=== PATIENT | male | born 1945 | race Two or more races ===

== ENCOUNTER 2020-03-17 15:31 | Inpatient (IN) | payer OTHER ==
[~2020-03-17] VITALS: Ht 167.6 cm; Wt 127.3 kg
[~2020-03-17 15:31] MED LIST: AML5T PO; ASPI-231 PO; ATOR10TA52 PO; CAR125T PO; FURO1TAB31 PO; INSLANTI SC; INSUINJ47 SC; METF-372 PO; SERT-160 PO
[2020-03-17 16:17] LABS: Basophils # (auto) 0.1 10 ^3/uL (0-0.2); Basophils % (auto) 1.3 % (0.0-2.0); Eosinophils # (auto) 0.3 10 ^3/uL (0-0.8); Eosinophils % (auto) 3.4 % (0.0-7.0); Hematocrit 44.2 % (41.0-53.0); Hemoglobin 15.2 g/dL (13.5-17.5); Lymphocytes # (auto) 1.1 10 ^3/uL (0.4-5.4); Lymphocytes % (auto) 11.3 % (10.0-50.0); Mean Corpuscular Hemoglobin 28.4 pg (28.0-32.0); Mean Corpuscular Hgb Conc. 34.4 g/dL (32.0-36.0); Mean Corpuscular Volume 82.6 fL (80.0-100.0); Monocytes # (auto) 1.1 10 ^3/uL (0-1.3); Monocytes % (auto) 11.3 % (0.0-12.0); Neutrophils # (auto) 7.4 10 ^3/uL (1.6-8.6); Neutrophils % (auto) 72.7 % (37.0-80.0); Nucleated Red Blood Cells % 0.1 %; Platelet Count (auto) 430 10^3/uL (140-450); Red Blood Cells 5.35 10^6/uL (4.5-5.90); Red Cell Distribution Width 14.5 % (11.8-14.3); White Blood Cell 10.1 10^3/uL (4.4-10.8)
[2020-03-17 16:29] LABS: Alanine Aminotransferase 57 U/L (16-61); Albumin 2.6 g/dL (3.4-5.0); Anion Gap 9 (5-15); BUN/Creatinine Ratio 20.7; Blood Urea Nitrogen 35 mg/dL (7-18); Calcium 8.6 mg/dL (8.5-10.1); Carbon Dioxide 27 mmol/L (21-32); Chloride 91 mmol/L (98-107); GFR African American 52 mL/min; GFR Non-African American 43 mL/min; Glucose 131 mg/dL (74-106); Potassium 3.5 mmol/L (3.5-5.1); Sodium 127 mmol/L (136-145)
[2020-03-17 16:33] LABS: Alkaline Phosphatase 70 U/L (45-117); Aspartate Aminotransferase 39 U/L (15-37); Bilirubin, Total 0.8 mg/dL (0.2-1.0); Total Protein 6.9 g/dL (6.4-8.2)
[2020-03-17 16:46] LABS: Lactic Acid w/Reflex 2.4 mmol/L (0.4-2.0)
[2020-03-17] MEDS ORDERED: ZINC SULFATE 220mg CAP or TAB PO ONE (17:15)
[2020-03-17] MEDS ORDERED: DOXYCYCLINE 100MG/250ML 250 ML IV ONE (17:15)
[2020-03-17] MEDS ORDERED: DexAMETHasone 4 MG TAB PO ONE (17:15)
[2020-03-17] MEDS ORDERED: ASCORBIC ACID 500 MG TAB PO ONE (17:15)
[2020-03-17] MEDS ORDERED: SODIUM CHLORIDE 0.9% 500 ML IV ONE (17:30)
[2020-03-17] MEDS ORDERED: NITROGLYCERIN 0.4 MG SL TAB SL PRN (18:00)
[2020-03-17] MEDS ORDERED: SODIUM CHLORIDE 0.9% 1,000 ML IV ONE (18:00)
[2020-03-17] MEDS ORDERED: MORPHINE SULF INJ 2 MG/ML SYRINGE 1ML IV PRN (18:00)
[2020-03-17 18:54] LABS: INR 1.31 (0.9-1.15)
[2020-03-17] MEDS: cefTRIAXone 1GM/50ML D5W 50 ML IV SCH (19:36)
[2020-03-17 22:30] VITALS: BP 126/70
--- NOTE | 2020-03-17 22:30 | NUR ---
Telemetry admit from HIMA CEDILLO admitted to Telemetry unit after SBAR received. Patient oriented to Sharan dejesus RN, unit, room 233, bed, and unit policies regarding patient care and visiting hours. Patient now on continuous telemetry monitoring, tele box #3 and telemetry reading on arrival to unit is Afib 81. Patient placed on bedside oxygen, weighed by bedscale and encouraged to call if they need something. All questions and concerns addressed, patient verbalized understanding.
[2020-03-17] MEDS ORDERED: METF-370 PO (22:36)
[2020-03-17] MEDS ORDERED: AMLO5TAB15 PO (22:36)
[2020-03-17] MEDS ORDERED: CLOP75TA28 PO (22:36)
[2020-03-17 22:49] VITALS: BP 126/70
[2020-03-18 03:36] LABS: Urine Bacteria FEW /hpf (None Seen); Urine Blood 2+ /uL (Negative); Urine Mucus FEW (None Seen); Urine Specific Gravity 1.006 (1.001-1.035); Urine WBC 16 /hpf (0 - 3); Urine WBC Clumps PRESENT /hpf (None Seen)
[2020-03-18 05:00] VITALS: BP 113/70
[2020-03-18 07:05] LABS: Basophils # (auto) 0 10 ^3/uL (0-0.2); Basophils % (auto) 0.3 % (0.0-2.0); Eosinophils # (auto) 0 10 ^3/uL (0-0.8); Eosinophils % (auto) 0.2 % (0.0-7.0); Hematocrit 45.2 % (41.0-53.0); Hemoglobin 15.5 g/dL (13.5-17.5); Lymphocytes # (auto) 0.7 10 ^3/uL (0.4-5.4); Mean Corpuscular Hemoglobin 28.7 pg (28.0-32.0); Mean Corpuscular Hgb Conc. 34.3 g/dL (32.0-36.0); Mean Corpuscular Volume 83.7 fL (80.0-100.0); Monocytes # (auto) 0.3 10 ^3/uL (0-1.3); Neutrophils # (auto) 5.8 10 ^3/uL (1.6-8.6); Neutrophils % (auto) 84.5 % (37.0-80.0); Nucleated Red Blood Cells % 0.1 %; Platelet Count (auto) 414 10^3/uL (140-450); Red Blood Cells 5.39 10^6/uL (4.5-5.90); Red Cell Distribution Width 14.3 % (11.8-14.3); White Blood Cell 6.9 10^3/uL (4.4-10.8)
--- NOTE | 2020-03-18 07:13 | NUR ---
Respiratory note: PT IS AWAKE, AND ALERT. NO RESPIRATORY DISTRESS NOTED. SPO2 98% ON 4L NC, HR 88, RR 18, BS CLEAR/DIMINISHED BILATERALLY. NO FURTHER RESPIRATORY INTERVENTIONS INDICATED. WILL CONTINUE TO MONITOR PT.
[2020-03-18 07:22] LABS: BUN/Creatinine Ratio 25.6; Calcium 8.5 mg/dL (8.5-10.1); Potassium 3.8 mmol/L (3.5-5.1)
[2020-03-18 08:58] VITALS: BP 109/68
[2020-03-18] MEDS: DexAMETHasone SOD PHOS 10MG/1ML VIAL INJ IV SCH (09:19)
[2020-03-18] MEDS: AZITHROMYCIN 500MG/ 250ML 250 ML IV SCH (09:19)
[2020-03-18] MEDS: cefTRIAXone 1GM/50ML D5W 50 ML IV SCH (09:19)
--- NOTE | 2020-03-18 09:36 | NUR ---
SPOKE TO Dorcas BROWN REGARDING PATIENT STATUS. INFORMED OF PATIENT CURRENT STATUS AND CURRENT VITALS. INFORMED OF PATIENT ON 4L NC. INFORMED OF PATIENT PMH AND HOME MEDICATIONS. INSTRUCTED TO RESUME HOME MEDICATIONS BUT NOT METFORMIN. INSTRUCTED TO PLACE PATIENT ON A MODERATE ACHS SLIDING SCALE AND 15 UNITS OF LANTUS AT NIGHT TIME. ALSO INSTRUCTED TO HOLD OFF ON FLUIDS AT THIS TIME. WILL FOLLOW THROUGH.
[2020-03-18] MEDS ORDERED: DEXTROSE (50%) 50ML SYRG IV PRN (09:45)
--- NOTE | 2020-03-18 09:58 | NUR ---
Dorcas RODGERS AT BEDSIDE. INFORMED OF PATIENTS STATUS AND CURRENT VITALS. INFORMED PATIENT IS CURRENTLY ON 4L NC UP FROM BASELINE OF 2L NC UPON DISCHARGE FROM [facility] ON SUNDAY. RECEIVED NEW ORDERS,
[2020-03-18 11:00] VITALS: BP 114/82
--- NOTE | 2020-03-18 11:00 | NUR ---
SPOKE TO Dorcas BROWN PER HIS REQUEST. INFORMED HIM THAT Dorcas HART HAS ROUNDED ON PATIENT AND OF NEW ORDERS RECEIVED. NO NEW ORDERS RECEIVED FROM Dorcas
[2020-03-18] MEDS: ACCU-CHEK COMFORT CURVE STRIP VI SCH ×3 (11:30→22:19)
[2020-03-18] MEDS: ZINC SULFATE 220mg CAP or TAB PO SCH (11:50)
[2020-03-18] MEDS: CLOPIDOGREL BISULFATE 75 MG TAB PO SCH (11:50)
[2020-03-18] MEDS: ASCORBIC ACID 1,000 MG TAB PO SCH (11:50)
[2020-03-18] MEDS: CHOLECALCIFEROL (VITD3) 2,000 UNIT CAP PO SCH (11:51)
[2020-03-18] MEDS: ENOXAPARIN SOD 40 MG/0.4 ML SYRINGE SC SCH (11:51)
[2020-03-18] MEDS: CARVEDILOL 12.5 MG TAB PO SCH ×2 (11:52→22:23)
[2020-03-18] MEDS: InsuLIN REG 1unit/0.01ml Soln (100units/ml) SC SCH ×2 (12:34→17:56)
[2020-03-18 13:00] VITALS: BP 114/81
[2020-03-18] MEDS: ALBUTEROL SULF HFA 90MCG INH 200DOSE IN SCH ×2 (14:25→22:45)
[2020-03-18 17:18] VITALS: BP 116/72
[2020-03-18 22:00] VITALS: BP 118/73
[2020-03-18] MEDS ORDERED: InsuLIN REG 1unit/0.01ml Soln (100units/ml) SC SCH (22:00)
[2020-03-18] MEDS ORDERED: INSULIN LANTUS (GLARGINE) 1 /0.01ml (100units/ml) SC SCH (22:00)
[2020-03-19 05:00] VITALS: BP 130/79
[2020-03-19] MEDS: ACCU-CHEK COMFORT CURVE STRIP VI SCH ×3 (06:22→17:48)
[2020-03-19] MEDS: InsuLIN REG 1unit/0.01ml Soln (100units/ml) SC SCH ×3 (06:24→17:50)
--- NOTE | 2020-03-19 06:58 | NUR ---
closing note no s/s of distress at this time. pt says he "feels good". respirations even and nonlabored on 4Lnc.
[2020-03-19] MEDS: ALBUTEROL SULF HFA 90MCG INH 200DOSE IN SCH ×2 (07:20→14:08)
--- NOTE | 2020-03-19 07:20 | NUR ---
OPENING NOTE ASSUMED CARE OF PT. ALERT AND ORIENTED. NO S/S OF SOB/DISTRESS NOTED. BED SET TO LOWEST POSITION/LOCKED. BEDSIDE RAILS UP X2. CALL LIGHT WITHIN REACH. INSTRUCTED PT TO CALL FOR ASSISTANCE. UPDATED ON POC. WILL CONTINUE TO MONITOR Q1HR AND PRN.
--- NOTE | 2020-03-19 07:30 | NUR ---
DECREASED TO 3LPM NC. AFTER TX. Addendum: 03/19/20 at 0753 by Lenore Matthews RT Amended: Links added.
[2020-03-19 08:14] VITALS: BP 122/78
[2020-03-19] MEDS: cefTRIAXone 1GM/50ML D5W 50 ML IV SCH (09:50)
[2020-03-19] MEDS: ZINC SULFATE 220mg CAP or TAB PO SCH (09:51)
[2020-03-19] MEDS: AZITHROMYCIN 500MG/ 250ML 250 ML IV SCH (09:51)
[2020-03-19] MEDS: DexAMETHasone SOD PHOS 10MG/1ML VIAL INJ IV SCH (09:51)
[2020-03-19] MEDS: ASCORBIC ACID 1,000 MG TAB PO SCH (09:52)
[2020-03-19] MEDS: ENOXAPARIN SOD 40 MG/0.4 ML SYRINGE SC SCH (09:52)
[2020-03-19] MEDS: CARVEDILOL 12.5 MG TAB PO SCH (09:52)
[2020-03-19] MEDS: CHOLECALCIFEROL (VITD3) 2,000 UNIT CAP PO SCH (09:52)
[2020-03-19] MEDS: CLOPIDOGREL BISULFATE 75 MG TAB PO SCH (09:52)
--- NOTE | 2020-03-19 10:14 | NUR ---
MD ATTEMPTED TO CALL DR. BROWN PER HIS REQUEST. NO ANSWER AND UNABLE TO LEAVE A MESSAGE. WILL ATTEMPT AT A LATER TIME.
[2020-03-19 10:48] LABS: BUN/Creatinine Ratio 24.8; Calcium 9.6 mg/dL (8.5-10.1); Potassium 4.1 mmol/L (3.5-5.1)
--- NOTE | 2020-03-19 11:25 | NUR ---
SPO2 ON RA PATIENT SPO2 ON SITTING DOWN ON RA IS 89%. PER PATIENT HE HAS HOME 02. WILL INFORM
--- NOTE | 2020-03-19 11:31 | NUR ---
RECEIVED NEW ORDER TO DISCHARGE THIS PATIENT BY DR. BROWN VIA TELEPHONE. THIS NURSE WILL CARRY OUT NEW ORDERS.
[2020-03-19 13:00] VITALS: BP 123/78
--- NOTE | 2020-03-19 14:17 | NUR ---
TRANSPORTATION PATIENT [facility] PICK[facility] . PER RAMÍREZ TANK TENDER TIME WILL BE AT 1945.
--- NOTE | 2020-03-19 15:20 | NUR ---
PT. FOUND ON RA , SPO2 90%, PLACED BACK ON AT 3LPM. Addendum: 03/19/20 at 1520 by Lenore Matthews RT Amended: Links added.
[2020-03-19 17:00] VITALS: BP 120/85
[2020-03-19 17:07] VITALS: BP 123/95
--- NOTE | 2020-03-19 18:51 | NUR ---
Discharge instructions given as ordered. Encourage to follow up with PMD as instructed. All questions and concerns addressed. Patient verbalized understanding. IV removed with catheter intact, pressure dressing applied.
--- NOTE | 2020-03-19 19:47 | NUR ---
PT IV AND TELE MONITOR REMOVED. PT LEAVING WITH SIDDHARTHAK AT THIS TIME.
== END 2020-03-19 19:47 | disposition home or self-care (01) | DRG 177 ==
LOC: ER 15:31 → TELE 15:32 → TELE-EAST 21:35
PROVIDERS: ADMIT Internal Medicine; ATTEND Internal Medicine
DX: U07.1 COVID-19 (principal); J96.00 Acute respiratory failure, unspecified whether with hypoxia or hypercapnia; J12.89 Other viral pneumonia; N17.9 Acute kidney failure, unspecified; E87.1 Hypo-osmolality and hyponatremia; I50.42 Chronic combined systolic (congestive) and diastolic (congestive) heart failure; Z68.42 Body mass index [BMI] 45.0-49.9, adult; I13.0 Hypertensive heart and chronic kidney disease with heart failure and stage 1 through stage 4 chronic kidney disease, or unspecified chronic kidney disease; J44.0 Chronic obstructive pulmonary disease with (acute) lower respiratory infection; E78.5 Hyperlipidemia, unspecified; I25.10 Atherosclerotic heart disease of native coronary artery without angina pectoris; E66.01 Morbid (severe) obesity due to excess calories; E86.0 Dehydration; N18.9 Chronic kidney disease, unspecified; E11.22 Type 2 diabetes mellitus with diabetic chronic kidney disease; I25.2 Old myocardial infarction; Z79.4 Long term (current) use of insulin; Z79.82 Long term (current) use of aspirin; Z79.899 Other long term (current) drug therapy; Z82.49 Family history of ischemic heart disease and other diseases of the circulatory system; Z83.3 Family history of diabetes mellitus; Z86.73 Personal history of transient ischemic attack (TIA), and cerebral infarction without residual deficits
CPT/HCPCS: 36415; 36600; 71045; 71250; 80048; 80053; 81001; 82728; 82805; 82962; 83605; 83880; 84484; 85025; 85379; 85610; 86141; 87040; 87081; 87426; 93005; 94640; 99291; G0378; J0696; J1100; J1815; J3490

== ENCOUNTER → 2020-06-04 | Outpatient (CLI) | payer MEDICARE, OTHER ==
[~2020-06-04] MED LIST changes: +AMLO5TAB15 PO; +CLOP75TA28 PO; +FUROSEMIDE 100 MG/10ML VIAL IV ONE; +FUROSEMIDE 40 MG/4 ML VIAL ONE; +METF-370 PO; +POTASSIUM CHL 10 Meq TABLET PO ONE; +POTASSIUM CHL 20 Meq TABLET PO ONE
[2020-06-04 11:20] VITALS: BP 140/87
--- NOTE | 2020-06-04 11:20 | NUR ---
CLINIC PT ARRIVED TO THE [facility]F CLINIC FROM BACK OFFICE WITH ORDERS FOR IV DIURETICS, A/OX4, BROUGHT BACK IN WHEELCHAIR, ASSISTED BY JEAN VO, BREATHING IS EVEN AND UNLABORED.
--- NOTE | 2020-06-04 11:32 | NUR ---
LABS DRAWN AND SENT
[2020-06-04 12:03] VITALS: BP 154/91
--- NOTE | 2020-06-04 12:03 | NUR ---
Discharge Instructions See e-MAR for any mediations given with this visit. Patient education given on disease process. Patient verbalized understanding. Patient discharged in stable condition with after care instructions and follow up appointment. NOTE MONSERRAT IVP ADMIN BY JOSE LU ADMIN BY OMAIRA PARMAR
[2020-06-04 16:19] LABS: Albumin 3.2 g/dL (3.4-5.0); Calcium 8.3 mg/dL (8.5-10.1); Potassium 3.9 mmol/L (3.5-5.1)
[2020-06-04 16:25] LABS: BUN/Creatinine Ratio 15.9; Bilirubin, Direct 0.5 mg/dL (0-0.2); Bilirubin, Total 1.1 mg/dL (0.2-1.0)
[2020-06-04 16:26] LABS: Basophils # (auto) 0.1 10 ^3/uL (0-0.2); Basophils % (auto) 1.3 % (0.0-2.0); Eosinophils # (auto) 0.3 10 ^3/uL (0-0.8); Eosinophils % (auto) 3.7 % (0.0-7.0); Hematocrit 40.8 % (41.0-53.0); Hemoglobin 13.3 g/dL (13.5-17.5); Lymphocytes # (auto) 1.3 10 ^3/uL (0.4-5.4); Lymphocytes % (auto) 19.2 % (10.0-50.0); Mean Corpuscular Hemoglobin 28.5 pg (28.0-32.0); Mean Corpuscular Hgb Conc. 32.7 g/dL (32.0-36.0); Mean Corpuscular Volume 87.1 fL (80.0-100.0); Monocytes # (auto) 0.7 10 ^3/uL (0-1.3); Monocytes % (auto) 10.8 % (0.0-12.0); Neutrophils # (auto) 4.5 10 ^3/uL (1.6-8.6); Nucleated Red Blood Cells % 0.2 %; Platelet Count (auto) 230 10^3/uL (140-450); Red Blood Cells 4.68 10^6/uL (4.5-5.90); Red Cell Distribution Width 17.4 % (11.8-14.3); White Blood Cell 6.9 10^3/uL (4.4-10.8)
== END | disposition home or self-care (01) ==
LOC: Rad HDHVI 11:27
PROVIDERS: ATTEND Internal Medicine Cardiovascular Disease
DX: D51.3 Other dietary vitamin B12 deficiency anemia (principal); E87.6 Hypokalemia; R06.02 Shortness of breath; R60.9 Edema, unspecified; Z79.899 Other long term (current) drug therapy
CPT/HCPCS: 36415; 71046; 80048; 80061; 80076; 82306; 83036; 84403; 84443; 85025; 96374; G0463; J1940

== ENCOUNTER → 2020-07-07 | Outpatient (CLI) | payer MEDICARE, OTHER ==
[~2020-07-07] MED LIST changes: -FUROSEMIDE 100 MG/10ML VIAL IV ONE; -FUROSEMIDE 40 MG/4 ML VIAL ONE; -POTASSIUM CHL 10 Meq TABLET PO ONE; -POTASSIUM CHL 20 Meq TABLET PO ONE
== END | disposition home or self-care (01) ==
LOC: Rad HDHVI 10:06
PROVIDERS: ATTEND Internal Medicine Cardiovascular Disease
DX: I08.8 Other rheumatic multiple valve diseases (principal); I27.21 Secondary pulmonary arterial hypertension; I25.10 Atherosclerotic heart disease of native coronary artery without angina pectoris; R07.89 Other chest pain; R06.02 Shortness of breath
CPT/HCPCS: 93306

== ENCOUNTER → 2022-07-04 | Outpatient (CLI) | payer MEDICARE ==
[~2022-07-04] MED LIST changes: +AMLO-489 PO; -AMLO5TAB15 PO; -ASPI-231 PO; +ASPI1TAB20 PO
[2022-07-04 11:48] LABS: Basophils # (auto) 0.2 10 ^3/uL (0-0.2); Basophils % (auto) 2.2 % (0.0-2.0); Eosinophils # (auto) 0.3 10 ^3/uL (0-0.8); Eosinophils % (auto) 3.4 % (0.0-7.0); Hematocrit 44.6 % (41.0-53.0); Hemoglobin 14.9 g/dL (13.5-17.5); Lymphocytes # (auto) 2.3 10 ^3/uL (0.4-5.4); Lymphocytes % (auto) 31.8 % (10.0-50.0); Mean Corpuscular Hemoglobin 29.2 pg (28.0-32.0); Mean Corpuscular Hgb Conc. 33.3 g/dL (32.0-36.0); Mean Corpuscular Volume 87.5 fL (80.0-100.0); Monocytes # (auto) 0.8 10 ^3/uL (0-1.3); Monocytes % (auto) 10.3 % (0.0-12.0); Neutrophils # (auto) 3.8 10 ^3/uL (1.6-8.6); Neutrophils % (auto) 52.3 % (37.0-80.0); Nucleated Red Blood Cells % 0.1 %; Red Cell Distribution Width 15.6 % (11.8-14.3); White Blood Cell 7.4 10^3/uL (4.4-10.8)
[2022-07-04 11:51] LABS: Urine Blood 2+ /uL (Negative); Urine Specific Gravity 1.022 (1.001-1.035)
[2022-07-04 11:59] LABS: Albumin 3.3 g/dL (3.4-5.0); Calcium 8.7 mg/dL (8.5-10.1); Potassium 4.6 mmol/L (3.5-5.1)
[2022-07-04 12:03] LABS: BUN/Creatinine Ratio 25.7
[2022-07-04 12:07] LABS: Free T4 (Free Thyroxine) 0.99 ng/dL (0.89-1.76)
[2022-07-04 12:08] LABS: Prostate Specific Antigen 1.57 ng/mL (0.0-4.0)
== END | disposition home or self-care (01) ==
LOC: LAB 09:19
PROVIDERS: ATTEND Internal Medicine
DX: I50.32 Chronic diastolic (congestive) heart failure (principal); E55.9 Vitamin D deficiency, unspecified; N39.0 Urinary tract infection, site not specified
CPT/HCPCS: 36415; 80053; 80061; 81003; 82306; 82607; 83036; 84153; 84403; 84439; 84443; 85025; 87086

== ENCOUNTER → 2023-07-03 | Outpatient (CLI) | payer MEDICARE ==
[~2023-07-03] MED LIST changes: -AMLO-489 PO; +AMLO1TAB22 PO; +INSUINJ37 SC; +LEVO50TA7 PO; +POTA-180 PO; +TORS20TA19 PO; +[UNRECOGNIZED DRUG - CODE] XX
== END | disposition home or self-care (01) ==
LOC: Rad HDHVI 13:06
PROVIDERS: ATTEND Internal Medicine Cardiovascular Disease
DX: I08.0 Rheumatic disorders of both mitral and aortic valves (principal); I11.9 Hypertensive heart disease without heart failure
CPT/HCPCS: 93306

== ENCOUNTER → 2023-12-17 | Outpatient (CLI) | payer MEDICARE, OTHER ==
[~2023-12-17] MED LIST changes: -AML5T PO; -ASPI1TAB20 PO; -ATOR10TA52 PO; -CLOP75TA28 PO; -FURO1TAB31 PO; -INSLANTI SC; -INSUINJ47 SC; -METF-372 PO
== END | disposition home or self-care (01) ==
LOC: Rad HDHVI 13:22
PROVIDERS: ATTEND Internal Medicine Cardiovascular Disease
DX: I73.9 Peripheral vascular disease, unspecified (principal); I10 Essential (primary) hypertension
CPT/HCPCS: 93880

== ENCOUNTER → 2024-01-07 | Outpatient (CLI) | payer MEDICARE, OTHER ==
[~2024-01-07] VITALS: Ht 172.7 cm; Wt 111.1 kg
[~2024-01-07] MED LIST changes: +ADENOSINE 90 MG/30 ML INJ IV ONE; +ADENOSINE 93 MG in GIVE UN-DILUTED 0 ML IV ONE
== END | disposition home or self-care (01) ==
LOC: Rad HDHVI 09:54
PROVIDERS: ATTEND Internal Medicine Cardiovascular Disease
DX: I13.0 Hypertensive heart and chronic kidney disease with heart failure and stage 1 through stage 4 chronic kidney disease, or unspecified chronic kidney disease (principal); I50.32 Chronic diastolic (congestive) heart failure; N18.30 Chronic kidney disease, stage 3 unspecified; I25.2 Old myocardial infarction; I25.5 Ischemic cardiomyopathy; I73.9 Peripheral vascular disease, unspecified; E78.5 Hyperlipidemia, unspecified; I25.10 Atherosclerotic heart disease of native coronary artery without angina pectoris; Z95.0 Presence of cardiac pacemaker
CPT/HCPCS: 78452; 93005; 96374; 96375; A9500; J0153

== ENCOUNTER → 2024-02-04 | Outpatient (CLI) | payer MEDICARE, OTHER ==
[~2024-02-04] MED LIST changes: -ADENOSINE 90 MG/30 ML INJ IV ONE; -ADENOSINE 93 MG in GIVE UN-DILUTED 0 ML IV ONE; +IOHEXOL 350 MG/ML 100ML IJ ONE; +READI-CAT 2 (BARIUM SULF)(VANILLA SMOOTHIE) 450ML ONE
[2024-02-04 11:28] VITALS: BP 106/53; PULSE 70; RESP 16; O2SAT 95
[2024-02-04 12:28] VITALS: BP 114/56; PULSE 69; RESP 16; O2SAT 95
== END | disposition home or self-care (01) ==
LOC: Rad HDHVI 11:17
PROVIDERS: ATTEND Internal Medicine Cardiovascular Disease
DX: K76.0 Fatty (change of) liver, not elsewhere classified (principal); R16.0 Hepatomegaly, not elsewhere classified; K80.20 Calculus of gallbladder without cholecystitis without obstruction; N13.2 Hydronephrosis with renal and ureteral calculous obstruction; K59.00 Constipation, unspecified; R10.9 Unspecified abdominal pain; B17.9 Acute viral hepatitis, unspecified
CPT/HCPCS: 74177; G0463; Q9967

== ENCOUNTER → 2024-02-11 | Outpatient (CLI) | payer MEDICARE, OTHER ==
[~2024-02-11] MED LIST changes: +APIX2.5T PO; -IOHEXOL 350 MG/ML 100ML IJ ONE; +POM; +POTA-215 PO; -READI-CAT 2 (BARIUM SULF)(VANILLA SMOOTHIE) 450ML ONE; +SPIR25TA8 PO
[2024-02-11 13:08] VITALS: BP 119/67; PULSE 70; RESP 16; O2SAT 95
[2024-02-11 13:20] VITALS: BP 125/69; PULSE 70; RESP 16; O2SAT 95
== END | disposition home or self-care (01) ==
LOC: Rad HDHVI 12:58
PROVIDERS: ATTEND Internal Medicine Cardiovascular Disease
DX: Z01.818 Encounter for other preprocedural examination (principal); I25.5 Ischemic cardiomyopathy; I51.7 Cardiomegaly; R94.31 Abnormal electrocardiogram [ECG] [EKG]
CPT/HCPCS: 71046; 93005; G0463

== ENCOUNTER → 2024-03-31 | Outpatient (CLI) | payer MEDICARE, OTHER ==
[~2024-03-31] MED LIST changes: +ASCO500C49 PO; +CHOL1CAP58 PO; +CLOP75TA70 PO; +INSU100I47 SC; +INSU100I61 SC; +INSU100I70 SC; -INSUINJ37 SC; +MULT-1058 PO; -TORS20TA19 PO; +[UNRECOGNIZED DRUG - CODE] EX
[2024-03-31 11:10] VITALS: BP 129/62; PULSE 70; RESP 16; O2SAT 93
[2024-03-31 11:43] VITALS: BP 130/60; PULSE 70; RESP 16; O2SAT 93
== END | disposition home or self-care (01) ==
LOC: Rad HDHVI 11:11
PROVIDERS: ATTEND Internal Medicine Cardiovascular Disease
DX: Z01.818 Encounter for other preprocedural examination (principal)
CPT/HCPCS: 71046; 93005; G0463

== ENCOUNTER 2024-04-03 07:05 | Inpatient (IN) | payer MEDICARE, OTHER ==
[2024-03-31 14:43] LABS: Basophils # (auto) 0.1 10 ^3/uL (0-0.2); Basophils % (auto) 1.3 % (0.0-2.0); Eosinophils # (auto) 0.3 10 ^3/uL (0-0.8); Eosinophils % (auto) 3.6 % (0.0-7.0); Hematocrit 45.1 % (41.0-53.0); Hemoglobin 15.4 g/dL (13.5-17.5); Lymphocytes # (auto) 3.2 10 ^3/uL (0.4-5.4); Lymphocytes % (auto) 33.2 % (10.0-50.0); Mean Corpuscular Hemoglobin 30.7 pg (28.0-32.0); Mean Corpuscular Volume 90.2 fL (80.0-100.0); Monocytes # (auto) 0.8 10 ^3/uL (0-1.3); Monocytes % (auto) 8.4 % (0.0-12.0); Neutrophils # (auto) 5.1 10 ^3/uL (1.6-8.6); Neutrophils % (auto) 53.5 % (37.0-80.0); Nucleated Red Blood Cells % 0.4 %; Platelet Count (auto) 310 10^3/uL (140-450); Red Cell Distribution Width 14.4 % (11.8-14.3); White Blood Cell 9.6 10^3/uL (4.4-10.8)
[2024-03-31 15:07] LABS: INR 1.08 (0.9-1.15); Partial Thromboplastin Time 34.2 SEC (24.5-34.5); Prothrombin Time 11.4 sec (9.3-11.8)
[2024-03-31 15:38] LABS: Chloride 104 mmol/L (98-107); Potassium 4.7 mmol/L (3.5-5.1); Sodium 137 mmol/L (136-145)
[2024-03-31 15:39] LABS: Anion Gap 4 (5-15); Calcium 9.8 mg/dL (8.7-10.4); Carbon Dioxide 29 mmol/L (20-31)
[2024-03-31 15:44] LABS: BUN/Creatinine Ratio 20.2 (10.0-20.0); Blood Urea Nitrogen 18 mg/dL (9-23); Glucose 144 mg/dL (74-106)
[~2024-04-03] VITALS: Ht 172.7 cm; Wt 111.0 kg
[2024-04-03] VITALS (13 sets, daily range): BP systolic 102–138; BP diastolic 60–74; PULSE 69–107; RESP 12–20; TEMP 97.5–98.7; O2SAT 90–98
[~2024-04-03 07:05] MED LIST changes: -INSU100I47 SC; -POTA-215 PO
[2024-04-03] MEDS: fentaNYL CITRATE 100 MCG/2 ML VL ONE (09:21)
[2024-04-03] MEDS: LIDOCAINE 2%HCL (LOCAL ANESTH.) INJ 20ML MDV ONE (09:21)
[2024-04-03] MEDS: MIDAZOLAM HCL 2MG/2ML 2ml VIAL (1mg/ml) ONE (09:21)
[2024-04-03] MEDS: SODIUM CHL 0.9% 0 ML ONE (09:21)
[2024-04-03] MEDS: ANGIOMAX 250 MG VIAL IV ONE ×2 (09:21→10:21)
[2024-04-03] MEDS: IOHEXOL 350 MG/ML 100ML IJ ONE ×2 (09:30→10:10)
[2024-04-03] MEDS: HEPARIN IN NS 1000Units/500mL 1,500 ML ONE (09:30)
[2024-04-03] MEDS: HEPARIN SODIUM (PORCINE) 5000 UNITS/ML 1ML VIAL ONE (09:34)
[2024-04-03] MEDS: VERAPAMIL 2.5MG/ML INJ 2ML VIAL IV ONE (09:36)
[2024-04-03] MEDS: SODIUM CHL 0.9% 50 ML ONE (10:21)
[2024-04-03] MEDS: CLOPIDOGREL BISULFATE 75 MG TAB ONE (10:27)
[2024-04-03] MEDS: ASPirin 325 MG TAB ONE (10:27)
[2024-04-03] MEDS ORDERED: NITROGLYCERIN 0.4 MG SL TAB SL PRN (12:00)
[2024-04-03] MEDS ORDERED: MORPHINE SULFATE INJ 2 MG/ml SYRG IV PRN (12:00)
[2024-04-03] MEDS ORDERED: DEXTROSE (50%) 50ML SYRG IV PRN (15:45)
[2024-04-03] MEDS: InsuLIN REG 1unit/0.01ml Soln (100units/ml) SC SCH ×2 (17:00→22:16)
[2024-04-03] MEDS: ACCU-CHEK COMFORT CURVE STRIP VI SCH (17:00)
[2024-04-03] MEDS ORDERED: ZINC50TA27 PO (18:15)
[2024-04-03] MEDS: CARVEDILOL 12.5 MG TAB PO SCH (21:42)
[2024-04-03] MEDS ORDERED: APIXABAN 2.5 MG TAB PO SCH (22:00)
[2024-04-04] VITALS (7 sets, daily range): BP systolic 119–142; BP diastolic 61–75; PULSE 60–70; RESP 18–22; TEMP 36.5; O2SAT 94–96
[2024-04-04] MEDS: LEVOTHYROXINE SODIUM 50 MCG TAB PO SCH (05:32)
[2024-04-04 06:38] LABS: Urine Bacteria FEW /hpf (None Seen); Urine Blood 3+ /uL (Negative); Urine Clarity Turbid (Clear); Urine Color Light-Orange (Yellow); Urine Protein, UAD TRACE (Negative); Urine Specific Gravity 1.033 (1.001-1.035); Urine Urobilinogen Normal (Negative); Urine WBC 162 /hpf (0 - 3); Urine WBC Clumps PRESENT /hpf (None Seen); Urine pH 5.5 (5.0-9.0)
[2024-04-04 06:42] LABS: Basophils # (auto) 0.1 10 ^3/uL (0-0.2); Basophils % (auto) 1.5 % (0.0-2.0); Eosinophils # (auto) 0.4 10 ^3/uL (0-0.8); Eosinophils % (auto) 4.4 % (0.0-7.0); Hematocrit 44.1 % (41.0-53.0); Hemoglobin 15.1 g/dL (13.5-17.5); Lymphocytes # (auto) 2.3 10 ^3/uL (0.4-5.4); Lymphocytes % (auto) 25.7 % (10.0-50.0); Mean Corpuscular Hemoglobin 31.1 pg (28.0-32.0); Mean Corpuscular Hgb Conc. 34.2 g/dL (32.0-36.0); Monocytes # (auto) 0.8 10 ^3/uL (0-1.3); Monocytes % (auto) 9.4 % (0.0-12.0); Neutrophils # (auto) 5.2 10 ^3/uL (1.6-8.6); Nucleated Red Blood Cells % 0.1 %; Platelet Count (auto) 255 10^3/uL (140-450); Red Blood Cells 4.85 10^6/uL (4.5-5.90); Red Cell Distribution Width 14.4 % (11.8-14.3); White Blood Cell 8.8 10^3/uL (4.4-10.8)
[2024-04-04] MEDS: CLOPIDOGREL BISULFATE 75 MG TAB PO SCH (09:37)
[2024-04-04] MEDS: SPIRONOLACTONE 25 MG TAB PO SCH (09:38)
[2024-04-04] MEDS: amLODIPine BESYLATE 5 MG TAB PO SCH (09:39)
[2024-04-04] MEDS ORDERED: CLOPIDOGREL BISULFATE 75 MG TAB PO ONE (10:00)
[2024-04-04] MEDS: APIXABAN 2.5 MG TAB PO SCH (10:00)
== END 2024-04-04 18:25 | disposition home or self-care (01) | DRG 324 ==
LOC: CATH 07:05 → TELE 11:55 → TELE-CENTR 16:36
PROVIDERS: ADMIT Internal Medicine Cardiovascular Disease; ATTEND Internal Medicine Cardiovascular Disease
PROC: 027135Z Dilation of Coronary Artery, Two Arteries with Two Drug-eluting Intraluminal Devices, Percutaneous Approach (ICD-10-PCS; principal; 2024-04-03)
PROC: 02F03ZZ Fragmentation in Coronary Artery, One Artery, Percutaneous Approach (ICD-10-PCS; 2024-04-03)
PROC: 4A023N7 Measurement of Cardiac Sampling and Pressure, Left Heart, Percutaneous Approach (ICD-10-PCS; 2024-04-03)
PROC: B211YZZ Fluoroscopy of Multiple Coronary Arteries using Other Contrast (ICD-10-PCS; 2024-04-03)
PROC: B215YZZ Fluoroscopy of Left Heart using Other Contrast (ICD-10-PCS; 2024-04-03)
DX: I25.10 Atherosclerotic heart disease of native coronary artery without angina pectoris (principal); I25.5 Ischemic cardiomyopathy; J44.9 Chronic obstructive pulmonary disease, unspecified; E11.51 Type 2 diabetes mellitus with diabetic peripheral angiopathy without gangrene; I50.9 Heart failure, unspecified; Z95.810 Presence of automatic (implantable) cardiac defibrillator; Z86.73 Personal history of transient ischemic attack (TIA), and cerebral infarction without residual deficits; I25.2 Old myocardial infarction
CPT/HCPCS: 36415; 80048; 81001; 82962; 85025; 85610; 85730; 92928; 92978; 93458; 99152; C1874; G0378; J1815; J2250

== ENCOUNTER 2024-04-10 04:04 | Inpatient (IN) | payer MEDICARE, OTHER ==
[~2024-04-10] VITALS: Ht 172.7 cm; Wt 106.5 kg
[2024-04-10] VITALS (12 sets, daily range): BP systolic 92–103; BP diastolic 56–67; PULSE 86–101; RESP 16–22; TEMP 98.8; O2SAT 91–98
[~2024-04-10 04:04] MED LIST changes: +ZINC50TA27 PO
--- NOTE | 2024-04-10 04:57 | ED.PDOC ---
History of Present Illness HPI Comments 78 y/o M, with a Hx of AICD, AFIB, CAD, CHF, COPD w/2LPM NC and BIPAP, DM, HLD, HTN, DE, PTCA, TIA, pacemaker, anxiety, and obesity, is BIBA for c/o chest and back pain, today. Patient endorses on unprovoked and sudden onset of symptoms, this morning. Patient comments on pain originating in his chest and then radiating towards his back. Per EMS report, patient was given 324mg ASA and 1sl NTG en route by EMS staff, with mild improvement to pain symptoms. Patient also admits to current UTI w/Abx Tx regimen placed by his PCP, Dr. Morrissey, and having current symptoms of hematuria and diarrhea for the past week. Patient reports no further relevant or pertinent past medical, surgical, or family Hx in addition to any recent stress, injuries, sick contact, travel, spoiled food intake, substance use/exposure, or sexual activity. Patient denies having any palpitations, shortness of breath, dizziness, nausea, vomiting, fever, chills, or other associated symptoms or modifiers at this time. Chief Complaint: Chest Pain Time Seen by MD: 04:30 Primary Care Provider: [facility] Reviewed Notes: Nurses Notes, [employer] Notes, Medications, Allergies Allergies: Coded Allergies: Atorvastatin (Verified Allergy, Unknown, 03/31/24) Lisinopril (Verified Allergy, Unknown, coughing, 03/31/24) Home Meds Active Scripts Sertraline Hcl (Sertraline Hcl) 100 Mg Tab, 100 MG PO DAILY, #30 TAB Prov:LATONIA DASILVA MD 02/18/15 Reported Medications Zinc (Zinc) 50 Mg Tab, 50 MG PO, TAB 04/03/24 Insulin Aspart (Novolog Flexpen Relion) 100 Unit/Ml Inj, SC TIDWM for SLIDING SCALE, INJ 03/31/24 Patients Own Medication (PATIENTS OWN MEDICATION) ., 2 L NA PRN for O2 FOR SOB PTS OWN MED-OBTAIN FROM PT AND SEND TO RX DRUG: FREQ: RX# EXP: DATE DISP: TECH: RPH: 03/31/24 Cholecalciferol (Vitamin D3 1.25 mg (20917 Ut)) 1 Cap Cap, 1 CAP PO DAILY for SUPPLEMENT, CAP 03/31/24 Vitamins A & D (Topical) (A&D) 1 Oin Oin, 1 OIN EX PRN for PERINEAL AREA, OIN 03/31/24 Multiple Vitamins W/ Minerals (Multivitamin) 1 Tab Tab, 1 TAB PO DAILY, TAB 03/31/24 Ascorbic Acid (VITAMIN C) 500 Mg Cap, 1000 MG PO DAILY for SUPPLEMENT, CAP 03/31/24 Clopidogrel Bisulfate (CLOPIDOGREL) 75 Mg Tab, 75 MG PO DAILY for S/P CARDIAC STENTS, MG 03/31/24 Insulin Glargine-Yfgn (Insulin Glargine) 100 Unit/Ml Inj, 10 UNIT SC QAM for DIABETES, INJ 03/31/24 Potassium Chloride (Potassium Chloride ER) 20 Meq Tab, 20 MEQ PO DAILY for SUPPLEMENT, TAB 03/31/24 Apixaban Base (ELIQUIS) 2.5 Mg Tab, 2.5 MG PO BID for STOP ON 04/02/24, TAB 02/11/24 Spironolactone (Spironolactone) 25 Mg Tab, 1 TAB PO DAILY for edema, #90 TAB 1 Refill 02/11/24 Respiratory Therapy Supplies ([place] Cpap & Bipap Ho) 1 Mis Mis, MIS XX HS, #150 07/05/23 Levothyroxine Sodium (Levothyroxine Sodium) 50 Mcg Tab, 1 TAB PO DAILY 07/05/23 Amlodipine Besylate (Amlodipine Besylate) 5 Mg Tab, 2.5 MG PO DAILY for 30 Days, MG 03/17/20 Metformin Hydrochloride (Metformin Hcl) 500 Mg Tab, 500 MG PO BID for DIABETES for 30 Days, MG 03/17/20 Carvedilol (Coreg) 12.5 Mg Tab, 2 TAB PO BID 07/08/15 Information Source: Patient, Emergency Med Personnel Mode of Arrival: EMS Severity: Moderate Timing: Hours Duration: Since onset Prehospital treatment: 12 Lead EKG, Accucheck (163), ASA, Cork Tile Floor Layer, NTG, Oxygen, Other (20G IV LAC ) Past Medical History PAST MEDICAL HISTORY: AFIB, Anxiety, CAD, CHF, COPD (w/2LPM NC and BIPAP), DM, High Lipids, HTN, DE, TIA Past Medical History (Other): obesity Surgical History: Pacemaker, PTCA Surgical History (Other): AICD Family History Family History: No family hx of Cancer, No family hx of Heart urszula, No family hx ofKidney urszula, No family hx of Liver urszula, No family hx of Lung urszula, No family hx of Stroke, Family hx of DM, Family hx of HTN Social History Smoker: Non-Smoker Alcohol: Occasionally Drugs: Denies Drug Use Lives In: Home Constitutional: denies: chills, diaphoresis, fatigue, fever, malaise, sweats, weakness, others EENTM: denies: blurred vision, double vision, ear bleeding, ear discharge, ear drainage, ear pain, ear ringing, eye pain, eye redness, hearing loss, mouth pain, mouth swelling, nasal discharge, nose bleeding, nose congestion, nose pain, photophobia, tearing, throat pain, throat swelling, voice changes, others Respiratory: denies: cough, hemoptysis, orthopnea, SOB at rest, shortness of breath, SOB with excertion, stridor, wheezing, others Cardiovascular: reports: chest pain; denies: dizzy spells, diaphoresis, Dyspnea on exertion, edema, irregular heart beat, left arm pain, lightheadedness, palpitations, PND, syncope, others Gastrointestinal: reports: diarrhea; denies: abdomen distended, abdominal pain, blood streaked bowels, constipated, dysphagia, difficulty swallowing, hematemesis, melena, nausea, poor appetite, poor fluid intake, rectal bleeding, rectal pain, vomiting, others Genitourinary: reports: hematuria; denies: burning, dysuria, flank pain, frequency, incontinence, penile discharge, penile sore, pain, testicle pain, testicle swelling, urgency, others Neurological: denies: dizziness, fainting, headache, left sided numbness, left sided weakness, numbness, paresthesia, pre-existing deficit, right sided numbness, right sided weakness, seizure, speech problems, tingling, tremors, weakness, others Musculoskeletal: reports: back pain; denies: gout, joint pain, joint swelling, muscle pain, muscle stiffness, neck pain, others Integumetry: denies: bruises, change in color, change in hair/nails, dryness, laceration, lesions, lumps, rash, wounds, others Allergic/Immunocompromised: denies: Difficulty Healing, Frequent Infections, Hives, Itching, others Hematologic/Lymphatic: denies: anemia, blood clots, easy bleeding, easy bruising, swollen glands, others Endocrine: denies: excessive hunger, excessive sweating, excessive thirst, excessive urination, flushing, intolerance to cold, intolerance to heat, unexplained weight gain, unexplained weight loss, others Psychiatric: denies: anxiety, bipolar disorder, depression, hopeless, panic disorder, schizophrenia, sleepless, suicidal, others All Other Systems: Reviewed and Negative Physical Exam General Appearance: No Apparent Distress, Obese, Other (chronically ill- appearing) HEENT: Normal ENT Inspection, Pharynx Normal, TMs Normal Neck: Full Range of Motion, Non-Tender, Normal, Normal Inspection Respiratory: Chest Non-Tender, Lungs Clear, No Accessory Muscle Use, No Respiratory Distress, Normal Breath Sounds, Other (on 2LPM NC ) Cardiovascular: No Edema, No JVD, No Murmur, No Gallop, Normal Peripheral Pulses, Regular Rate/Rhythm Breast Exam: Deferred Gastrointestinal: No Organomegaly, Non Tender, No Pulsatile Mass, Normal Bowel Sounds, Soft Genitalia: Deferred Pelvic: Deferred Rectal: Deferred Extremities: No calf tenderness, Normal capillary refill, Normal inspection, Normal range of motion, Non-tender, No pedal edema Musculoskeletal : Apperance: Normal Neurologic: Alert, temper mill roller II-XII nml as Tested, No Motor Deficits, Normal Affect, Normal Mood, No Sensory Deficits Cerebellar Function: Normal Reflexes: Normal Skin: Dry, Normal Color, Warm Lymphatic: No Adenopathy Was a procedure done? Was a procedure done?: No EKG EKG : Pulse Rate (adult): 85 [place]: Normal Cardiac Rhythm: Paced Block: None Hypertrophy: None ST: Normal Differential Dx Considerations may include: DE, ACS, gastritis, gastroenteritis, costochondritis, musculoskeletal pain, PNA X-Ray, Labs, Meds, VS Vital Signs Date Time Temp Pulse Resp B/P (MAP) Pulse Ox O2 Delivery O2 Flow Rate FiO2 04/10/24 05:06 85 04/10/24 05:00 94 04/10/24 04:57 85 04/10/24 04:41 86 18 94 Nasal Cannula* 2 28 04/10/24 04:39 97.8 86 18 90/42 (58) 94 97.8 04/10/24 04:12 98.3 80 18 119/73 (88) 93 04/10/24 04:08 85 Lab Test 04/10/24 04:51 04/10/24 04:46 Range/Units White Blood Count 13.6 #H 4.4-10.8 10^3/uL Red Blood Count 4.72 4.5-5.90 10^6/uL Hemoglobin 14.8 13.5-17.5 g/dL Hematocrit 42.8 41.0-53.0 % Mean Corpuscular Volume 90.6 80.0-100.0 fL Mean Corpuscular Hemoglobin 31.2 28.0-32.0 pg Mean Corpuscular Hemoglobin Concent 34.5 32.0-36.0 g/dL Red Cell Distribution Width 14.8 H 11.8-14.3 % Platelet Count 260 140-450 10^3/uL Mean Platelet Volume 9.7 6.9-10.8 fL Neutrophils (%) (Auto) 75.9 37.0-80.0 % Lymphocytes (%) (Auto) 13.2 10.0-50.0 % Monocytes (%) (Auto) 9.1 0.0-12.0 % Eosinophils (%) (Auto) 1.1 0.0-7.0 % Basophils (%) (Auto) 0.7 0.0-2.0 % Neutrophils # (Auto) 10.4 H 1.6-8.6 10 ^3/uL Lymphocytes # (Auto) 1.8 0.4-5.4 10 ^3/uL Monocytes # (Auto) 1.2 0-1.3 10 ^3/uL Eosinophils # (Auto) 0.1 0-0.8 10 ^3/uL Basophils # (Auto) 0.1 0-0.2 10 ^3/uL Nucleated Red Blood Cells 0.0 % Prothrombin Time 11.8 9.3-11.8 sec Prothrombin Time INR 1.12 0.9-1.15 Activated Partial Thromboplast Time 32.1 24.5-34.5 SEC Sodium Level Pending Potassium Level Pending Chloride Level Pending Carbon Dioxide Level Pending Anion Gap Pending Blood Urea Nitrogen Pending Creatinine Pending Glomerular Filtration Rate Calc Pending BUN/Creatinine Ratio Pending Serum Glucose Pending Calcium Level Pending Total Bilirubin Pending Aspartate Amino Transferase (AST) Pending Alanine Aminotransferase (ALT) Pending Alkaline Phosphatase Pending Troponin I High Sensitivity Pending B-Type Natriuretic Peptide Pending Total Protein Pending Albumin Pending Urine Color Dark-yellow Yellow Urine Clarity Ex.turbid Clear Urine pH 5.5 5.0-9.0 Urine Specific Yarnell 1.023 1.001-1.035 Urine Protein 1+ H Negative Urine Ketones Negative Negative Urine Blood 2+ H Negative /uL Urine Nitrite Negative Negative Urine Bilirubin 1+ Negative Urine Urobilinogen 2 H Negative mg/dL Urine Leukocyte Esterase 3+ Negative /uL Urine RBC 28 0 - 3 /hpf Urine WBC 867 0 - 3 /hpf Urine WBC Clumps Present None Seen /hpf Urine Squamous Epithelial Cells Few <5 /hpf Urine Bacteria Mod H None Seen /hpf Urine Mucus Few None Seen Urine Yeast (Budding) Occasional None Seen /hpf Urine Glucose Normal Normal mg/dL Time of 1ST Reevaluation: 05:00 Reevaluation 1ST: Unchanged Patient Education/Counseling: Diagnosis, Treatment Family Education/Counseling: No Family Present Departure 1 Departure Time of Disposition: 05:53 (Patient presented with chest pain that was concerning for possible STEMI, ACS, PE, Pneumonia, Muscle Strain, COPD, Dissection. Data: 1. I ordered and reviewed the result of at least 3 labs including a CBC, BMP, and Troponin. 2. I independently interpreted the following tests: EKG which shows sinus arrhythmia _ and Chest X-ray which shows benign chest.Risk:This patient has a high risk of morbidity due to further diagnostic testing or treatment and may suffer from an acute cardiac or respiratory disorder. Workup reveals urinary tract infection that failed outpatient antibiotics possible ACS and patient should be admitted for further workup and possible expert consultation. ) Impression: Primary Impression: Chest pain Qualified Codes: R07.9 - Chest pain, unspecified Additional Impressions: Urinary tract infection Qualified Codes: N30.01 - Acute cystitis with hematuria Weakness Shortness of breath Disposition: ADMITTED INPATIENT Admit to: Med Surg Condition: Serious Critical Care Note Critical Care Time?: Yes Critical care comment: Acute chest pain Authorized and Performed by: Jean-Pierre Rodríguez MD Total critical care time: Approximately 33 minutes Due to a high probability of clinically significant, life threatening deterioration, the patient required my highest level of preparedness to intervene emergently and I personally spent this critical care time directly and personally managing the patient. This critical care time included obtaining a history; examining the patient; pulse oximetry; ordering and review of studies; arranging urgent treatment with development of a management plan; evaluation of patient's response to treatment; frequent reassessment; and, discussions with other providers. This critical care time was performed to assess and manage the high probability of imminent, life-threatening deterioration that could result in multi-organ failure. It was exclusive of separately billable procedures and treating other patients and teaching time. Please see my other sections and the rest of the note for further information on patient assessment and treatment. Stability Stability form required: No Heart Score Heart Score: Heart Score Response (Comments) Value History Slightly Suspicious 0 EKG Normal 0 Age >65 2 Risk Factors >3 or Hx ASHD 2 Troponin Normal limit 0 Total 4 NATACHA CUEVAS Apr 10, 2024 04:57 JEAN-PIERRE RODRÍGUEZ MD Apr 10, 2024 05:54
[2024-04-10 04:58] LABS: Urine Bacteria MOD /hpf (None Seen); Urine Blood 2+ /uL (Negative); Urine Budding Yeast OCCASIONAL /hpf (None Seen); Urine Clarity Ex.Turbid (Clear); Urine Color Dark-Yellow (Yellow); Urine Mucus FEW (None Seen); Urine Protein, UAD 1+ (Negative); Urine Specific Gravity 1.023 (1.001-1.035); Urine Urobilinogen 2 mg/dL (Negative); Urine WBC 867 /hpf (0 - 3); Urine WBC Clumps PRESENT /hpf (None Seen); Urine pH 5.5 (5.0-9.0)
[2024-04-10 05:20] LABS: Basophils # (auto) 0.1 10 ^3/uL (0-0.2); Basophils % (auto) 0.7 % (0.0-2.0); Eosinophils # (auto) 0.1 10 ^3/uL (0-0.8); Eosinophils % (auto) 1.1 % (0.0-7.0); Hematocrit 42.8 % (41.0-53.0); Hemoglobin 14.8 g/dL (13.5-17.5); Lymphocytes # (auto) 1.8 10 ^3/uL (0.4-5.4); Lymphocytes % (auto) 13.2 % (10.0-50.0); Mean Corpuscular Hemoglobin 31.2 pg (28.0-32.0); Mean Corpuscular Hgb Conc. 34.5 g/dL (32.0-36.0); Mean Corpuscular Volume 90.6 fL (80.0-100.0); Monocytes # (auto) 1.2 10 ^3/uL (0-1.3); Monocytes % (auto) 9.1 % (0.0-12.0); Neutrophils # (auto) 10.4 10 ^3/uL (1.6-8.6); Neutrophils % (auto) 75.9 % (37.0-80.0); Platelet Count (auto) 260 10^3/uL (140-450); Red Blood Cells 4.72 10^6/uL (4.5-5.90); Red Cell Distribution Width 14.8 % (11.8-14.3); White Blood Cell 13.6 10^3/uL (4.4-10.8)
--- NOTE | 2024-04-10 05:25 | DVH ---
CHEST RADIOGRAPH Indication:CP Technique: Single frontal view of the chest was obtained COMPARISON: XY CHEST PORTABLE on DOS: 07/12/23, XY CHEST PORTABLE on DOS: 07/04/23, CHEST PORTABLE on D OS: 03/17/20 FINDINGS: Lines and Tubes: Left chest wall AICD Lungs: Congestion. Pleura: No effusion. No pneumothorax. Cardiomediastinal contours: Cardiomegaly. Bones: Unremarkable IMPRESSION: Cardiomegaly. Mild pulmonary vascular congestion.
[2024-04-10 05:38] LABS: INR 1.12 (0.9-1.15); Partial Thromboplastin Time 32.1 SEC (24.5-34.5); Prothrombin Time 11.8 sec (9.3-11.8)
[2024-04-10 05:41] LABS: Alanine Aminotransferase 130 U/L (7-40); Albumin 3.7 g/dL (3.2-4.8); Alkaline Phosphatase 269 U/L (46-116); Anion Gap 7 (5-15); Aspartate Aminotransferase 343 U/L (13-40); BUN/Creatinine Ratio 27.1 (10.0-20.0); Blood Urea Nitrogen 23 mg/dL (9-23); Calcium 9.3 mg/dL (8.7-10.4); Carbon Dioxide 24 mmol/L (20-31); Chloride 105 mmol/L (98-107); Glucose 165 mg/dL (74-106); Potassium 4.4 mmol/L (3.5-5.1); Sodium 136 mmol/L (136-145)
[2024-04-10 05:42] LABS: Bilirubin, Total 3.6 mg/dL (0.2-1.0); Total Protein 6.7 g/dL (5.7-8.2)
[2024-04-10] MEDS: CEFEPIME 2GM/50ML NS 50 ML IV ONE (06:00)
--- NOTE | 2024-04-10 06:20 | ECG ---
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
[2024-04-10] MEDS: MORPHINE SULFATE 4 MG/ML SYR/VIAL IV ONE (07:47)
[2024-04-10] MEDS: ONDANSETRON HCL 4 MG/2 ML VIAL IV ONE (07:47)
[2024-04-10] MEDS: ENOXAPARIN SOD 120 MG/0.8 ML SYRINGE SC ONE (07:47)
[2024-04-10] MEDS: CLOPIDOGREL BISULFATE 75 MG TAB PO ONE (09:07)
--- NOTE | 2024-04-10 09:42 | ECG ---
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
[2024-04-10] MEDS: MIDAZOLAM HCL 2MG/2ML 2ml VIAL (1mg/ml) ONE (10:48)
[2024-04-10] MEDS: fentaNYL CITRATE 100 MCG/2 ML VL ONE (10:48)
[2024-04-10] MEDS: LIDOCAINE 2%HCL (LOCAL ANESTH.) INJ 20ML MDV ONE (10:48)
[2024-04-10] MEDS: ANGIOMAX 250 MG VIAL IV ONE (11:02)
[2024-04-10] MEDS: SODIUM CHL 0.9% 50 ML ONE (11:02)
[2024-04-10] MEDS: EPTIFIBATIDE INJ (2MG/ML) 10ML VIAL IV ONE (11:25)
[2024-04-10] MEDS: TICAGRELOR 90 MG TAB ONE (11:35)
--- NOTE | 2024-04-10 11:44 | DVHHP2 ---
Admitting Diagnosis: PT WITH ACUTE LATERAL WALL ME ACUTE CLOSURE OF CIRCUMFLEX ARTERY RECENT PTCA STENT OF CX History of Present Illness PT WITH CHEST PAIN X 5 DAYS S/P [PTCA STENT RAMUS S/P PTCA STENT CX 1 WEEK AGO NO WITH SUBACUTE STENOSIS OF CX STENT PMH; The patient is 78 years old with history of ischemic cardiomyopathy. The patient with a congestive heart failure. He had 2 stents placed in 2023 to the RCA and PDA. The patient now having increasing symptoms of chest pain. It appears the right coronary artery was occluded and now having high-grade narrowing of the circumflex and ramus branch. PERTINENT MEDICAL HISTORY: Significant for: * Status post AICD implantation in 06/2023. He underwent angioplasty with stent placement of the right coronary artery and PDA. The patient with history of CVA. In 2004, history of peripheral vascular disease with claudication symptoms. * History of COPD. He has never been a smoker. * History of diabetes with diabetic neuropathy, vasculopathy, nephropathy. * History of heart failure, status post Bi-V AICD implantation as outlined above. * History of myocardial infarction in 2004. CURRENT MEDICATIONS: Include insulin, metformin, Plavix, amlodipine, carvedilol, spironolactone and Eliquis. He is on Eliquis and on Plavix because of combination of recent stent placement and also because of atrial fibrillation with hypercoagulable state. REVIEW OF SYSTEMS: Denies any fever or chills. No melena, hematochezia, no hematemesis, hemoptysis. Denies any syncopal episode. No history of inflammatory bowel disease or irritable bowel syndrome. No history of liver disease. Social History as above Patient Family History: Diabetes mellitus G8 MOTHER FH: liver cancer G8 MOTHER Allergies: Coded Allergies: Atorvastatin (Verified Allergy, Unknown, 03/31/24) Lisinopril (Verified Allergy, Unknown, coughing, 03/31/24) Home Meds Active Scripts Sertraline Hcl (Sertraline Hcl) 100 Mg Tab, 100 MG PO DAILY, #30 TAB Prov:LATONIA DASILVA MD 02/18/15 Reported Medications Zinc (Zinc) 50 Mg Tab, 50 MG PO, TAB 04/03/24 Insulin Aspart (Novolog Flexpen Relion) 100 Unit/Ml Inj, SC TIDWM for SLIDING SCALE, INJ 03/31/24 Patients Own Medication (PATIENTS OWN MEDICATION) ., 2 L NA PRN for O2 FOR SOB PTS OWN MED-OBTAIN FROM PT AND SEND TO RX DRUG: FREQ: RX# EXP: DATE DISP: TECH: RPH: 03/31/24 Cholecalciferol (Vitamin D3 1.25 mg (58092 Ut)) 1 Cap Cap, 1 CAP PO DAILY for SUPPLEMENT, CAP 03/31/24 Vitamins A & D (Topical) (A&D) 1 Oin Oin, 1 OIN EX PRN for PERINEAL AREA, OIN 03/31/24 Multiple Vitamins W/ Minerals (Multivitamin) 1 Tab Tab, 1 TAB PO DAILY, TAB 03/31/24 Ascorbic Acid (VITAMIN C) 500 Mg Cap, 1000 MG PO DAILY for SUPPLEMENT, CAP 03/31/24 Clopidogrel Bisulfate (CLOPIDOGREL) 75 Mg Tab, 75 MG PO DAILY for S/P CARDIAC S TENTS, MG 03/31/24 Insulin Glargine-Yfgn (Insulin Glargine) 100 Unit/Ml Inj, 10 UNIT SC QAM for DIABETES, INJ 03/31/24 Potassium Chloride (Potassium Chloride ER) 20 Meq Tab, 20 MEQ PO DAILY for SUPPLEMENT, TAB 03/31/24 Apixaban Base (ELIQUIS) 2.5 Mg Tab, 2.5 MG PO BID for STOP ON 04/02/24, TAB 02/11/24 Spironolactone (Spironolactone) 25 Mg Tab, 1 TAB PO DAILY for edema, #90 TAB 1 Refill 02/11/24 Respiratory Therapy Supplies ([place] Cpap & Bipap Ho) 1 Mis Mis, MIS XX HS, #150 07/05/23 Levothyroxine Sodium (Levothyroxine Sodium) 50 Mcg Tab, 1 TAB PO DAILY 07/05/23 Amlodipine Besylate (Amlodipine Besylate) 5 Mg Tab, 2.5 MG PO DAILY for 30 Days, MG 03/17/20 Metformin Hydrochloride (Metformin Hcl) 500 Mg Tab, 500 MG PO BID for DIABETES for 30 Days, MG 03/17/20 Carvedilol (Coreg) 12.5 Mg Tab, 2 TAB PO BID 07/08/15 Current Medications Current Medications Medications (Trade) Dose Ordered Sig/Danis Route PRN Reason Start Time Stop Time Status Last Admin Heparin Sodium/ Dextrose 250 ml @ 10 mls/hr Q24H IV 04/10/24 17:00 Vital Signs Vital Signs Date Time Temp Pulse Resp B/P (MAP) Pulse Ox O2 Delivery O2 Flow Rate FiO2 04/10/24 09:00 94 19 96 Nasal Cannula* 2 28 04/10/24 08:22 108/62 04/10/24 07:00 98.4 98.4 Physical Exam HEENT: Pupils are reactive. Funduscopic exam shows some AV nicking and hard exudates, no papilledema noted. Sclerae are anicteric. NECK: No JVD appreciated. Carotid pulses are 2+ and symmetrical. No cervical adenopathy, no supraclavicular adenopathy. PULMONARY: Clear to auscultation. CARDIOVASCULAR: Regular rate without S3, without S4. PMI; however, is diffuse. There is a 2/6 systolic murmur along the left sternal border. ABDOMEN: Obese. Unable to appreciate an organomegaly. EXTREMITIES: Distal pulses are diminished with 1 Doppler pulses in lower extremity. NEUROLOGIC: The patient, however, is intact, alert, oriented. Results Labs Test 04/10/24 08:57 04/10/24 04:51 04/10/24 04:46 Range/Units Troponin I High Sensitivity 40600 *H </=54 ng/L White Blood Count 13.6 #H 4.4-10.8 10^3/uL Red Blood Count 4.72 4.5-5.90 10^6/uL Hemoglobin 14.8 13.5-17.5 g/dL Hematocrit 42.8 41.0-53.0 % Mean Corpuscular Volume 90.6 80.0-100.0 fL Mean Corpuscular Hemoglobin 31.2 28.0-32.0 pg Mean Corpuscular Hemoglobin Concent 34.5 32.0-36.0 g/dL Red Cell Distribution Width 14.8 H 11.8-14.3 % Platelet Count 260 140-450 10^3/uL Mean Platelet Volume 9.7 6.9-10.8 fL Neutrophils (%) (Auto) 75.9 37.0-80.0 % Lymphocytes (%) (Auto) 13.2 10.0-50.0 % Monocytes (%) (Auto) 9.1 0.0-12.0 % Eosinophils (%) (Auto) 1.1 0.0-7.0 % Basophils (%) (Auto) 0.7 0.0-2.0 % Neutrophils # (Auto) 10.4 H 1.6-8.6 10 ^3/uL Lymphocytes # (Auto) 1.8 0.4-5.4 10 ^3/uL Monocytes # (Auto) 1.2 0-1.3 10 ^3/uL Eosinophils # (Auto) 0.1 0-0.8 10 ^3/uL Basophils # (Auto) 0.1 0-0.2 10 ^3/uL Nucleated Red Blood Cells 0.0 % Prothrombin Time 11.8 9.3-11.8 sec Prothrombin Time INR 1.12 0.9-1.15 Activated Partial Thromboplast Time 32.1 24.5-34.5 SEC Sodium Level 136 136-145 mmol/L Potassium Level 4.4 3.5-5.1 mmol/L Chloride Level 105 98-107 mmol/L Carbon Dioxide Level 24 20-31 mmol/L Anion Gap 7 5-15 Blood Urea Nitrogen 23 9-23 mg/dL Creatinine 0.85 0.700-1.30 mg/dL Glomerular Filtration Rate Calc 90 >90 mL/min BUN/Creatinine Ratio 27.1 H 10.0-20.0 Serum Glucose 165 H 74-106 mg/dL Calcium Level 9.3 8.7-10.4 mg/dL Total Bilirubin 3.6 H 0.2-1.0 mg/dL Aspartate Amino Transferase (AST) 343 H 13-40 U/L Alanine Aminotransferase (ALT) 130 H 7-40 U/L Alkaline Phosphatase 269 H 46-116 U/L B-Type Natriuretic Peptide 945.03 0-100 pg/mL Total Protein 6.7 5.7-8.2 g/dL Albumin 3.7 3.2-4.8 g/dL Urine Color Dark-yellow Yellow Urine Clarity Ex.turbid Clear Urine pH 5.5 5.0-9.0 Urine Specific [place] 1.023 1.001-1.035 Urine Protein 1+ H Negative Urine Ketones Negative Negative Urine Blood 2+ H Negative /uL Urine Nitrite Negative Negative Urine Bilirubin 1+ Negative Urine Urobilinogen 2 H Negative mg/dL Urine Leukocyte Esterase 3+ Negative /uL Urine RBC 28 0 - 3 /hpf Urine WBC 867 0 - 3 /hpf Urine WBC Clumps Present None Seen /hpf Urine Squamous Epithelial Cells Few <5 /hpf Urine Bacteria Mod H None Seen /hpf Urine Mucus Few None Seen Urine Yeast (Budding) Occasional None Seen /hpf Urine Glucose Normal Normal mg/dL Admitting Diagnosis: ACUTE LATERAL WALL ME STEMI ISCHEMOC CM S/P BIV AICD Plan STEMI PROTOCOL [facility] Plan discussed with: Patient CHRISTINA KAMARA MD Apr 10, 2024 11:44
[2024-04-10] MEDS ORDERED: DEXTROSE (50%) 50ML SYRG IV PRN (11:45)
[2024-04-10] MEDS: EZETIMIBE 10 MG TAB PO ONE (11:45)
[2024-04-10] MEDS: MAGNESIUM SULFATE 1GM/100ML 100 ML IV SCH (11:45)
[2024-04-10] MEDS ORDERED: MORPHINE SULFATE INJ 2 MG/ml SYRG IV PRN (11:45)
[2024-04-10] MEDS ORDERED: NITROGLYCERIN 0.4 MG SL TAB SL PRN (11:45)
--- NOTE | 2024-04-10 13:57 | DVHOP ---
DATE OF SURGERY: 04/10/2024 PROCEDURES PERFORMED: * Selective left and right coronary angiography, ventriculogram. * Angioplasty with stent placement of the circumflex obtuse marginal 2 and circumflex artery with a 3.0 x 22 mm Remy Fair[place] stent. * Conscious sedation. * Right iliac angiography with Angio-Seal device deployment. DESCRIPTION OF PROCEDURE: The patient was prepped and draped in a sterile condition. A 1% Xylocaine used to anesthetize the right groin. Using a Cook needle, the right femoral artery was engaged with Seldinger technique, a 6-[place] sheath in the right femoral artery. Using a 6-[place] XB 3.5 guide catheter, we were able to cannulate the left main. Using a ChoICE PT extra support wire, the first ChoICE PT extra support wire was placed into the circumflex artery in the AV groove. Then, a second ChoICE PT extra support wire was used to cross the stented portion of the circumflex that was acutely occluded. It was then angioplastied with a 2.5 x 15 mm Euphora balloon. Following the predilatation, a 3.0 x 22 mm Remy [place] stent was then deployed across the lesion extending from the obtuse marginal 2 into the mid portion of the circumflex proper. It was deployed at 14 atmospheres. There were no complications. The patient tolerated the procedure well. Intra-arterial Integrilin was given, 20 mg of slow infusion. RESULTS: * Left main patent. * Left anterior descending artery was patent. * Ramus branch, previous site of angioplasty with stent placement was patent. * Circumflex artery was acutely occluded. Status post angioplasty with stent placement with a 3.0 x 22 mm [place] stent with less than 10% residual stenosis. * Right coronary artery was patent as well. At this time, no further intervention is required. * Left ventricular function was diminished with an estimated EF of around 30% with an LVEDP of 18 mmHg with no gradient across the aortic valve. Thus, the patient with ischemic cardiomyopathy, previous history of angioplasty with stent placement of the ramus and the circumflex artery had presented with acute STEMI, now underwent successful revascularization of the circumflex and obtuse marginal 2 with a 3.0 x 22 mm Wilson [place] stent without any complication. Total contrast used was 80 mL of Optiray. Total fluoro time was 4 minutes. Ghanshyam Ventura MD SA/SUDHIR TID: [id number] RECEIPT: [id number]
[2024-04-10] MEDS: InsuLIN REG 1unit/0.01ml Soln (100units/ml) SC SCH (17:00)
[2024-04-10] MEDS ORDERED: HEPARIN DRIP/D5W 100UNITS/ML 250 ML IV SCH (17:00)
[2024-04-10] MEDS: ACCU-CHEK COMFORT CURVE STRIP VI SCH (17:24)
[2024-04-10] MEDS: HYDROcodone-ACET 10/325MG TAB PO PRN (18:30)
[2024-04-10] MEDS ORDERED: APIXABAN 2.5 MG TAB PO SCH (22:00)
[2024-04-11] VITALS (8 sets, daily range): BP systolic 86–114; BP diastolic 54–63; PULSE 82–126; RESP 15–20; TEMP 97.7–98.3; O2SAT 95–99
[2024-04-11] MEDS: InsuLIN REG 1unit/0.01ml Soln (100units/ml) SC SCH (00:02)
[2024-04-11] MEDS: TICAGRELOR 90 MG TAB PO SCH (00:15)
[2024-04-11] MEDS: CARVEDILOL 3.125 MG TAB PO SCH (00:16)
[2024-04-11] MEDS ORDERED: levoFLOXacin 500 MG TAB PO SCH (10:00)
[2024-04-11] MEDS: TICAGRELOR 60 MG TAB GT SCH (10:07)
[2024-04-11] MEDS: SERTRALINE HCL 50 MG TAB PO SCH (10:07)
[2024-04-11] MEDS: LEVOTHYROXINE SODIUM 50 MCG TAB PO SCH (10:08)
[2024-04-11] MEDS: SPIRONOLACTONE 25 MG TAB PO SCH (10:08)
[2024-04-12] VITALS (8 sets, daily range): BP systolic 92–116; BP diastolic 62–77; PULSE 69–116; RESP 16–22; TEMP 97.4–98.4; O2SAT 92–98
[2024-04-13] VITALS (9 sets, daily range): BP systolic 98–137; BP diastolic 58–85; PULSE 67–85; RESP 16–21; TEMP 97.4–98.3; O2SAT 93–100
[2024-04-13] MEDS: TICAGRELOR 60 MG TAB PO SCH (11:34)
[2024-04-14] VITALS (9 sets, daily range): BP systolic 96–126; BP diastolic 51–81; PULSE 52–79; RESP 16–20; TEMP 97.3–98.2; O2SAT 96–100
--- NOTE | 2024-04-14 14:10 | DVHPN2 ---
Progress Note - Dictate Date Seen: Apr 11, 2024 Medical Necessity Reason Pt with a Central, PICC or Fol: No Subjective PT WITH STEMI S/P PTCA STENT CX HEMATURIA DC ELIQUIS SERIAL CBC vital signs Vital Sign Date Time Temp Pulse Resp B/P (MAP) Pulse Ox O2 Delivery O2 Flow Rate FiO2 04/14/24 10:00 72 106/59 04/14/24 09:00 97.8 16 96 97.8 04/14/24 08:10 Nasal Cannula* 3 32 Total Intake and Output 04/13/24 04/13/24 04/14/24 15:00 23:00 07:00 Intake Total 1542 ml 700 ml Output Total 50 ml 200 ml Balance 1492 ml 500 ml medications Current Medications Medications Dose Ordered Sig/Danis Route Start Time Stop Time Status Last Admin Dose Admin Apixaban 2.5 mg BID PO 04/10/24 22:00 Hold Levothyroxine Sodium 50 mcg DAILY PO 04/11/24 10:00 04/14/24 10:10 50 MCG Spironolactone 25 mg DAILY PO 04/11/24 10:00 04/14/24 10:10 25 MG Sertraline HCl 100 mg DAILY PO 04/11/24 10:00 04/14/24 10:10 100 MG Nitroglycerin 0.4 mg Q5MINP PRN SL 04/10/24 11:45 Morphine Sulfate 2 mg Q30M PRN IV 04/10/24 11:45 Diagnostic Test (Pha) 1 strip ACHS 04/10/24 17:00 04/14/24 11:28 1 STRIP Insulin Human Regular HS SC 04/10/24 22:00 04/13/24 22:44 3 UNITS Insulin Human Regular AC SC 04/10/24 17:00 04/14/24 11:29 3 UNITS Dextrose 50 ml UD PRN IV 04/10/24 11:45 Carvedilol 6.25 mg BID PO 04/10/24 22:00 04/13/24 22:43 6.25 MG Levofloxacin 500 mg DAILY PO 04/11/24 10:00 Hold Acetaminophen/ Hydrocodone Bitart 1 tab Q8HP PRN PO 04/10/24 18:00 04/14/24 07:55 1 TAB Ticagrelor 60 mg BID PO 04/13/24 10:15 04/14/24 10:11 60 MG objective HEENT: Pupils are reactive. Funduscopic exam shows some AV nicking and hard exudates, no papilledema noted. Sclerae are anicteric. NECK: No JVD appreciated. Carotid pulses are 2+ and symmetrical. No cervical adenopathy, no supraclavicular adenopathy. PULMONARY: Clear to auscultation. CARDIOVASCULAR: Regular rate without S3, without S4. PMI; however, is diffuse. There is a 2/6 systolic murmur along the left sternal border. ABDOMEN: Obese. Unable to appreciate an organomegaly. EXTREMITIES: Distal pulses are diminished with 1 Doppler pulses in lower extremity. NEUROLOGIC: The patient, however, is intact, alert, oriented. laboratory and microbiology Laboratory Tests 04/10/24 04:51 Test 04/10/24 04:51 Range/Units Serum Glucose 165 H 74-106 mg/dL Problem List STEMI S/P PTCA STENT CX HEMATURAI HFrEF CHRONIC S/P AICD Assessment/Plan CBC STABLE CHECK UA UROLOGY CONSULT DEFERRED BECAUSE CANNOT STOP DAPT FOR NOW Dietary Evaluation Review Comments: follow 2gNa CCHO-60 diet, monitor PO intake to meet 75% of his needs Expected Outcomes/Goals: controlled DM and gradual weight loss. Plan discussed with: Patient Critical Care Time(min): 35 CHRISTINA KAMARA MD Apr 14, 2024 14:10
--- NOTE | 2024-04-14 14:12 | DVHPN2 ---
Progress Note - Dictate Date Seen: Apr 13, 2024 Medical Necessity Reason Pt with a Central, PICC or Fol: No Subjective PT WITH STEMI S/P PTCA STENT CX HEMATURIA DC ELIQUIS SERIAL CBC vital signs Vital Sign Date Time Temp Pulse Resp B/P (MAP) Pulse Ox O2 Delivery O2 Flow Rate FiO2 04/14/24 10:00 72 106/59 04/14/24 09:00 97.8 16 96 97.8 04/14/24 08:10 Nasal Cannula* 3 32 Total Intake and Output 04/13/24 04/13/24 04/14/24 15:00 23:00 07:00 Intake Total 1542 ml 700 ml Output Total 50 ml 200 ml Balance 1492 ml 500 ml medications Current Medications Medications Dose Ordered Sig/Danis Route Start Time Stop Time Status Last Admin Dose Admin Apixaban 2.5 mg BID PO 04/10/24 22:00 Hold Levothyroxine Sodium 50 mcg DAILY PO 04/11/24 10:00 04/14/24 10:10 50 MCG Spironolactone 25 mg DAILY PO 04/11/24 10:00 04/14/24 10:10 25 MG Sertraline HCl 100 mg DAILY PO 04/11/24 10:00 04/14/24 10:10 100 MG Nitroglycerin 0.4 mg Q5MINP PRN SL 04/10/24 11:45 Morphine Sulfate 2 mg Q30M PRN IV 04/10/24 11:45 Diagnostic Test (Pha) 1 strip ACHS 04/10/24 17:00 04/14/24 11:28 1 STRIP Insulin Human Regular HS SC 04/10/24 22:00 04/13/24 22:44 3 UNITS Insulin Human Regular AC SC 04/10/24 17:00 04/14/24 11:29 3 UNITS Dextrose 50 ml UD PRN IV 04/10/24 11:45 Carvedilol 6.25 mg BID PO 04/10/24 22:00 04/13/24 22:43 6.25 MG Levofloxacin 500 mg DAILY PO 04/11/24 10:00 Hold Acetaminophen/ Hydrocodone Bitart 1 tab Q8HP PRN PO 04/10/24 18:00 04/14/24 07:55 1 TAB Ticagrelor 60 mg BID PO 04/13/24 10:15 04/14/24 10:11 60 MG objective HEENT: Pupils are reactive. Funduscopic exam shows some AV nicking and hard exudates, no papilledema noted. Sclerae are anicteric. NECK: No JVD appreciated. Carotid pulses are 2+ and symmetrical. No cervical adenopathy, no supraclavicular adenopathy. PULMONARY: Clear to auscultation. CARDIOVASCULAR: Regular rate without S3, without S4. PMI; however, is diffuse. There is a 2/6 systolic murmur along the left sternal border. ABDOMEN: Obese. Unable to appreciate an organomegaly. EXTREMITIES: Distal pulses are diminished with 1 Doppler pulses in lower extremity. NEUROLOGIC: The patient, however, is intact, alert, oriented. laboratory and microbiology Laboratory Tests 04/10/24 04:51 Test 04/10/24 04:51 Range/Units Serum Glucose 165 H 74-106 mg/dL Problem List STEMI S/P PTCA STENT CX HEMATURAI HFrEF CHRONIC S/P AICD Assessment/Plan CBC STABLE CHECK UA UROLOGY CONSULT DEFERRED BECAUSE CANNOT STOP DAPT FOR NOW URINE CLEAR CHECK LABS Dietary Evaluation Review Comments: follow 2gNa CCHO-60 diet, monitor PO intake to meet 75% of his needs Expected Outcomes/Goals: controlled DM and gradual weight loss. Plan discussed with: Patient CHRISTINA KAMARA MD Apr 14, 2024 14:12
--- NOTE | 2024-04-14 14:15 | DVHDS2 ---
Discharge Summary Date of Admission Apr 10, 2024 at 11:44 Date of Discharge: Apr 14, 2024 Admitting Diagnosis STEMI Labs/Diagnostic Data: Laboratory Results Test 04/14/24 11:08 04/10/24 08:57 04/10/24 04:51 04/10/24 04:46 POC Glucose 194 mg/dl (70-106) Troponin I High Sensitivity 83068 ng/L (</=54) White Blood Count 13.6 10^3/uL (4.4-10.8) Red Blood Count 4.72 10^6/uL (4.5-5.90) Hemoglobin 14.8 g/dL (13.5-17.5) Hematocrit 42.8 % (41.0-53.0) Mean Corpuscular Volume 90.6 fL (80.0-100.0) Mean Corpuscular Hemoglobin 31.2 pg (28.0-32.0) Mean Corpuscular Hemoglobin Concent 34.5 g/dL (32.0-36.0) Red Cell Distribution Width 14.8 % (11.8-14.3) Platelet Count 260 10^3/uL (140-450) Mean Platelet Volume 9.7 fL (6.9-10.8) Neutrophils (%) (Auto) 75.9 % (37.0-80.0) Lymphocytes (%) (Auto) 13.2 % (10.0-50.0) Monocytes (%) (Auto) 9.1 % (0.0-12.0) Eosinophils (%) (Auto) 1.1 % (0.0-7.0) Basophils (%) (Auto) 0.7 % (0.0-2.0) Neutrophils # (Auto) 10.4 10 ^3/uL (1.6-8.6) Lymphocytes # (Auto) 1.8 10 ^3/uL (0.4-5.4) Monocytes # (Auto) 1.2 10 ^3/uL (0-1.3) Eosinophils # (Auto) 0.1 10 ^3/uL (0-0.8) Basophils # (Auto) 0.1 10 ^3/uL (0-0.2) Nucleated Red Blood Cells 0.0 % Prothrombin Time 11.8 sec (9.3-11.8) Prothrombin Time INR 1.12 (0.9-1.15) Activated Partial Thromboplast Time 32.1 SEC (24.5-34.5) Sodium Level 136 mmol/L (136-145) Potassium Level 4.4 mmol/L (3.5-5.1) Chloride Level 105 mmol/L (98-107) Carbon Dioxide Level 24 mmol/L (20-31) Anion Gap 7 (5-15) Blood Urea Nitrogen 23 mg/dL (9-23) Creatinine 0.85 mg/dL (0.700-1.30) Glomerular Filtration Rate Calc 90 mL/min (>90) BUN/Creatinine Ratio 27.1 (10.0-20.0) Serum Glucose 165 mg/dL (74-106) Calcium Level 9.3 mg/dL (8.7-10.4) Total Bilirubin 3.6 mg/dL (0.2-1.0) Aspartate Amino Transferase (AST) 343 U/L (13-40) Alanine Aminotransferase (ALT) 130 U/L (7-40) Alkaline Phosphatase 269 U/L (46-116) B-Type Natriuretic Peptide 945.03 pg/mL (0-100) Total Protein 6.7 g/dL (5.7-8.2) Albumin 3.7 g/dL (3.2-4.8) Urine Color Dark-yellow (Yellow) Urine Clarity Ex.turbid (Clear) Urine pH 5.5 (5.0-9.0) Urine Specific [place] 1.023 (1.001-1.035) Urine Protein 1+ (Negative) Urine Ketones Negative (Negative) Urine Blood 2+ /uL (Negative) Urine Nitrite Negative (Negative) Urine Bilirubin 1+ (Negative) Urine Urobilinogen 2 mg/dL (Negative) Urine Leukocyte Esterase 3+ /uL (Negative) Urine RBC 28 /hpf (0 - 3) Urine WBC 867 /hpf (0 - 3) Urine WBC Clumps Present /hpf (None Seen) Urine Squamous Epithelial Cells Few /hpf (<5) Urine Bacteria Mod /hpf (None Seen) Urine Mucus Few (None Seen) Urine Yeast (Budding) Occasional /hpf (None Urine Glucose Normal mg/dL (Normal) Other Laboratory Tests 04/10/24 04:51 Brief Hx & Hospital Course: STEMI S/P PTCA STENT CX HEMATURAI HFrEF CHRONIC S/P AICD Assessment/Plan CBC STABLE CHECK UA UROLOGY CONSULT DEFERRED BECAUSE CANNOT STOP DAPT FOR NOW URINE CLEAR CHECK LABS Operations or Procedures [facility] PTCA STENT CX Condition at Discharge: Guarded Final Diagnosis/Problems List STEMI S/P PTCA STENT CX HEMATURAI HFrEF CHRONIC S/P AICD Discharge Disposition: Home Discharge Instruct/Medications Diet: Cardiac 2g Na,low cholest Activity: No Restrictions, As Tolerated Follow Up/Referral: 1 WEEK Medications: CONT HOME MEDS NO ELIQUIS Discharge Statement: "Patient was advised to return to the ER or call 911 if any headaches, dizziness, shortness of breath, chest pain, abdominal pain, bleeding, fevers, or worsening of medical condition. Patient was counseled about treatment plan, medications, possible side effects, patientverbalized understanding. All questions were answered to the best of my ability. This discharge took greater then 30 minutes in planning, reviewing documentation, counseling the patient, and discussing with other team members." ASSESSMENT ASSESSMENT Assessment CHRISTINA KAMARA MD Apr 14, 2024 14:15
[2024-04-14 15:43] LABS: Basophils # (auto) 0 10 ^3/uL (0-0.2); Basophils % (auto) 0.4 % (0.0-2.0); Eosinophils # (auto) 0.3 10 ^3/uL (0-0.8); Hematocrit 39.1 % (41.0-53.0); Hemoglobin 13.4 g/dL (13.5-17.5); Lymphocytes # (auto) 1.2 10 ^3/uL (0.4-5.4); Lymphocytes % (auto) 11.8 % (10.0-50.0); Mean Corpuscular Hemoglobin 31.3 pg (28.0-32.0); Mean Corpuscular Hgb Conc. 34.3 g/dL (32.0-36.0); Mean Corpuscular Volume 91.2 fL (80.0-100.0); Monocytes # (auto) 1.2 10 ^3/uL (0-1.3); Monocytes % (auto) 11.5 % (0.0-12.0); Neutrophils # (auto) 7.7 10 ^3/uL (1.6-8.6); Neutrophils % (auto) 73.3 % (37.0-80.0); Nucleated Red Blood Cells % 0.1 %; Platelet Count (auto) 392 10^3/uL (140-450); Red Blood Cells 4.29 10^6/uL (4.5-5.90); Red Cell Distribution Width 14.2 % (11.8-14.3); White Blood Cell 10.5 10^3/uL (4.4-10.8)
[2024-04-15] VITALS (18 sets, daily range): BP systolic 96–127; BP diastolic 59–72; PULSE 63–86; RESP 18–21; TEMP 97.2–98.6; O2SAT 97–100
[2024-04-15] MEDS: IPRATROPIUM BROM 0.5 MG/2.5ML INH SOL NEB SCH (01:19)
[2024-04-15 03:22] LABS: Urine Bacteria FEW /hpf (None Seen); Urine Blood 3+ /uL (Negative); Urine Clarity Turbid (Clear); Urine Color Yellow (Yellow); Urine Protein, UAD TRACE (Negative); Urine Specific Gravity 1.018 (1.001-1.035); Urine Urobilinogen 2 mg/dL (Negative); Urine WBC 341 /hpf (0 - 3); Urine WBC Clumps PRESENT /hpf (None Seen)
[2024-04-15] MEDS ORDERED: IPRATROPIUM BROM 0.5 MG/2.5ML INH SOL NEB SCH (06:00)
--- NOTE | 2024-04-15 12:45 | DVHPN2 ---
Progress Note - Dictate Date Seen: Apr 14, 2024 Medical Necessity Reason Pt with a Central, PICC or Fol: No Subjective PT WITH STEMI S/P PTCA STENT CX HEMATURIA DC ELIQUIS SERIAL CBC vital signs Vital Sign Date Time Temp Pulse Resp B/P (MAP) Pulse Ox O2 Delivery O2 Flow Rate FiO2 04/15/24 10:00 99 Nasal Cannula 2.0 04/15/24 10:00 28 04/15/24 09:37 76 04/15/24 09:00 97.8 21 96/64 (75) 97.8 Total Intake and Output 04/14/24 04/14/24 04/15/24 15:00 23:00 07:00 Intake Total 900 ml 500 ml Output Total 401 ml 600 ml Balance 499 ml -100 ml medications Current Medications Medications Dose Ordered Sig/Adnis Route Start Time Stop Time Status Last Admin Dose Admin Apixaban 2.5 mg BID PO 04/10/24 22:00 Hold Levothyroxine Sodium 50 mcg DAILY PO 04/11/24 10:00 04/15/24 09:37 50 MCG Spironolactone 25 mg DAILY PO 04/11/24 10:00 04/15/24 09:37 25 MG Sertraline HCl 100 mg DAILY PO 04/11/24 10:00 04/15/24 09:37 100 MG Nitroglycerin 0.4 mg Q5MINP PRN SL 04/10/24 11:45 Morphine Sulfate 2 mg Q30M PRN IV 04/10/24 11:45 Diagnostic Test (Pha) 1 strip ACHS 04/10/24 17:00 04/15/24 11:36 1 STRIP Insulin Human Regular HS SC 04/10/24 22:00 04/14/24 22:37 4 UNITS Insulin Human Regular AC SC 04/10/24 17:00 04/15/24 11:53 6 UNITS Dextrose 50 ml UD PRN IV 04/10/24 11:45 Carvedilol 6.25 mg BID PO 04/10/24 22:00 04/15/24 09:37 6.25 MG Levofloxacin 500 mg DAILY PO 04/11/24 10:00 Hold Acetaminophen/ Hydrocodone Bitart 1 tab Q8HP PRN PO 04/10/24 18:00 04/15/24 09:36 1 TAB Ticagrelor 60 mg BID PO 04/13/24 10:15 04/15/24 09:36 60 MG Ipratropium [place] 0.5 mg Q8HR NEB 04/14/24 22:45 04/15/24 05:55 0.5 MG objective HEENT: Pupils are reactive. Funduscopic exam shows some AV nicking and hard exudates, no papilledema noted. Sclerae are anicteric. NECK: No JVD appreciated. Carotid pulses are 2+ and symmetrical. No cervical adenopathy, no supraclavicular adenopathy. PULMONARY: Clear to auscultation. CARDIOVASCULAR: Regular rate without S3, without S4. PMI; however, is diffuse. There is a 2/6 systolic murmur along the left sternal border. ABDOMEN: Obese. Unable to appreciate an organomegaly. EXTREMITIES: Distal pulses are diminished with 1 Doppler pulses in lower extremity. NEUROLOGIC: The patient, however, is intact, alert, oriented. laboratory and microbiology Laboratory Tests 04/14/24 15:07 04/10/24 04:51 Test 04/10/24 04:51 Range/Units Serum Glucose 165 H 74-106 mg/dL Problem List STEMI S/P PTCA STENT CX HEMATURAI HFrEF CHRONIC S/P AICD Assessment/Plan CBC STABLE CHECK UA UROLOGY CONSULT DEFERRED BECAUSE CANNOT STOP DAPT FOR NOW URINE + RBC + WBC CHECK LABS Dietary Evaluation Review Comments: follow 2gNa CCHO-60 diet, monitor PO intake to meet 75% of his needs Expected Outcomes/Goals: controlled DM and gradual weight loss. Plan discussed with: Patient CHRISTINA KAMARA MD Apr 15, 2024 12:45
[2024-04-16] VITALS (15 sets, daily range): BP systolic 99–112; BP diastolic 57–67; PULSE 66–76; RESP 14–21; TEMP 97.2–98.4; O2SAT 95–100
--- NOTE | 2024-04-16 10:43 | DVHPN2 ---
Progress Note Date Seen: Apr 16, 2024 Medical Necessity Reason Pt with a Central, PICC or Fol: No Subjective Patient reports: No new complaints Review of Systems: HEENT:Normal, CVS:Normal, RESPIRATORY:Normal, GI:Normal, :Normal, MSK:Normal, NEURO:Normal Objective vital signs Vital Sign Date Time Temp Pulse Resp B/P (MAP) Pulse Ox O2 Delivery O2 Flow Rate FiO2 04/16/24 10:02 70 111/57 04/16/24 09:15 98.4 20 98 98.4 04/16/24 05:54 Nasal Cannula 3.0 04/16/24 05:54 32 Total Intake and Output 04/15/24 04/15/24 04/16/24 14:59 22:59 06:59 Intake Total 400 ml 1000 ml Balance 400 ml 1000 ml medications Current Medications Medications Dose Ordered Sig/Danis Route Start Time Stop Time Status Last Admin Dose Admin Levothyroxine Sodium 50 mcg DAILY PO 04/11/24 10:00 04/16/24 10:00 50 MCG Spironolactone 25 mg DAILY PO 04/11/24 10:00 04/16/24 10:00 25 MG Sertraline HCl 100 mg DAILY PO 04/11/24 10:00 04/16/24 10:01 100 MG Nitroglycerin 0.4 mg Q5MINP PRN SL 04/10/24 11:45 Morphine Sulfate 2 mg Q30M PRN IV 04/10/24 11:45 Diagnostic Test (Pha) 1 strip ACHS 04/10/24 17:00 04/16/24 06:12 1 STRIP Insulin Human Regular HS SC 04/10/24 22:00 04/15/24 22:08 4 UNITS Insulin Human Regular AC SC 04/10/24 17:00 04/16/24 06:15 2 UNITS Dextrose 50 ml UD PRN IV 04/10/24 11:45 Carvedilol 6.25 mg BID PO 04/10/24 22:00 04/16/24 10:02 6.25 MG Acetaminophen/ Hydrocodone Bitart 1 tab Q8HP PRN PO 04/10/24 18:00 04/16/24 10:11 1 TAB Ticagrelor 60 mg BID PO 04/13/24 10:15 04/15/24 22:08 60 MG Ipratropium [place] 0.5 mg Q8HR NEB 04/14/24 22:45 04/16/24 05:54 0.5 MG Aspirin 81 mg DAILY PO 04/17/24 10:00 UNV Examination: GENERAL:Normal, HEENT:Normal, NECK:Normal, LUNGS:Normal, LUNGS:Abnormal (on oxygen), CVS:Normal, ABDOMEN:Normal, MSK:Normal, SKIN:Normal, NEURO:Normal, :Normal laboratory and microbiology Laboratory Tests 04/14/24 15:07 04/10/24 04:51 Test 04/10/24 04:51 Range/Units Serum Glucose 165 H 74-106 mg/dL Problem List/Assessment/Plan Problem List/Assessment/Plan #1 acute resp failure: on oxygen #2 acute mi/cad: s/p angio/stent #3 acute on chronic systolic heart failure: lasix iv, coreg #4 dm: lantus, ssi #5 ? copd #6 htn #7 morbid obesity #8 acute liver failure: monitor, usg #9 hypothyroidism: check tsh #10 s/p aicd #11 uti/hematuria: culture, iv rocephin advance care planning- full code- time spent 19 mins Plan discussed with: Patient, Daughter My Orders My Orders Orders - DOLLY MAN MD Procedure Category Date Status Time Aspirin Tablet PHA 04/17/24 Transmitted 10:00 Urine Bacterial SERGEI 04/16/24 Transmitted Culture 10:32 Ceftriaxone Ivpb PHA 04/17/24 Transmitted Rocephin 09:00 Ceftriaxone Ivpb PHA 04/16/24 Transmitted Rocephin 10:45 Furosemide Injection PHA 04/16/24 Transmitted (Lasix Injection) 10:45 Furosemide Injection PHA 04/17/24 Transmitted (Lasix Injection) 10:00 Complete Blood Count LAB 04/17/24 Verified 06:00 Comprehensive LAB 04/17/24 Verified Metabolic Panel 06:00 Magnesium LAB 04/17/24 Verified 05:00 Chest Portable XY 04/16/24 Logged 10:32 Pt Request For Service PT 04/16/24 Logged 10:32 Thyroid Stimulating LAB 04/17/24 Verified Hormone 05:00 Hemoglobin A1c LAB 04/17/24 Verified 06:00 Dietary Evaluation Review Comments: follow 2gNa CCHO-60 diet, monitor PO intake to meet 75% of his needs Expected Outcomes/Goals: controlled DM and gradual weight loss. Date of Service: Apr 16, 2024 Billing Provider: DOLLY MAN MD Common Visit Codes: [id number] INP/OBS CARE(HIGH) Secondary Visit Codes: [id number] CARE PLAN 30 MINUTES DOLLY MAN MD Apr 16, 2024 10:43
[2024-04-16] MEDS: EZETIMIBE 10 MG TAB PO ONE (10:45)
--- NOTE | 2024-04-16 11:52 | DVH ---
CHEST RADIOGRAPH Indication:chf Technique: Single frontal view of the chest was obtained COMPARISON: XY CHEST PORTABLE on DOS: 04/10/24, XY CHEST PORTABLE on DOS: 07/12/23, XY CHEST PORTABLE on DOS: 07/04/23 FINDINGS: Lines and Tubes: Left chest wall AICD. Lungs: Mild pulmonary vascular congestion. Pleura: No effusion. No pneumothorax. Cardiomediastinal contours: Unremarkable Bones: Unremarkable IMPRESSION: Mild pulmonary vascular congestion. No significant interval change.
[2024-04-16] MEDS: ASPirin 81 mg TAB PO SCH (12:11)
[2024-04-16] MEDS: cefTRIAXone 1GM/50ML D5W 50 ML IV ONE (12:37)
[2024-04-16] MEDS: FUROSEMIDE 20 MG/2 ML VIAL IV ONE (12:37)
--- NOTE | 2024-04-16 13:12 | DVHPN2 ---
Progress Note - Dictate Date Seen: Apr 16, 2024 Medical Necessity Reason Pt with a Central, PICC or Fol: No Subjective PT WITH STEMI S/P PTCA STENT CX HEMATURIA DC ELIQUIS SERIAL CBC vital signs Vital Sign Date Time Temp Pulse Resp B/P (MAP) Pulse Ox O2 Delivery O2 Flow Rate FiO2 04/16/24 12:37 112/63 04/16/24 11:02 66 04/16/24 10:00 96 Nasal Cannula* 3 32 04/16/24 09:15 98.4 20 98.4 Total Intake and Output 04/15/24 04/15/24 04/16/24 15:00 23:00 07:00 Intake Total 400 ml 1000 ml Balance 400 ml 1000 ml medications Current Medications Medications Dose Ordered Sig/Danis Route Start Time Stop Time Status Last Admin Dose Admin Levothyroxine Sodium 50 mcg DAILY PO 04/11/24 10:00 04/16/24 10:00 50 MCG Spironolactone 25 mg DAILY PO 04/11/24 10:00 04/16/24 10:00 25 MG Sertraline HCl 100 mg DAILY PO 04/11/24 10:00 04/16/24 10:01 100 MG Nitroglycerin 0.4 mg Q5MINP PRN SL 04/10/24 11:45 Morphine Sulfate 2 mg Q30M PRN IV 04/10/24 11:45 Diagnostic Test (Pha) 1 strip ACHS 04/10/24 17:00 04/16/24 12:08 1 STRIP Insulin Human Regular HS SC 04/10/24 22:00 04/15/24 22:08 4 UNITS Insulin Human Regular AC SC 04/10/24 17:00 04/16/24 12:11 6 UNITS Dextrose 50 ml UD PRN IV 04/10/24 11:45 Carvedilol 6.25 mg BID PO 04/10/24 22:00 04/16/24 10:02 6.25 MG Acetaminophen/ Hydrocodone Bitart 1 tab Q8HP PRN PO 04/10/24 18:00 04/16/24 10:11 1 TAB Ticagrelor 60 mg BID PO 04/13/24 10:15 04/16/24 12:15 60 MG Ipratropium [place] 0.5 mg Q8HR NEB 04/14/24 22:45 04/16/24 05:54 0.5 MG Aspirin 81 mg DAILY PO 04/16/24 10:42 04/16/24 12:11 81 MG Ceftriaxone Sodium 50 ml @ 100 mls/hr DAILY@09 IV 04/17/24 09:00 Furosemide 20 mg DAILY IV 04/17/24 10:00 Insulin Glargine 10 units HS SC 04/16/24 22:00 EZETIMIBE 10 mg DAILY PO 04/17/24 10:00 objective HEENT: Pupils are reactive. Funduscopic exam shows some AV nicking and hard exudates, no papilledema noted. Sclerae are anicteric. NECK: No JVD appreciated. Carotid pulses are 2+ and symmetrical. No cervical adenopathy, no supraclavicular adenopathy. PULMONARY: Clear to auscultation. CARDIOVASCULAR: Regular rate without S3, without S4. PMI; however, is diffuse. There is a 2/6 systolic murmur along the left sternal border. ABDOMEN: Obese. Unable to appreciate an organomegaly. EXTREMITIES: Distal pulses are diminished with 1 Doppler pulses in lower extremity. NEUROLOGIC: The patient, however, is intact, alert, oriented. laboratory and microbiology Laboratory Tests 04/14/24 15:07 04/10/24 04:51 Test 04/10/24 04:51 Range/Units Serum Glucose 165 H 74-106 mg/dL Problem List STEMI S/P PTCA STENT CX HEMATURAI HFrEF CHRONIC S/P AICD Assessment/Plan CBC STABLE CHECK UA UROLOGY CONSULT DEFERRED BECAUSE CANNOT STOP DAPT FOR NOW URINE + blood + wbc CHECK LABS ABX Dietary Evaluation Review Comments: follow 2gNa CCHO-60 diet, monitor PO intake to meet 75% of his needs Expected Outcomes/Goals: controlled DM and gradual weight loss. Plan discussed with: Patient CHRISTINA KAMARA MD Apr 16, 2024 13:12
[2024-04-16] MEDS: INSULIN LANTUS (GLARGINE) 1 /0.01ml (100units/ml) SC SCH (22:00)
[2024-04-17] VITALS (14 sets, daily range): BP systolic 108–138; BP diastolic 59–69; PULSE 65–79; RESP 13–20; TEMP 97.3–98.4; O2SAT 94–99
[2024-04-17 06:57] LABS: Alanine Aminotransferase 30 U/L (7-40); Alkaline Phosphatase 262 U/L (46-116); Anion Gap 5 (5-15); BUN/Creatinine Ratio 39.1 (10.0-20.0); Basophils # (auto) 0.1 10 ^3/uL (0-0.2); Blood Urea Nitrogen 34 mg/dL (9-23); Calcium 9.3 mg/dL (8.7-10.4); Carbon Dioxide 28 mmol/L (20-31); Chloride 102 mmol/L (98-107); Eosinophils # (auto) 0.4 10 ^3/uL (0-0.8); Glucose 150 mg/dL (74-106); Hemoglobin 12.5 g/dL (13.5-17.5); Monocytes # (auto) 1.1 10 ^3/uL (0-1.3); Neutrophils % (auto) 69.4 % (37.0-80.0); Potassium 4.7 mmol/L (3.5-5.1); Sodium 135 mmol/L (136-145)
[2024-04-17 06:58] LABS: Albumin 3.6 g/dL (3.2-4.8); Aspartate Aminotransferase 18 U/L (13-40)
[2024-04-17 06:59] LABS: Basophils % (auto) 0.7 % (0.0-2.0); Bilirubin, Total 1.3 mg/dL (0.2-1.0); Hematocrit 37.5 % (41.0-53.0); Lymphocytes # (auto) 1.7 10 ^3/uL (0.4-5.4); Lymphocytes % (auto) 15.6 % (10.0-50.0); Mean Corpuscular Hemoglobin 30.5 pg (28.0-32.0); Mean Corpuscular Hgb Conc. 33.3 g/dL (32.0-36.0); Mean Corpuscular Volume 91.6 fL (80.0-100.0); Monocytes % (auto) 10.3 % (0.0-12.0); Neutrophils # (auto) 7.7 10 ^3/uL (1.6-8.6); Nucleated Red Blood Cells % 0.2 %; Platelet Count (auto) 449 10^3/uL (140-450); Red Blood Cells 4.09 10^6/uL (4.5-5.90); Red Cell Distribution Width 14.5 % (11.8-14.3); Total Protein 6.9 g/dL (5.7-8.2); White Blood Cell 11.1 10^3/uL (4.4-10.8)
[2024-04-17] MEDS: EZETIMIBE 10 MG TAB PO SCH (10:00)
--- NOTE | 2024-04-17 10:10 | DVHPN2 ---
Progress Note Date Seen: Apr 17, 2024 Medical Necessity Reason Pt with a Central, PICC or Fol: No Subjective Patient reports: No new complaints Review of Systems: HEENT:Normal, CVS:Normal, RESPIRATORY:Normal, GI:Normal, :Normal, MSK:Normal, NEURO:Normal Objective vital signs Vital Sign Date Time Temp Pulse Resp B/P (MAP) Pulse Ox O2 Delivery O2 Flow Rate FiO2 04/17/24 09:00 98.4 79 18 138/66 (90) 97 98.4 04/17/24 07:06 3.0 04/17/24 07:06 Nasal Cannula* 32 Total Intake and Output 04/16/24 04/16/24 04/17/24 15:00 23:00 07:00 Intake Total 50 ml 600 ml 300 ml Output Total 0 ml Balance 50 ml 600 ml 300 ml medications Current Medications Medications Dose Ordered Sig/Danis Route Start Time Stop Time Status Last Admin Dose Admin Levothyroxine Sodium 50 mcg DAILY PO 04/11/24 10:00 04/16/24 10:00 50 MCG Spironolactone 25 mg DAILY PO 04/11/24 10:00 04/16/24 10:00 25 MG Sertraline HCl 100 mg DAILY PO 04/11/24 10:00 04/16/24 10:01 100 MG Nitroglycerin 0.4 mg Q5MINP PRN SL 04/10/24 11:45 Morphine Sulfate 2 mg Q30M PRN IV 04/10/24 11:45 Diagnostic Test (Pha) 1 strip ACHS 04/10/24 17:00 04/17/24 06:01 1 STRIP Insulin Human Regular HS SC 04/10/24 22:00 04/16/24 22:00 3 UNITS Insulin Human Regular AC SC 04/10/24 17:00 04/17/24 06:04 2 UNITS Dextrose 50 ml UD PRN IV 04/10/24 11:45 Carvedilol 6.25 mg BID PO 04/10/24 22:00 04/16/24 22:34 6.25 MG Acetaminophen/ Hydrocodone Bitart 1 tab Q8HP PRN PO 04/10/24 18:00 04/16/24 10:11 1 TAB Ticagrelor 60 mg BID PO 04/13/24 10:15 04/16/24 22:35 60 MG Ipratropium [place] 0.5 mg Q8HR NEB 04/14/24 22:45 04/17/24 07:04 0.5 MG Aspirin 81 mg DAILY PO 04/16/24 10:42 04/16/24 12:11 81 MG Ceftriaxone Sodium 50 ml @ 100 mls/hr DAILY@09 IV 04/17/24 09:00 Furosemide 20 mg DAILY IV 04/17/24 10:00 Insulin Glargine 10 units HS SC 04/16/24 22:00 04/16/24 22:00 10 UNITS EZETIMIBE 10 mg DAILY PO 04/17/24 10:00 Examination: GENERAL:Normal, HEENT:Normal, NECK:Normal, LUNGS:Normal, LUNGS:Abnormal (on oxygen), CVS:Normal, ABDOMEN:Normal, MSK:Normal, SKIN:Normal, NEURO:Normal, :Normal laboratory and microbiology Laboratory Tests 04/17/24 05:59 Test 04/17/24 05:59 Range/Units Serum Glucose 150 H 74-106 mg/dL Problem List/Assessment/Plan Problem List/Assessment/Plan #1 acute resp failure: on oxygen #2 acute mi/cad: s/p angio/stent #3 acute on chronic systolic heart failure: lasix iv, coreg #4 dm: lantus, ssi #5 ? copd #6 htn #7 morbid obesity #8 acute liver failure: monitor, usg #9 hypothyroidism: check tsh #10 s/p aicd #11 uti/hematuria: culture, iv rocephin advance care planning- full code- time spent 19 mins Plan discussed with: Patient My Orders My Orders Orders - DOLLY MAN MD Procedure Category Date Status Time Urine Bacterial SERGEI 04/16/24 Logged Culture 10:32 Ceftriaxone 1gm/50ml PHA 04/17/24 In Process D5w (Rocephin) 09:00 Furosemide Injection PHA 04/17/24 In Process (Lasix Injection) 10:00 Chest Portable XY 04/16/24 Resulted 10:32 Pt Request For Service PT 04/16/24 Logged 10:32 Insulin Lantus PHA 04/16/24 In Process (Glargine) (Lantus) 22:00 Ezetimibe (Zetia) PHA 04/17/24 In Process 10:00 Aspirin Tablet PHA 04/16/24 In Process 10:42 Dietary Evaluation Review Comments: follow 2gNa CCHO-60 diet, monitor PO intake to meet 75% of his needs Expected Outcomes/Goals: controlled DM and gradual weight loss. Date of Service: Apr 17, 2024 Billing Provider: DOLLY MAN MD Common Visit Codes: [id number] INP/OBS CARE(HIGH) DOLLY MAN MD Apr 17, 2024 10:10
[2024-04-17] MEDS: cefTRIAXone 1GM/50ML D5W 50 ML IV SCH (10:18)
[2024-04-17] MEDS: FUROSEMIDE 20 MG/2 ML VIAL IV SCH (10:25)
--- NOTE | 2024-04-17 14:06 | DVHPN2 ---
Progress Note - Dictate Date Seen: Apr 17, 2024 Medical Necessity Reason Pt with a Central, PICC or Fol: No Subjective PT WITH STEMI S/P PTCA STENT CX HEMATURIA DC ELIQUIS SERIAL CBC vital signs Vital Sign Date Time Temp Pulse Resp B/P (MAP) Pulse Ox O2 Delivery O2 Flow Rate FiO2 04/17/24 13:55 71 18 97 04/17/24 12:58 97.5 109/64 (79) 97.5 04/17/24 08:10 Nasal Cannula 3.0 04/17/24 08:10 32 Total Intake and Output 04/16/24 04/16/24 04/17/24 15:00 23:00 07:00 Intake Total 50 ml 600 ml 300 ml Output Total 0 ml Balance 50 ml 600 ml 300 ml medications Current Medications Medications Dose Ordered Sig/Danis Route Start Time Stop Time Status Last Admin Dose Admin Levothyroxine Sodium 50 mcg DAILY PO 04/11/24 10:00 04/17/24 10:28 50 MCG Spironolactone 25 mg DAILY PO 04/11/24 10:00 04/17/24 10:30 25 MG Sertraline HCl 100 mg DAILY PO 04/11/24 10:00 04/17/24 10:26 100 MG Nitroglycerin 0.4 mg Q5MINP PRN SL 04/10/24 11:45 Morphine Sulfate 2 mg Q30M PRN IV 04/10/24 11:45 Diagnostic Test (Pha) 1 strip ACHS 04/10/24 17:00 04/17/24 10:40 1 STRIP Insulin Human Regular HS SC 04/10/24 22:00 04/16/24 22:00 3 UNITS Insulin Human Regular AC SC 04/10/24 17:00 04/17/24 11:20 6 UNITS Dextrose 50 ml UD PRN IV 04/10/24 11:45 Carvedilol 6.25 mg BID PO 04/10/24 22:00 04/17/24 10:27 6.25 MG Acetaminophen/ Hydrocodone Bitart 1 tab Q8HP PRN PO 04/10/24 18:00 04/16/24 10:11 1 TAB Ticagrelor 60 mg BID PO 04/13/24 10:15 04/17/24 10:26 60 MG Ipratropium [place] 0.5 mg Q8HR NEB 04/14/24 22:45 04/17/24 13:54 0.5 MG Aspirin 81 mg DAILY PO 04/16/24 10:42 04/17/24 10:28 81 MG Ceftriaxone Sodium 50 ml @ 100 mls/hr DAILY@09 IV 04/17/24 09:00 04/17/24 10:18 100 MLS/HR Furosemide 20 mg DAILY IV 04/17/24 10:00 04/17/24 10:25 20 MG Insulin Glargine 10 units HS SC 04/16/24 22:00 04/16/24 22:00 10 UNITS EZETIMIBE 10 mg DAILY PO 04/17/24 10:00 objective HEENT: Pupils are reactive. Funduscopic exam shows some AV nicking and hard exudates, no papilledema noted. Sclerae are anicteric. NECK: No JVD appreciated. Carotid pulses are 2+ and symmetrical. No cervical adenopathy, no supraclavicular adenopathy. PULMONARY: Clear to auscultation. CARDIOVASCULAR: Regular rate without S3, without S4. PMI; however, is diffuse. There is a 2/6 systolic murmur along the left sternal border. ABDOMEN: Obese. Unable to appreciate an organomegaly. EXTREMITIES: Distal pulses are diminished with 1 Doppler pulses in lower extremity. NEUROLOGIC: The patient, however, is intact, alert, oriented. laboratory and microbiology Laboratory Tests 04/17/24 05:59 Test 04/17/24 05:59 Range/Units Serum Glucose 150 H 74-106 mg/dL Problem List STEMI S/P PTCA STENT CX HEMATURAI HFrEF CHRONIC S/P AICD Assessment/Plan CBC STABLE CHECK UA UROLOGY CONSULT DEFERRED BECAUSE CANNOT STOP DAPT FOR NOW URINE + RBC + WBC CHECK LABS REHAB TITRATE ON MEDS Dietary Evaluation Review Comments: follow 2gNa CCHO-60 diet, monitor PO intake to meet 75% of his needs Expected Outcomes/Goals: controlled DM and gradual weight loss. Plan discussed with: Patient, Spouse CHRISTINA KAMARA MD Apr 17, 2024 14:06
[2024-04-18] VITALS (16 sets, daily range): BP systolic 111–122; BP diastolic 64–77; PULSE 79–116; RESP 16–22; TEMP 97.4–98.2; O2SAT 94–100
[2024-04-18 07:04] LABS: Anion Gap 5 (5-15); Calcium 9.1 mg/dL (8.7-10.4); Carbon Dioxide 29 mmol/L (20-31); Chloride 103 mmol/L (98-107); Potassium 4.5 mmol/L (3.5-5.1); Sodium 137 mmol/L (136-145)
[2024-04-18 07:09] LABS: Glucose 127 mg/dL (74-106)
[2024-04-18 07:10] LABS: BUN/Creatinine Ratio 31.2 (10.0-20.0)
[2024-04-18 07:13] LABS: Blood Urea Nitrogen 24 mg/dL (9-23)
[2024-04-18 09:51] LABS: White Blood Cell 12.4 10^3/uL (4.4-10.8)
[2024-04-18 09:52] LABS: Hemoglobin 12.6 g/dL (13.5-17.5); Mean Corpuscular Hemoglobin 30.7 pg (28.0-32.0); Mean Corpuscular Hgb Conc. 33.3 g/dL (32.0-36.0); Mean Corpuscular Volume 92.2 fL (80.0-100.0); Platelet Count (auto) 473 10^3/uL (140-450); Red Blood Cells 4.12 10^6/uL (4.5-5.90); Red Cell Distribution Width 14.7 % (11.8-14.3)
[2024-04-18] MEDS: FUROSEMIDE 20 MG/2 ML VIAL IV ONE ×2 (09:56→14:35)
[2024-04-18 10:00] LABS: Basophils % (manual) 0 (0.0-2.0); Blast Cells 0; Metamyelocytes % 0; Myelocytes % 0; Promyelocytes % 0; Reactive Lymphocytes 0
--- NOTE | 2024-04-18 10:04 | DVH ---
CHEST RADIOGRAPH Indication:sob Technique: Single frontal view of the chest was obtained COMPARISON: XY CHEST PORTABLE on DOS: 04/16/24, XY CHEST PORTABLE on DOS: 04/10/24, XY CHEST PORTABLE on DOS: 07/12/23 FINDINGS: Lines and Tubes: Left chest AICD / pacemaker. Lungs: Pulmonary vascular congestion. Pleura: Small bilateral pleural effusions. No pneumothorax. Cardiomediastinal contours: Unremarkable Bones: Unremarkable IMPRESSION: No significant interval change.
[2024-04-18 11:07] LABS: Alanine Aminotransferase 24 U/L (7-40); Albumin 3.5 g/dL (3.2-4.8); Alkaline Phosphatase 251 U/L (46-116); Anion Gap 4 (5-15); Aspartate Aminotransferase 19 U/L (13-40); BUN/Creatinine Ratio 29.9 (10.0-20.0); Bilirubin, Total 1.4 mg/dL (0.2-1.0); Blood Urea Nitrogen 23 mg/dL (9-23); Calcium 9.1 mg/dL (8.7-10.4); Carbon Dioxide 29 mmol/L (20-31); Chloride 102 mmol/L (98-107); Glucose 207 mg/dL (74-106); Potassium 4.7 mmol/L (3.5-5.1); Sodium 135 mmol/L (136-145); Total Protein 6.6 g/dL (5.7-8.2)
[2024-04-18 12:29] LABS: Band Neutrophils % (manual) 4; Eosinophils % (manual) 5 (0-7); Lymphocytes % (manual) 16 (10.0-50.0); Monocytes % (manual) 10 (0-12)
[2024-04-18 12:30] LABS: Platelet Estimate Increased
--- NOTE | 2024-04-18 13:58 | DVHPN2 ---
Progress Note - Dictate Date Seen: Apr 18, 2024 Medical Necessity Reason Pt with a Central, PICC or Fol: No Subjective PT WITH STEMI S/P PTCA STENT CX HEMATURIA DC ELIQUIS SERIAL CBC vital signs Vital Sign Date Time Temp Pulse Resp B/P (MAP) Pulse Ox O2 Delivery O2 Flow Rate FiO2 04/18/24 13:00 98.0 96 19 111/66 (81) 98 98.0 04/18/24 08:10 Nasal Cannula* 3 32 Total Intake and Output 04/17/24 04/17/24 04/18/24 15:00 23:00 07:00 Intake Total 50 ml 1250 ml 200 ml Balance 50 ml 1250 ml 200 ml medications Current Medications Medications Dose Ordered Sig/Danis Route Start Time Stop Time Status Last Admin Dose Admin Levothyroxine Sodium 50 mcg DAILY PO 04/11/24 10:00 04/18/24 09:53 50 MCG Spironolactone 25 mg DAILY PO 04/11/24 10:00 04/18/24 09:55 25 MG Sertraline HCl 100 mg DAILY PO 04/11/24 10:00 04/18/24 09:54 100 MG Nitroglycerin 0.4 mg Q5MINP PRN SL 04/10/24 11:45 Morphine Sulfate 2 mg Q30M PRN IV 04/10/24 11:45 Diagnostic Test (Pha) 1 strip ACHS 04/10/24 17:00 04/18/24 11:48 1 STRIP Insulin Human Regular HS SC 04/10/24 22:00 04/17/24 22:18 3 UNITS Insulin Human Regular AC SC 04/10/24 17:00 04/18/24 11:53 3 UNITS Dextrose 50 ml UD PRN IV 04/10/24 11:45 Carvedilol 6.25 mg BID PO 04/10/24 22:00 04/18/24 09:55 6.25 MG Acetaminophen/ Hydrocodone Bitart 1 tab Q8HP PRN PO 04/10/24 18:00 04/16/24 10:11 1 TAB Ticagrelor 60 mg BID PO 04/13/24 10:15 04/18/24 09:51 60 MG Ipratropium [place] 0.5 mg Q8HR NEB 04/14/24 22:45 04/18/24 07:13 0.5 MG Aspirin 81 mg DAILY PO 04/16/24 10:42 04/18/24 09:53 81 MG Ceftriaxone Sodium 50 ml @ 100 mls/hr DAILY@09 IV 04/17/24 09:00 04/18/24 09:47 100 MLS/HR Furosemide 20 mg DAILY IV 04/17/24 10:00 04/17/24 10:25 20 MG Insulin Glargine 10 units HS SC 04/16/24 22:00 04/17/24 22:27 10 UNITS EZETIMIBE 10 mg DAILY PO 04/17/24 10:00 04/18/24 09:52 10 MG objective HEENT: Pupils are reactive. Funduscopic exam shows some AV nicking and hard exudates, no papilledema noted. Sclerae are anicteric. NECK: No JVD appreciated. Carotid pulses are 2+ and symmetrical. No cervical adenopathy, no supraclavicular adenopathy. PULMONARY: Clear to auscultation. CARDIOVASCULAR: Regular rate without S3, without S4. PMI; however, is diffuse. There is a 2/6 systolic murmur along the left sternal border. ABDOMEN: Obese. Unable to appreciate an organomegaly. EXTREMITIES: Distal pulses are diminished with 1 Doppler pulses in lower extremity. NEUROLOGIC: The patient, however, is intact, alert, oriented. laboratory and microbiology Laboratory Tests 04/18/24 10:20 04/18/24 05:43 Test 04/18/24 10:20 Range/Units Serum Glucose 207 H 74-106 mg/dL Problem List STEMI S/P PTCA STENT CX HEMATURAI HFrEF CHRONIC S/P AICD Assessment/Plan CBC STABLE CHECK UA UROLOGY CONSULT DEFERRED BECAUSE CANNOT STOP DAPT FOR NOW URINE + RBC + WBC CHECK LABS REHAB TITRATE ON MEDS TITRATE SYNTHROID CHECK BNP Dietary Evaluation Review Comments: follow 2gNa CCHO-60 diet, monitor PO intake to meet 75% of his needs Expected Outcomes/Goals: controlled DM and gradual weight loss. Plan discussed with: Patient CHRISTINA KAMARA MD Apr 18, 2024 13:58
--- NOTE | 2024-04-18 16:45 | DVHPN2 ---
Subjective Tachycardia in the morning, not breathing comfortably, soft found patient's slumping in bed. Crackles heard, on 3 L oxygen supplement with nasal cannula. At of 20 cc of IV Lasix. On my reassessment patient breathing improved, tachycardia improved. Continue IV antibiotics. Total critical care time spent on this patient more than 30 minutes including evaluation, chart review, formulating plan and communication with team, excluding any procedures Reviewed: Care Plan, H&P, Labs, Medications, Previous Orders, Radiology, Other Changes from previous H/P or p: No Changes Objective Vitals Vital Signs Date Time Temp Pulse Resp B/P (MAP) Pulse Ox O2 Delivery O2 Flow Rate FiO2 04/18/24 14:42 94 Nasal Cannula 3.0 04/18/24 14:42 100 18 04/18/24 14:42 32 04/18/24 14:35 116/68 04/18/24 13:00 98.0 98.0 Intake/Output Intake and Output 04/18/24 07:00 Intake Total 1500 ml Balance 1500 ml Intake Oral 1450 ml IV Total 50 ml # Voids 2 # Bowel Movements 2 Exam Alert, oriented x3 With obesity PERRLA GVD to jaw Bilateral crackles Distant heart sound Abdomen soft nontender, no hepatomegaly Equal strength bilaterally on upper and lower extremities Mild lower extremity edema Medications Current Medications Medications Dose Ordered Sig/Danis Route Start Time Stop Time Status Last Admin Dose Admin Spironolactone 25 mg DAILY PO 04/11/24 10:00 04/18/24 09:55 25 MG Sertraline HCl 100 mg DAILY PO 04/11/24 10:00 04/18/24 09:54 100 MG Nitroglycerin 0.4 mg Q5MINP PRN SL 04/10/24 11:45 Morphine Sulfate 2 mg Q30M PRN IV 04/10/24 11:45 Diagnostic Test (Pha) 1 strip ACHS 04/10/24 17:00 04/18/24 11:48 1 STRIP Insulin Human Regular HS SC 04/10/24 22:00 04/17/24 22:18 3 UNITS Insulin Human Regular AC SC 04/10/24 17:00 04/18/24 11:53 3 UNITS Dextrose 50 ml UD PRN IV 04/10/24 11:45 Carvedilol 6.25 mg BID PO 04/10/24 22:00 04/18/24 09:55 6.25 MG Acetaminophen/ Hydrocodone Bitart 1 tab Q8HP PRN PO 04/10/24 18:00 04/16/24 10:11 1 TAB Ticagrelor 60 mg BID PO 04/13/24 10:15 04/18/24 09:51 60 MG Ipratropium [place] 0.5 mg Q8HR NEB 04/14/24 22:45 04/18/24 14:42 0.5 MG Aspirin 81 mg DAILY PO 04/16/24 10:42 04/18/24 09:53 81 MG Ceftriaxone Sodium 50 ml @ 100 mls/hr DAILY@09 IV 04/17/24 09:00 04/18/24 09:47 100 MLS/HR Furosemide 20 mg DAILY IV 04/17/24 10:00 04/17/24 10:25 20 MG Insulin Glargine 10 units HS SC 04/16/24 22:00 04/17/24 22:27 10 UNITS EZETIMIBE 10 mg DAILY PO 04/17/24 10:00 04/18/24 09:52 10 MG Levothyroxine Sodium 88 mcg QAM PO 04/19/24 07:00 Laboratory Results Laboratory Tests 04/18/24 05:43 04/18/24 10:20 Chemistry Test 04/18/24 05:34 04/18/24 10:20 Calcium Level 9.1 mg/dL (8.7-10.4) 9.1 mg/dL (8.7-10.4) Magnesium Level 2.0 mg/dL (1.6-2.6) Albumin 3.5 g/dL (3.2-4.8) Total Protein 6.6 g/dL (5.7-8.2) Cardiac Markers Test 04/18/24 05:43 B-Type Natriuretic Peptide 1664.34 pg/mL (0-100) LFT Test 04/18/24 10:20 Alanine Aminotransferase (ALT) 24 U/L (7-40) Alkaline Phosphatase 251 U/L (46-116) H Aspartate Amino Transferase (AST) 19 U/L (13-40) Total Bilirubin 1.4 mg/dL (0.2-1.0) H Urinalysis Test 04/10/24 04:46 04/15/24 02:10 Urine Mucus Few (None Seen) Urine Yeast (Budding) Occasional /hpf (None Urine Color Yellow (Yellow) Urine Clarity Turbid (Clear) H Urine pH 6.0 (5.0-9.0) Urine Specific [place] 1.018 (1.001-1.035) Urine Protein Trace (Negative) H Urine Ketones Negative (Negative) Urine Blood 3+ /uL (Negative) H Urine Nitrite Negative (Negative) Urine Bilirubin Negative (Negative) Urine Urobilinogen 2 mg/dL (Negative) H Urine Leukocyte Esterase 3+ /uL (Negative) Urine RBC 151 /hpf (0 - 3) Urine WBC 341 /hpf (0 - 3) Urine WBC Clumps Present /hpf (None Seen) Urine Squamous Epithelial Cells Few /hpf (<5) Urine Bacteria Few /hpf (None Seen) H Urine Glucose Normal mg/dL (Normal) Labs and/or images reviewed: Labs reviewed by me, Image(s) reviewed by me Assessment/Plan Assessment/Plan STEMI status post RAJANI Heart failure with reduced ejection fraction last ejection fraction 30% Acute on chronic hypoxic respiratory failure secondary to above Acute on chronic systolic heart failure Morbid obesity Possible pneumonia aspiration, likely Gram-negative Continue with IV antibiotics Continue with IV Lasix 20 mg b.i.d. I&O goal-500-1 1 L Strict I&O Daily weights Continue with GDM T Continue with depth with Brilinta and aspirin Postpone discharge to Sunday for further stabilization Diet continue DVT prophylaxis continue Plan discussed with: Patient My Orders Orders - BRANDY FLORES MD Procedure Category Date Status Time Chest Portable XY 04/18/24 Resulted 09:04 Date of Service: Apr 18, 2024 Billing Provider: BRANDY FLORES MD Common Visit Codes: [id number] INP/OBS CARE(HIGH), [id number] CARE 30-74 MIN BRANDY FLORES MD Apr 18, 2024 16:45
[2024-04-19] VITALS (20 sets, daily range): BP systolic 88–124; BP diastolic 63–83; PULSE 103–120; RESP 16–20; TEMP 97.3–98.8; O2SAT 93–100
[2024-04-19] MEDS: LEVOTHYROXINE SODIUM 88 MCG TAB PO SCH (07:21)
[2024-04-19] MEDS ORDERED: CARVEDILOL 3.125 MG TAB PO SCH (08:00)
[2024-04-19] MEDS: CARVEDILOL 12.5 MG TAB PO ONE (10:46)
[2024-04-19] MEDS: CARVEDILOL 12.5 MG TAB PO SCH (12:58)
--- NOTE | 2024-04-19 14:53 | DVHPN2 ---
Subjective On and off tachycardia, breathing improved, continue with Lasix, rate control, leukocytosis going up, prior actually clear, lactate normal Reviewed: Care Plan, H&P, Labs, Medications, Previous Orders, Radiology, Other Changes from previous H/P or p: No Changes Objective Vitals Vital Signs Date Time Temp Pulse Resp B/P (MAP) Pulse Ox O2 Delivery O2 Flow Rate FiO2 04/19/24 14:32 115 18 99 04/19/24 14:26 Nasal Cannula* 2 28 04/19/24 13:00 97.3 122/68 (86) 97.3 Intake/Output Intake and Output 04/19/24 07:00 Intake Total 450 ml Output Total 900 ml Balance -450 ml Intake Oral 400 ml IV Total 50 ml Output Urine Total 900 ml Exam Alert, oriented x3 With obesity PERRLA GVD to jaw Bilateral crackles Distant heart sound Abdomen soft nontender, no hepatomegaly Equal strength bilaterally on upper and lower extremities Mild lower extremity edema Medications Current Medications Medications Dose Ordered Sig/Danis Route Start Time Stop Time Status Last Admin Dose Admin Spironolactone 25 mg DAILY PO 04/11/24 10:00 04/19/24 08:51 25 MG Sertraline HCl 100 mg DAILY PO 04/11/24 10:00 04/19/24 08:50 100 MG Nitroglycerin 0.4 mg Q5MINP PRN SL 04/10/24 11:45 Diagnostic Test (Pha) 1 strip ACHS 04/10/24 17:00 04/19/24 10:54 1 STRIP Insulin Human Regular HS SC 04/10/24 22:00 04/18/24 21:23 3 UNITS Insulin Human Regular AC SC 04/10/24 17:00 04/19/24 10:54 6 UNITS Dextrose 50 ml UD PRN IV 04/10/24 11:45 Acetaminophen/ Hydrocodone Bitart 1 tab Q8HP PRN PO 04/10/24 18:00 04/16/24 10:11 1 TAB Ticagrelor 60 mg BID PO 04/13/24 10:15 04/19/24 10:11 60 MG Ipratropium [place] 0.5 mg Q8HR NEB 04/14/24 22:45 04/19/24 14:26 0.5 MG Aspirin 81 mg DAILY PO 04/16/24 10:42 04/19/24 08:50 81 MG Ceftriaxone Sodium 50 ml @ 100 mls/hr DAILY@09 IV 04/17/24 09:00 04/19/24 08:47 100 MLS/HR Insulin Glargine 10 units HS SC 04/16/24 22:00 04/18/24 21:24 10 UNITS EZETIMIBE 10 mg DAILY PO 04/17/24 10:00 04/18/24 09:52 10 MG Levothyroxine Sodium 88 mcg QAM PO 04/19/24 07:00 04/19/24 07:21 88 MCG Furosemide 20 mg DAILY@0800 IV 04/20/24 08:00 Carvedilol 12.5 mg BID PO 04/19/24 12:45 04/19/24 12:58 12.5 MG Laboratory Results Laboratory Tests 04/18/24 05:43 04/18/24 10:20 Urinalysis Test 04/10/24 04:46 04/15/24 02:10 Urine Mucus Few (None Seen) Urine Yeast (Budding) Occasional /hpf (None Urine Color Yellow (Yellow) Urine Clarity Turbid (Clear) H Urine pH 6.0 (5.0-9.0) Urine Specific [place] 1.018 (1.001-1.035) Urine Protein Trace (Negative) H Urine Ketones Negative (Negative) Urine Blood 3+ /uL (Negative) H Urine Nitrite Negative (Negative) Urine Bilirubin Negative (Negative) Urine Urobilinogen 2 mg/dL (Negative) H Urine Leukocyte Esterase 3+ /uL (Negative) Urine RBC 151 /hpf (0 - 3) Urine WBC 341 /hpf (0 - 3) Urine WBC Clumps Present /hpf (None Seen) Urine Squamous Epithelial Cells Few /hpf (<5) Urine Bacteria Few /hpf (None Seen) H Urine Glucose Normal mg/dL (Normal) Labs and/or images reviewed: Labs reviewed by me, Image(s) reviewed by me Assessment/Plan Assessment/Plan STEMI status post RAJANI Heart failure with reduced ejection fraction last ejection fraction 30% Acute on chronic hypoxic respiratory failure secondary to above Acute on chronic systolic heart failure Morbid obesity Possible pneumonia aspiration, likely Gram-negative Continue with IV antibiotics Continue with IV Lasix 20 mg b.i.d. I&O goal-500-1 L Strict I&O Daily weights Continue with GDM T Increase Coreg to 12.5 Continue with depth with Brilinta and aspirin Possible discharge on Sunday Diet continue DVT prophylaxis continue Plan discussed with: Patient My Orders Orders - BRANDY FLORES MD Procedure Category Date Status Time Carvedilol Tablet PHA 04/19/24 In Process (Coreg Tablet) 12:45 Date of Service: Apr 19, 2024 Billing Provider: BRANDY FLORES MD Common Visit Codes: [id number] INP/OBS CARE(MOD) RBANDY FLORES MD Apr 19, 2024 14:53
[2024-04-19] MEDS: IOHEXOL 350 MG/ML 100ML IJ ONE (16:28)
--- NOTE | 2024-04-19 16:28 | DVH ---
XY CHEST PORTABLE, HISTORY: desat COMPARISON: XY CHEST PORTABLE on DOS: 04/18/24, XY CHEST PORTABLE on DOS: 04/16/24, XY CHEST PORTABLE on DOS: 04/10/24 XY CHEST PORTABLE on DOS: 04/18/24, XY CHEST PORTABLE on DOS: 04/16/24, XY CHEST PORTABLE on DOS: TECHNICAL DATA: 1 view of the chest was obtained. FINDINGS: Lines and tubes: Cardiac pacer/defibrillator is seen. Cardiomediastinal silhouette: Enlarged Pulmonary vasculature: Prominent. Lung expansion: normal Lung airspace: normal Lung interstitium: normal Pleura: normal Pneumothorax: no Bones: Unremarkable Other: no IMPRESSION: Cardiomegaly with pulmonary vascular congestion.
--- NOTE | 2024-04-19 17:41 | DVH ---
EXAM: CT CT ANGIO CHEST CONTRAST History: r/o PE Comparison Study: None TECHNIQUE: A digital maxillofacial pathology image was obtained. During the uneventful, intravenous administration of c ontrast material, multislice data acquisition was obtained through the chest. 3-D postprocessing is p erformed by technologist including MIP imaging Radiation Dose : CTDI vol 29.6 mGy, DLP 981.36 mGy*cm. Findings: Lungs: Bilateral dependent atelectasis Pleura: Unremarkable Heart/Great vessels: Cardiomegaly. Small pericardial effusion. No aortic aneurysm. Possible right low er lobe subsegmental pulmonary embolism. Mediastinum: Unremarkable Soft tissues/Bones: Unremarkable The partially visualized upper abdomen is within normal limits. Impression: 1. Possible right lower lobe subsegmental pulmonary embolism. 2. No evidence of aortic aneurysm. 3. Cardiomegaly with a small pericardial effusion. Critical Result: Pumonary Emboli Findings discussed with Joan PARMAR at 04/19/2024 05:39 PM, and acknowledged receipt and understanding of the findings.
[2024-04-19] MEDS ORDERED: HEPARIN SODIUM (PORCINE) 5000 UNITS/ML 1ML VIAL IV ONE (18:15)
[2024-04-19 18:32] LABS: Basophils # (auto) 0.1 10 ^3/uL (0-0.2); Eosinophils # (auto) 0.4 10 ^3/uL (0-0.8); Hemoglobin 13.1 g/dL (13.5-17.5); Mean Corpuscular Volume 91.6 fL (80.0-100.0); Neutrophils # (auto) 9.5 10 ^3/uL (1.6-8.6)
[2024-04-19 18:33] LABS: Eosinophils % (auto) 3.1 % (0.0-7.0); Hematocrit 39.6 % (41.0-53.0); Lymphocytes # (auto) 1.5 10 ^3/uL (0.4-5.4); Lymphocytes % (auto) 12.3 % (10.0-50.0); Mean Corpuscular Hemoglobin 30.4 pg (28.0-32.0); Mean Corpuscular Hgb Conc. 33.2 g/dL (32.0-36.0); Monocytes % (auto) 7.7 % (0.0-12.0); Neutrophils % (auto) 75.9 % (37.0-80.0); Platelet Count (auto) 481 10^3/uL (140-450); Red Blood Cells 4.32 10^6/uL (4.5-5.90); Red Cell Distribution Width 14.5 % (11.8-14.3); White Blood Cell 12.5 10^3/uL (4.4-10.8)
[2024-04-19 18:56] LABS: INR 1.18 (0.9-1.15); Partial Thromboplastin Time 31.1 SEC (24.5-34.5); Prothrombin Time 12.4 sec (9.3-11.8)
[2024-04-19] MEDS: HEPARIN SODIUM (PORCINE) 5000 UNITS/ML 1ML VIAL IV ONE (19:57)
[2024-04-19] MEDS: HEPARIN DRIP/D5W 100UNITS/ML 250 ML IV SCH (20:12)
--- NOTE | 2024-04-19 21:50 | DVHPN2 ---
Subjective Received STAT page patient with hypotension, SOB and chest pain. Persistent tachycardia. Sent patient for CTPE, found subsegmental PE. Start patient on heparin. Prior eliquis discontinued for hematuria and patient is on DAPT s/p stent. Consult for possible placement of IVC filter. Send for LE venous doppler. Trend PTT per protocol. Trend H/H. Transfuse if Hb <7. Condition critical Prognosis poor Total critical care time spent on this patient more than 30 minutes including evaluation, chart review, formulating plan and communication with team, excluding any procedures Reviewed: Care Plan, H&P, Labs, Medications, Previous Orders, Radiology, Other Changes from previous H/P or p: Changes Objective Vitals Vital Signs Date Time Temp Pulse Resp B/P (MAP) Pulse Ox O2 Delivery O2 Flow Rate FiO2 04/19/24 21:29 116 105/78 04/19/24 18:40 95 04/19/24 17:00 98.8 20 98.8 04/19/24 14:26 Nasal Cannula* 2 28 Intake/Output Intake and Output 04/20/24 04:00 Intake Total 2120 ml Output Total 300 ml Balance 1820 ml Intake Oral 2120 ml Output Urine Total 300 ml # Voids 1 # Bowel Movements 1 Exam Alert, oriented x3 With obesity PERRLA GVD to jaw Bilateral crackles Distant heart sound Abdomen soft nontender, no hepatomegaly Equal strength bilaterally on upper and lower extremities Mild lower extremity edema Medications Current Medications Medications Dose Ordered Sig/Danis Route Start Time Stop Time Status Last Admin Dose Admin Spironolactone 25 mg DAILY PO 04/11/24 10:00 04/19/24 08:51 25 MG Sertraline HCl 100 mg DAILY PO 04/11/24 10:00 04/19/24 08:50 100 MG Nitroglycerin 0.4 mg Q5MINP PRN SL 04/10/24 11:45 Diagnostic Test (Pha) 1 strip ACHS 04/10/24 17:00 04/19/24 21:31 1 STRIP Insulin Human Regular HS SC 04/10/24 22:00 04/19/24 21:30 6 UNITS Insulin Human Regular AC SC 04/10/24 17:00 04/19/24 17:12 2 UNITS Dextrose 50 ml UD PRN IV 04/10/24 11:45 Ticagrelor 60 mg BID PO 04/13/24 10:15 04/19/24 21:29 60 MG Ipratropium [place] 0.5 mg Q8HR NEB 04/14/24 22:45 04/19/24 14:26 0.5 MG Aspirin 81 mg DAILY PO 04/16/24 10:42 04/19/24 08:50 81 MG Ceftriaxone Sodium 50 ml @ 100 mls/hr DAILY@09 IV 04/17/24 09:00 04/19/24 08:47 100 MLS/HR Insulin Glargine 10 units HS SC 04/16/24 22:00 04/19/24 21:31 10 UNITS EZETIMIBE 10 mg DAILY PO 04/17/24 10:00 04/18/24 09:52 10 MG Levothyroxine Sodium 88 mcg QAM PO 04/19/24 07:00 04/19/24 07:21 88 MCG Furosemide 20 mg DAILY@0800 IV 04/20/24 08:00 Carvedilol 12.5 mg BID PO 04/19/24 12:45 04/19/24 21:29 12.5 MG Heparin Sodium/ Dextrose 250 ml @ 20 mls/hr [id number] IV 04/19/24 19:00 04/19/24 20:12 20 MLS/HR Laboratory Results Laboratory Tests 04/18/24 10:20 04/19/24 16:18 Coagulation Test 04/19/24 16:18 Prothrombin Time 12.4 sec (9.3-11.8) H Prothrombin Time INR 1.18 (0.9-1.15) H Activated Partial Thromboplast Time 31.1 SEC (24.5-34.5) Urinalysis Test 04/10/24 04:46 04/15/24 02:10 Urine Mucus Few (None Seen) Urine Yeast (Budding) Occasional /hpf (None Urine Color Yellow (Yellow) Urine Clarity Turbid (Clear) H Urine pH 6.0 (5.0-9.0) Urine Specific [place] 1.018 (1.001-1.035) Urine Protein Trace (Negative) H Urine Ketones Negative (Negative) Urine Blood 3+ /uL (Negative) H Urine Nitrite Negative (Negative) Urine Bilirubin Negative (Negative) Urine Urobilinogen 2 mg/dL (Negative) H Urine Leukocyte Esterase 3+ /uL (Negative) Urine RBC 151 /hpf (0 - 3) Urine WBC 341 /hpf (0 - 3) Urine WBC Clumps Present /hpf (None Seen) Urine Squamous Epithelial Cells Few /hpf (<5) Urine Bacteria Few /hpf (None Seen) H Urine Glucose Normal mg/dL (Normal) Assessment/Plan Assessment/Plan STEMI status post RAJANI Heart failure with reduced ejection fraction last ejection fraction 30% Acute on chronic hypoxic respiratory failure secondary to above Acute on chronic systolic heart failure Morbid obesity Possible pneumonia aspiration, likely Gram-negative Continue with IV antibiotics Continue with IV Lasix 20 mg b.i.d. I&O goal-500-1 L Strict I&O Daily weights Continue with GDM T Increase Coreg to 12.5 Continue with depth with Brilinta and aspirin Possible discharge on Sunday Diet continue DVT prophylaxis continue Plan discussed with: Other My Orders Orders - BRANDY FLORES MD Procedure Category Date Status Time Carvedilol Tablet PHA 04/19/24 In Process (Coreg Tablet) 12:45 Complete Blood Count LAB 04/20/24 Verified 04:00 Basic Metabolic Panel LAB 04/20/24 Verified 04:00 Chest Portable XY 04/19/24 Resulted 15:33 Urine Bacterial SERGEI 04/19/24 Logged Culture 15:34 Blood Culture SERGEI 04/19/24 In Process 15:[address] 04/19/24 Resulted Contrast 15:46 Date of Service: Apr 20, 2024 Billing Provider: BRANDY FLORES MD Common Visit Codes: [id number] SAME DATE (HIGH), [id number] CARE 30-74 MIN BRANDY FLORES MD Apr 19, 2024 21:50
[2024-04-19] MEDS ORDERED: CARVEDILOL 12.5 MG TAB PO SCH (22:00)
[2024-04-20] VITALS (19 sets, daily range): BP systolic 105–122; BP diastolic 74–86; PULSE 62–117; RESP 17–20; TEMP 97.5–98.4; O2SAT 94–100
[2024-04-20] MEDS: HEPARIN DRIP/D5W 100UNITS/ML 250 ML IV SCH ×2 (05:15→19:53)
--- NOTE | 2024-04-20 05:44 | DVH ---
Clinical History: PE Comparison: R VENOUS DVT LTD UNILATERAL on DOS: 06/29/20 Technique: Duplex Doppler evaluation of the deep venous system of the left lower extremity from the common femor al vein to the popliteal vein including color Doppler and spectral/pulsed waveform analysis was perfo rmed. Findings: The common femoral vein demonstrates appropriate compressibility and waveform variability. There is compressibility/patency of the great saphenous vein at the proximal thigh. The femoral vein demonstrates appropriate compressibility and waveform variability. The deep femoral vein demonstrates appropriate compressibility and waveform variability. The popliteal vein demonstrates appropriate compressibility and waveform variability. There is normal compressibility at the tibioperoneal trunk. Impression: No left deep venous thrombosis. If clinical concern/symptoms persist or worsen, short-interval follow-up study is suggested.
[2024-04-20 07:50] LABS: Eosinophils # (auto) 0.3 10 ^3/uL (0-0.8)
[2024-04-20 07:53] LABS: Basophils # (auto) 0.1 10 ^3/uL (0-0.2); Basophils % (auto) 0.8 % (0.0-2.0); Eosinophils % (auto) 2.1 % (0.0-7.0); Hematocrit 39.5 % (41.0-53.0); Hemoglobin 13.3 g/dL (13.5-17.5); Lymphocytes % (auto) 13.2 % (10.0-50.0); Mean Corpuscular Hemoglobin 30.9 pg (28.0-32.0); Mean Corpuscular Hgb Conc. 33.8 g/dL (32.0-36.0); Mean Corpuscular Volume 91.4 fL (80.0-100.0); Monocytes # (auto) 1.3 10 ^3/uL (0-1.3); Monocytes % (auto) 8.5 % (0.0-12.0); Neutrophils # (auto) 11.7 10 ^3/uL (1.6-8.6); Neutrophils % (auto) 75.4 % (37.0-80.0); Platelet Count (auto) 491 10^3/uL (140-450); Red Blood Cells 4.32 10^6/uL (4.5-5.90); Red Cell Distribution Width 14.1 % (11.8-14.3); White Blood Cell 15.5 10^3/uL (4.4-10.8)
[2024-04-20 07:56] LABS: Anion Gap 6 (5-15); Carbon Dioxide 30 mmol/L (20-31); Chloride 99 mmol/L (98-107); Potassium 4.5 mmol/L (3.5-5.1); Sodium 135 mmol/L (136-145)
[2024-04-20 07:57] LABS: Calcium 9.1 mg/dL (8.7-10.4)
[2024-04-20 08:02] LABS: BUN/Creatinine Ratio 28.7 (10.0-20.0); Blood Urea Nitrogen 27 mg/dL (9-23); Glucose 154 mg/dL (74-106)
[2024-04-20] MEDS: FUROSEMIDE 20 MG/2 ML VIAL IV SCH (08:36)
[2024-04-20 11:32] LABS: INR 1.27 (0.9-1.15); Prothrombin Time 13.2 sec (9.3-11.8)
[2024-04-20 11:41] LABS: Partial Thromboplastin Time 73.3 SEC (24.5-34.5)
[2024-04-20 17:56] LABS: INR 1.28 (0.9-1.15); Prothrombin Time 13.3 sec (9.3-11.8)
[2024-04-20 18:27] LABS: Partial Thromboplastin Time 93.7 SEC (24.5-34.5)
--- NOTE | 2024-04-20 18:35 | DVHPN2 ---
Subjective Inpatient today, reported pain improved. Pending Interventional Radiology consult for IVC filter placement. Pending echo. Vital signs stable. Continue with IV heparin drip discussed with patient regarding risks and benefits of bleeding, monitor H&H however currently we will continue anticoagulation in setting of acute PE Total critical care time spent on this patient more than 30 minutes including evaluation, chart review, formulating plan and communication with team, excluding any procedures Reviewed: Care Plan, H&P, Labs, Medications, Previous Orders, Radiology, Other Changes from previous H/P or p: No Changes Objective Vitals Vital Signs Date Time Temp Pulse Resp B/P (MAP) Pulse Ox O2 Delivery O2 Flow Rate FiO2 04/20/24 13:50 111 18 100 04/20/24 13:43 Nasal Cannula 3.0 04/20/24 13:00 97.8 108/81 (90) 97.8 04/20/24 10:18 32 Intake/Output Intake and Output 04/20/24 04:00 Intake Total 2120 ml Output Total 300 ml Balance 1820 ml Intake Oral 2120 ml Output Urine Total 300 ml # Voids 1 # Bowel Movements 1 Exam Alert, oriented x3 With obesity PERRLA GVD to jaw Bilateral crackles Distant heart sound Abdomen soft nontender, no hepatomegaly Equal strength bilaterally on upper and lower extremities Mild lower extremity edema Medications Current Medications Medications Dose Ordered Sig/Danis Route Start Time Stop Time Status Last Admin Dose Admin Spironolactone 25 mg DAILY PO 04/11/24 10:00 04/20/24 10:06 25 MG Sertraline HCl 100 mg DAILY PO 04/11/24 10:00 04/20/24 10:06 100 MG Nitroglycerin 0.4 mg Q5MINP PRN SL 04/10/24 11:45 Diagnostic Test (Pha) 1 strip ACHS 04/10/24 17:00 04/20/24 17:11 1 STRIP Insulin Human Regular HS SC 04/10/24 22:00 04/19/24 21:30 6 UNITS Insulin Human Regular AC SC 04/10/24 17:00 04/20/24 17:11 3 UNITS Dextrose 50 ml UD PRN IV 04/10/24 11:45 Ticagrelor 60 mg BID PO 04/13/24 10:15 04/20/24 10:07 60 MG Ipratropium [place] 0.5 mg Q8HR NEB 04/14/24 22:45 04/20/24 17:48 0.5 MG Aspirin 81 mg DAILY PO 04/16/24 10:42 04/20/24 10:06 81 MG Ceftriaxone Sodium 50 ml @ 100 mls/hr DAILY@09 IV 04/17/24 09:00 04/20/24 16:35 100 MLS/HR Insulin Glargine 10 units HS SC 04/16/24 22:00 04/19/24 21:31 10 UNITS EZETIMIBE 10 mg DAILY PO 04/17/24 10:00 04/18/24 09:52 10 MG Levothyroxine Sodium 88 mcg QAM PO 04/19/24 07:00 04/20/24 06:19 88 MCG Furosemide 20 mg DAILY@0800 IV 04/20/24 08:00 04/20/24 08:36 20 MG Carvedilol 12.5 mg BID PO 04/19/24 12:45 04/20/24 10:07 12.5 MG Heparin Sodium/ Dextrose 250 ml @ 17 mls/hr [id number] IV 04/20/24 05:00 04/20/24 05:15 17 MLS/HR Laboratory Results Laboratory Tests 04/20/24 06:04 Chemistry Test 04/20/24 06:04 Calcium Level 9.1 mg/dL (8.7-10.4) Coagulation Test 04/20/24 02:17 04/20/24 10:55 04/20/24 17:23 Activated Partial Thromboplast Time 97.9 SEC (24.5-34.5) *H 73.3 SEC (24.5-34.5) *H 93.7 SEC (24.5-34.5) *H Prothrombin Time 13.2 sec (9.3-11.8) H 13.3 sec (9.3-11.8) H Prothrombin Time INR 1.27 (0.9-1.15) H 1.28 (0.9-1.15) H Urinalysis Test 04/10/24 04:46 04/15/24 02:10 Urine Mucus Few (None Seen) Urine Yeast (Budding) Occasional /hpf (None Urine Color Yellow (Yellow) Urine Clarity Turbid (Clear) H Urine pH 6.0 (5.0-9.0) Urine Specific [place] 1.018 (1.001-1.035) Urine Protein Trace (Negative) H Urine Ketones Negative (Negative) Urine Blood 3+ /uL (Negative) H Urine Nitrite Negative (Negative) Urine Bilirubin Negative (Negative) Urine Urobilinogen 2 mg/dL (Negative) H Urine Leukocyte Esterase 3+ /uL (Negative) Urine RBC 151 /hpf (0 - 3) Urine WBC 341 /hpf (0 - 3) Urine WBC Clumps Present /hpf (None Seen) Urine Squamous Epithelial Cells Few /hpf (<5) Urine Bacteria Few /hpf (None Seen) H Urine Glucose Normal mg/dL (Normal) Microbiology Microbiology Date/Time Source Procedure Growth Status 04/19/24 16:18 Blood Blood Culture - Preliminary NO GROWTH AFTER 24 HOURS OF INCUBATION. Resulted Labs and/or images reviewed: Labs reviewed by me, Image(s) reviewed by me Assessment/Plan Assessment/Plan STEMI status post RAJANI Heart failure with reduced ejection fraction last ejection fraction 30% Acute on chronic hypoxic respiratory failure secondary to above Acute on chronic systolic heart failure Morbid obesity Possible pneumonia aspiration, likely Gram-negative Acute pulmonary embolism subsegmental Continue with IV antibiotics Continue with IV Lasix 20 mg b.i.d. I&O goal-500-1 L Strict I&O Daily weights Continue with GDM T Increase Coreg to 12.5 Continue with depth with Brilinta and aspirin On heparin drip, plan PTT per protocol Trend H&H Transfuse if hemoglobin less than 7 Continue DA PT Consult IR for IVC filter Echo Condition critical Prognosis poor Diet continue DVT prophylaxis on heparin drip Plan discussed with: Patient My Orders Orders - BRANDY FLORES MD Procedure Category Date Status Time * Radiologist Consult CONS 04/19/24 Transmitted 21:43 Lt Lower Dvt US 04/19/24 Resulted 22:02 Insert Midline ORDERS 04/20/24 Transmitted 08:46 Date of Service: Apr 20, 2024 Billing Provider: BRANDY FLORES MD Common Visit Codes: [id number] INP/OBS CARE(HIGH), [id number] CARE 30-74 MIN BRANDY FLORES MD Apr 20, 2024 18:35
[2024-04-21] VITALS (18 sets, daily range): BP systolic 102–113; BP diastolic 65–80; PULSE 82–119; RESP 18–22; TEMP 97.7–98.1; O2SAT 96–100
[2024-04-21 02:33] LABS: INR 1.25 (0.9-1.15); Partial Thromboplastin Time 63.2 SEC (24.5-34.5)
[2024-04-21 06:12] LABS: Basophils # (auto) 0.1 10 ^3/uL (0-0.2); Basophils % (auto) 0.7 % (0.0-2.0); Eosinophils # (auto) 0.3 10 ^3/uL (0-0.8); Eosinophils % (auto) 2.2 % (0.0-7.0); Hematocrit 37.3 % (41.0-53.0); Hemoglobin 12.5 g/dL (13.5-17.5); Lymphocytes # (auto) 2.2 10 ^3/uL (0.4-5.4); Mean Corpuscular Hemoglobin 30.6 pg (28.0-32.0); Mean Corpuscular Hgb Conc. 33.5 g/dL (32.0-36.0); Mean Corpuscular Volume 91.4 fL (80.0-100.0); Monocytes # (auto) 1.2 10 ^3/uL (0-1.3); Neutrophils # (auto) 11.6 10 ^3/uL (1.6-8.6); Neutrophils % (auto) 75.1 % (37.0-80.0); Platelet Count (auto) 428 10^3/uL (140-450); Red Blood Cells 4.08 10^6/uL (4.5-5.90); Red Cell Distribution Width 14.4 % (11.8-14.3); White Blood Cell 15.4 10^3/uL (4.4-10.8)
--- NOTE | 2024-04-21 10:53 | DVHPN2 ---
Progress Note Date Seen: Apr 21, 2024 Medical Necessity Reason Pt with a Central, PICC or Fol: No Subjective Patient reports: No new complaints Review of Systems: HEENT:Normal, CVS:Normal, RESPIRATORY:Normal, GI:Normal, :Normal, MSK:Normal, NEURO:Normal Objective vital signs Vital Sign Date Time Temp Pulse Resp B/P (MAP) Pulse Ox O2 Delivery O2 Flow Rate FiO2 04/21/24 10:18 100 Nasal Cannula 3.0 04/21/24 10:18 32 04/21/24 09:13 119 106/72 04/21/24 09:00 98.0 18 98.0 Total Intake and Output 04/20/24 04/20/24 04/21/24 15:00 23:00 07:00 Intake Total 890 ml 526 ml Output Total 700 ml Balance 890 ml -174 ml medications Current Medications Medications Dose Ordered Sig/Danis Route Start Time Stop Time Status Last Admin Dose Admin Spironolactone 25 mg DAILY PO 04/11/24 10:00 04/21/24 09:12 25 MG Sertraline HCl 100 mg DAILY PO 04/11/24 10:00 04/21/24 09:11 100 MG Nitroglycerin 0.4 mg Q5MINP PRN SL 04/10/24 11:45 Diagnostic Test (Pha) 1 strip ACHS 04/10/24 17:00 04/21/24 06:16 1 STRIP Insulin Human Regular HS SC 04/10/24 22:00 04/20/24 21:12 3 UNITS Insulin Human Regular AC SC 04/10/24 17:00 04/21/24 06:04 2 UNITS Dextrose 50 ml UD PRN IV 04/10/24 11:45 Ticagrelor 60 mg BID PO 04/13/24 10:15 04/21/24 09:13 60 MG Ipratropium [place] 0.5 mg Q8HR NEB 04/14/24 22:45 04/21/24 06:08 0.5 MG Aspirin 81 mg DAILY PO 04/16/24 10:42 04/21/24 09:11 81 MG Ceftriaxone Sodium 50 ml @ 100 mls/hr DAILY@09 IV 04/17/24 09:00 04/21/24 09:11 100 MLS/HR Insulin Glargine 10 units HS SC 04/16/24 22:00 04/20/24 21:12 10 UNITS EZETIMIBE 10 mg DAILY PO 04/17/24 10:00 04/18/24 09:52 10 MG Levothyroxine Sodium 88 mcg QAM PO 04/19/24 07:00 04/21/24 06:03 88 MCG Furosemide 20 mg DAILY@0800 IV 04/20/24 08:00 04/21/24 09:12 20 MG Carvedilol 12.5 mg BID PO 04/19/24 12:45 04/20/24 21:10 12.5 MG Heparin Sodium/ Dextrose 250 ml @ 14 mls/hr [id number] IV 04/20/24 19:45 04/21/24 04:46 14 MLS/HR laboratory and microbiology Laboratory Tests 04/21/24 05:37 04/20/24 06:04 Test 04/20/24 06:04 Range/Units Serum Glucose 154 H 74-106 mg/dL Microbiology Date/Time Source Procedure Growth Status 04/19/24 16:18 Blood Blood Culture - Preliminary NO GROWTH AFTER 24 HOURS OF INCUBATION. Resulted Problem List/Assessment/Plan Problem List/Assessment/Plan #1 acute resp failure: on oxygen #2 acute mi/cad: s/p angio/stent: #3 acute on chronic systolic heart failure: lasix iv, coreg #4 dm: lantus, ssi #5 ? copd #6 htn #7 morbid obesity #8 acute liver failure: monitor, usg #9 hypothyroidism: check tsh #10 s/p aicd #11 uti/hematuria: culture, iv rocephin, dc heparin #12 pe: ivc filter, dc heparin advance care planning- full code- time spent 19 mins Plan discussed with: Other (rn) My Orders My Orders Orders - DOLLY MAN MD Procedure Category Date Status Time Carvedilol Tablet PHA 04/21/24 Verified (Coreg Tablet) 22:00 * Research Associate CONS 04/21/24 Verified Consult Complete Blood Count LAB 04/22/24 Verified 06:00 Comprehensive LAB 04/22/24 Verified Metabolic Panel 06:00 Chest Portable XY 04/22/24 Verified 06:00 Dietary Evaluation Review Comments: follow 2gNa CCHO-60 diet, monitor PO intake to meet 75% of his needs Expected Outcomes/Goals: controlled DM and gradual weight loss. Date of Service: Apr 21, 2024 Billing Provider: DOLLY MAN MD Common Visit Codes: [id number] INP/OBS CARE(HIGH) DOLLY MAN MD Apr 21, 2024 10:53
[2024-04-21] MEDS: IODIXANOL 320MG/ML 100ML BTL IV ONE (10:59)
[2024-04-21] MEDS: fentaNYL CITRATE 100 MCG/2 ML VL ONE (11:05)
[2024-04-21] MEDS: MIDAZOLAM HCL 2MG/2ML 2ml VIAL (1mg/ml) ONE (11:05)
[2024-04-21] MEDS: LIDOCAINE 2%HCL (LOCAL ANESTH.) INJ 20ML MDV ONE (11:05)
--- NOTE | 2024-04-21 12:52 | DVH ---
XY INFERIOR VENA CAVA FILTER, HISTORY: FILTER PL. due to known PE with low cardiopulmonary reserve. PROCEDURE: Informed consent was obtained. The patient was placed on the fluoroscopic table in supine position. The right groin was prepped with chlorhexidine which was allowed to dry and draped in the u sual sterile fashion. Time out was performed. Following administration of 1% local lidocaine, the com mon femoral vein was accessed with a micropuncture set under ultrasound guidance, and an image docume nting patency sent to PACS. A 6 [place] Sheath was placed into the upper left common iliac vein. A cav ogram was performed and the level of the renal veins were identified. The sheath was exchanged for a 9.6 [place] introducer sheath, and a Bard G2 Morton filter was deployed in an infrarenal location. The introducer sheath was removed and the venotomy closed with manual compression. Post-deployment image was obtained. No immediate complication was identified. DAP 1599 FLUOROSCOPY TIME: 2.0 minutes. CONTRAST USED: 15 mL Visi 300. SEDATION: Dr. Mercy Tamayo was personally responsible for the administration of moderate sedation during the procedure performed, including the use of an independent trained observer who had no other duties during the procedure. The drugs utilized were IV fentanyl and versed (see nursing log for details). The total time of supervision by the attending physician was approximately 30 minutes. FINDINGS: There is a patent single IVC visualized without intraluminal filling defect however there i s slow venous flow. No renal venous anomaly is noted. Post-procedure image demonstrates good position ing of the IVC filter in an infrarenal position. IMPRESSION: Infra-renal IVC filter placement. Slow venous flow visualized on venography. PLAN: Consideration should be made for removal of this retrievable filter after and if medical necess ity for caval filtration is no longer present. If we in IR are unable to contact the patient in a huong madina fashion, please contact our office, and we will attempt to arrange for filter retrieval at the ea rliest convenience.
--- NOTE | 2024-04-21 13:14 | DVHPN2 ---
Progress Note - Dictate Date Seen: Apr 21, 2024 Medical Necessity Reason Pt with a Central, PICC or Fol: No Subjective PT WITH STEMI S/P PTCA STENT CX HEMATURIA DC ELIQUIS SERIAL CBC vital signs Vital Sign Date Time Temp Pulse Resp B/P (MAP) Pulse Ox O2 Delivery O2 Flow Rate FiO2 04/21/24 10:18 100 Nasal Cannula 3.0 04/21/24 10:18 32 04/21/24 09:13 119 106/72 04/21/24 09:00 98.0 18 98.0 Total Intake and Output 04/20/24 04/20/24 04/21/24 15:00 23:00 07:00 Intake Total 890 ml 526 ml Output Total 700 ml Balance 890 ml -174 ml medications Current Medications Medications Dose Ordered Sig/Danis Route Start Time Stop Time Status Last Admin Dose Admin Spironolactone 25 mg DAILY PO 04/11/24 10:00 04/21/24 09:12 25 MG Sertraline HCl 100 mg DAILY PO 04/11/24 10:00 04/21/24 09:11 100 MG Nitroglycerin 0.4 mg Q5MINP PRN SL 04/10/24 11:45 Diagnostic Test (Pha) 1 strip ACHS 04/10/24 17:00 04/21/24 06:16 1 STRIP Insulin Human Regular HS SC 04/10/24 22:00 04/20/24 21:12 3 UNITS Insulin Human Regular AC SC 04/10/24 17:00 04/21/24 06:04 2 UNITS Dextrose 50 ml UD PRN IV 04/10/24 11:45 Ticagrelor 60 mg BID PO 04/13/24 10:15 04/21/24 09:13 60 MG Ipratropium [place] 0.5 mg Q8HR NEB 04/14/24 22:45 04/21/24 06:08 0.5 MG Aspirin 81 mg DAILY PO 04/16/24 10:42 04/21/24 09:11 81 MG Ceftriaxone Sodium 50 ml @ 100 mls/hr DAILY@09 IV 04/17/24 09:00 04/21/24 09:11 100 MLS/HR Insulin Glargine 10 units HS SC 04/16/24 22:00 04/20/24 21:12 10 UNITS EZETIMIBE 10 mg DAILY PO 04/17/24 10:00 04/18/24 09:52 10 MG Levothyroxine Sodium 88 mcg QAM PO 04/19/24 07:00 04/21/24 06:03 88 MCG Furosemide 20 mg DAILY@0800 IV 04/20/24 08:00 04/21/24 09:12 20 MG Carvedilol 3.125 mg BID PO 04/21/24 22:00 objective HEENT: Pupils are reactive. Funduscopic exam shows some AV nicking and hard exudates, no papilledema noted. Sclerae are anicteric. NECK: No JVD appreciated. Carotid pulses are 2+ and symmetrical. No cervical adenopathy, no supraclavicular adenopathy. PULMONARY: Clear to auscultation. CARDIOVASCULAR: Regular rate without S3, without S4. PMI; however, is diffuse. There is a 2/6 systolic murmur along the left sternal border. ABDOMEN: Obese. Unable to appreciate an organomegaly. EXTREMITIES: Distal pulses are diminished with 1 Doppler pulses in lower extremity. NEUROLOGIC: The patient, however, is intact, alert, oriented. laboratory and microbiology Laboratory Tests 04/21/24 05:37 04/20/24 06:04 Test 04/20/24 06:04 Range/Units Serum Glucose 154 H 74-106 mg/dL Problem List STEMI S/P PTCA STENT CX HEMATURAI HFrEF CHRONIC S/P AICD Assessment/Plan CBC STABLE CHECK UA UROLOGY CONSULT DEFERRED BECAUSE CANNOT STOP DAPT FOR NOW URINE + RBC + WBC CHECK LABS REHAB TITRATE ON MEDS TITRATE SYNTHROID CHECK BNP IS ELEVATED CHANGE TO BUMEX BID Dietary Evaluation Review Comments: follow 2gNa CCHO-60 diet, monitor PO intake to meet 75% of his needs Expected Outcomes/Goals: controlled DM and gradual weight loss. Plan discussed with: Patient CHRISTINA KAMARA MD Apr 21, 2024 13:14
[2024-04-21] MEDS: BUMETANIDE 1 MG TAB PO SCH (17:57)
[2024-04-21] MEDS: CARVEDILOL 12.5 MG TAB PO SCH (22:28)
[2024-04-22] VITALS (15 sets, daily range): BP systolic 97–115; BP diastolic 62–79; PULSE 85–129; RESP 18–20; TEMP 97.4–97.9; O2SAT 95–99
[2024-04-22 07:03] LABS: Basophils # (auto) 0.1 10 ^3/uL (0-0.2); Basophils % (auto) 0.4 % (0.0-2.0); Eosinophils # (auto) 0.1 10 ^3/uL (0-0.8); Eosinophils % (auto) 0.6 % (0.0-7.0); Hematocrit 39.6 % (41.0-53.0); Hemoglobin 13.1 g/dL (13.5-17.5); Lymphocytes # (auto) 1.9 10 ^3/uL (0.4-5.4); Lymphocytes % (auto) 10.7 % (10.0-50.0); Mean Corpuscular Hemoglobin 30.1 pg (28.0-32.0); Mean Corpuscular Volume 91.3 fL (80.0-100.0); Monocytes # (auto) 1.5 10 ^3/uL (0-1.3); Monocytes % (auto) 8.7 % (0.0-12.0); Neutrophils # (auto) 13.9 10 ^3/uL (1.6-8.6); Neutrophils % (auto) 79.6 % (37.0-80.0); Platelet Count (auto) 437 10^3/uL (140-450); Red Blood Cells 4.33 10^6/uL (4.5-5.90); Red Cell Distribution Width 14.5 % (11.8-14.3); White Blood Cell 17.4 10^3/uL (4.4-10.8)
--- NOTE | 2024-04-22 07:12 | DVH ---
CHEST RADIOGRAPH Indication:chf Technique: Single frontal view of the chest was obtained Comparison: XY CHEST PORTABLE on DOS: 04/19/24 FINDINGS: Lines and Tubes: AICD/ pacemaker noted. Lungs: Pulmonary congestion. Pleura: No effusion. No pneumothorax. Cardiomediastinal contours: Stable cardiomegaly. Bones: No acute osseous abnormality. IMPRESSION: 1. Pulmonary congestion.
[2024-04-22 07:20] LABS: Alanine Aminotransferase 21 U/L (7-40); Albumin 3.4 g/dL (3.2-4.8); Alkaline Phosphatase 232 U/L (46-116); Anion Gap 8 (5-15); Aspartate Aminotransferase 20 U/L (13-40); BUN/Creatinine Ratio 43.9 (10.0-20.0); Bilirubin, Total 1.2 mg/dL (0.2-1.0); Blood Urea Nitrogen 47 mg/dL (9-23); Calcium 9.2 mg/dL (8.7-10.4); Carbon Dioxide 28 mmol/L (20-31); Chloride 97 mmol/L (98-107); Glucose 179 mg/dL (74-106); Potassium 4.7 mmol/L (3.5-5.1); Sodium 133 mmol/L (136-145); Total Protein 6.6 g/dL (5.7-8.2)
--- NOTE | 2024-04-22 10:14 | DVHPN2 ---
Progress Note Date Seen: Apr 22, 2024 Medical Necessity Reason Pt with a Central, PICC or Fol: No Subjective Patient reports: No new complaints Review of Systems: HEENT:Normal, CVS:Normal, RESPIRATORY:Normal, GI:Normal, :Normal, MSK:Normal, NEURO:Normal Objective vital signs Vital Sign Date Time Temp Pulse Resp B/P (MAP) Pulse Ox O2 Delivery O2 Flow Rate FiO2 04/22/24 06:27 109 18 98 04/22/24 06:21 Nasal Cannula* 3 32 04/22/24 05:15 107/79 04/22/24 05:00 97.9 97.9 Total Intake and Output 04/21/24 04/21/24 04/22/24 15:00 23:00 07:00 Intake Total 176 ml 1000 ml 800 ml Output Total 800 ml Balance 176 ml 200 ml 800 ml medications Current Medications Medications Dose Ordered Sig/Danis Route Start Time Stop Time Status Last Admin Dose Admin Spironolactone 25 mg DAILY PO 04/11/24 10:00 04/21/24 09:12 25 MG Sertraline HCl 100 mg DAILY PO 04/11/24 10:00 04/21/24 09:11 100 MG Nitroglycerin 0.4 mg Q5MINP PRN SL 04/10/24 11:45 Diagnostic Test (Pha) 1 strip ACHS 04/10/24 17:00 04/22/24 06:35 1 STRIP Insulin Human Regular HS SC 04/10/24 22:00 04/21/24 22:25 3 UNITS Insulin Human Regular AC SC 04/10/24 17:00 04/22/24 06:36 6 UNITS Dextrose 50 ml UD PRN IV 04/10/24 11:45 Ticagrelor 60 mg BID PO 04/13/24 10:15 04/21/24 22:27 60 MG Ipratropium [place] 0.5 mg Q8HR NEB 04/14/24 22:45 04/22/24 06:21 0.5 MG Aspirin 81 mg DAILY PO 04/16/24 10:42 04/21/24 09:11 81 MG Ceftriaxone Sodium 50 ml @ 100 mls/hr DAILY@09 IV 04/17/24 09:00 04/21/24 09:11 100 MLS/HR Insulin Glargine 10 units HS SC 04/16/24 22:00 04/21/24 22:25 10 UNITS EZETIMIBE 10 mg DAILY PO 04/17/24 10:00 04/18/24 09:52 10 MG Levothyroxine Sodium 88 mcg QAM PO 04/19/24 07:00 04/22/24 06:37 88 MCG Carvedilol 3.125 mg BID PO 04/21/24 22:00 04/21/24 22:28 3.125 MG Bumetanide 1 mg BIDD PO 04/21/24 18:00 04/22/24 05:15 1 MG Examination: GENERAL:Normal, HEENT:Normal, NECK:Normal, LUNGS:Normal, CVS:Normal, ABDOMEN:Normal, MSK:Normal, SKIN:Normal, NEURO:Normal, :Normal laboratory and microbiology Laboratory Tests 04/22/24 06:41 Test 04/22/24 06:41 Range/Units Serum Glucose 179 H 74-106 mg/dL Microbiology Date/Time Source Procedure Growth Status 04/19/24 16:18 Blood Blood Culture - Preliminary NO GROWTH AFTER 48 HOURS OF INCUBATION. Resulted Problem List/Assessment/Plan Problem List/Assessment/Plan #1 acute resp failure: on oxygen #2 acute mi/cad: s/p angio/stent: #3 acute on chronic systolic heart failure: bumex, coreg #4 dm: lantus, ssi #5 ? copd #6 htn #7 morbid obesity #8 acute liver failure: monitor, usg #9 hypothyroidism: check tsh #10 s/p aicd #11 uti/hematuria ?sepsis: iv invanz, dc heparin #12 pe: ivc filter, dc heparin advance care planning- full code- time spent 19 mins Plan discussed with: Patient My Orders My Orders Orders - DOLLY MAN MD Procedure Category Date Status Time Carvedilol Tablet PHA 04/21/24 In Process (Coreg Tablet) 22:00 * Scheduling Specialist CONS 04/21/24 Transmitted Consult Chest Portable XY 04/22/24 Resulted 06:00 Urinalysis LAB 04/21/24 Uncollected 10:51 Urine Bacterial SERGEI 04/21/24 Logged Culture 10:51 Inferior Vena Cava XY 04/21/24 Resulted Filter 11:42 Invanz 1gm Ivpb X One PHA 04/22/24 Transmitted 10:15 Invanz 1gm Ivpb Daily PHA 04/23/24 Transmitted 10:00 Bipap/Cpap For Sleep RT 10/29/24 Transmitted Apnea 10:04 Complete Blood Count LAB 04/23/24 Verified 06:00 Dietary Evaluation Review Comments: follow 2gNa CCHO-60 diet, monitor PO intake to meet 75% of his needs Expected Outcomes/Goals: controlled DM and gradual weight loss. Date of Service: Apr 22, 2024 Billing Provider: DOLLY MAN MD Common Visit Codes: [id number] INP/OBS CARE(HIGH) DOLLY MAN MD Apr 22, 2024 10:14
[2024-04-22] MEDS: ERTAPENEM SOD INJ 1 GM in SODIUM CHL 0.9% 50 ML IV ONE (11:54)
--- NOTE | 2024-04-22 14:12 | DVHPN2 ---
Progress Note - Dictate Date Seen: Apr 22, 2024 Medical Necessity Reason Pt with a Central, PICC or Fol: No Subjective PT WITH STEMI S/P PTCA STENT CX HEMATURIA DC ELIQUIS SERIAL CBC vital signs Vital Sign Date Time Temp Pulse Resp B/P (MAP) Pulse Ox O2 Delivery O2 Flow Rate FiO2 04/22/24 13:40 100 18 99 04/22/24 13:34 Nasal Cannula* 3 32 04/22/24 11:40 105/67 04/22/24 05:00 97.9 97.9 Total Intake and Output 04/21/24 04/21/24 04/22/24 15:00 23:00 07:00 Intake Total 176 ml 1000 ml 800 ml Output Total 800 ml Balance 176 ml 200 ml 800 ml medications Current Medications Medications Dose Ordered Sig/Danis Route Start Time Stop Time Status Last Admin Dose Admin Spironolactone 25 mg DAILY PO 04/11/24 10:00 04/22/24 11:39 25 MG Sertraline HCl 100 mg DAILY PO 04/11/24 10:00 04/22/24 11:40 100 MG Nitroglycerin 0.4 mg Q5MINP PRN SL 04/10/24 11:45 Diagnostic Test (Pha) 1 strip ACHS 04/10/24 17:00 04/22/24 11:54 1 STRIP Insulin Human Regular HS SC 04/10/24 22:00 04/21/24 22:25 3 UNITS Insulin Human Regular AC SC 04/10/24 17:00 04/22/24 13:05 3 UNITS Dextrose 50 ml UD PRN IV 04/10/24 11:45 Ticagrelor 60 mg BID PO 04/13/24 10:15 04/22/24 11:38 60 MG Ipratropium [place] 0.5 mg Q8HR NEB 04/14/24 22:45 04/22/24 13:36 0.5 MG Aspirin 81 mg DAILY PO 04/16/24 10:42 04/22/24 11:39 81 MG Insulin Glargine 10 units HS SC 04/16/24 22:00 04/21/24 22:25 10 UNITS EZETIMIBE 10 mg DAILY PO 04/17/24 10:00 04/18/24 09:52 10 MG Levothyroxine Sodium 88 mcg QAM PO 04/19/24 07:00 04/22/24 06:37 88 MCG Carvedilol 3.125 mg BID PO 04/21/24 22:00 04/22/24 11:40 3.125 MG Bumetanide 1 mg BIDD PO 04/21/24 18:00 04/22/24 05:15 1 MG Ertapenem 1 gm/ Sodium Chloride 50 ml @ 100 mls/hr DAILY IV 04/23/24 10:00 objective HEENT: Pupils are reactive. Funduscopic exam shows some AV nicking and hard exudates, no papilledema noted. Sclerae are anicteric. NECK: No JVD appreciated. Carotid pulses are 2+ and symmetrical. No cervical adenopathy, no supraclavicular adenopathy. PULMONARY: Clear to auscultation. CARDIOVASCULAR: Regular rate without S3, without S4. PMI; however, is diffuse. There is a 2/6 systolic murmur along the left sternal border. ABDOMEN: Obese. Unable to appreciate an organomegaly. EXTREMITIES: Distal pulses are diminished with 1 Doppler pulses in lower extremity. NEUROLOGIC: The patient, however, is intact, alert, oriented. laboratory and microbiology Laboratory Tests 04/22/24 06:41 Test 04/22/24 06:41 Range/Units Serum Glucose 179 H 74-106 mg/dL Problem List STEMI S/P PTCA STENT CX HEMATURAI HFrEF CHRONIC S/P AICD Assessment/Plan CBC STABLE CHECK UA UROLOGY CONSULT DEFERRED BECAUSE CANNOT STOP DAPT FOR NOW URINE + RBC + WBC CHECK LABS REHAB TITRATE ON MEDS TITRATE SYNTHROID CHECK BNP IS ELEVATED CHANGE TO BUMEX BID CXR C/W PUL EDEMA CONT HIGHER DIURETIC DOSING Dietary Evaluation Review Comments: follow 2gNa CCHO-60 diet, monitor PO intake to meet 75% of his needs Expected Outcomes/Goals: controlled DM and gradual weight loss. Plan discussed with: Patient Critical Care Time(min): 35 CHRISTINA KAMARA MD Apr 22, 2024 14:12
[2024-04-23] VITALS (19 sets, daily range): BP systolic 93–111; BP diastolic 58–76; PULSE 60–75; RESP 16–27; TEMP 96.2–98.2; O2SAT 94–100
[2024-04-23] MEDS: HYDROcodone-ACET 5/325MG TAB PO PRN (03:45)
[2024-04-23 05:12] LABS: Basophils # (auto) 0.1 10 ^3/uL (0-0.2); Basophils % (auto) 0.3 % (0.0-2.0); Eosinophils # (auto) 0.1 10 ^3/uL (0-0.8); Eosinophils % (auto) 0.5 % (0.0-7.0); Hematocrit 38.9 % (41.0-53.0); Hemoglobin 12.8 g/dL (13.5-17.5); Lymphocytes # (auto) 1.4 10 ^3/uL (0.4-5.4); Lymphocytes % (auto) 8.2 % (10.0-50.0); Mean Corpuscular Hemoglobin 30.1 pg (28.0-32.0); Mean Corpuscular Hgb Conc. 32.9 g/dL (32.0-36.0); Mean Corpuscular Volume 91.5 fL (80.0-100.0); Monocytes # (auto) 1.5 10 ^3/uL (0-1.3); Monocytes % (auto) 8.6 % (0.0-12.0); Neutrophils # (auto) 14.2 10 ^3/uL (1.6-8.6); Neutrophils % (auto) 82.4 % (37.0-80.0); Platelet Count (auto) 405 10^3/uL (140-450); Red Blood Cells 4.26 10^6/uL (4.5-5.90); Red Cell Distribution Width 14.4 % (11.8-14.3); White Blood Cell 17.3 10^3/uL (4.4-10.8)
[2024-04-23 06:26] LABS: Chloride 98 mmol/L (98-107); Potassium 4.4 mmol/L (3.5-5.1); Sodium 133 mmol/L (136-145)
[2024-04-23 06:27] LABS: Anion Gap 5 (5-15); Carbon Dioxide 30 mmol/L (20-31)
[2024-04-23 06:32] LABS: BUN/Creatinine Ratio 37.3 (10.0-20.0); Blood Urea Nitrogen 41 mg/dL (9-23); Glucose 163 mg/dL (74-106)
[2024-04-23] MEDS: ERTAPENEM SOD INJ 1 GM in SODIUM CHL 0.9% 50 ML IV SCH (10:00)
--- NOTE | 2024-04-23 10:33 | DVHPN2 ---
Progress Note Date Seen: Apr 23, 2024 Medical Necessity Reason Pt with a Central, PICC or Fol: No Subjective Patient reports: No new complaints Review of Systems: HEENT:Normal, CVS:Normal, RESPIRATORY:Normal, GI:Normal, :Normal, MSK:Normal, NEURO:Normal Objective vital signs Vital Sign Date Time Temp Pulse Resp B/P (MAP) Pulse Ox O2 Delivery O2 Flow Rate FiO2 04/23/24 10:18 71 99 Facial BiPAP Mask 30 04/23/24 08:43 97.9 18 107/61 (76) 97.9 04/23/24 06:05 4 Total Intake and Output 04/22/24 04/22/24 04/23/24 15:00 23:00 07:00 Intake Total 50 ml 420 ml 300 ml Balance 50 ml 420 ml 300 ml medications Current Medications Medications Dose Ordered Sig/Danis Route Start Time Stop Time Status Last Admin Dose Admin Spironolactone 25 mg DAILY PO 04/11/24 10:00 04/22/24 11:39 25 MG Sertraline HCl 100 mg DAILY PO 04/11/24 10:00 04/22/24 11:40 100 MG Nitroglycerin 0.4 mg Q5MINP PRN SL 04/10/24 11:45 Diagnostic Test (Pha) 1 strip ACHS 04/10/24 17:00 04/23/24 06:05 1 STRIP Insulin Human Regular HS SC 04/10/24 22:00 04/22/24 22:08 4 UNITS Insulin Human Regular AC SC 04/10/24 17:00 04/22/24 18:43 2 UNITS Dextrose 50 ml UD PRN IV 04/10/24 11:45 Ticagrelor 60 mg BID PO 04/13/24 10:15 04/22/24 22:02 60 MG Ipratropium [place] 0.5 mg Q8HR NEB 04/14/24 22:45 04/23/24 06:05 0.5 MG Aspirin 81 mg DAILY PO 04/16/24 10:42 04/22/24 11:39 81 MG Insulin Glargine 10 units HS SC 04/16/24 22:00 04/22/24 22:09 10 UNITS EZETIMIBE 10 mg DAILY PO 04/17/24 10:00 04/18/24 09:52 10 MG Levothyroxine Sodium 88 mcg QAM PO 04/19/24 07:00 04/23/24 06:01 88 MCG Carvedilol 3.125 mg BID PO 04/21/24 22:00 04/23/24 06:01 3.125 MG Bumetanide 1 mg BIDD PO 04/21/24 18:00 04/23/24 06:02 1 MG Ertapenem 1 gm/ Sodium Chloride 50 ml @ 100 mls/hr DAILY IV 04/23/24 10:00 Acetaminophen/ Hydrocodone Bitart 1 tab Q8HPRN PRN PO 04/23/24 02:00 04/23/24 03:45 1 TAB Examination: GENERAL:Normal, HEENT:Normal, NECK:Normal, LUNGS:Normal, LUNGS:Abnormal (on bipap), CVS:Normal, ABDOMEN:Normal, MSK:Normal, SKIN:Normal, NEURO:Normal, :Normal laboratory and microbiology Laboratory Tests 04/23/24 04:40 Test 04/23/24 04:40 Range/Units Serum Glucose 163 H 74-106 mg/dL Microbiology Date/Time Source Procedure Growth Status 04/19/24 16:18 Blood Blood Culture - Preliminary NO GROWTH AFTER 72 HOURS OF INCUBATION. Resulted Problem List/Assessment/Plan Problem List/Assessment/Plan #1 acute resp failure: on oxygen #2 acute mi/cad: s/p angio/stent #3 acute on chronic systolic heart failure: bumex iv, coreg #4 dm: lantus, ssi #5 ? copd: check abg #6 htn #7 morbid obesity #8 acute liver failure: monitor, usg #9 hypothyroidism: check tsh #10 s/p aicd #11 uti/hematuria ?sepsis: iv invanz, dc heparin #12 pe: ivc filter, dc heparin #13 sleep apnea: bipap advance care planning- full code- time spent 19 mins Plan discussed with: Patient, Spouse My Orders My Orders Orders - DOLLY MAN MD Procedure Category Date Status Time Abg W/ Co-Ox RT 04/23/24 Verified 10:26 Bumetanide Injection PHA 04/23/24 Verified (Bumex Injection) 10:30 Complete Blood Count LAB 04/24/24 Verified 06:00 Comprehensive LAB 04/24/24 Verified Metabolic Panel 06:00 Chest Portable XY 04/24/24 Verified 06:00 Dietary Evaluation Review Comments: follow 2gNa CCHO-60 diet, monitor PO intake to meet 75% of his needs Expected Outcomes/Goals: controlled DM and gradual weight loss. Date of Service: Apr 23, 2024 Billing Provider: DOLLY MAN MD Common Visit Codes: [id number] INP/OBS CARE(HIGH) DOLLY MAN MD Apr 23, 2024 10:33
[2024-04-23 11:19] LABS: Base Excess 5.6 mmol/L (-2.0-3.0)
[2024-04-23] MEDS: BUMETANIDE 2.5mg/10ml (0.25 mg/ml) INJ IV ONE (13:00)
--- NOTE | 2024-04-23 13:07 | DVHPN2 ---
Progress Note - Dictate Date Seen: Apr 23, 2024 Medical Necessity Reason Pt with a Central, PICC or Fol: No Subjective PT WITH STEMI S/P PTCA STENT CX HEMATURIA DC ELIQUIS SERIAL CBC vital signs Vital Sign Date Time Temp Pulse Resp B/P (MAP) Pulse Ox O2 Delivery O2 Flow Rate FiO2 04/23/24 13:00 101/64 04/23/24 10:18 71 99 Facial BiPAP Mask 30 04/23/24 08:43 97.9 18 97.9 04/23/24 06:05 4 Total Intake and Output 04/22/24 04/22/24 04/23/24 15:00 23:00 07:00 Intake Total 50 ml 420 ml 300 ml Balance 50 ml 420 ml 300 ml medications Current Medications Medications Dose Ordered Sig/Danis Route Start Time Stop Time Status Last Admin Dose Admin Spironolactone 25 mg DAILY PO 04/11/24 10:00 04/22/24 11:39 25 MG Sertraline HCl 100 mg DAILY PO 04/11/24 10:00 04/22/24 11:40 100 MG Nitroglycerin 0.4 mg Q5MINP PRN SL 04/10/24 11:45 Diagnostic Test (Pha) 1 strip ACHS 04/10/24 17:00 04/23/24 11:30 1 STRIP Insulin Human Regular HS SC 04/10/24 22:00 04/22/24 22:08 4 UNITS Insulin Human Regular AC SC 04/10/24 17:00 04/22/24 18:43 2 UNITS Dextrose 50 ml UD PRN IV 04/10/24 11:45 Ticagrelor 60 mg BID PO 04/13/24 10:15 04/22/24 22:02 60 MG Ipratropium [place] 0.5 mg Q8HR NEB 04/14/24 22:45 04/23/24 06:05 0.5 MG Aspirin 81 mg DAILY PO 04/16/24 10:42 04/22/24 11:39 81 MG Insulin Glargine 10 units HS SC 04/16/24 22:00 04/22/24 22:09 10 UNITS EZETIMIBE 10 mg DAILY PO 04/17/24 10:00 04/18/24 09:52 10 MG Levothyroxine Sodium 88 mcg QAM PO 04/19/24 07:00 04/23/24 06:01 88 MCG Carvedilol 3.125 mg BID PO 04/21/24 22:00 04/23/24 06:01 3.125 MG Bumetanide 1 mg BIDD PO 04/21/24 18:00 04/23/24 06:02 1 MG Ertapenem 1 gm/ Sodium Chloride 50 ml @ 100 mls/hr DAILY IV 04/23/24 10:00 04/23/24 10:00 100 MLS/HR Acetaminophen/ Hydrocodone Bitart 1 tab Q8HPRN PRN PO 04/23/24 02:00 04/23/24 03:45 1 TAB objective HEENT: Pupils are reactive. Funduscopic exam shows some AV nicking and hard exudates, no papilledema noted. Sclerae are anicteric. NECK: No JVD appreciated. Carotid pulses are 2+ and symmetrical. No cervical adenopathy, no supraclavicular adenopathy. PULMONARY: Clear to auscultation. CARDIOVASCULAR: Regular rate without S3, without S4. PMI; however, is diffuse. There is a 2/6 systolic murmur along the left sternal border. ABDOMEN: Obese. Unable to appreciate an organomegaly. EXTREMITIES: Distal pulses are diminished with 1 Doppler pulses in lower extremity. NEUROLOGIC: The patient, however, is intact, alert, oriented. laboratory and microbiology Laboratory Tests 04/23/24 04:40 Test 04/23/24 04:40 Range/Units Serum Glucose 163 H 74-106 mg/dL Problem List STEMI S/P PTCA STENT CX HEMATURAI HFrEF CHRONIC S/P AICD Assessment/Plan CBC STABLE CHECK UA UROLOGY CONSULT DEFERRED BECAUSE CANNOT STOP DAPT FOR NOW URINE + RBC + WBC CHECK LABS REHAB TITRATE ON MEDS TITRATE SYNTHROID CHECK BNP IS ELEVATED CHANGE TO BUMEX BID CXR C/W PUL EDEMA CONT HIGHER DIURETIC DOSING LEUKOCYTOSIS IV ABX Dietary Evaluation Review Comments: follow 2gNa CCHO-60 diet, monitor PO intake to meet 75% of his needs Expected Outcomes/Goals: controlled DM and gradual weight loss. Plan discussed with: Patient CHRISTINA KAMARA MD Apr 23, 2024 13:07
[2024-04-24] VITALS (17 sets, daily range): BP systolic 102–137; BP diastolic 55–71; PULSE 58–76; RESP 14–24; TEMP 97.9–98.7; O2SAT 96–100
[2024-04-24 06:06] LABS: Basophils # (auto) 0.1 10 ^3/uL (0-0.2); Basophils % (auto) 0.7 % (0.0-2.0); Eosinophils # (auto) 0.2 10 ^3/uL (0-0.8); Eosinophils % (auto) 1.7 % (0.0-7.0); Hematocrit 36.6 % (41.0-53.0); Hemoglobin 12.2 g/dL (13.5-17.5); Lymphocytes # (auto) 1.1 10 ^3/uL (0.4-5.4); Lymphocytes % (auto) 8.2 % (10.0-50.0); Mean Corpuscular Hemoglobin 30.5 pg (28.0-32.0); Mean Corpuscular Hgb Conc. 33.4 g/dL (32.0-36.0); Mean Corpuscular Volume 91.5 fL (80.0-100.0); Monocytes # (auto) 1.1 10 ^3/uL (0-1.3); Monocytes % (auto) 8.6 % (0.0-12.0); Neutrophils # (auto) 10.8 10 ^3/uL (1.6-8.6); Neutrophils % (auto) 80.8 % (37.0-80.0); Platelet Count (auto) 387 10^3/uL (140-450); Red Cell Distribution Width 14.5 % (11.8-14.3); White Blood Cell 13.4 10^3/uL (4.4-10.8)
--- NOTE | 2024-04-24 06:08 | DVH ---
CHEST RADIOGRAPH Indication:chf Technique: Single frontal view of the chest was obtained Comparison: XY CHEST PORTABLE on DOS: 04/22/24 FINDINGS: Lines and Tubes: AICD / pacemaker noted. Lungs: Mild pulmonary congestion is unchanged. Pleura: No effusion. No pneumothorax. Cardiomediastinal contours: Cardiomegaly. Bones: No acute osseous abnormality. IMPRESSION: 1. Mild pulmonary congestion, unchanged. 2. Stable cardiomegaly.
[2024-04-24 06:36] LABS: Alanine Aminotransferase 20 U/L (7-40); Albumin 3.3 g/dL (3.2-4.8); Alkaline Phosphatase 230 U/L (46-116); Anion Gap 4 (5-15); Aspartate Aminotransferase 29 U/L (13-40); BUN/Creatinine Ratio 40.2 (10.0-20.0); Blood Urea Nitrogen 41 mg/dL (9-23); Calcium 8.9 mg/dL (8.7-10.4); Carbon Dioxide 34 mmol/L (20-31); Chloride 100 mmol/L (98-107); Glucose 152 mg/dL (74-106); Potassium 4.2 mmol/L (3.5-5.1); Sodium 138 mmol/L (136-145)
[2024-04-24 06:37] LABS: Total Protein 6.6 g/dL (5.7-8.2)
--- NOTE | 2024-04-24 11:44 | CONS ---
Pharmacy Clinical Information: From Concurrent Heart Failure CQM, Michael Doan is a 78 year old male with PMH of CHF, GA s/p 2 stents, s/p AICD, COPD, diabetes. Patient is currently on carvedilol and spironolactone. SGLT2i is not recommended due to UTI. ACEi is not recommended due to elevated BUN and cough reaction to lisinopril. Consider initiating ARB or ARNi once patient's renal function stabilizes. Consider switching to metoprolol since patient has history of COPD. CHANEL WIGGINS PHARMACIST Apr 24, 2024 11:44
--- NOTE | 2024-04-24 12:39 | DVHPN2 ---
Progress Note - Dictate Date Seen: Apr 24, 2024 Medical Necessity Reason Pt with a Central, PICC or Fol: No Subjective PT WITH STEMI S/P PTCA STENT CX HEMATURIA DC ELIQUIS SERIAL CBC vital signs Vital Sign Date Time Temp Pulse Resp B/P (MAP) Pulse Ox O2 Delivery O2 Flow Rate FiO2 04/24/24 12:17 98.7 68 20 121/71 (88) 98 98.7 04/24/24 10:00 Nasal Cannula* 4 36 Total Intake and Output 04/23/24 04/23/24 04/24/24 14:59 22:59 06:59 Intake Total 50 ml 0 ml 400 ml Balance 50 ml 0 ml 400 ml medications Current Medications Medications Dose Ordered Sig/Danis Route Start Time Stop Time Status Last Admin Dose Admin Spironolactone 25 mg DAILY PO 04/11/24 10:00 04/24/24 10:13 25 MG Sertraline HCl 100 mg DAILY PO 04/11/24 10:00 04/24/24 10:13 100 MG Nitroglycerin 0.4 mg Q5MINP PRN SL 04/10/24 11:45 Diagnostic Test (Pha) 1 strip ACHS 04/10/24 17:00 04/24/24 11:59 1 STRIP Insulin Human Regular HS SC 04/10/24 22:00 04/22/24 22:08 4 UNITS Insulin Human Regular AC SC 04/10/24 17:00 04/24/24 12:03 2 UNITS Dextrose 50 ml UD PRN IV 04/10/24 11:45 Ticagrelor 60 mg BID PO 04/13/24 10:15 04/24/24 10:12 60 MG Ipratropium [place] 0.5 mg Q8HR NEB 04/14/24 22:45 04/24/24 07:20 0.5 MG Aspirin 81 mg DAILY PO 04/16/24 10:42 04/24/24 10:12 81 MG Insulin Glargine 10 units HS SC 04/16/24 22:00 04/22/24 22:09 10 UNITS EZETIMIBE 10 mg DAILY PO 04/17/24 10:00 04/18/24 09:52 10 MG Levothyroxine Sodium 88 mcg QAM PO 04/19/24 07:00 04/24/24 06:40 88 MCG Carvedilol 3.125 mg BID PO 04/21/24 22:00 04/24/24 10:13 3.125 MG Bumetanide 1 mg BIDD PO 04/21/24 18:00 04/24/24 06:44 1 MG Ertapenem 1 gm/ Sodium Chloride 50 ml @ 100 mls/hr DAILY IV 04/23/24 10:00 04/24/24 10:12 100 MLS/HR Acetaminophen/ Hydrocodone Bitart 1 tab Q8HPRN PRN PO 04/23/24 02:00 04/23/24 03:45 1 TAB objective HEENT: Pupils are reactive. Funduscopic exam shows some AV nicking and hard exudates, no papilledema noted. Sclerae are anicteric. NECK: No JVD appreciated. Carotid pulses are 2+ and symmetrical. No cervical adenopathy, no supraclavicular adenopathy. PULMONARY: Clear to auscultation. CARDIOVASCULAR: Regular rate without S3, without S4. PMI; however, is diffuse. There is a 2/6 systolic murmur along the left sternal border. ABDOMEN: Obese. Unable to appreciate an organomegaly. EXTREMITIES: Distal pulses are diminished with 1 Doppler pulses in lower extremity. NEUROLOGIC: The patient, however, is intact, alert, oriented. laboratory and microbiology Laboratory Tests 04/24/24 05:19 Test 04/24/24 05:19 Range/Units Serum Glucose 152 H 74-106 mg/dL Problem List STEMI S/P PTCA STENT CX HEMATURAI HFrEF CHRONIC S/P AICD Assessment/Plan CBC STABLE CHECK UA UROLOGY CONSULT DEFERRED BECAUSE CANNOT STOP DAPT FOR NOW URINE + RBC + WBC CHECK LABS REHAB TITRATE ON MEDS TITRATE SYNTHROID CHECK BNP IS ELEVATED CHANGE TO BUMEX BID CXR C/W PUL EDEMA CONT HIGHER DIURETIC DOSING LEUKOCYTOSIS IV ABX LEUKOCYTOSIS IMPROVING LYTES WNL Dietary Evaluation Review Comments: follow 2gNa CCHO-60 diet, monitor PO intake to meet 75% of his needs Expected Outcomes/Goals: controlled DM and gradual weight loss. Plan discussed with: Patient CHRISTINA KAMARA MD Apr 24, 2024 12:39
--- NOTE | 2024-04-24 15:55 | DVHPN2 ---
Progress Note Date Seen: Apr 24, 2024 Medical Necessity Reason Pt with a Central, PICC or Fol: No Subjective Patient reports: No new complaints Review of Systems: HEENT:Normal, CVS:Normal, RESPIRATORY:Normal, GI:Normal, :Normal, MSK:Normal, NEURO:Normal Objective vital signs Vital Sign Date Time Temp Pulse Resp B/P (MAP) Pulse Ox O2 Delivery O2 Flow Rate FiO2 04/24/24 15:03 68 20 98 04/24/24 12:17 98.7 121/71 (88) 98.7 04/24/24 10:00 Nasal Cannula* 4 36 Total Intake and Output 04/23/24 04/23/24 04/24/24 15:00 23:00 07:00 Intake Total 50 ml 0 ml 400 ml Balance 50 ml 0 ml 400 ml medications Current Medications Medications Dose Ordered Sig/Danis Route Start Time Stop Time Status Last Admin Dose Admin Spironolactone 25 mg DAILY PO 04/11/24 10:00 04/24/24 10:13 25 MG Sertraline HCl 100 mg DAILY PO 04/11/24 10:00 04/24/24 10:13 100 MG Nitroglycerin 0.4 mg Q5MINP PRN SL 04/10/24 11:45 Diagnostic Test (Pha) 1 strip ACHS 04/10/24 17:00 04/24/24 11:59 1 STRIP Insulin Human Regular HS SC 04/10/24 22:00 04/22/24 22:08 4 UNITS Insulin Human Regular AC SC 04/10/24 17:00 04/24/24 12:03 2 UNITS Dextrose 50 ml UD PRN IV 04/10/24 11:45 Ticagrelor 60 mg BID PO 04/13/24 10:15 04/24/24 10:12 60 MG Ipratropium [place] 0.5 mg Q8HR NEB 04/14/24 22:45 04/24/24 14:50 0.5 MG Aspirin 81 mg DAILY PO 04/16/24 10:42 04/24/24 10:12 81 MG Insulin Glargine 10 units HS SC 04/16/24 22:00 04/22/24 22:09 10 UNITS EZETIMIBE 10 mg DAILY PO 04/17/24 10:00 04/18/24 09:52 10 MG Levothyroxine Sodium 88 mcg QAM PO 04/19/24 07:00 04/24/24 06:40 88 MCG Carvedilol 3.125 mg BID PO 04/21/24 22:00 04/24/24 10:13 3.125 MG Bumetanide 1 mg BIDD PO 04/21/24 18:00 04/24/24 06:44 1 MG Ertapenem 1 gm/ Sodium Chloride 50 ml @ 100 mls/hr DAILY IV 04/23/24 10:00 04/24/24 10:12 100 MLS/HR Acetaminophen/ Hydrocodone Bitart 1 tab Q8HPRN PRN PO 04/23/24 02:00 04/23/24 03:45 1 TAB Examination: GENERAL:Normal, HEENT:Normal, NECK:Normal, LUNGS:Normal, CVS:Normal, ABDOMEN:Normal, MSK:Normal, SKIN:Normal, NEURO:Normal, :Normal laboratory and microbiology Laboratory Tests 04/24/24 05:19 Test 04/24/24 05:19 Range/Units Serum Glucose 152 H 74-106 mg/dL Microbiology Date/Time Source Procedure Growth Status 04/22/24 13:05 Voided Urine Urine Culture - Final Complete 04/19/24 16:18 Blood Blood Culture - Preliminary NO GROWTH AFTER 72 HOURS OF INCUBATION. Resulted Problem List/Assessment/Plan Problem List/Assessment/Plan #1 acute resp failure: on oxygen #2 acute mi/cad: s/p angio/stent #3 acute on chronic systolic heart failure: bumex - increase dose, coreg #4 dm: lantus, ssi #5 ? copd: check abg #6 htn #7 morbid obesity #8 acute liver failure: monitor, usg #9 hypothyroidism: check tsh #10 s/p aicd #11 uti/hematuria ?sepsis: iv invanz, dc heparin #12 pe: ivc filter, dc heparin #13 sleep apnea: bipap advance care planning- full code- time spent 19 mins Plan discussed with: Patient Dietary Evaluation Review Comments: follow 2gNa CCHO-60 diet, monitor PO intake to meet 75% of his needs Expected Outcomes/Goals: controlled DM and gradual weight loss. Date of Service: Apr 24, 2024 Billing Provider: DOLLY MAN MD Common Visit Codes: [id number] INP/OBS CARE(HIGH) DOLLY MAN MD Apr 24, 2024 15:55
[2024-04-24] MEDS: BUMETANIDE 1 MG TAB PO SCH (17:24)
[2024-04-25] VITALS (17 sets, daily range): BP systolic 100–113; BP diastolic 61–68; PULSE 60–72; RESP 16–22; TEMP 97.5–98.2; O2SAT 93–100
[2024-04-25 07:20] LABS: Chloride 98 mmol/L (98-107); Potassium 3.9 mmol/L (3.5-5.1); Sodium 139 mmol/L (136-145)
[2024-04-25 07:21] LABS: Anion Gap 4 (5-15); Basophils # (auto) 0.1 10 ^3/uL (0-0.2); Basophils % (auto) 0.7 % (0.0-2.0); Calcium 9.2 mg/dL (8.7-10.4); Carbon Dioxide 37 mmol/L (20-31); Eosinophils # (auto) 0.2 10 ^3/uL (0-0.8); Eosinophils % (auto) 1.7 % (0.0-7.0); Hematocrit 38.6 % (41.0-53.0); Hemoglobin 12.8 g/dL (13.5-17.5); Lymphocytes # (auto) 1.6 10 ^3/uL (0.4-5.4); Lymphocytes % (auto) 12.9 % (10.0-50.0); Mean Corpuscular Hemoglobin 30.4 pg (28.0-32.0); Mean Corpuscular Hgb Conc. 33.1 g/dL (32.0-36.0); Mean Corpuscular Volume 91.8 fL (80.0-100.0); Monocytes # (auto) 1.2 10 ^3/uL (0-1.3); Monocytes % (auto) 9.6 % (0.0-12.0); Neutrophils % (auto) 75.1 % (37.0-80.0); Nucleated Red Blood Cells % 0.1 %; Platelet Count (auto) 402 10^3/uL (140-450); Red Blood Cells 4.21 10^6/uL (4.5-5.90); Red Cell Distribution Width 14.5 % (11.8-14.3)
[2024-04-25 07:26] LABS: BUN/Creatinine Ratio 36.4 (10.0-20.0); Blood Urea Nitrogen 32 mg/dL (9-23); Glucose 119 mg/dL (74-106)
--- NOTE | 2024-04-25 09:22 | DVHPN2 ---
Progress Note - Dictate Date Seen: Apr 25, 2024 Medical Necessity Reason Pt with a Central, PICC or Fol: No Subjective PT WITH STEMI S/P PTCA STENT CX HEMATURIA DC ELIQUIS SERIAL CBC vital signs Vital Sign Date Time Temp Pulse Resp B/P (MAP) Pulse Ox O2 Delivery O2 Flow Rate FiO2 04/25/24 09:18 66 18 100 04/25/24 09:12 Nasal Cannula 3.0 04/25/24 09:12 32 04/25/24 08:53 97.6 100/64 (76) 97.6 Total Intake and Output 04/24/24 04/24/24 04/25/24 15:00 23:00 07:00 Intake Total 50 ml 400 ml 400 ml Output Total 600 ml Balance 50 ml -200 ml 400 ml medications Current Medications Medications Dose Ordered Sig/Danis Route Start Time Stop Time Status Last Admin Dose Admin Sertraline HCl 100 mg DAILY PO 04/11/24 10:00 04/24/24 10:13 100 MG Nitroglycerin 0.4 mg Q5MINP PRN SL 04/10/24 11:45 Diagnostic Test (Pha) 1 strip ACHS 04/10/24 17:00 04/25/24 06:04 1 STRIP Insulin Human Regular HS SC 04/10/24 22:00 04/22/24 22:08 4 UNITS Insulin Human Regular AC SC 04/10/24 17:00 04/24/24 17:25 2 UNITS Dextrose 50 ml UD PRN IV 04/10/24 11:45 Ticagrelor 60 mg BID PO 04/13/24 10:15 04/24/24 20:57 60 MG Ipratropium [place] 0.5 mg Q8HR NEB 04/14/24 22:45 04/25/24 09:12 0.5 MG Aspirin 81 mg DAILY PO 04/16/24 10:42 04/24/24 10:12 81 MG Insulin Glargine 10 units HS SC 04/16/24 22:00 04/24/24 21:00 10 UNITS EZETIMIBE 10 mg DAILY PO 04/17/24 10:00 04/18/24 09:52 10 MG Levothyroxine Sodium 88 mcg QAM PO 04/19/24 07:00 04/25/24 06:03 88 MCG Carvedilol 3.125 mg BID PO 04/21/24 22:00 04/24/24 20:57 3.125 MG Ertapenem 1 gm/ Sodium Chloride 50 ml @ 100 mls/hr DAILY IV 04/23/24 10:00 04/24/24 10:12 100 MLS/HR Acetaminophen/ Hydrocodone Bitart 1 tab Q8HPRN PRN PO 04/23/24 02:00 04/23/24 03:45 1 TAB Bumetanide 2 mg BIDD PO 04/24/24 18:00 04/25/24 06:04 2 MG Spironolactone 50 mg DAILY PO 04/25/24 10:00 objective HEENT: Pupils are reactive. Funduscopic exam shows some AV nicking and hard exudates, no papilledema noted. Sclerae are anicteric. NECK: No JVD appreciated. Carotid pulses are 2+ and symmetrical. No cervical adenopathy, no supraclavicular adenopathy. PULMONARY: Clear to auscultation. CARDIOVASCULAR: Regular rate without S3, without S4. PMI; however, is diffuse. There is a 2/6 systolic murmur along the left sternal border. ABDOMEN: Obese. Unable to appreciate an organomegaly. EXTREMITIES: Distal pulses are diminished with 1 Doppler pulses in lower extremity. NEUROLOGIC: The patient, however, is intact, alert, oriented. laboratory and microbiology Laboratory Tests 04/25/24 05:58 Test 04/25/24 05:58 Range/Units Serum Glucose 119 H 74-106 mg/dL Problem List STEMI S/P PTCA STENT CX HEMATURAI HFrEF CHRONIC S/P AICD Assessment/Plan CBC STABLE CHECK UA UROLOGY CONSULT DEFERRED BECAUSE CANNOT STOP DAPT FOR NOW URINE + RBC + WBC CHECK LABS REHAB TITRATE ON MEDS TITRATE SYNTHROID CHECK BNP IS ELEVATED CHANGE TO BUMEX BID CXR C/W PUL EDEMA CONT HIGHER DIURETIC DOSING LEUKOCYTOSIS IV ABX LEUKOCYTOSIS IMPROVING LYTES WNL WBC 12k PHYSICAL THERAPY POOR PROGNOSIS SECONDARY PT WITH LACK OF EFFORT Dietary Evaluation Review Comments: follow 2gNa CCHO-60 diet, monitor PO intake to meet 75% of his needs Expected Outcomes/Goals: controlled DM and gradual weight loss. Plan discussed with: Patient CHRISTINA KAMARA MD Apr 25, 2024 09:22
[2024-04-25] MEDS: SPIRONOLACTONE 25 MG TAB PO SCH (10:08)
--- NOTE | 2024-04-25 19:07 | DVHPN2 ---
Subjective See patient today during rounds Family bedside, discussed about wanting discharge him home instead of rehab. We will also culture service team to start home services instead of initiating a transfer. Pending social clearance Reviewed: Care Plan, H&P, Labs, Medications, Previous Orders, Radiology, Other Changes from previous H/P or p: No Changes Objective Vitals Vital Signs Date Time Temp Pulse Resp B/P (MAP) Pulse Ox O2 Delivery O2 Flow Rate FiO2 04/25/24 17:54 109/65 04/25/24 17:39 97.5 72 16 98 97.5 04/25/24 10:00 Nasal Cannula* 4 36 Intake/Output Intake and Output 04/25/24 07:00 Intake Total 850 ml Output Total 600 ml Balance 250 ml Intake Oral 800 ml IV Total 50 ml Output Urine Total 600 ml # Voids 3 Exam Alert, oriented x3 With obesity PERRLA GVD to jaw Bilateral crackles Distant heart sound Abdomen soft nontender, no hepatomegaly Equal strength bilaterally on upper and lower extremities Mild lower extremity edema Medications Current Medications Medications Dose Ordered Sig/Danis Route Start Time Stop Time Status Last Admin Dose Admin Sertraline HCl 100 mg DAILY PO 04/11/24 10:00 04/25/24 10:07 100 MG Nitroglycerin 0.4 mg Q5MINP PRN SL 04/10/24 11:45 Diagnostic Test (Pha) 1 strip ACHS 04/10/24 17:00 04/25/24 17:00 1 STRIP Insulin Human Regular HS SC 04/10/24 22:00 04/22/24 22:08 4 UNITS Insulin Human Regular AC SC 04/10/24 17:00 04/25/24 11:27 2 UNITS Dextrose 50 ml UD PRN IV 04/10/24 11:45 Ticagrelor 60 mg BID PO 04/13/24 10:15 04/25/24 10:07 60 MG Ipratropium [place] 0.5 mg Q8HR NEB 04/14/24 22:45 04/25/24 09:12 0.5 MG Aspirin 81 mg DAILY PO 04/16/24 10:42 04/25/24 10:07 81 MG Insulin Glargine 10 units HS SC 04/16/24 22:00 04/24/24 21:00 10 UNITS EZETIMIBE 10 mg DAILY PO 04/17/24 10:00 04/18/24 09:52 10 MG Levothyroxine Sodium 88 mcg QAM PO 04/19/24 07:00 04/25/24 06:03 88 MCG Carvedilol 3.125 mg BID PO 04/21/24 22:00 04/25/24 10:08 3.125 MG Ertapenem 1 gm/ Sodium Chloride 50 ml @ 100 mls/hr DAILY IV 04/23/24 10:00 04/25/24 10:07 100 MLS/HR Acetaminophen/ Hydrocodone Bitart 1 tab Q8HPRN PRN PO 04/23/24 02:00 04/23/24 03:45 1 TAB Bumetanide 2 mg BIDD PO 04/24/24 18:00 04/25/24 17:54 2 MG Spironolactone 50 mg DAILY PO 04/25/24 10:00 04/25/24 10:08 50 MG Laboratory Results Laboratory Tests 04/25/24 05:58 Chemistry Test 04/25/24 05:58 Calcium Level 9.2 mg/dL (8.7-10.4) Urinalysis Test 04/10/24 04:46 04/15/24 02:10 Urine Mucus Few (None Seen) Urine Yeast (Budding) Occasional /hpf (None Urine Color Yellow (Yellow) Urine Clarity Turbid (Clear) H Urine pH 6.0 (5.0-9.0) Urine Specific [place] 1.018 (1.001-1.035) Urine Protein Trace (Negative) H Urine Ketones Negative (Negative) Urine Blood 3+ /uL (Negative) H Urine Nitrite Negative (Negative) Urine Bilirubin Negative (Negative) Urine Urobilinogen 2 mg/dL (Negative) H Urine Leukocyte Esterase 3+ /uL (Negative) Urine RBC 151 /hpf (0 - 3) Urine WBC 341 /hpf (0 - 3) Urine WBC Clumps Present /hpf (None Seen) Urine Squamous Epithelial Cells Few /hpf (<5) Urine Bacteria Few /hpf (None Seen) H Urine Glucose Normal mg/dL (Normal) Microbiology Microbiology Date/Time Source Procedure Growth Status 04/22/24 13:05 Voided Urine Urine Culture - Final Complete 04/19/24 16:18 Blood Blood Culture - Final NO GROWTH AFTER 5 DAYS OF INCUBATION. Complete Labs and/or images reviewed: Labs reviewed by me, Image(s) reviewed by me Assessment/Plan Assessment/Plan STEMI status post RAJANI Heart failure with reduced ejection fraction last ejection fraction 30% Acute on chronic hypoxic respiratory failure secondary to above Acute on chronic systolic heart failure Morbid obesity Possible pneumonia aspiration, likely Gram-negative Acute pulmonary embolism subsegmental Status post IVC filter Continue with IV antibiotics Continue with IV Lasix 20 mg b.i.d. I&O goal-500-1 L Strict I&O Daily weights Continue with GDM T Increase Coreg to 12.5 Continue with depth with Brilinta and aspirin On heparin drip, plan PTT per protocol Trend H&H Transfuse if hemoglobin less than 7 Continue DA PT Social service consult for home service resumption Poor prognosis due to multiple comorbidity Diet continue DVT prophylaxis on heparin drip Plan discussed with: Patient, Spouse My Orders Orders - BRANDY FLORES MD Procedure Category Date Status Time * [employer] CONS 04/25/24 Transmitted Consult Date of Service: Apr 25, 2024 Billing Provider: BRANDY FLORES MD Common Visit Codes: [id number] INP/OBS CARE(HIGH) BRANDY FLORES MD Apr 25, 2024 19:07
[2024-04-26] VITALS (18 sets, daily range): BP systolic 101–117; BP diastolic 57–71; PULSE 60–71; RESP 15–18; TEMP 97.5–98; O2SAT 96–100
--- NOTE | 2024-04-26 21:10 | DVHPN2 ---
Subjective - 04/26- patient is stable and doing well, plan to send home with home health and physical therapy. Discharge plan with social likely discharge tomorrow. For social, paperwork has been submitted pending acceptance. Reviewed: Care Plan, H&P, Labs, Medications, Previous Orders, Radiology, Other Changes from previous H/P or p: No Changes General: Per HPI Objective Vitals Vital Signs Date Time Temp Pulse Resp B/P (MAP) Pulse Ox O2 Delivery O2 Flow Rate FiO2 04/26/24 18:11 101/57 04/26/24 17:00 97.8 63 15 98 97.8 04/26/24 15:22 Nasal Cannula 3.0 04/26/24 15:22 32 Intake/Output Intake and Output 04/26/24 07:00 Intake Total 1850 ml Output Total 650 ml Balance 1200 ml Intake Oral 1800 ml IV Total 50 ml Output Urine Total 650 ml # Voids 5 # Bowel Movements 1 Exam GEN: Healthy appearing, well-developed, NAD. HEENT: NC/AT; MMM. CV: Distant heart sounds. No murmur appreciated LUNGS: Bilateral lowerLobe rales ABD: Soft, NT/ND, NBS, no masses or organomegaly. EXT: skin Warm, well perfused. no rashes. Trace lower extremity pitting edema bilateral NEURO: Ambulating with no limitations. No focal deficits. Medications Current Medications Medications Dose Ordered Sig/Danis Route Start Time Stop Time Status Last Admin Dose Admin Sertraline HCl 100 mg DAILY PO 04/11/24 10:00 04/26/24 10:48 100 MG Nitroglycerin 0.4 mg Q5MINP PRN SL 04/10/24 11:45 Diagnostic Test (Pha) 1 strip ACHS 04/10/24 17:00 04/26/24 17:00 1 STRIP Insulin Human Regular HS SC 04/10/24 22:00 04/22/24 22:08 4 UNITS Insulin Human Regular AC SC 04/10/24 17:00 04/26/24 18:15 2 UNITS Dextrose 50 ml UD PRN IV 04/10/24 11:45 Ticagrelor 60 mg BID PO 04/13/24 10:15 04/26/24 10:48 60 MG Ipratropium [place] 0.5 mg Q8HR NEB 04/14/24 22:45 04/26/24 15:22 0.5 MG Aspirin 81 mg DAILY PO 04/16/24 10:42 04/26/24 10:46 81 MG Insulin Glargine 10 units HS SC 04/16/24 22:00 04/25/24 21:45 10 UNITS EZETIMIBE 10 mg DAILY PO 04/17/24 10:00 04/26/24 12:55 10 MG Levothyroxine Sodium 88 mcg QAM PO 04/19/24 07:00 04/26/24 05:54 88 MCG Carvedilol 3.125 mg BID PO 04/21/24 22:00 04/26/24 10:49 3.125 MG Ertapenem 1 gm/ Sodium Chloride 50 ml @ 100 mls/hr DAILY IV 04/23/24 10:00 04/26/24 10:51 100 MLS/HR Acetaminophen/ Hydrocodone Bitart 1 tab Q8HPRN PRN PO 04/23/24 02:00 04/23/24 03:45 1 TAB Bumetanide 2 mg BIDD PO 04/24/24 18:00 04/26/24 18:11 2 MG Spironolactone 50 mg DAILY PO 04/25/24 10:00 04/26/24 10:48 50 MG Laboratory Results Laboratory Tests 04/25/24 05:58 Urinalysis Test 04/10/24 04:46 04/15/24 02:10 Urine Mucus Few (None Seen) Urine Yeast (Budding) Occasional /hpf (None Urine Color Yellow (Yellow) Urine Clarity Turbid (Clear) H Urine pH 6.0 (5.0-9.0) Urine Specific [place] 1.018 (1.001-1.035) Urine Protein Trace (Negative) H Urine Ketones Negative (Negative) Urine Blood 3+ /uL (Negative) H Urine Nitrite Negative (Negative) Urine Bilirubin Negative (Negative) Urine Urobilinogen 2 mg/dL (Negative) H Urine Leukocyte Esterase 3+ /uL (Negative) Urine RBC 151 /hpf (0 - 3) Urine WBC 341 /hpf (0 - 3) Urine WBC Clumps Present /hpf (None Seen) Urine Squamous Epithelial Cells Few /hpf (<5) Urine Bacteria Few /hpf (None Seen) H Urine Glucose Normal mg/dL (Normal) Microbiology Microbiology Date/Time Source Procedure Growth Status 04/22/24 13:05 Voided Urine Urine Culture - Final Complete 04/19/24 16:18 Blood Blood Culture - Final NO GROWTH AFTER 5 DAYS OF INCUBATION. Complete Labs and/or images reviewed: Labs reviewed by me, Image(s) reviewed by me Assessment/Plan Assessment/Plan - 04/26- patient is stable and doing well, plan to send home with home health and physical therapy. Discharge plan with social likely discharge tomorrow. For social, paperwork has been submitted pending acceptance. STEMI status post RAJANI Heart failure with reduced ejection fraction last ejection fraction 30% Acute on chronic hypoxic respiratory failure secondary to above Acute on chronic systolic heart failure Morbid obesity Possible pneumonia aspiration, likely Gram-negative Acute pulmonary embolism subsegmental Status post IVC filter Still on IV antibiotics IV Invanz Diuresis changed from IV Lasix to p.o. Bumex I&O goal-maintain euvolemia Strict I&O Daily weights Continue with GDM T Coreg to 12.5 Continue with dapt with Brilinta and aspirin Stopped Eliquis, status post heparin drip (now discontinued) Trend H&H Transfuse if hemoglobin less than 7 Social service consult for home service resumption Poor prognosis due to multiple comorbidity Diet continue DVT prophylaxis on SCD Plan discussed with: Patient My Orders Orders - SKY CELESTE MD Procedure Category Date Status Time * Director Emergency Department CONS 04/26/24 Transmitted Consult Date of Service: Apr 26, 2024 Billing Provider: SKY CELESTE MD Common Visit Codes: [id number] INP/OBS CARE(MOD) SKY CELESTE MD Apr 26, 2024 21:10
[2024-04-27] VITALS (16 sets, daily range): BP systolic 103–117; BP diastolic 59–71; PULSE 59–115; RESP 14–22; TEMP 97.8–98.4; O2SAT 95–100
--- NOTE | 2024-04-27 09:26 | ECG ---
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
[2024-04-27 09:53] LABS: Basophils # (auto) 0.1 10 ^3/uL (0-0.2); Basophils % (auto) 0.6 % (0.0-2.0); Eosinophils # (auto) 0.2 10 ^3/uL (0-0.8); Eosinophils % (auto) 1.5 % (0.0-7.0); Hematocrit 39.8 % (41.0-53.0); Hemoglobin 13.3 g/dL (13.5-17.5); Lymphocytes # (auto) 1.7 10 ^3/uL (0.4-5.4); Lymphocytes % (auto) 12.3 % (10.0-50.0); Mean Corpuscular Hemoglobin 30.3 pg (28.0-32.0); Mean Corpuscular Hgb Conc. 33.5 g/dL (32.0-36.0); Mean Corpuscular Volume 90.6 fL (80.0-100.0); Monocytes # (auto) 1.2 10 ^3/uL (0-1.3); Monocytes % (auto) 8.7 % (0.0-12.0); Neutrophils # (auto) 10.4 10 ^3/uL (1.6-8.6); Neutrophils % (auto) 76.9 % (37.0-80.0); Platelet Count (auto) 419 10^3/uL (140-450); Red Blood Cells 4.39 10^6/uL (4.5-5.90); Red Cell Distribution Width 14.4 % (11.8-14.3); White Blood Cell 13.5 10^3/uL (4.4-10.8)
[2024-04-27 10:05] LABS: Alanine Aminotransferase 19 U/L (7-40); Albumin 3.3 g/dL (3.2-4.8); Alkaline Phosphatase 211 U/L (46-116); Anion Gap 3 (5-15); Aspartate Aminotransferase 20 U/L (13-40); BUN/Creatinine Ratio 31.7 (10.0-20.0); Bilirubin, Total 1.4 mg/dL (0.2-1.0); Blood Urea Nitrogen 26 mg/dL (9-23); Calcium 9.2 mg/dL (8.7-10.4); Carbon Dioxide 39 mmol/L (20-31); Chloride 94 mmol/L (98-107); Glucose 162 mg/dL (74-106); Potassium 4.1 mmol/L (3.5-5.1); Sodium 136 mmol/L (136-145); Total Protein 6.9 g/dL (5.7-8.2)
--- NOTE | 2024-04-27 20:57 | DVHPN2 ---
Subjective HPI The patient is 78 years old with history of ischemic cardiomyopathy. The patient with a congestive heart failure. He had 2 stents placed in 2023 to the RCA and PDA. The patient now having increasing symptoms of chest pain. - 04/27- patient is stable and doing well, plan was to send home with home health and physical therapy. Patient does not have clearance from primary [employer] in the most recent note. White count was improving until today it is worsening again. Patient is not on any steroids. He remains asymptomatic in terms of infectious symptoms. Patient can get discharge eval by [employer] tomorrow. Reviewed: Care Plan, H&P, Labs, Medications, Previous Orders, Radiology, Other Changes from previous H/P or p: No Changes General: Per HPI Objective Vitals Vital Signs Date Time Temp Pulse Resp B/P (MAP) Pulse Ox O2 Delivery O2 Flow Rate FiO2 04/27/24 20:08 107 100 Nasal BiPAP Mask 30 04/27/24 17:38 106/60 04/27/24 17:00 98.4 20 98.4 04/27/24 13:34 3.0 Intake/Output Intake and Output 04/27/24 07:00 Intake Total 1708 ml Output Total 0 ml Balance 1708 ml Intake Oral 1708 ml Output Urine Total 0 ml # Voids 3 # Bowel Movements 1 Exam GEN: Healthy appearing, well-developed, NAD. HEENT: NC/AT; MMM. CV: Distant heart sounds. No murmur appreciated LUNGS: Bibasilar rales ABD: Soft, NT/ND, NBS, no masses or organomegaly. EXT: skin Warm, well perfused. no rashes. Trace lower extremity pitting edema bilateral NEURO: Ambulating with no limitations. No focal deficits. Medications Current Medications Medications Dose Ordered Sig/Danis Route Start Time Stop Time Status Last Admin Dose Admin Sertraline HCl 100 mg DAILY PO 04/11/24 10:00 04/27/24 08:57 100 MG Nitroglycerin 0.4 mg Q5MINP PRN SL 04/10/24 11:45 Diagnostic Test (Pha) 1 strip ACHS 04/10/24 17:00 04/27/24 17:39 1 STRIP Insulin Human Regular HS SC 04/10/24 22:00 04/26/24 21:39 3 UNITS Insulin Human Regular AC SC 04/10/24 17:00 04/27/24 17:40 2 UNITS Dextrose 50 ml UD PRN IV 04/10/24 11:45 Ticagrelor 60 mg BID PO 04/13/24 10:15 04/27/24 09:10 60 MG Ipratropium [place] 0.5 mg Q8HR NEB 04/14/24 22:45 04/27/24 13:34 0.5 MG Aspirin 81 mg DAILY PO 04/16/24 10:42 04/27/24 08:57 81 MG Insulin Glargine 10 units HS SC 04/16/24 22:00 04/26/24 21:40 10 UNITS EZETIMIBE 10 mg DAILY PO 04/17/24 10:00 04/27/24 09:09 10 MG Levothyroxine Sodium 88 mcg QAM PO 04/19/24 07:00 04/27/24 06:24 88 MCG Carvedilol 3.125 mg BID PO 04/21/24 22:00 04/27/24 08:56 3.125 MG Ertapenem 1 gm/ Sodium Chloride 50 ml @ 100 mls/hr DAILY IV 04/23/24 10:00 04/27/24 08:54 100 MLS/HR Acetaminophen/ Hydrocodone Bitart 1 tab Q8HPRN PRN PO 04/23/24 02:00 04/23/24 03:45 1 TAB Bumetanide 2 mg BIDD PO 04/24/24 18:00 04/27/24 17:38 2 MG Spironolactone 50 mg DAILY PO 04/25/24 10:00 04/27/24 08:57 50 MG Laboratory Results Laboratory Tests 04/27/24 09:31 Chemistry Test 04/27/24 09:31 Albumin 3.3 g/dL (3.2-4.8) Calcium Level 9.2 mg/dL (8.7-10.4) Total Protein 6.9 g/dL (5.7-8.2) LFT Test 04/27/24 09:31 Alanine Aminotransferase (ALT) 19 U/L (7-40) Alkaline Phosphatase 211 U/L (46-116) H Aspartate Amino Transferase (AST) 20 U/L (13-40) Total Bilirubin 1.4 mg/dL (0.2-1.0) H Urinalysis Test 04/10/24 04:46 04/15/24 02:10 Urine Mucus Few (None Seen) Urine Yeast (Budding) Occasional /hpf (None Urine Color Yellow (Yellow) Urine Clarity Turbid (Clear) H Urine pH 6.0 (5.0-9.0) Urine Specific [place] 1.018 (1.001-1.035) Urine Protein Trace (Negative) H Urine Ketones Negative (Negative) Urine Blood 3+ /uL (Negative) H Urine Nitrite Negative (Negative) Urine Bilirubin Negative (Negative) Urine Urobilinogen 2 mg/dL (Negative) H Urine Leukocyte Esterase 3+ /uL (Negative) Urine RBC 151 /hpf (0 - 3) Urine WBC 341 /hpf (0 - 3) Urine WBC Clumps Present /hpf (None Seen) Urine Squamous Epithelial Cells Few /hpf (<5) Urine Bacteria Few /hpf (None Seen) H Urine Glucose Normal mg/dL (Normal) Microbiology Microbiology Date/Time Source Procedure Growth Status 04/22/24 13:05 Voided Urine Urine Culture - Final Complete 04/19/24 16:18 Blood Blood Culture - Final NO GROWTH AFTER 5 DAYS OF INCUBATION. Complete Labs and/or images reviewed: Labs reviewed by me, Image(s) reviewed by me Assessment/Plan Assessment/Plan - 04/27- today he complains of feeling weak. patient is stable and doing well, plan was to send home with home health and physical therapy. Patient does not have clearance from [employer] in the most recent note. White count was improving until today it is worsening again. Patient is not on any steroids. He remains asymptomatic in terms of infectious symptoms. Patient can get discharge eval by [employer] tomorrow. STEMI status post RAJANI Heart failure with reduced ejection fraction last ejection fraction 30% Acute on chronic hypoxic respiratory failure secondary to above Acute on chronic systolic heart failure Morbid obesity Possible pneumonia aspiration, likely Gram-negative Acute pulmonary embolism subsegmental Status post IVC filter Still on IV antibiotics Invanz Diuresis changed from IV Lasix to p.o. Bumex I&O goal-maintain euvolemia Strict I&O Daily weights Continue with GDM T Coreg to 12.5 b.i.d. Continue with dapt with Brilinta and aspirin Stopped Eliquis, status post heparin drip (now discontinued) Trend H&H; Transfuse if hemoglobin less than 7 Social service consult for home service resumption Poor prognosis due to multiple comorbidity Diet continue DVT prophylaxis on SCD Plan discussed with: Patient Date of Service: Apr 27, 2024 Billing Provider: SKY CELESTE MD Common Visit Codes: [id number] INP/OBS CARE(MOD) SYK CELESTE MD Apr 27, 2024 20:57
[2024-04-28] VITALS (16 sets, daily range): BP systolic 93–129; BP diastolic 57–69; PULSE 53–118; RESP 16–22; TEMP 97.5–98.7; O2SAT 94–100
[2024-04-28 06:26] LABS: Basophils # (auto) 0.1 10 ^3/uL (0-0.2); Eosinophils # (auto) 0.3 10 ^3/uL (0-0.8); Eosinophils % (auto) 1.7 % (0.0-7.0); Lymphocytes # (auto) 2.3 10 ^3/uL (0.4-5.4); Red Cell Distribution Width 14.5 % (11.8-14.3); White Blood Cell 14.8 10^3/uL (4.4-10.8)
[2024-04-28 06:29] LABS: Basophils % (auto) 0.7 % (0.0-2.0); Hematocrit 40.2 % (41.0-53.0); Hemoglobin 13.3 g/dL (13.5-17.5); Lymphocytes % (auto) 15.5 % (10.0-50.0); Mean Corpuscular Hemoglobin 30.2 pg (28.0-32.0); Mean Corpuscular Hgb Conc. 33.2 g/dL (32.0-36.0); Monocytes # (auto) 1.4 10 ^3/uL (0-1.3); Monocytes % (auto) 9.2 % (0.0-12.0); Neutrophils # (auto) 10.8 10 ^3/uL (1.6-8.6); Neutrophils % (auto) 72.9 % (37.0-80.0); Nucleated Red Blood Cells % 0.2 %; Platelet Count (auto) 438 10^3/uL (140-450); Red Blood Cells 4.42 10^6/uL (4.5-5.90)
[2024-04-28 06:41] LABS: Alanine Aminotransferase 13 U/L (7-40); Albumin 3.3 g/dL (3.2-4.8); Alkaline Phosphatase 203 U/L (46-116); Anion Gap 5 (5-15); BUN/Creatinine Ratio 32.2 (10.0-20.0); Blood Urea Nitrogen 29 mg/dL (9-23); Calcium 9.1 mg/dL (8.7-10.4); Carbon Dioxide 35 mmol/L (20-31); Chloride 95 mmol/L (98-107); Glucose 123 mg/dL (74-106); Potassium 4.1 mmol/L (3.5-5.1); Sodium 135 mmol/L (136-145)
[2024-04-28 06:42] LABS: Aspartate Aminotransferase 17 U/L (13-40); Bilirubin, Total 1.2 mg/dL (0.2-1.0); Total Protein 6.9 g/dL (5.7-8.2)
--- NOTE | 2024-04-28 09:01 | DVHPN2 ---
Progress Note - Dictate Date Seen: Apr 28, 2024 Medical Necessity Reason Pt with a Central, PICC or Fol: No Subjective PT WITH STEMI S/P PTCA STENT CX HEMATURIA DC ELIQUIS SERIAL CBC vital signs Vital Sign Date Time Temp Pulse Resp B/P (MAP) Pulse Ox O2 Delivery O2 Flow Rate FiO2 04/28/24 08:50 98.7 103 22 93/57 (69) 97 98.7 04/28/24 08:00 Nasal Cannula* 3 32 Total Intake and Output 04/27/24 04/27/24 04/28/24 15:00 23:00 07:00 Intake Total 50 ml 440 ml 700 ml Balance 50 ml 440 ml 700 ml medications Current Medications Medications Dose Ordered Sig/Danis Route Start Time Stop Time Status Last Admin Dose Admin Sertraline HCl 100 mg DAILY PO 04/11/24 10:00 04/27/24 08:57 100 MG Nitroglycerin 0.4 mg Q5MINP PRN SL 04/10/24 11:45 Diagnostic Test (Pha) 1 strip ACHS 04/10/24 17:00 04/28/24 06:35 1 STRIP Insulin Human Regular HS SC 04/10/24 22:00 04/27/24 22:58 3 UNITS Insulin Human Regular AC SC 04/10/24 17:00 04/27/24 17:40 2 UNITS Dextrose 50 ml UD PRN IV 04/10/24 11:45 Ticagrelor 60 mg BID PO 04/13/24 10:15 04/27/24 23:08 60 MG Ipratropium [place] 0.5 mg Q8HR NEB 04/14/24 22:45 04/28/24 06:03 0.5 MG Aspirin 81 mg DAILY PO 04/16/24 10:42 04/27/24 08:57 81 MG Insulin Glargine 10 units HS SC 04/16/24 22:00 04/27/24 22:59 10 UNITS EZETIMIBE 10 mg DAILY PO 04/17/24 10:00 04/27/24 09:09 10 MG Levothyroxine Sodium 88 mcg QAM PO 04/19/24 07:00 04/28/24 06:32 88 MCG Carvedilol 3.125 mg BID PO 04/21/24 22:00 04/27/24 23:12 3.125 MG Ertapenem 1 gm/ Sodium Chloride 50 ml @ 100 mls/hr DAILY IV 04/23/24 10:00 04/27/24 08:54 100 MLS/HR Acetaminophen/ Hydrocodone Bitart 1 tab Q8HPRN PRN PO 04/23/24 02:00 04/23/24 03:45 1 TAB Bumetanide 2 mg BIDD PO 04/24/24 18:00 04/27/24 17:38 2 MG Spironolactone 50 mg DAILY PO 04/25/24 10:00 04/27/24 08:57 50 MG objective HEENT: Pupils are reactive. Funduscopic exam shows some AV nicking and hard exudates, no papilledema noted. Sclerae are anicteric. NECK: No JVD appreciated. Carotid pulses are 2+ and symmetrical. No cervical adenopathy, no supraclavicular adenopathy. PULMONARY: Clear to auscultation. CARDIOVASCULAR: Regular rate without S3, without S4. PMI; however, is diffuse. There is a 2/6 systolic murmur along the left sternal border. ABDOMEN: Obese. Unable to appreciate an organomegaly. EXTREMITIES: Distal pulses are diminished with 1 Doppler pulses in lower extremity. NEUROLOGIC: The patient, however, is intact, alert, oriented. laboratory and microbiology Laboratory Tests 04/28/24 05:46 Test 04/28/24 05:46 Range/Units Serum Glucose 123 H 74-106 mg/dL Problem List STEMI S/P PTCA STENT CX HEMATURAI HFrEF CHRONIC S/P AICD Assessment/Plan CBC STABLE CHECK UA UROLOGY CONSULT DEFERRED BECAUSE CANNOT STOP DAPT FOR NOW URINE + RBC + WBC CHECK LABS REHAB TITRATE ON MEDS TITRATE SYNTHROID CHECK BNP IS ELEVATED CHANGE TO BUMEX BID CXR C/W PUL EDEMA CONT HIGHER DIURETIC DOSING LEUKOCYTOSIS IV ABX LEUKOCYTOSIS IMPROVING LYTES WNL WBC 12k PHYSICAL THERAPY POOR PROGNOSIS SECONDARY PT WITH LACK OF EFFORT LYTES WNL WBC 14.5% CHECK BNP Dietary Evaluation Review Comments: follow 2gNa CCHO-60 diet, monitor PO intake to meet 75% of his needs Expected Outcomes/Goals: controlled DM and gradual weight loss. Plan discussed with: Patient CHRISTINA KAMARA MD Apr 28, 2024 09:01
--- NOTE | 2024-04-28 09:54 | DVHPN2 ---
Progress Note Date Seen: Apr 28, 2024 Medical Necessity Reason Pt with a Central, PICC or Fol: No Subjective Patient reports: No new complaints Review of Systems: HEENT:Normal, CVS:Normal, RESPIRATORY:Normal, GI:Normal, :Normal, MSK:Normal, NEURO:Normal Objective vital signs Vital Sign Date Time Temp Pulse Resp B/P (MAP) Pulse Ox O2 Delivery O2 Flow Rate FiO2 04/28/24 08:50 98.7 103 22 93/57 (69) 97 98.7 04/28/24 08:00 Nasal Cannula* 3 32 Total Intake and Output 04/27/24 04/27/24 04/28/24 15:00 23:00 07:00 Intake Total 50 ml 440 ml 700 ml Balance 50 ml 440 ml 700 ml medications Current Medications Medications Dose Ordered Sig/Danis Route Start Time Stop Time Status Last Admin Dose Admin Sertraline HCl 100 mg DAILY PO 04/11/24 10:00 04/27/24 08:57 100 MG Nitroglycerin 0.4 mg Q5MINP PRN SL 04/10/24 11:45 Diagnostic Test (Pha) 1 strip ACHS 04/10/24 17:00 04/28/24 06:35 1 STRIP Insulin Human Regular HS SC 04/10/24 22:00 04/27/24 22:58 3 UNITS Insulin Human Regular AC SC 04/10/24 17:00 04/27/24 17:40 2 UNITS Dextrose 50 ml UD PRN IV 04/10/24 11:45 Ticagrelor 60 mg BID PO 04/13/24 10:15 04/27/24 23:08 60 MG Ipratropium [place] 0.5 mg Q8HR NEB 04/14/24 22:45 04/28/24 06:03 0.5 MG Aspirin 81 mg DAILY PO 04/16/24 10:42 04/27/24 08:57 81 MG Insulin Glargine 10 units HS SC 04/16/24 22:00 04/27/24 22:59 10 UNITS EZETIMIBE 10 mg DAILY PO 04/17/24 10:00 04/27/24 09:09 10 MG Levothyroxine Sodium 88 mcg QAM PO 04/19/24 07:00 04/28/24 06:32 88 MCG Carvedilol 3.125 mg BID PO 04/21/24 22:00 04/27/24 23:12 3.125 MG Ertapenem 1 gm/ Sodium Chloride 50 ml @ 100 mls/hr DAILY IV 04/23/24 10:00 04/27/24 08:54 100 MLS/HR Acetaminophen/ Hydrocodone Bitart 1 tab Q8HPRN PRN PO 04/23/24 02:00 04/23/24 03:45 1 TAB Bumetanide 2 mg BIDD PO 04/24/24 18:00 04/27/24 17:38 2 MG Spironolactone 50 mg DAILY PO 04/25/24 10:00 04/27/24 08:57 50 MG Examination: GENERAL:Normal, HEENT:Normal, NECK:Normal, LUNGS:Normal, LUNGS:Abnormal (ON OXYGEN), CVS:Normal, ABDOMEN:Normal, MSK:Normal, SKIN:Normal, NEURO:Normal, :Normal laboratory and microbiology Laboratory Tests 04/28/24 05:46 Test 04/28/24 05:46 Range/Units Serum Glucose 123 H 74-106 mg/dL Microbiology Date/Time Source Procedure Growth Status 04/22/24 13:05 Voided Urine Urine Culture - Final Complete 04/19/24 16:18 Blood Blood Culture - Final NO GROWTH AFTER 5 DAYS OF INCUBATION. Complete Problem List/Assessment/Plan Problem List/Assessment/Plan #1 acute resp failure: on oxygen #2 acute mi/cad: s/p angio/stent #3 acute on chronic systolic heart failure: bumex - increase dose, coreg #4 dm: lantus, ssi #5 ? copd: check abg #6 htn #7 morbid obesity #8 acute liver failure: monitor, usg #9 hypothyroidism: check tsh #10 s/p aicd #11 uti/hematuria ?sepsis: iv invanz, dc heparin #12 pe: ivc filter, dc heparin #13 sleep apnea: bipap will arrange family meeting in am advance care planning- full code- time spent 19 mins Plan discussed with: Patient Dietary Evaluation Review Comments: follow 2gNa CCHO-60 diet, monitor PO intake to meet 75% of his needs Expected Outcomes/Goals: controlled DM and gradual weight loss. Date of Service: Apr 28, 2024 Billing Provider: DOLLY MAN MD Common Visit Codes: [id number] INP/OBS CARE(HIGH) DOLLY MAN MD Apr 28, 2024 09:54
[2024-04-29] VITALS (15 sets, daily range): BP systolic 88–110; BP diastolic 55–71; PULSE 84–122; RESP 14–24; TEMP 97.9–98.8; O2SAT 95–100
--- NOTE | 2024-04-29 10:32 | DVHPN2 ---
Progress Note Date Seen: Apr 29, 2024 Medical Necessity Reason Pt with a Central, PICC or Fol: No Subjective Patient reports: No new complaints Review of Systems: HEENT:Normal, CVS:Normal, RESPIRATORY:Normal, GI:Normal, :Normal, MSK:Normal, NEURO:Normal Objective vital signs Vital Sign Date Time Temp Pulse Resp B/P (MAP) Pulse Ox O2 Delivery O2 Flow Rate FiO2 04/29/24 10:00 89 92/71 04/29/24 08:30 98.1 20 98 98.1 04/29/24 06:18 Bi-pap/CPAP 04/29/24 06:18 30 30 04/28/24 20:00 2 Total Intake and Output 04/28/24 04/28/24 04/29/24 15:00 23:00 07:00 Intake Total 650 ml 440 ml Output Total 700 ml Balance -50 ml 440 ml medications Current Medications Medications Dose Ordered Sig/Danis Route Start Time Stop Time Status Last Admin Dose Admin Sertraline HCl 100 mg DAILY PO 04/11/24 10:00 04/29/24 10:16 100 MG Nitroglycerin 0.4 mg Q5MINP PRN SL 04/10/24 11:45 Diagnostic Test (Pha) 1 strip ACHS 04/10/24 17:00 04/29/24 06:04 1 STRIP Insulin Human Regular HS SC 04/10/24 22:00 04/28/24 22:11 3 UNITS Insulin Human Regular AC SC 04/10/24 17:00 04/28/24 17:09 2 UNITS Dextrose 50 ml UD PRN IV 04/10/24 11:45 Ticagrelor 60 mg BID PO 04/13/24 10:15 04/29/24 10:18 60 MG Ipratropium [place] 0.5 mg Q8HR NEB 04/14/24 22:45 04/29/24 06:18 0.5 MG Aspirin 81 mg DAILY PO 04/16/24 10:42 04/29/24 10:17 81 MG Insulin Glargine 10 units HS SC 04/16/24 22:00 04/28/24 22:12 10 UNITS EZETIMIBE 10 mg DAILY PO 04/17/24 10:00 04/27/24 09:09 10 MG Levothyroxine Sodium 88 mcg QAM PO 04/19/24 07:00 04/29/24 06:09 88 MCG Carvedilol 3.125 mg BID PO 04/21/24 22:00 04/28/24 22:18 3.125 MG Ertapenem 1 gm/ Sodium Chloride 50 ml @ 100 mls/hr DAILY IV 04/23/24 10:00 04/29/24 10:17 100 MLS/HR Acetaminophen/ Hydrocodone Bitart 1 tab Q8HPRN PRN PO 04/23/24 02:00 04/23/24 03:45 1 TAB Bumetanide 2 mg BIDD PO 04/24/24 18:00 04/28/24 17:14 2 MG Spironolactone 50 mg DAILY PO 04/25/24 10:00 04/28/24 10:57 50 MG Examination: GENERAL:Normal, HEENT:Normal, NECK:Normal, LUNGS:Normal, CVS:Normal, ABDOMEN:Normal, MSK:Normal, SKIN:Normal, NEURO:Normal, :Normal laboratory and microbiology Laboratory Tests 04/28/24 05:46 Test 04/28/24 05:46 Range/Units Serum Glucose 123 H 74-106 mg/dL Microbiology Date/Time Source Procedure Growth Status 04/22/24 13:05 Voided Urine Urine Culture - Final Complete 04/19/24 16:18 Blood Blood Culture - Final NO GROWTH AFTER 5 DAYS OF INCUBATION. Complete Problem List/Assessment/Plan Problem List/Assessment/Plan #1 acute resp failure: on oxygen #2 acute mi/cad: s/p angio/stent #3 acute on chronic systolic heart failure: bumex - increase dose, coreg #4 dm: lantus, ssi #5 ? copd: check abg #6 htn #7 morbid obesity #8 acute liver failure: monitor, usg #9 hypothyroidism: check tsh #10 s/p aicd #11 uti/hematuria ?sepsis: iv invanz, dc heparin #12 pe: ivc filter, dc heparin #13 sleep apnea: bipap long dw Barbie- explained poor prognosis and plan of care advance care planning- full code- time spent 19 mins Plan discussed with: Patient, Spouse Dietary Evaluation Review Comments: follow 2gNa CCHO-60 diet, monitor PO intake to meet 75% of his needs Expected Outcomes/Goals: controlled DM and gradual weight loss. Date of Service: Apr 29, 2024 Billing Provider: DOLLY MAN MD Common Visit Codes: [id number] INP/OBS CARE(HIGH) DOLLY MAN MD Apr 29, 2024 10:32
--- NOTE | 2024-04-29 13:39 | DVHPN2 ---
Progress Note - Dictate Date Seen: Apr 29, 2024 Medical Necessity Reason Pt with a Central, PICC or Fol: No Subjective PT WITH STEMI S/P PTCA STENT CX HEMATURIA DC ELIQUIS SERIAL CBC vital signs Vital Sign Date Time Temp Pulse Resp B/P (MAP) Pulse Ox O2 Delivery O2 Flow Rate FiO2 04/29/24 10:00 89 92/71 04/29/24 08:30 98.1 20 98 98.1 04/29/24 06:18 Bi-pap/CPAP 04/29/24 06:18 30 30 04/28/24 20:00 2 Total Intake and Output 04/28/24 04/28/24 04/29/24 15:00 23:00 07:00 Intake Total 650 ml 440 ml Output Total 700 ml Balance -50 ml 440 ml medications Current Medications Medications Dose Ordered Sig/Danis Route Start Time Stop Time Status Last Admin Dose Admin Sertraline HCl 100 mg DAILY PO 04/11/24 10:00 04/29/24 10:16 100 MG Nitroglycerin 0.4 mg Q5MINP PRN SL 04/10/24 11:45 Diagnostic Test (Pha) 1 strip ACHS 04/10/24 17:00 04/29/24 11:39 1 STRIP Insulin Human Regular HS SC 04/10/24 22:00 04/28/24 22:11 3 UNITS Insulin Human Regular AC SC 04/10/24 17:00 04/29/24 11:45 3 UNITS Dextrose 50 ml UD PRN IV 04/10/24 11:45 Ticagrelor 60 mg BID PO 04/13/24 10:15 04/29/24 10:18 60 MG Ipratropium [place] 0.5 mg Q8HR NEB 04/14/24 22:45 04/29/24 06:18 0.5 MG Aspirin 81 mg DAILY PO 04/16/24 10:42 04/29/24 10:17 81 MG Insulin Glargine 10 units HS SC 04/16/24 22:00 04/28/24 22:12 10 UNITS EZETIMIBE 10 mg DAILY PO 04/17/24 10:00 04/27/24 09:09 10 MG Levothyroxine Sodium 88 mcg QAM PO 04/19/24 07:00 04/29/24 06:09 88 MCG Carvedilol 3.125 mg BID PO 04/21/24 22:00 04/28/24 22:18 3.125 MG Ertapenem 1 gm/ Sodium Chloride 50 ml @ 100 mls/hr DAILY IV 04/23/24 10:00 04/29/24 10:17 100 MLS/HR Acetaminophen/ Hydrocodone Bitart 1 tab Q8HPRN PRN PO 04/23/24 02:00 04/23/24 03:45 1 TAB Bumetanide 2 mg BIDD PO 04/24/24 18:00 04/28/24 17:14 2 MG Spironolactone 50 mg DAILY PO 04/25/24 10:00 04/28/24 10:57 50 MG objective HEENT: Pupils are reactive. Funduscopic exam shows some AV nicking and hard exudates, no papilledema noted. Sclerae are anicteric. NECK: No JVD appreciated. Carotid pulses are 2+ and symmetrical. No cervical adenopathy, no supraclavicular adenopathy. PULMONARY: Clear to auscultation. CARDIOVASCULAR: Regular rate without S3, without S4. PMI; however, is diffuse. There is a 2/6 systolic murmur along the left sternal border. ABDOMEN: Obese. Unable to appreciate an organomegaly. EXTREMITIES: Distal pulses are diminished with 1 Doppler pulses in lower extremity. NEUROLOGIC: The patient, however, is intact, alert, oriented. laboratory and microbiology Laboratory Tests 04/28/24 05:46 Test 04/28/24 05:46 Range/Units Serum Glucose 123 H 74-106 mg/dL Problem List STEMI S/P PTCA STENT CX HEMATURAI HFrEF CHRONIC S/P AICD Assessment/Plan CBC STABLE CHECK UA UROLOGY CONSULT DEFERRED BECAUSE CANNOT STOP DAPT FOR NOW URINE + RBC + WBC CHECK LABS REHAB TITRATE ON MEDS TITRATE SYNTHROID CHECK BNP IS ELEVATED CHANGE TO BUMEX BID CXR C/W PUL EDEMA CONT HIGHER DIURETIC DOSING LEUKOCYTOSIS IV ABX LEUKOCYTOSIS IMPROVING LYTES WNL WBC 12k PHYSICAL THERAPY POOR PROGNOSIS SECONDARY PT WITH LACK OF EFFORT LYTES WNL WBC 14.5% CHECK BNP hospice eval Dietary Evaluation Review Comments: follow 2gNa CCHO-60 diet, monitor PO intake to meet 75% of his needs Expected Outcomes/Goals: controlled DM and gradual weight loss. Plan discussed with: Patient CHRISTINA KAMARA MD Apr 29, 2024 13:39
[2024-04-30] VITALS (18 sets, daily range): BP systolic 93–115; BP diastolic 57–75; PULSE 88–123; RESP 16–22; TEMP 96.4–98.6; O2SAT 95–100
--- NOTE | 2024-04-30 10:57 | DVHPN2 ---
Progress Note Date Seen: Apr 30, 2024 Medical Necessity Reason Pt with a Central, PICC or Fol: No Subjective Patient reports: No new complaints Review of Systems: HEENT:Normal, CVS:Normal, RESPIRATORY:Normal, GI:Normal, :Normal, MSK:Normal, NEURO:Normal Objective vital signs Vital Sign Date Time Temp Pulse Resp B/P (MAP) Pulse Ox O2 Delivery O2 Flow Rate FiO2 04/30/24 09:49 121 115/75 04/30/24 08:09 96.4 18 100 96.4 04/30/24 08:00 Nasal Cannula* 3 32 Total Intake and Output 04/29/24 04/29/24 04/30/24 15:00 23:00 07:00 Intake Total 50 ml 400 ml 700 ml Output Total 400 ml Balance 50 ml 400 ml 300 ml medications Current Medications Medications Dose Ordered Sig/Danis Route Start Time Stop Time Status Last Admin Dose Admin Sertraline HCl 100 mg DAILY PO 04/11/24 10:00 04/30/24 09:49 100 MG Nitroglycerin 0.4 mg Q5MINP PRN SL 04/10/24 11:45 Diagnostic Test (Pha) 1 strip ACHS 04/10/24 17:00 04/30/24 05:46 1 STRIP Insulin Human Regular HS SC 04/10/24 22:00 04/29/24 21:48 3 UNITS Insulin Human Regular AC SC 04/10/24 17:00 04/29/24 11:45 3 UNITS Dextrose 50 ml UD PRN IV 04/10/24 11:45 Ticagrelor 60 mg BID PO 04/13/24 10:15 04/30/24 09:50 60 MG Ipratropium [place] 0.5 mg Q8HR NEB 04/14/24 22:45 04/30/24 06:00 0.5 MG Aspirin 81 mg DAILY PO 04/16/24 10:42 04/30/24 09:50 81 MG Insulin Glargine 10 units HS SC 04/16/24 22:00 04/29/24 21:43 10 UNITS EZETIMIBE 10 mg DAILY PO 04/17/24 10:00 04/27/24 09:09 10 MG Levothyroxine Sodium 88 mcg QAM PO 04/19/24 07:00 04/30/24 06:01 88 MCG Carvedilol 3.125 mg BID PO 04/21/24 22:00 04/30/24 09:49 3.125 MG Ertapenem 1 gm/ Sodium Chloride 50 ml @ 100 mls/hr DAILY IV 04/23/24 10:00 04/30/24 09:50 100 MLS/HR Acetaminophen/ Hydrocodone Bitart 1 tab Q8HPRN PRN PO 04/23/24 02:00 04/23/24 03:45 1 TAB Bumetanide 2 mg BIDD PO 04/24/24 18:00 04/28/24 17:14 2 MG Spironolactone 50 mg DAILY PO 04/25/24 10:00 04/28/24 10:57 50 MG Examination: GENERAL:Normal, HEENT:Normal, NECK:Normal, LUNGS:Normal, LUNGS:Abnormal (on oxygen), CVS:Normal, ABDOMEN:Normal, MSK:Normal, SKIN:Normal, NEURO:Normal, :Normal laboratory and microbiology Laboratory Tests 04/28/24 05:46 Test 04/28/24 05:46 Range/Units Serum Glucose 123 H 74-106 mg/dL Microbiology Date/Time Source Procedure Growth Status 04/22/24 13:05 Voided Urine Urine Culture - Final Complete 04/19/24 16:18 Blood Blood Culture - Final NO GROWTH AFTER 5 DAYS OF INCUBATION. Complete Problem List/Assessment/Plan Problem List/Assessment/Plan #1 acute resp failure: on oxygen #2 acute mi/cad: s/p angio/stent #3 acute on chronic systolic heart failure: bumex - increase dose, coreg #4 dm: lantus, ssi #5 ? copd: check abg #6 htn #7 morbid obesity #8 acute liver failure: monitor, usg #9 hypothyroidism: check tsh #10 s/p aicd #11 uti/hematuria ?sepsis: iv invanz, dc heparin #12 pe: ivc filter, dc heparin #13 sleep apnea: bipap long dw Barbie- explained poor prognosis and plan of care advance care planning- full code- time spent 19 mins Plan discussed with: Patient, Daughter Dietary Evaluation Review Comments: follow 2gNa CCHO-60 diet, monitor PO intake to meet 75% of his needs Expected Outcomes/Goals: controlled DM and gradual weight loss. Date of Service: Apr 30, 2024 Billing Provider: DOLLY MAN MD Common Visit Codes: [id number] INP/OBS CARE(HIGH) DOLLY MAN MD Apr 30, 2024 10:57
--- NOTE | 2024-04-30 13:28 | DVHPN2 ---
Progress Note - Dictate Date Seen: Apr 30, 2024 Medical Necessity Reason Pt with a Central, PICC or Fol: No Subjective PT WITH STEMI S/P PTCA STENT CX HEMATURIA DC ELIQUIS SERIAL CBC vital signs Vital Sign Date Time Temp Pulse Resp B/P (MAP) Pulse Ox O2 Delivery O2 Flow Rate FiO2 04/30/24 11:59 96.5 88 16 93/57 (69) 95 96.5 04/30/24 08:00 Nasal Cannula* 3 32 Total Intake and Output 04/29/24 04/29/24 04/30/24 15:00 23:00 07:00 Intake Total 50 ml 400 ml 700 ml Output Total 400 ml Balance 50 ml 400 ml 300 ml medications Current Medications Medications Dose Ordered Sig/Danis Route Start Time Stop Time Status Last Admin Dose Admin Sertraline HCl 100 mg DAILY PO 04/11/24 10:00 04/30/24 09:49 100 MG Nitroglycerin 0.4 mg Q5MINP PRN SL 04/10/24 11:45 Diagnostic Test (Pha) 1 strip ACHS 04/10/24 17:00 04/30/24 11:33 1 STRIP Insulin Human Regular HS SC 04/10/24 22:00 04/29/24 21:48 3 UNITS Insulin Human Regular AC SC 04/10/24 17:00 04/30/24 11:39 6 UNITS Dextrose 50 ml UD PRN IV 04/10/24 11:45 Ticagrelor 60 mg BID PO 04/13/24 10:15 04/30/24 09:50 60 MG Ipratropium [place] 0.5 mg Q8HR NEB 04/14/24 22:45 04/30/24 06:00 0.5 MG Aspirin 81 mg DAILY PO 04/16/24 10:42 04/30/24 09:50 81 MG Insulin Glargine 10 units HS SC 04/16/24 22:00 04/29/24 21:43 10 UNITS EZETIMIBE 10 mg DAILY PO 04/17/24 10:00 04/27/24 09:09 10 MG Levothyroxine Sodium 88 mcg QAM PO 04/19/24 07:00 04/30/24 06:01 88 MCG Carvedilol 3.125 mg BID PO 04/21/24 22:00 04/30/24 09:49 3.125 MG Ertapenem 1 gm/ Sodium Chloride 50 ml @ 100 mls/hr DAILY IV 04/23/24 10:00 04/30/24 09:50 100 MLS/HR Acetaminophen/ Hydrocodone Bitart 1 tab Q8HPRN PRN PO 04/23/24 02:00 04/23/24 03:45 1 TAB Bumetanide 2 mg BIDD PO 04/24/24 18:00 04/28/24 17:14 2 MG Spironolactone 50 mg DAILY PO 04/25/24 10:00 04/28/24 10:57 50 MG objective HEENT: Pupils are reactive. Funduscopic exam shows some AV nicking and hard exudates, no papilledema noted. Sclerae are anicteric. NECK: No JVD appreciated. Carotid pulses are 2+ and symmetrical. No cervical adenopathy, no supraclavicular adenopathy. PULMONARY: Clear to auscultation. CARDIOVASCULAR: Regular rate without S3, without S4. PMI; however, is diffuse. There is a 2/6 systolic murmur along the left sternal border. ABDOMEN: Obese. Unable to appreciate an organomegaly. EXTREMITIES: Distal pulses are diminished with 1 Doppler pulses in lower extremity. NEUROLOGIC: The patient, however, is intact, alert, oriented. laboratory and microbiology Laboratory Tests 04/28/24 05:46 Test 04/28/24 05:46 Range/Units Serum Glucose 123 H 74-106 mg/dL Problem List STEMI S/P PTCA STENT CX HEMATURAI HFrEF CHRONIC S/P AICD Assessment/Plan CBC STABLE CHECK UA UROLOGY CONSULT DEFERRED BECAUSE CANNOT STOP DAPT FOR NOW URINE + RBC + WBC CHECK LABS REHAB TITRATE ON MEDS TITRATE SYNTHROID CHECK BNP IS ELEVATED CHANGE TO BUMEX BID CXR C/W PUL EDEMA CONT HIGHER DIURETIC DOSING LEUKOCYTOSIS IV ABX LEUKOCYTOSIS IMPROVING LYTES WNL WBC 12k PHYSICAL THERAPY POOR PROGNOSIS SECONDARY PT WITH LACK OF EFFORT LYTES WNL WBC 14.5% CHECK BNP hospice eval Dietary Evaluation Review Comments: follow 2gNa CCHO-60 diet, monitor PO intake to meet 75% of his needs Expected Outcomes/Goals: controlled DM and gradual weight loss. Plan discussed with: Patient, Spouse CHRISTINA KAMARA MD Apr 30, 2024 13:28
--- NOTE | 2024-04-30 13:55 | DVHSR ---
APPROVED REPORT EXAM: Two-dimensional and M-mode echocardiogram with Doppler and color Doppler. Blood Pressure: 105/78 mmHg INDICATION PE RISK FACTORS Obesity: Height: 5' 8", Weight: 250 DIMENSIONS LVDd6.3 (3.8-5.7cm)LA (2D)4.8 (1.9-4.0cm)Aortic Root3.2 (2.0-3.7cm) LVDs6.0 (2.5-4.0cm)LA (MM) (1.9-4.0cm)Aortic Cusp Exc1.3 (1.5-2.0cm) EF (%) 10.0 (55-70%)Rt. Atrium4.2 (1.9-4.0cm)Asc. Aorta cm IVSd0.9 (0.7-1.1cm)RV (D) (1.8-2.4cm) PWd1.2 (0.7-1.1cm) Mitral Valve MitralMitral Stenosis E wave1.30m/sMV Mean GR.mmHg E/A ratio0.02D MVAcm2 Aortic Valve Aortic ValveAortic Stenosis V10.40m/Keisha Mean GR.2mmHg V20.90m/Keisha Peak GR.4mmHg LVOT Diameter2.6 (1.8-2.4cm)Doppler AVA2.36cm2 Pulmonic Valve V20.30m/s Tricuspid Valve TR Velocity1.90m/s [id number] Conclusion LAE ROSA MOD MR LVE EF <20% PACEMAKER LEAD SEEN SMALL PLEURAL DFFUSION
--- NOTE | 2024-04-30 14:33 | DVHDS2 ---
Discharge Summary Date of Admission Apr 10, 2024 at 11:44 Date of Discharge: Apr 30, 2024 Labs/Diagnostic Data: Laboratory Results Test 04/30/24 11:28 04/28/24 05:46 04/23/24 11:11 04/23/24 04:40 POC Glucose 224 mg/dl (70-106) White Blood Count 14.8 10^3/uL (4.4-10.8) Red Blood Count 4.42 10^6/uL (4.5-5.90) Hemoglobin 13.3 g/dL (13.5-17.5) Hematocrit 40.2 % (41.0-53.0) Mean Corpuscular Volume 91.0 fL (80.0-100.0) Mean Corpuscular Hemoglobin 30.2 pg (28.0-32.0) Mean Corpuscular Hemoglobin Concent 33.2 g/dL (32.0-36.0) Red Cell Distribution Width 14.5 % (11.8-14.3) Platelet Count 438 10^3/uL (140-450) Mean Platelet Volume 8.0 fL (6.9-10.8) Neutrophils (%) (Auto) 72.9 % (37.0-80.0) Lymphocytes (%) (Auto) 15.5 % (10.0-50.0) Monocytes (%) (Auto) 9.2 % (0.0-12.0) Eosinophils (%) (Auto) 1.7 % (0.0-7.0) Basophils (%) (Auto) 0.7 % (0.0-2.0) Neutrophils # (Auto) 10.8 10 ^3/uL (1.6-8.6) Lymphocytes # (Auto) 2.3 10 ^3/uL (0.4-5.4) Monocytes # (Auto) 1.4 10 ^3/uL (0-1.3) Eosinophils # (Auto) 0.3 10 ^3/uL (0-0.8) Basophils # (Auto) 0.1 10 ^3/uL (0-0.2) Nucleated Red Blood Cells 0.2 % Sodium Level 135 mmol/L (136-145) Potassium Level 4.1 mmol/L (3.5-5.1) Chloride Level 95 mmol/L (98-107) Carbon Dioxide Level 35 mmol/L (20-31) Anion Gap 5 (5-15) Blood Urea Nitrogen 29 mg/dL (9-23) Creatinine 0.90 mg/dL (0.700-1.30) Glomerular Filtration Rate Calc 89 mL/min (>90) BUN/Creatinine Ratio 32.2 (10.0-20.0) Serum Glucose 123 mg/dL (74-106) Calcium Level 9.1 mg/dL (8.7-10.4) Total Bilirubin 1.2 mg/dL (0.2-1.0) Aspartate Amino Transferase (AST) 17 U/L (13-40) Alanine Aminotransferase (ALT) 13 U/L (7-40) Alkaline Phosphatase 203 U/L (46-116) B-Type Natriuretic Peptide 1178.81 pg/mL (0-100) Total Protein 6.9 g/dL (5.7-8.2) Albumin 3.3 g/dL (3.2-4.8) Blood Gas Specimen Type Arterial Blood Gas Sample Site Right radial Blood Gas Patient Temperature 37.0 Arterial Blood Date Drawn Arterial Blood pH 7.433 (7.350-7.450) Arterial Blood Partial Pressure CO2 47.2 mmHg (35.0-48.0) Arterial Blood Partial Pressure O2 94.2 mmHg (83.0-108.0) Arterial Blood HCO3 30.8 mmol/L (21.0-28.0) Arterial Blood Oxygen Saturation 97.2 % (94.0-98.0) Arterial Blood Base Excess 5.6 mmol/L (-2.0-3.0) Arterial Blood Oxyhemoglobin 95.8 % (94.0-98.0) Arterial Blood Carboxyhemoglobin 1.1 % (0.5-1.5) Arterial Blood Methemoglobin 0.3 % (0.0-1.5) Joshua Test Yes Blood Gas Total Hemoglobin 13.00 g/dL (13.5-17.5) Blood Gas Set Respiration Rate 12.0 Blood Gas Modality Mask - bipap FiO2 % 30.0 Blood Gas EPAP 5 Blood Gas IPAP 12 Magnesium Level 2.1 mg/dL (1.6-2.6) Thyroid Stimulating Hormone (TSH) 5.80 uIU/mL (0.55-4.78) Test 04/21/24 02:05 04/18/24 13:36 04/18/24 05:43 04/17/24 05:59 Prothrombin Time 13.0 sec (9.3-11.8) Prothrombin Time INR 1.25 (0.9-1.15) Activated Partial Thromboplast Time 63.2 SEC (24.5-34.5) Lactic Acid Level 1.1 mmol/L (0.4-2.0) Differential Total Cells Counted 100.0 (100) Neutrophils % (Manual) 65 (37.0-80.0) Band Neutrophils % (Manual) 4 Lymphocytes % (Manual) 16 (10.0-50.0) Monocytes % (Manual) 10 (0-12) Eosinophils % (Manual) 5 (0-7) Basophils % (Manual) 0 (0.0-2.0) Metamyelocytes % (manual) 0 Myelocytes % (Manual) 0 Promyelocytes % (Manual) 0 Blast Cells % (Manual) 0 Reactive Lymphocytes 0 Platelet Estimate Increased Troponin I High Sensitivity 3638 ng/L (</=54) Hemoglobin A1c 6.0 % A1C (<5.7) Test 04/15/24 02:10 04/10/24 04:46 Urine Color Yellow (Yellow) Urine Clarity Turbid (Clear) Urine pH 6.0 (5.0-9.0) Urine Specific [place] 1.018 (1.001-1.035) Urine Protein Trace (Negative) Urine Ketones Negative (Negative) Urine Blood 3+ /uL (Negative) Urine Nitrite Negative (Negative) Urine Bilirubin Negative (Negative) Urine Urobilinogen 2 mg/dL (Negative) Urine Leukocyte Esterase 3+ /uL (Negative) Urine RBC 151 /hpf (0 - 3) Urine WBC 341 /hpf (0 - 3) Urine WBC Clumps Present /hpf (None Seen) Urine Squamous Epithelial Cells Few /hpf (<5) Urine Bacteria Few /hpf (None Seen) Urine Glucose Normal mg/dL (Normal) Urine Mucus Few (None Seen) Urine Yeast (Budding) Occasional /hpf (None Other Laboratory Tests 04/28/24 05:46 Brief Hx & Hospital Course: SEE DICTATED NOTE Condition at Discharge: Guarded Final Diagnosis/Problems List STEMIS/P PTCA STENT CXHEMATURAIHFrEF CHRONICS/P AICD Discharge Disposition: Hospice - Home Discharge Instruct/Medications Diet: Cardiac 2g Na,low cholest Activity: No Restrictions, As Tolerated Follow Up/Referral: FU WITH HOSPICE Medications: PER HOSPICE Discharge Statement: "Patient was advised to return to the ER or call 911 if any headaches, dizziness, shortness of breath, chest pain, abdominal pain, bleeding, fevers, or worsening of medical condition. Patient was counseled about treatment plan, medications, possible side effects, patientverbalized understanding. All questions were answered to the best of my ability. This discharge took greater then 30 minutes in planning, reviewing documentation, counseling the patient, and discussing with other team members." ASSESSMENT ASSESSMENT Assessment STEMIS/P PTCA STENT CXHEMATURAIHFrEF CHRONICS/P AICD Date of Service: Apr 30, 2024 Billing Provider: DOLLY MAN MD Common Visit Codes: [id number] DISCH DAY >30min DOLLY MAN MD Apr 30, 2024 14:33
--- NOTE | 2024-04-30 15:29 | DVHDS ---
DATE OF DISCHARGE: 04/30/2024 HISTORY OF PRESENT ILLNESS: The patient is a 78-year-old gentleman who was admitted with congestive heart failure and ischemic cardiomyopathy and increasing chest pain. The patient has a history of AICD, multiple stent placement, COPD, diabetes, previous coronary artery disease and congestive heart failure. HOSPITAL COURSE: The patient was seen in Cardiology consult by Dr. Morrissey. The patient underwent coronary angiography with stenting in the circumflex. The patient, however, continued to deteriorate with congestive heart failure and acute respiratory failure. His ejection fraction is less than 20%. The patient also had urinary tract infection as well as pulmonary embolism requiring use of an IVC filter due to having hematuria. I had a long discussion with the patient by Barbie, and at this point, the patient will be discharged home under hospice. FINAL DIAGNOSES: Therefore, * Acute respiratory failure. * Acute myocardial infarction, status post stent with coronary artery disease. * Acute on chronic systolic heart failure. * Diabetes mellitus. * Chronic obstructive pulmonary disease. * Hypertension. * Morbid obesity. * Acute liver failure. * Hypothyroidism. * Status post automatic implantable cardioverter defibrillator. * Urinary tract infection with questionable sepsis with hematuria. * Pulmonary embolism, status post inferior vena cava filter. * Sleep apnea. * Hospice care. Time spent in discharge planning and review of plan with the patient and nursing was 38 minutes. MD GIOVANY Mendoza/SUDHIR TID: [id number] RECEIPT: [id number]
[2024-05-01] VITALS (9 sets, daily range): BP systolic 93–106; BP diastolic 52–73; PULSE 105–120; RESP 18–20; TEMP 97.1–98.1; O2SAT 97–100
--- NOTE | 2024-05-01 11:09 | DVHPN2 ---
Subjective The patient seen and examined at bedside. No complaint today. Reviewed: Care Plan, H&P, Labs, Medications, Previous Orders, Radiology, Other Changes from previous H/P or p: No Changes General: Per HPI Objective Vitals Vital Signs Date Time Temp Pulse Resp B/P (MAP) Pulse Ox O2 Delivery O2 Flow Rate FiO2 05/01/24 09:56 114 103/52 05/01/24 09:22 98.1 20 99 98.1 05/01/24 07:24 Nasal Cannula 3.0 05/01/24 07:24 32 Intake/Output Intake and Output 05/01/24 07:00 Intake Total 890 ml Output Total 400 ml Balance 490 ml Intake Oral 840 ml IV Total 50 ml Output Urine Total 400 ml # Voids 2 # Bowel Movements 1 General Appearance: Alert, No acute distress HEENT: Atraumatic, PERRLA, EOMI, Mucous membr. moist/pink Neck: Supple Lungs: Clear to auscultation, Normal air movement Cardiovascular: Regular rate, Normal S1, Normal S2, No murmurs, Gallops Neuro: Cranial nerves 3-12 NL Psych/Mental Status: Mental status NL Medications Current Medications Medications Dose Ordered Sig/Danis Route Start Time Stop Time Status Last Admin Dose Admin Sertraline HCl 100 mg DAILY PO 04/11/24 10:00 05/01/24 09:57 100 MG Nitroglycerin 0.4 mg Q5MINP PRN SL 04/10/24 11:45 Diagnostic Test (Pha) 1 strip ACHS 04/10/24 17:00 05/01/24 06:03 1 STRIP Insulin Human Regular HS SC 04/10/24 22:00 04/30/24 21:53 2 UNITS Insulin Human Regular AC SC 04/10/24 17:00 04/30/24 11:39 6 UNITS Dextrose 50 ml UD PRN IV 04/10/24 11:45 Ticagrelor 60 mg BID PO 04/13/24 10:15 05/01/24 09:58 60 MG Ipratropium [place] 0.5 mg Q8HR NEB 04/14/24 22:45 05/01/24 07:23 0.5 MG Aspirin 81 mg DAILY PO 04/16/24 10:42 05/01/24 09:56 81 MG Insulin Glargine 10 units HS SC 04/16/24 22:00 04/30/24 21:53 10 UNITS EZETIMIBE 10 mg DAILY PO 04/17/24 10:00 04/27/24 09:09 10 MG Levothyroxine Sodium 88 mcg QAM PO 04/19/24 07:00 05/01/24 06:02 88 MCG Carvedilol 3.125 mg BID PO 04/21/24 22:00 05/01/24 09:56 3.125 MG Ertapenem 1 gm/ Sodium Chloride 50 ml @ 100 mls/hr DAILY IV 04/23/24 10:00 05/01/24 09:59 100 MLS/HR Acetaminophen/ Hydrocodone Bitart 1 tab Q8HPRN PRN PO 04/23/24 02:00 04/23/24 03:45 1 TAB Bumetanide 2 mg BIDD PO 04/24/24 18:00 04/28/24 17:14 2 MG Spironolactone 50 mg DAILY PO 04/25/24 10:00 05/01/24 09:56 50 MG Laboratory Results Laboratory Tests 04/28/24 05:46 Urinalysis Test 04/10/24 04:46 04/15/24 02:10 Urine Mucus Few (None Seen) Urine Yeast (Budding) Occasional /hpf (None Urine Color Yellow (Yellow) Urine Clarity Turbid (Clear) H Urine pH 6.0 (5.0-9.0) Urine Specific [place] 1.018 (1.001-1.035) Urine Protein Trace (Negative) H Urine Ketones Negative (Negative) Urine Blood 3+ /uL (Negative) H Urine Nitrite Negative (Negative) Urine Bilirubin Negative (Negative) Urine Urobilinogen 2 mg/dL (Negative) H Urine Leukocyte Esterase 3+ /uL (Negative) Urine RBC 151 /hpf (0 - 3) Urine WBC 341 /hpf (0 - 3) Urine WBC Clumps Present /hpf (None Seen) Urine Squamous Epithelial Cells Few /hpf (<5) Urine Bacteria Few /hpf (None Seen) H Urine Glucose Normal mg/dL (Normal) Microbiology Microbiology Date/Time Source Procedure Growth Status 04/22/24 13:05 Voided Urine Urine Culture - Final Complete 04/19/24 16:18 Blood Blood Culture - Final NO GROWTH AFTER 5 DAYS OF INCUBATION. Complete Labs and/or images reviewed: Labs reviewed by me Assessment/Plan Assessment/Plan #1 acute resp failure: on oxygen #2 acute mi/cad: s/p angio/stent #3 acute on chronic systolic heart failure: bumex - increase dose, coreg #4 dm: lantus, ssi #5 ? copd: check abg #6 htn #7 morbid obesity #8 acute liver failure: monitor, usg #9 hypothyroidism: check tsh #10 s/p aicd #11 uti/hematuria ?sepsis: iv invanz, dc heparin #12 pe: ivc filter, dc heparin #13 sleep apnea: bipap Hospice arrangement done. Will d/c home with hospice protocol today. Plan discussed with: Patient Date of Service: May 01, 2024 Billing Provider: SONALI WADE MD Common Visit Codes: [id number] INP/OBS CARE(HIGH) SONALI WADE MD May 01, 2024 11:09
--- NOTE | 2024-05-01 12:29 | DVHPN2 ---
Progress Note - Dictate Date Seen: May 01, 2024 Medical Necessity Reason Pt with a Central, PICC or Fol: No Subjective PT WITH STEMI S/P PTCA STENT CX HEMATURIA DC ELIQUIS SERIAL CBC vital signs Vital Sign Date Time Temp Pulse Resp B/P (MAP) Pulse Ox O2 Delivery O2 Flow Rate FiO2 05/01/24 09:56 114 103/52 05/01/24 09:22 98.1 20 99 98.1 05/01/24 07:24 Nasal Cannula 3.0 05/01/24 07:24 32 Total Intake and Output 04/30/24 04/30/24 05/01/24 15:00 23:00 07:00 Intake Total 50 ml 600 ml 240 ml Output Total 400 ml Balance 50 ml 200 ml 240 ml medications Current Medications Medications Dose Ordered Sig/Danis Route Start Time Stop Time Status Last Admin Dose Admin Sertraline HCl 100 mg DAILY PO 04/11/24 10:00 05/01/24 09:57 100 MG Nitroglycerin 0.4 mg Q5MINP PRN SL 04/10/24 11:45 Diagnostic Test (Pha) 1 strip ACHS 04/10/24 17:00 05/01/24 12:07 1 STRIP Insulin Human Regular HS SC 04/10/24 22:00 04/30/24 21:53 2 UNITS Insulin Human Regular AC SC 04/10/24 17:00 05/01/24 12:09 2 UNITS Dextrose 50 ml UD PRN IV 04/10/24 11:45 Ticagrelor 60 mg BID PO 04/13/24 10:15 05/01/24 09:58 60 MG Ipratropium [place] 0.5 mg Q8HR NEB 04/14/24 22:45 05/01/24 07:23 0.5 MG Aspirin 81 mg DAILY PO 04/16/24 10:42 05/01/24 09:56 81 MG Insulin Glargine 10 units HS SC 04/16/24 22:00 04/30/24 21:53 10 UNITS EZETIMIBE 10 mg DAILY PO 04/17/24 10:00 04/27/24 09:09 10 MG Levothyroxine Sodium 88 mcg QAM PO 04/19/24 07:00 05/01/24 06:02 88 MCG Carvedilol 3.125 mg BID PO 04/21/24 22:00 05/01/24 09:56 3.125 MG Ertapenem 1 gm/ Sodium Chloride 50 ml @ 100 mls/hr DAILY IV 04/23/24 10:00 05/01/24 09:59 100 MLS/HR Acetaminophen/ Hydrocodone Bitart 1 tab Q8HPRN PRN PO 04/23/24 02:00 04/23/24 03:45 1 TAB Bumetanide 2 mg BIDD PO 04/24/24 18:00 04/28/24 17:14 2 MG Spironolactone 50 mg DAILY PO 04/25/24 10:00 05/01/24 09:56 50 MG objective HEENT: Pupils are reactive. Funduscopic exam shows some AV nicking and hard exudates, no papilledema noted. Sclerae are anicteric. NECK: No JVD appreciated. Carotid pulses are 2+ and symmetrical. No cervical adenopathy, no supraclavicular adenopathy. PULMONARY: Clear to auscultation. CARDIOVASCULAR: Regular rate without S3, without S4. PMI; however, is diffuse. There is a 2/6 systolic murmur along the left sternal border. ABDOMEN: Obese. Unable to appreciate an organomegaly. EXTREMITIES: Distal pulses are diminished with 1 Doppler pulses in lower extremity. NEUROLOGIC: The patient, however, is intact, alert, oriented. laboratory and microbiology Laboratory Tests 04/28/24 05:46 Test 04/28/24 05:46 Range/Units Serum Glucose 123 H 74-106 mg/dL Problem List STEMI S/P PTCA STENT CX HEMATURAI HFrEF CHRONIC S/P AICD Assessment/Plan CBC STABLE CHECK UA UROLOGY CONSULT DEFERRED BECAUSE CANNOT STOP DAPT FOR NOW URINE + RBC + WBC CHECK LABS REHAB TITRATE ON MEDS TITRATE SYNTHROID CHECK BNP IS ELEVATED CHANGE TO BUMEX BID CXR C/W PUL EDEMA CONT HIGHER DIURETIC DOSING LEUKOCYTOSIS IV ABX LEUKOCYTOSIS IMPROVING LYTES WNL WBC 12k PHYSICAL THERAPY POOR PROGNOSIS SECONDARY PT WITH LACK OF EFFORT LYTES WNL WBC 14.5% CHECK BNP hospice eval Dietary Evaluation Review Comments: follow 2gNa CCHO-60 diet, monitor PO intake to meet 75% of his needs Expected Outcomes/Goals: controlled DM and gradual weight loss. Plan discussed with: Patient CHRISTINA KAMARA MD May 01, 2024 12:29
[2024-05-01] MEDS ORDERED: ALBUTEROL SULF 2.5 MG/0.5ML(0.5%) NEB SOLN ONE (16:35)
[2024-05-01] MEDS ORDERED: IPRATROPIUM BROM 0.5 MG/2.5ML INH SOL ONE (16:35)
[2024-05-02] MEDS ORDERED: CHOL500023 PO (12:29)
== END 2024-05-01 13:30 | disposition hospice, home (50) | DRG 321 ==
LOC: EDBD 04:04 → ER 04:04 → TELE 11:44 → TELE-CENTR 11:52
PROVIDERS: ADMIT Student in an Organized Health Care Education/Training Program; ATTEND Internal Medicine
PROC: 027034Z Dilation of Coronary Artery, One Artery with Drug-eluting Intraluminal Device, Percutaneous Approach (ICD-10-PCS; principal; 2024-04-10)
PROC: 4A023N7 Measurement of Cardiac Sampling and Pressure, Left Heart, Percutaneous Approach (ICD-10-PCS; 2024-04-10)
PROC: B2111ZZ Fluoroscopy of Multiple Coronary Arteries using Low Osmolar Contrast (ICD-10-PCS; 2024-04-10)
PROC: B2151ZZ Fluoroscopy of Left Heart using Low Osmolar Contrast (ICD-10-PCS; 2024-04-10)
PROC: 05HF33Z Insertion of Infusion Device into Left Cephalic Vein, Percutaneous Approach (ICD-10-PCS; 2024-04-20)
PROC: B54NZZA Ultrasonography of Left Upper Extremity Veins, Guidance (ICD-10-PCS; 2024-04-20)
PROC: 06H03DZ Insertion of Intraluminal Device into Inferior Vena Cava, Percutaneous Approach (ICD-10-PCS; 2024-04-21)
PROC: 5A09357 Assistance with Respiratory Ventilation, Less than 24 Consecutive Hours, Continuous Positive Airway Pressure (ICD-10-PCS; 2024-04-22)
PROC: 5A09357 Assistance with Respiratory Ventilation, Less than 24 Consecutive Hours, Continuous Positive Airway Pressure (ICD-10-PCS; 2024-04-23)
PROC: 5A09357 Assistance with Respiratory Ventilation, Less than 24 Consecutive Hours, Continuous Positive Airway Pressure (ICD-10-PCS; 2024-04-24)
PROC: 5A09357 Assistance with Respiratory Ventilation, Less than 24 Consecutive Hours, Continuous Positive Airway Pressure (ICD-10-PCS; 2024-04-25)
PROC: 5A09357 Assistance with Respiratory Ventilation, Less than 24 Consecutive Hours, Continuous Positive Airway Pressure (ICD-10-PCS; 2024-04-26)
PROC: 5A09357 Assistance with Respiratory Ventilation, Less than 24 Consecutive Hours, Continuous Positive Airway Pressure (ICD-10-PCS; 2024-04-27)
PROC: 5A09357 Assistance with Respiratory Ventilation, Less than 24 Consecutive Hours, Continuous Positive Airway Pressure (ICD-10-PCS; 2024-04-28)
PROC: 5A09357 Assistance with Respiratory Ventilation, Less than 24 Consecutive Hours, Continuous Positive Airway Pressure (ICD-10-PCS; 2024-04-29)
PROC: 5A09357 Assistance with Respiratory Ventilation, Less than 24 Consecutive Hours, Continuous Positive Airway Pressure (ICD-10-PCS; 2024-04-30)
DX: I21.29 ST elevation (STEMI) myocardial infarction involving other sites (principal); A41.9 Sepsis, unspecified organism; I50.23 Acute on chronic systolic (congestive) heart failure; K72.00 Acute and subacute hepatic failure without coma; J96.21 Acute and chronic respiratory failure with hypoxia; I26.99 Other pulmonary embolism without acute cor pulmonale; N39.0 Urinary tract infection, site not specified; J44.9 Chronic obstructive pulmonary disease, unspecified; Z51.5 Encounter for palliative care; E66.01 Morbid (severe) obesity due to excess calories; G47.30 Sleep apnea, unspecified; I25.10 Atherosclerotic heart disease of native coronary artery without angina pectoris; I48.91 Unspecified atrial fibrillation; E03.9 Hypothyroidism, unspecified; I11.0 Hypertensive heart disease with heart failure; I25.5 Ischemic cardiomyopathy; E11.40 Type 2 diabetes mellitus with diabetic neuropathy, unspecified; E11.51 Type 2 diabetes mellitus with diabetic peripheral angiopathy without gangrene; E78.5 Hyperlipidemia, unspecified; Z79.01 Long term (current) use of anticoagulants; Z80.0 Family history of malignant neoplasm of digestive organs; Z95.810 Presence of automatic (implantable) cardiac defibrillator; Z86.73 Personal history of transient ischemic attack (TIA), and cerebral infarction without residual deficits; Z68.35 Body mass index [BMI] 35.0-35.9, adult
CPT/HCPCS: 36415; 36600; 37619; 71045; 71275; 80048; 80053; 81001; 82805; 82962; 83036; 83605; 83735; 83880; 84443; 84484; 85007; 85025; 85027; 85610; 85730; 87040; 87086; 92941; 93005; 93306; 93458; 93971; 94640; 94660; 96365; 96372; 96375; 97110; 97116; 97163; 97530; 99152; 99291; C1894; G0378; J0692; J1335; J1815; J2250; J2405; Q9967

== ENCOUNTER 2024-05-01 15:44 | Inpatient (IN) | payer OTHER ==
[~2024-05-01] VITALS: Ht 175.3 cm; Wt 104.4 kg
[2024-05-01 16:30] VITALS: PULSE 120; RESP 22; O2SAT 98
--- NOTE | 2024-05-01 16:33 | ED.PDOC ---
SOB-HPI HPI Comments HPI: Poor Historian. 78 y.o male presents to the ED via EMS for a chief complaint of SOB. EMS reports patient was admitted at this hospital on 04-10-24 due to a CA and PE, was discharged today but while at home, he felt SOB. EMS reports patient's SpO2 read 88% RA, was placed on a nonrebreather 10 liters increasing saturation levels to 96%. Patient is currently on Lasix and Plavix. Below is patient's discharge summary from today: HOSPITAL COURSE: The patient was seen in Cardiology consult by Dr. Morrissey. The patient underwent coronary angiography with stenting in the circumflex. The patient, however, continued to deteriorate with congestive heart failure and acute respiratory failure. His ejection fraction is less than 20%. The patient also had urinary tract infection as well as pulmonary embolism requiring use of an IVC filter due to having hematuria. I had a long discussion with the patient by Barbie, and at this point, the patient will be discharged home under hospice. FINAL DIAGNOSES: Therefore, * Acute respiratory failure. * Acute myocardial infarction, status post stent with coronary artery disease. * Acute on chronic systolic heart failure. * Diabetes mellitus. * Chronic obstructive pulmonary disease. * Hypertension. * Morbid obesity. * Acute liver failure. * Hypothyroidism. * Status post automatic implantable cardioverter defibrillator. * Urinary tract infection with questionable sepsis with hematuria. * Pulmonary embolism, status post inferior vena cava filter. * Sleep apnea. * Hospice care. Vital signs: BP: 95/65 HR: 120 Temp: 97.5 F SPO2: 98% 10 liters nonrebreather RR: 22 Patient reports allergies to Atorvastatin and Lisinopril Past medical history: AFIB, CHF, DM, PE, HTN, TIA, Anxiety, hyperlipidemia Past surgical history: PTCA and pacemaker REVIEW OF SYSTEMS: CONSTITUTIONAL: Denies acute: fever, diaphoresis, chills, HEAD: Denies acute: headache, photophobia Eyes: Denies acute: Double vision, vision loss, eye pain, eye discharge. EARS: Denies acute: tinnitus, hearing loss, ear discharge, ear pain, THROAT: Denies acute: sore throat, swelling, difficulty swallowing , pain with swallowing, change in voice. NECK: Denies acute: neck pain, neck swelling, stiff neck. HEART: Denies acute : chest pain, palpitations, LUNGS: Denies acute: wheezing, cough, hemoptysis ABDOMEN: Denies acute: abdominal pain, Nausea, Vomiting, diarrhea, melena , hematemesis, hematochezia SKIN: Denies acute: rash, redness, lesions, itchiness. EXTREMITIES: Denies acute: calf pain, numbness, tingling, weakness, denies pain in extremity. Denies acute: Low back pain. Neuro: Denies acute: focal neurological deficit, motor or sensory focal neurological deficit, tremors, seizure like activity, confusion, dizziness, change in mental status, loss of bowel or bladder function, cauda equina like symptoms. : Denies acute: dysuria, hematuria, flank pain, increase in urinary frequency. PSYCH: Denies acute: hallucination, suicidal ideation, homicidal ideation. PHYSICAL EXAM: General: mild acute distress, awake and alert. Head: normocephalic, atraumatic. Neck: supple, trachea is midline, no swelling. Throat: Normal phonation. Eyes:, no erythema, no purulent discharge, no proptosis, no icterus. Heart: regular tachycardia, no significant murmur appreciated. Lungs: mod apparent respiratory distress, No wheezing, no rhonchi, no crackles. No stridors Clear to auscultation bilaterally. Abdomen: non tender to palpation, non distended, soft, no guarding, no rebound, + bowel sounds. obese Neuro: Awake, Alert, oriented to name, self, situation, follows commands GCS=15. Speech is normal. Skin: no petechia, no purpura, no cyanosis, non-pale, not jaundice. Lower extremities: --1/4 b/l - Pitting edema no deformity, no focal swelling, no calf TTP. Makes eye contact. moves all four extremities. Face: no apparent facial droop. Chief Complaint: Shortness of Breath Time Seen by MD: 15:50 Primary Care Provider: [facility] Reviewed notes: Nurses Notes, Medications, Allergies Information Source: Patient, Emergency Med Personnel Mode of Arrival: EMS Severity: Moderate Timing: Hours Past Medical History PAST MEDICAL HISTORY: AFIB, Anxiety, CAD, CHF, COPD, DM, High Lipids, HTN, CA, TIA Surgical History: Pacemaker, PTCA Family History Family History: No family hx of Cancer, No family hx of Heart urszula, No family hx ofKidney urszula, No family hx of Liver urszula, No family hx of Lung urszula, No family hx of Stroke, Family hx of DM, Family hx of HTN Social History Smoker: Non-Smoker Alcohol: Occasionally Drugs: Denies Drug Use Lives In: Home Was a procedure done? Was a procedure done?: No Differential Dx Differential Diagnosis: Bronchitis, CHF, COPD, Pneumonia, Pneumothorax, Pulmonary Embolism, Respiratory Distress, URI, Other (DDx include ACS, unstable angina, anxiety, PE, pneumothroax, neoplasm, cardiac ischemia, COPD, asthma, CHF, pleural effusion, tobacco abuse, pneumonia, hypoxia, hypercapnia, anemia., infection/sepsis., pulmonary edema. Asthma, Cardiac tamponade, infection.) X-Ray, Labs, Meds, VS Vital Signs Date Time Temp Pulse Resp B/P (MAP) Pulse Ox O2 Delivery O2 Flow Rate FiO2 05/01/24 20:00 111 2 99/65 (76) 93 05/01/24 20:00 115 05/01/24 19:15 98.0 120 2 99/65 (76) 93 98.0 05/01/24 19:15 120 22 98 Simple Mask* 10 99 05/01/24 18:00 119 19 98/59 (72) 98 05/01/24 17:08 95/58 05/01/24 17:00 123 19 95/58 (70) 98 05/01/24 16:51 18 99 Simple Mask* 10 99 05/01/24 16:30 119 05/01/24 16:30 120 22 98 Simple Mask* 10 99 05/01/24 16:29 97.5 120 22 95/65 (75) 98 97.5 05/01/24 15:51 97.8 113 24 83/57 (66) 99 05/01/24 15:50 117 Lab Test 05/01/24 19:49 05/01/24 17:22 05/01/24 16:20 Range/Units Troponin I High Sensitivity 62 *H 68 *H 67 *H </=54 ng/L White Blood Count 11.3 H 4.4-10.8 10^3/uL Red Blood Count 4.67 4.5-5.90 10^6/uL Hemoglobin 14.2 13.5-17.5 g/dL Hematocrit 41.9 41.0-53.0 % Mean Corpuscular Volume 89.8 80.0-100.0 fL Mean Corpuscular Hemoglobin 30.5 28.0-32.0 pg Mean Corpuscular Hemoglobin Concent 33.9 32.0-36.0 g/dL Red Cell Distribution Width 14.1 11.8-14.3 % Platelet Count 419 140-450 10^3/uL Mean Platelet Volume 8.4 6.9-10.8 fL Neutrophils (%) (Auto) 73.0 37.0-80.0 % Lymphocytes (%) (Auto) 14.7 10.0-50.0 % Monocytes (%) (Auto) 8.5 0.0-12.0 % Eosinophils (%) (Auto) 2.9 0.0-7.0 % Basophils (%) (Auto) 0.9 0.0-2.0 % Neutrophils # (Auto) 8.2 1.6-8.6 10 ^3/uL Lymphocytes # (Auto) 1.7 0.4-5.4 10 ^3/uL Monocytes # (Auto) 1.0 0-1.3 10 ^3/uL Eosinophils # (Auto) 0.3 0-0.8 10 ^3/uL Basophils # (Auto) 0.1 0-0.2 10 ^3/uL Nucleated Red Blood Cells 0.0 % Sodium Level 134 L 136-145 mmol/L Potassium Level 3.7 3.5-5.1 mmol/L Chloride Level 94 L 98-107 mmol/L Carbon Dioxide Level 38 H 20-31 mmol/L Anion Gap 2 L 5-15 Blood Urea Nitrogen 37 H 9-23 mg/dL Creatinine 0.92 0.700-1.30 mg/dL Glomerular Filtration Rate Calc 86 >90 mL/min BUN/Creatinine Ratio 40.2 H 10.0-20.0 Serum Glucose 121 H 74-106 mg/dL Lactic Acid Level 1.4 0.4-2.0 mmol/L Calcium Level 9.0 8.7-10.4 mg/dL Magnesium Level 2.2 1.6-2.6 mg/dL Total Bilirubin 1.0 0.2-1.0 mg/dL Aspartate Amino Transferase (AST) 42 H 13-40 U/L Alanine Aminotransferase (ALT) 27 7-40 U/L Alkaline Phosphatase 259 H 46-116 U/L B-Type Natriuretic Peptide 1106.53 0-100 pg/mL Total Protein 7.1 5.7-8.2 g/dL Albumin 3.3 3.2-4.8 g/dL Current Medications Medications (Trade) Dose Ordered Sig/Danis Route Start Time Stop Time Status Last Admin Albuterol (Ventolin Medneb) 2.5 mg ONCE ONCE NEB 05/01/24 16:30 05/01/24 16:31 DC 05/01/24 16:50 Ipratropium [place] (Atrovent Medneb) 1 mg ONCE ONCE NEB 05/01/24 16:30 05/01/24 16:31 DC 05/01/24 16:50 Methylprednisolone Sodium Succinate (Solu Medrol) 125 mg ONCE ONCE IV 05/01/24 16:30 05/01/24 16:31 DC 05/01/24 17:09 Furosemide (Lasix Injection) 40 mg ONCE ONCE IV 05/01/24 17:00 05/01/24 17:02 DC 05/01/24 17:08 [place] [id number] Ph: [phone] DIAGNOSTIC IMAGING Diagnostic Imaging Report : [id number] Signed PATIENT: HIMA CEDILLO ACCT: [id number] UNIT: [id number] : 1945 LOC: ER ROOM / BED: / AGE / SEX: 78 / M ADM STATUS: REG ER SERVICE 1602 ORDERING PHYSICIAN: YOAN SINGH DO PROCEDURE(s): CXRP - CHEST PORTABLE REASON: sob ORDER NUMBER(s): [id number], ACCESSION NUMBER(s): [id number] CHEST RADIOGRAPH Indication:sob Technique: Single frontal view of the chest was obtained COMPARISON: XY CHEST PORTABLE on DOS: 04/24/24, XY CHEST PORTABLE on DOS: 04/22/24, XY CHEST PORTABLE on DOS: 04/19/24 FINDINGS: Lines and Tubes: Left chest wall AICD Lungs: Clear Pleura: No effusion. No pneumothorax. Cardiomediastinal contours: Cardiomegaly Bones: Unremarkable IMPRESSION: Cardiomegaly ATED BY: REJI WILDE MD DICTATED DATE/TIME: 05/01/24 1700 SIGNED BY: REJI WILDE MD SIGNED DATE/TIME: 05/01/24 1700 CC: Time of 1ST Reevaluation: 16:21 Reevaluation 1ST: Unchanged Patient Education/Counseling: Diagnosis, Treatment Family Education/Counseling: No Family Present Comments Patient presented with the above HPI.--dyspnea----workup was initiated. patient was found with the above mentioned diagnosis. Patient was found with volume overload elevated BNP with history of CHF and pleural effusion, Lasix 40 mg was ordered. She was given DuoNeb treatment and Solu-Medrol. Patient ED course and VS have been stabilized. Patient has been reassessed in the ED and remained in a stable condition. Later the patient became hypotensive, patient was started on Levophed drip. Medicine team at bedside evaluating the patient. Please see their consultation notes and recommendations. Pertinent incidental findings were discussed with the patient and/or family. Patient/family voices understanding and is agreeable with plan. Patient has been observed in the ED adequate length of time to insure improvement/stability. patient was admitted to the medicine team for further evaluation and treatment of their presentation. All the reports of any imaging studies that were ordered by myself were reviewed by myself. Departure 1 Departure Time of Disposition: 16:02 Impression: Primary Impression: Acute exacerbation of chronic heart failure Additional Impressions: Hypoxemia Hypotension Elevated troponin Disposition: ADMITTED INPATIENT Admit to: ICU Condition: Critical Discharged With: Self Critical Care Note Critical Care Time?: Yes (1 hr-critical care time only) I personally scribed for YOAN SINGH DO ([email or web address]) on 05/01/24 at 16:33. Electronically submitted by Sally Oconnell ([facility]). I personally scribed for YOAN SINGH DO ([email or web address]) on 05/01/24 at 18:06. Electronically submitted by Sally Oconnell ([facility]). I personally scribed for YOAN SINGH DO ([email or web address]) on 05/01/24 at 20:05. Electronically submitted by Sally Oconnell ([facility]). YOAN SINGH DO May 01, 2024 16:33
[2024-05-01] MEDS: IPRATROPIUM BROM 0.5 MG/2.5ML INH SOL NEB ONE (16:50)
[2024-05-01] MEDS: ALBUTEROL SULF 2.5 MG/0.5ML(0.5%) NEB SOLN NEB ONE (16:50)
[2024-05-01 16:51] LABS: Basophils # (auto) 0.1 10 ^3/uL (0-0.2); Basophils % (auto) 0.9 % (0.0-2.0); Eosinophils # (auto) 0.3 10 ^3/uL (0-0.8); Eosinophils % (auto) 2.9 % (0.0-7.0); Hematocrit 41.9 % (41.0-53.0); Hemoglobin 14.2 g/dL (13.5-17.5); Lymphocytes # (auto) 1.7 10 ^3/uL (0.4-5.4); Lymphocytes % (auto) 14.7 % (10.0-50.0); Mean Corpuscular Hemoglobin 30.5 pg (28.0-32.0); Mean Corpuscular Hgb Conc. 33.9 g/dL (32.0-36.0); Mean Corpuscular Volume 89.8 fL (80.0-100.0); Monocytes % (auto) 8.5 % (0.0-12.0); Neutrophils # (auto) 8.2 10 ^3/uL (1.6-8.6); Platelet Count (auto) 419 10^3/uL (140-450); Red Blood Cells 4.67 10^6/uL (4.5-5.90); Red Cell Distribution Width 14.1 % (11.8-14.3); White Blood Cell 11.3 10^3/uL (4.4-10.8)
--- NOTE | 2024-05-01 17:04 | DVH ---
CHEST RADIOGRAPH Indication:sob Technique: Single frontal view of the chest was obtained COMPARISON: XY CHEST PORTABLE on DOS: 04/24/24, XY CHEST PORTABLE on DOS: 04/22/24, XY CHEST PORTABLE on DOS: 04/19/24 FINDINGS: Lines and Tubes: Left chest wall AICD Lungs: Clear Pleura: No effusion. No pneumothorax. Cardiomediastinal contours: Cardiomegaly Bones: Unremarkable IMPRESSION: Cardiomegaly
[2024-05-01 17:07] LABS: Alanine Aminotransferase 27 U/L (7-40); Albumin 3.3 g/dL (3.2-4.8); Alkaline Phosphatase 259 U/L (46-116); Anion Gap 2 (5-15); Aspartate Aminotransferase 42 U/L (13-40); BUN/Creatinine Ratio 40.2 (10.0-20.0); Blood Urea Nitrogen 37 mg/dL (9-23); Carbon Dioxide 38 mmol/L (20-31); Chloride 94 mmol/L (98-107); Glucose 121 mg/dL (74-106); Magnesium 2.2 mg/dL (1.6-2.6); Potassium 3.7 mmol/L (3.5-5.1); Sodium 134 mmol/L (136-145); Total Protein 7.1 g/dL (5.7-8.2)
[2024-05-01] MEDS: FUROSEMIDE 40 MG/4 ML VIAL IV ONE (17:08)
[2024-05-01] MEDS: methylPREDNISolone SOD SUCC 125 MG/2 ML VL IV ONE (17:09)
[2024-05-01] MEDS: IOHEXOL 180 MG/ML 20ML VIAL IJ ONE (18:59)
[2024-05-01] MEDS: IOHEXOL 350 MG/ML 100ML IJ ONE (19:02)
[2024-05-01 19:15] VITALS: PULSE 120; RESP 22; O2SAT 98
--- NOTE | 2024-05-01 20:06 | DVH ---
EXAM: CT CT ANGIO CHEST CONTRAST History: sob Comparison Study: CT CT ANGIO CHEST CONTRAST on DOS: 04/19/24 TECHNIQUE: A digital fishing vessel operator image was obtained. During the uneventful, intravenous administration of c ontrast material, multislice data acquisition was obtained through the chest. 3-D postprocessing is performed by technologist including MIP imaging Radiation Dose : CTDI vol 68.08 mGy, DLP 920.99 mGy*cm. Findings: Lungs: The lungs are clear. Pleura: Small bilateral pleural effusions, left greater than right. Heart/Great vessels: No cardiomegaly. Small to moderate pericardial effusion. No pulmonary embolism o r aortic aneurysm. Mediastinum: Debris within the esophagus. Nonenlarged mediastinal nodes. Soft tissues/Bones: Unremarkable Cholelithiasis. The remaining partially visualized upper abdomen is within normal limits. Impression: 1. No evidence of pulmonary embolism or aortic aneurysm. 2. Small bilateral pleural effusions, left greater than right. 3. Small to moderate pericardial effusion. 4. Debris within the esophagus places the patient at risk for aspiration. 5. Nonenlarged mediastinal nodes favored reactive.
[2024-05-01] MEDS ORDERED: ACETAMINOPHEN 325 MG TAB PO PRN (20:45)
[2024-05-01] MEDS ORDERED: MORPHINE SULFATE INJ 2 MG/ml SYRG IV PRN (20:45)
[2024-05-01] MEDS ORDERED: NITROGLYCERIN 0.4 MG SL TAB SL PRN (20:45)
[2024-05-01 21:24] VITALS: O2SAT 99
[2024-05-01] MEDS: NOREPINEPHRINE 8 MG/250ML KIT 250 ML IV ONE (21:44)
[2024-05-01] MEDS: NOREPINEPHRINE 8 MG/250ML KIT 250 ML IV SCH (21:55)
[2024-05-01] MEDS: SODIUM CHLOR 0.9% PF (SALINE LOCK) 10ML VIAL/SYR IV SCH (22:29)
--- NOTE | 2024-05-01 22:42 | DVHHPRES ---
History of Present Illness Resident Creating Document: JASSON DUVALL RESIDENT History of Present Illness This is a 78 y.o male presents to the ED via EMS for a chief complaint of SOB. EMS reports patient was admitted to the [facility] on 04-10-24 due to a LA and PE, was discharged today to home hospice but while at home, he felt SOB. EMS reports patient's SpO2 read 88% and was placed on a nonrebreather 10 liters increasing saturation levels to 96%. Patient is currently on Lasix and Plavix. Below is patient's discharge summary from today: HOSPITAL COURSE: The patient was seen in Cardiology consult by Dr. Morrissey. The patient underwent coronary angiography with stenting in the circumflex. The patient, however, continued to deteriorate with congestive heart failure and acute respiratory failure. His ejection fraction is less than 20%. The patient also had urinary tract infection as well as pulmonary embolism requiring use of an IVC filter due to having hematuria. I had a long discussion with the patient by Barbie, and at this point, the patient will be discharged home under hospice. FINAL DIAGNOSES: Therefore, * Acute respiratory failure. * Acute myocardial infarction, status post stent with coronary artery disease. * Acute on chronic systolic heart failure. * Diabetes mellitus. * Chronic obstructive pulmonary disease. * Hypertension. * Morbid obesity. * Acute liver failure. * Hypothyroidism. * Status post automatic implantable cardioverter defibrillator. * Urinary tract infection with questionable sepsis with hematuria. * Pulmonary embolism, status post inferior vena cava filter. * Sleep apnea. * Hospice care. Past Medical History Hypertension, hyperlipidemia, chronic systolic heart failure with status post defibrillator, pulmonary embolism with status post IVC filter, coronary artery disease with status post PTCA 6 stent, type 2 diabetes mellitus, hypothyroidism. Past Surgical History PTCA, AICD placement, IVC filter placement Family History: None Smoke: No ALCOHOL: none Drugs: None Lives: with Family Review of Systems Constitutional: No: Fever, Chills, Sweats, Weakness, Malaise, Other Eyes: No: Pain, Vision change, Conjunctivae inflammation, Eyelid inflammation, Other, Redness ENT: No: Ear pain, Ear discharge, Nose pain, Nose discharge, Nose congestion, Mouth pain, Mouth swelling, Throat pain, Throat swelling, Other Respiratory: Shortness of breath; No: Cough, Dry, SOB with excertion, Wheezing, Hemoptysis, Pleuritic Pain, Sputum, Wheezing, Other Cardiovascular: Lt Headedness; No: Chest Pain, Palpitations, Orthopnea, Paroxysmal Noc. Dyspnea, Edema, Other Gastrointestinal: No: Nausea, Vomiting, Abdominal Pain, Diarrhea, Constipation, Melena, Hematochezia, Other Genitourinary: No Dysuria, No Frequency, No Incontinence, No Hematuria, No Retention, No Other Musculoskeletal: No: other, neck pain, shoulder pain, arm pain, back pain, hand pain, leg pain, foot pain Skin: No: Rash, Lesions, Jaundice, Bruising, Other Neurological: No: Weakness, Numbness, Incoordination, Change in speech, Confusion, Seizures, Other Allergies: Coded Allergies: Atorvastatin (Verified Allergy, Unknown, 03/31/24) Lisinopril (Verified Allergy, Unknown, coughing, 03/31/24) Medications Current Medications Medications Dose Ordered Sig/Danis Route Start Time Stop Time Status Last Admin Dose Admin Sodium Chloride 10 ml Q8HR IV 05/01/24 22:00 05/01/24 22:29 10 ML Acetaminophen 325 mg Q4HP PRN PO 05/01/24 20:45 Acetaminophen/ Hydrocodone Bitart 1 tab Q4HP PRN PO 05/01/24 20:45 Enoxaparin Sodium 40 mg DAILY SC 05/02/24 10:00 Nitroglycerin 0.4 mg Q5MINP PRN SL 05/01/24 20:45 Morphine Sulfate 2 mg Q30M PRN IV 05/01/24 20:45 Norepinephrine Bitartrate 250 ml @ 3.75 mls/hr Q24H IV 05/01/24 22:30 Exam Vital Signs Vital Signs Date Time Temp Pulse Resp B/P (MAP) Pulse Ox O2 Delivery O2 Flow Rate FiO2 05/01/24 22:30 120 12 83/56 (65) 96 05/01/24 21:24 Nasal Cannula* 4 36 05/01/24 19:15 98.0 98.0 Exam Physical examination: General Appearance: Alert, Oriented X3, Cooperative, moderate distress , 4 L oxygen through nasal canula with saturation 96%. HEENT: Atraumatic, PERRLA, EOMI, Mucous membrane moist/pink Respiratory: Reduced breath sound on the Left side. Cardiovascular: Regular rate, Normal S1, Normal S2, No murmurs, no chest wall tenderness Abdominal: Normal bowel sounds, Soft, No tenderness, No hepatospenomegaly, No masses Extremities: No clubbing, No cyanosis, No edema, Normal pulses, No tenderne ss/swelling Skin: No rashes, No breakdown, No significant lesion Neuro: Normal speech, Strength at 5/5 X4 ext, Normal tone, Sensation intact Psych/Mental Status: Mental status NL, Mood NL Labs/Xrays Labs Test 05/01/24 19:49 05/01/24 16:20 Range/Units Troponin I High Sensitivity 62 *H </=54 ng/L White Blood Count 11.3 H 4.4-10.8 10^3/uL Red Blood Count 4.67 4.5-5.90 10^6/uL Hemoglobin 14.2 13.5-17.5 g/dL Hematocrit 41.9 41.0-53.0 % Mean Corpuscular Volume 89.8 80.0-100.0 fL Mean Corpuscular Hemoglobin 30.5 28.0-32.0 pg Mean Corpuscular Hemoglobin Concent 33.9 32.0-36.0 g/dL Red Cell Distribution Width 14.1 11.8-14.3 % Platelet Count 419 140-450 10^3/uL Mean Platelet Volume 8.4 6.9-10.8 fL Neutrophils (%) (Auto) 73.0 37.0-80.0 % Lymphocytes (%) (Auto) 14.7 10.0-50.0 % Monocytes (%) (Auto) 8.5 0.0-12.0 % Eosinophils (%) (Auto) 2.9 0.0-7.0 % Basophils (%) (Auto) 0.9 0.0-2.0 % Neutrophils # (Auto) 8.2 1.6-8.6 10 ^3/uL Lymphocytes # (Auto) 1.7 0.4-5.4 10 ^3/uL Monocytes # (Auto) 1.0 0-1.3 10 ^3/uL Eosinophils # (Auto) 0.3 0-0.8 10 ^3/uL Basophils # (Auto) 0.1 0-0.2 10 ^3/uL Nucleated Red Blood Cells 0.0 % Sodium Level 134 L 136-145 mmol/L Potassium Level 3.7 3.5-5.1 mmol/L Chloride Level 94 L 98-107 mmol/L Carbon Dioxide Level 38 H 20-31 mmol/L Anion Gap 2 L 5-15 Blood Urea Nitrogen 37 H 9-23 mg/dL Creatinine 0.92 0.700-1.30 mg/dL Glomerular Filtration Rate Calc 86 >90 mL/min BUN/Creatinine Ratio 40.2 H 10.0-20.0 Serum Glucose 121 H 74-106 mg/dL Lactic Acid Level 1.4 0.4-2.0 mmol/L Calcium Level 9.0 8.7-10.4 mg/dL Magnesium Level 2.2 1.6-2.6 mg/dL Total Bilirubin 1.0 0.2-1.0 mg/dL Aspartate Amino Transferase (AST) 42 H 13-40 U/L Alanine Aminotransferase (ALT) 27 7-40 U/L Alkaline Phosphatase 259 H 46-116 U/L B-Type Natriuretic Peptide 1106.53 0-100 pg/mL Total Protein 7.1 5.7-8.2 g/dL Albumin 3.3 3.2-4.8 g/dL Assessment/Plan Assessment/Plan Assessment and plan: # Acute on chronic respiratory failure likely due to acute exacerbation of COPD - Patient is on 4 L oxygen with saturation 96% - Med neb treatment albuterol and ipratropium q.4 p.r.n. # Hypotension - History of chronic systolic heart failure with ejection fraction 20% - Currently patient is on Levophed drip # Acute complicated UTI with questionable hematuria - Patient was discharged earlier today and was treated for UTI # History of coronary artery disease with s/p stents 2 weeks ago - Continue aspirin 81 mg daily and Plavix 75 mg daily. # Chronic hypothyroidism - continue home meds Plan of treatment discussed with Dr. Fitzgerald Plan discussed with: Patient, Other My Orders Orders - JASSON DUVALL RESIDENT Procedure Category Date Status Time Admit ADMIT 05/01/24 Transmitted 20:42 Allergies LEEANN 05/01/24 In Process 20:42 Code Status CODE 05/01/24 Transmitted 20:42 Sodium Chloride Lock PHA 05/01/24 In Process (Saline Lock Ns) 22:00 Oxygen Per Hour RT 05/01/24 Transmitted 20:42 Acetaminophen Tablet PHA 05/01/24 In Process (Tylenol Tablet) 20:45 Hydrocodone-Acet PHA 05/01/24 In Process 5/325mg Tab ([place] 20:45 Enoxaparin Sodium PHA 05/02/24 In Process (Lovenox) 10:00 Fall Risk Precautions [facility] 05/01/[address] 20:42 Complete Blood Count LAB 05/02/24 Verified 04:00 Comprehensive LAB 05/02/24 Verified Metabolic Panel 04:00 Cardiac DIET 05/02/24 Transmitted Diet-2gna,Lofat,Lochol Breakfast Pt Request For Service PT 05/01/24 Logged 20:42 Nitroglycerin [facility] 05/01/24 In Process Sublingual (Ntrostat 20:45 Morphine Sulfate [facility] 05/01/24 In Process Injection 20:45 Oxygen By Nasal RT 05/01/24 Transmitted Cannula 20:42 Stat Ekg For Chest [facility] 05/01/24 In Process Pain 20:42 Notify Of Changes [facility] 05/01/24 In Process From Base 20:42 Garbage Man For [facility] 05/01/24 In Process 24 Hours 20:42 Emergency Dysrhythmia [facility] 05/01/24 In Process Protocol 20:42 Rhythm Strips Once [facility] 05/01/24 In Process Every Shift 20:42 Norepinephrine 8 [facility] 05/01/24 In Process Mg/250ml Kit 22:30 JASSON DUVALL RESIDENT May 01, 2024 22:42
[2024-05-02] VITALS (90 sets, daily range): BP systolic 76–127; BP diastolic 37–82; PULSE 103–128; RESP 11–31; TEMP 97.2–97.9; O2SAT 89–100
[2024-05-02 01:15] LABS: Urine Bacteria None Seen /hpf (None Seen)
[2024-05-02 01:38] LABS: Urine Blood 2+ /uL (Negative); Urine Budding Yeast OCCASIONAL /hpf (None Seen); Urine Clarity Turbid (Clear); Urine Color Yellow (Yellow); Urine Hyaline Cast MOD /lpf (0 - 2); Urine Mucus FEW (None Seen); Urine Protein, UAD Negative (Negative); Urine Specific Gravity 1.036 (1.001-1.035); Urine Urobilinogen 2 mg/dL (Negative); Urine WBC 153 /hpf (0 - 3)
[2024-05-02] MEDS: SODIUM CHLORIDE 0.9% 500 ML IV ONE (02:51)
[2024-05-02] MEDS ORDERED: IPRATROPIUM BROM 0.5 MG/2.5ML INH SOL NEB PRN (04:45)
[2024-05-02] MEDS ORDERED: ALBUTEROL SULF 2.5 MG/0.5ML(0.5%) NEB SOLN NEB PRN (04:45)
[2024-05-02 05:06] LABS: Basophils # (auto) 0 10 ^3/uL (0-0.2); Basophils % (auto) 0.1 % (0.0-2.0); Eosinophils # (auto) 0 10 ^3/uL (0-0.8); Eosinophils % (auto) 0.1 % (0.0-7.0); Monocytes # (auto) 0.2 10 ^3/uL (0-1.3); Neutrophils # (auto) 8.1 10 ^3/uL (1.6-8.6); Nucleated Red Blood Cells % 0.1 %; Red Cell Distribution Width 14.1 % (11.8-14.3); White Blood Cell 9.5 10^3/uL (4.4-10.8)
[2024-05-02 05:12] LABS: Lymphocytes # (auto) 1.2 10 ^3/uL (0.4-5.4); Lymphocytes % (auto) 12.1 % (10.0-50.0); Mean Corpuscular Hemoglobin 30.5 pg (28.0-32.0); Mean Corpuscular Volume 89.9 fL (80.0-100.0); Monocytes % (auto) 2.4 % (0.0-12.0); Neutrophils % (auto) 85.3 % (37.0-80.0); Platelet Count (auto) 451 10^3/uL (140-450)
[2024-05-02 05:23] LABS: Alanine Aminotransferase 21 U/L (7-40); Albumin 3.5 g/dL (3.2-4.8); Alkaline Phosphatase 251 U/L (46-116); Anion Gap 9 (5-15); Aspartate Aminotransferase 32 U/L (13-40); BUN/Creatinine Ratio 38.5 (10.0-20.0); Bilirubin, Total 1.2 mg/dL (0.2-1.0); Blood Urea Nitrogen 37 mg/dL (9-23); Calcium 9.1 mg/dL (8.7-10.4); Carbon Dioxide 31 mmol/L (20-31); Chloride 94 mmol/L (98-107); Glucose 196 mg/dL (74-106); Potassium 3.8 mmol/L (3.5-5.1); Sodium 134 mmol/L (136-145); Total Protein 7.1 g/dL (5.7-8.2)
[2024-05-02] MEDS: LEVOTHYROXINE SODIUM 50 MCG TAB PO SCH (06:01)
--- NOTE | 2024-05-02 09:12 | DVHPN2 ---
Subjective Decreasing shortness of breath Reviewed: Care Plan, H&P, Labs, Medications, Previous Orders, Radiology Changes from previous H/P or p: Changes Objective Vitals Vital Signs Date Time Temp Pulse Resp B/P (MAP) Pulse Ox O2 Delivery O2 Flow Rate FiO2 05/02/24 09:00 117 22 97 05/02/24 04:46 3.0 32 05/02/24 04:00 97.8 97.8 05/02/24 01:20 Nasal Cannula* Intake/Output Intake and Output 05/02/24 07:00 Intake Total 128.75 ml Output Total 300 ml Balance -171.25 ml Intake Oral 50 ml IV Total 78.75 ml Output Urine Total 300 ml General Appearance: Alert, Oriented X3, Cooperative, moderate distress HEENT: Atraumatic Lungs: Other (Scattered crackles with occasional wheezing) Chest/Breasts: Other (AICD in place) Cardiovascular: Other (Tachycardia) Abdomen: Normal bowel sounds, Soft, No tenderness Genitourinary: Other (Keane's catheter) Extremities: Other (Pitting edema) Neuro: Normal speech, Cranial nerves 3-12 NL Psych/Mental Status: Mental status NL, Mood NL Medications Current Medications Medications Dose Ordered Sig/Danis Route Start Time Stop Time Status Last Admin Dose Admin Sodium Chloride 10 ml Q8HR IV 05/01/24 22:00 05/02/24 06:02 10 ML Acetaminophen 325 mg Q4HP PRN PO 05/01/24 20:45 Acetaminophen/ Hydrocodone Bitart 1 tab Q4HP PRN PO 05/01/24 20:45 Nitroglycerin 0.4 mg Q5MINP PRN SL 05/01/24 20:45 Morphine Sulfate 2 mg Q30M PRN IV 05/01/24 20:45 Norepinephrine Bitartrate 250 ml @ 3.75 mls/hr Q24H IV 05/01/24 22:30 05/01/24 21:55 3.75 MLS/HR Clopidogrel Bisulfate 75 mg DAILY PO 05/02/24 10:00 Aspirin 81 mg DAILY PO 05/02/24 10:00 Albuterol 2.5 mg Q4HPRN PRN NEB 05/02/24 04:45 Ipratropium [place] 0.5 mg Q4HPRN PRN NEB 05/02/24 04:45 Levothyroxine Sodium 50 mcg QAM@0600 PO 05/02/24 06:00 05/02/24 06:01 50 [facility] [place] Results Laboratory Tests 05/02/24 04:37 Chemistry Test 05/01/24 16:20 05/02/24 04:37 Albumin 3.3 g/dL (3.2-4.8) 3.5 g/dL (3.2-4.8) Calcium Level 9.0 mg/dL (8.7-10.4) 9.1 mg/dL (8.7-10.4) Magnesium Level 2.2 mg/dL (1.6-2.6) Total Protein 7.1 g/dL (5.7-8.2) 7.1 g/dL (5.7-8.2) Cardiac Markers Test 05/01/24 16:20 B-Type Natriuretic Peptide 1106.53 pg/mL (0-100) LFT Test 05/01/24 16:20 05/02/24 04:37 Alanine Aminotransferase (ALT) 27 U/L (7-40) 21 U/L (7-40) Alkaline Phosphatase 259 U/L (46-116) H 251 U/L (46-116) H Aspartate Amino Transferase (AST) 42 U/L (13-40) H 32 U/L (13-40) Total Bilirubin 1.0 mg/dL (0.2-1.0) 1.2 mg/dL (0.2-1.0) H Urinalysis Test 05/02/24 00:52 Urine Color Yellow (Yellow) Urine Clarity Turbid (Clear) H Urine pH 5.0 (5.0-9.0) Urine Specific [place] 1.036 (1.001-1.035) Urine Protein Negative (Negative) Urine Ketones Negative (Negative) Urine Blood 2+ /uL (Negative) H Urine Nitrite Negative (Negative) Urine Bilirubin Negative (Negative) Urine Urobilinogen 2 mg/dL (Negative) H Urine Leukocyte Esterase 3+ /uL (Negative) Urine RBC 22 /hpf (0 - 3) Urine WBC 153 /hpf (0 - 3) Urine Squamous Epithelial Cells Few /hpf (<5) Urine Bacteria None seen /hpf (None Seen) Urine Hyaline Casts Mod /lpf (0 - 2) Urine Mucus Few (None Seen) Urine Yeast (Budding) Occasional /hpf (None Urine Glucose Normal mg/dL (Normal) Labs and/or images reviewed: Labs reviewed by me, Image(s) reviewed by me Assessment/Plan Assessment/Plan A 78 year male patient with multiple comorbidities who presented to the emergency department with shortness of breath. #Shortness of breath due to cardiogenic shock #Acute hypoxic respiratory failure due to cardiogenic shock #Cardiogenic shock in the setting of ischemic cardiomyopathy #Leukocytosis; most likely reactive #ERIN; most likely vasomotor nephropathy; due to cardiogenic shock #Pleural effusion and pericardial effusion due to cardiogenic shock #NSTEMI; demand ischemia; type 2; due to cardiogenic shock #Elevated LFTs due to cardiogenic shock #Ischemic cardiomyopathy with acute on chronic systolic heart failure #CAD status post RAJANI placement in Circumflex artery on April 10, 2024 #Status post AICD #Hypertensive heart disease with heart failure Reviewed chest x-ray and chest angiogram Continue vasopressors as indicated Continue oxygen therapy as indicated Continue holding antihypertensive medications Continue aspirin, clopidogrel, and statin Cardiology onboard Telemetry Avoid nephrotoxic and hepatotoxic agents Continue close monitoring #Pulmonary embolism status post IVC filter due to increased risk of bleeding Continue DVT prophylaxis with enoxaparin prophylactic dose Continue monitoring #Diabetes mellitus type 2; controlled with A1c of 6% #Metabolic syndrome morbid obesity and dyslipidemia #Dyslipidemia #Morbid obesity Started on insulin sliding scale with hypoglycemia protocol Continue statin Counseled the patient on the importance of adopting healthy lifestyle with diet and exercise in order to lose weight Continue monitoring #Hypothyroidism Continue levothyroxine Continue monitoring Goals of care discussed for 20 minutes; full code; advised the patient and his daughter to discuss with the patient's the current condition of the patient 120 minutes of critical care time Late Entry This medical document was created using an electronic medical record system with computerized dictation system. Although this document has been carefully reviewed, there might still be some phonetic and typographical errors. These areas are purely typographical due to imperfections of the software programs, and do not reflect any compromise in the patient's medical care. Plan discussed with: Patient, Daughter, Other (Nurse) Date of Service: May 02, 2024 Billing Provider: ROSA DAVIS MD Common Visit Codes: [id number] CARE 30-74 MIN (120 minutes), [id number] CARE-EACH +30MIN Secondary Visit Codes: [id number] CARE PLAN 30 MINUTES (20 minutes) ROSA DAVIS MD May 02, 2024 09:12
--- NOTE | 2024-05-02 09:50 | ECG ---
[facility] Test Date: 2024-05-01 Test Time: 15:50:00 Pat Name: HIMA CEDILLO Department: ED Room: 0262 Gender: M [employer]: KELLI : 1945 Requested By: YOAN SINGH Order Number: [id number] Reading MD: Measurements Intervals [place] Rate: 117 P: 0 MO: 0 QRS: 36 QRSD: 160 T: -42 QT: 443 QTc: 619 Interpretive Statements Afib/flutter and ventricular-paced rhythm No further analysis attempted due to paced rhythm Baseline wander in lead(s) V6 Please click the below link to view image of tracing.
[2024-05-02] MEDS: ASPirin-EC 81 mg tab PO SCH (09:56)
[2024-05-02] MEDS: CLOPIDOGREL BISULFATE 75 MG TAB PO SCH (09:56)
[2024-05-02] MEDS ORDERED: ENOXAPARIN SOD 40 MG/0.4 ML SYRINGE SC SCH (10:00)
[2024-05-02 11:29] LABS: INR 1.23 (0.9-1.15); Partial Thromboplastin Time 33.6 SEC (24.5-34.5); Prothrombin Time 12.8 sec (9.3-11.8)
[2024-05-02] MEDS ORDERED: CHOL500023 PO (12:29)
--- NOTE | 2024-05-02 14:07 | DVHPN2 ---
Progress Note - Dictate Date Seen: May 02, 2024 Medical Necessity Reason Pt with a Central, PICC or Fol: Yes The following are medically ne: Keane Catheter Subjective ORGANIC HD ISCHEMIC CM S/P PTCA OF CX ACUTE CO HFrEF ACUTE DECOMPENSATION HEMATURAI vital signs Vital Sign Date Time Temp Pulse Resp B/P (MAP) Pulse Ox O2 Delivery O2 Flow Rate FiO2 05/02/24 12:30 113 12 85/54 (64) 97 05/02/24 10:46 Nasal Cannula* 2 28 05/02/24 08:00 97.5 97.5 Total Intake and Output 05/01/24 05/01/24 05/02/24 15:00 23:00 07:00 Intake Total 41.25 ml 87.50 ml Output Total 300 ml Balance 41.25 ml -212.50 ml medications Current Medications Medications Dose Ordered Sig/Danis Route Start Time Stop Time Status Last Admin Dose Admin Sodium Chloride 10 ml Q8HR IV 05/01/24 22:00 05/02/24 06:02 10 ML Acetaminophen 325 mg Q4HP PRN PO 05/01/24 20:45 Acetaminophen/ Hydrocodone Bitart 1 tab Q4HP PRN PO 05/01/24 20:45 Nitroglycerin 0.4 mg Q5MINP PRN SL 05/01/24 20:45 Morphine Sulfate 2 mg Q30M PRN IV 05/01/24 20:45 Norepinephrine Bitartrate 250 ml @ 3.75 mls/hr Q24H IV 05/01/24 22:30 05/01/24 21:55 3.75 MLS/HR Clopidogrel Bisulfate 75 mg DAILY PO 05/02/24 10:00 05/02/24 09:56 75 MG Aspirin 81 mg DAILY PO 05/02/24 10:00 05/02/24 09:56 81 MG Albuterol 2.5 mg Q4HPRN PRN NEB 05/02/24 04:45 Ipratropium [place] 0.5 mg Q4HPRN PRN NEB 05/02/24 04:45 Levothyroxine Sodium 50 mcg QAM@0600 PO 05/02/24 06:00 05/02/24 06:01 50 MCG objective HEENT: Pupils are reactive. Funduscopic exam shows some AV nicking and hard exudates, no papilledema noted. Sclerae are anicteric. NECK: No JVD appreciated. Carotid pulses are 2+ and symmetrical. No cervical adenopathy, no supraclavicular adenopathy. PULMONARY: Clear to auscultation. CARDIOVASCULAR: Regular rate without S3, without S4. PMI; however, is diffuse. There is a 2/6 systolic murmur along the left sternal border. ABDOMEN: Obese. Unable to appreciate an organomegaly. EXTREMITIES: Distal pulses are diminished with 1 Doppler pulses in lower extremity. NEUROLOGIC: The patient, however, is intact, alert, oriented. laboratory and microbiology Laboratory Tests 05/02/24 04:37 Test 05/02/24 04:37 Range/Units Serum Glucose 196 H 74-106 mg/dL Problem List ORGANIC HD ISCHEMIC CM S/P PTCA OF CX ACUTE CO HFrEF ACUTE DECOMPENSATION HEMATURIA Assessment/Plan DOBUTAMINE LASIX DRIP Plan discussed with: Patient Critical Care Time(min): 35 CHRISTINA KAMARA MD May 02, 2024 14:07
[2024-05-02] MEDS: DOBUTamine 1000MCG/ML 250 ML IV SCH (15:18)
[2024-05-02] MEDS: DIGOXIN (250MCG/ML) 2 ML AMPULE IV ONE ×2 (18:09→18:52)
[2024-05-03] VITALS (71 sets, daily range): BP systolic 79–117; BP diastolic 53–72; PULSE 103–125; RESP 11–59; TEMP 97–97.9; O2SAT 94–99
[2024-05-03] MEDS ORDERED: DEXTROSE (50%) 50ML SYRG IV PRN (04:00)
[2024-05-03 05:59] LABS: Basophils # (auto) 0.1 10 ^3/uL (0-0.2); Basophils % (auto) 0.8 % (0.0-2.0); Eosinophils # (auto) 0.3 10 ^3/uL (0-0.8); Eosinophils % (auto) 2.7 % (0.0-7.0); Hematocrit 42.2 % (41.0-53.0); Hemoglobin 13.7 g/dL (13.5-17.5); Lymphocytes # (auto) 1.9 10 ^3/uL (0.4-5.4); Lymphocytes % (auto) 19.6 % (10.0-50.0); Mean Corpuscular Hemoglobin 29.9 pg (28.0-32.0); Mean Corpuscular Hgb Conc. 32.6 g/dL (32.0-36.0); Mean Corpuscular Volume 91.8 fL (80.0-100.0); Monocytes # (auto) 0.6 10 ^3/uL (0-1.3); Monocytes % (auto) 6.6 % (0.0-12.0); Neutrophils % (auto) 70.3 % (37.0-80.0); Nucleated Red Blood Cells % 0.2 %; Platelet Count (auto) 352 10^3/uL (140-450); Red Cell Distribution Width 14.5 % (11.8-14.3); White Blood Cell 9.9 10^3/uL (4.4-10.8)
[2024-05-03 06:18] LABS: Alanine Aminotransferase 43 U/L (7-40); Albumin 3.2 g/dL (3.2-4.8); Alkaline Phosphatase 444 U/L (46-116); Anion Gap 6 (5-15); Aspartate Aminotransferase 82 U/L (13-40); BUN/Creatinine Ratio 38.5 (10.0-20.0); Bilirubin, Total 0.9 mg/dL (0.2-1.0); Blood Urea Nitrogen 30 mg/dL (9-23); Carbon Dioxide 31 mmol/L (20-31); Chloride 98 mmol/L (98-107); Glucose 94 mg/dL (74-106); Magnesium 2.4 mg/dL (1.6-2.6); Potassium 4.1 mmol/L (3.5-5.1); Sodium 135 mmol/L (136-145); Total Protein 6.6 g/dL (5.7-8.2)
[2024-05-03] MEDS: InsuLIN REG 1unit/0.01ml Soln (100units/ml) SC SCH (07:00)
[2024-05-03] MEDS: ACCU-CHEK COMFORT CURVE STRIP VI SCH (07:59)
--- NOTE | 2024-05-03 17:41 | DVHPN2 ---
Subjective HF exacerbation on dobutamine drip Reviewed: Care Plan, H&P, Labs, Medications, Previous Orders, Radiology Changes from previous H/P or p: No Changes Objective Vitals Vital Signs Date Time Temp Pulse Resp B/P (MAP) Pulse Ox O2 Delivery O2 Flow Rate FiO2 05/03/24 17:15 106 15 113/65 (81) 98 05/03/24 16:00 Nasal Cannula* 1 24 05/03/24 12:00 97.6 97.6 Intake/Output Intake and Output 05/03/24 04:59 Intake Total 683.50 ml Output Total 675 ml Balance 8.50 ml Intake Oral 400 ml IV Total 283.50 ml Output Urine Total 675 ml Stool Total 0 ml General Appearance: Alert, Oriented X3, Cooperative, moderate distress HEENT: Atraumatic Lungs: Other (Scattered crackles with occasional wheezing) Chest/Breasts: Other (AICD in place) Cardiovascular: Other (Tachycardia) Abdomen: Normal bowel sounds, Soft, No tenderness Genitourinary: Other (Keane's catheter) Extremities: Other (Pitting edema) Neuro: Normal speech, Cranial nerves 3-12 NL Psych/Mental Status: Mental status NL, Mood NL Medications Current Medications Medications Dose Ordered Sig/Danis Route Start Time Stop Time Status Last Admin Dose Admin Sodium Chloride 10 ml Q8HR IV 05/01/24 22:00 05/03/24 17:14 10 ML Acetaminophen 325 mg Q4HP PRN PO 05/01/24 20:45 Acetaminophen/ Hydrocodone Bitart 1 tab Q4HP PRN PO 05/01/24 20:45 Nitroglycerin 0.4 mg Q5MINP PRN SL 05/01/24 20:45 Morphine Sulfate 2 mg Q30M PRN IV 05/01/24 20:45 Norepinephrine Bitartrate 250 ml @ 3.75 mls/hr Q24H IV 05/01/24 22:30 05/01/24 21:55 3.75 MLS/HR Clopidogrel Bisulfate 75 mg DAILY PO 05/02/24 10:00 05/03/24 09:57 75 MG Aspirin 81 mg DAILY PO 05/02/24 10:00 05/03/24 09:57 81 MG Albuterol 2.5 mg Q4HPRN PRN NEB 05/02/24 04:45 Ipratropium [place] 0.5 mg Q4HPRN PRN NEB 05/02/24 04:45 Levothyroxine Sodium 50 mcg QAM@0600 PO 05/02/24 06:00 05/03/24 06:00 50 MCG Dobutamine HCl/ Dextrose 250 ml @ 18 mls/hr [id number] IV 05/02/24 14:15 05/03/24 04:15 18 MLS/HR Diagnostic Test (Pha) 1 strip ACHS 05/03/24 07:00 05/03/24 12:14 1 STRIP Insulin Human Regular ACHS SC 05/03/24 07:00 05/03/24 12:14 3 UNITS Dextrose 50 ml UD PRN IV 05/03/24 04:00 Laboratory Results Laboratory Tests 05/03/24 05:14 Chemistry Test 05/03/24 05:14 Albumin 3.2 g/dL (3.2-4.8) Calcium Level 9.0 mg/dL (8.7-10.4) Magnesium Level 2.4 mg/dL (1.6-2.6) Total Protein 6.6 g/dL (5.7-8.2) LFT Test 05/03/24 05:14 Alanine Aminotransferase (ALT) 43 U/L (7-40) H Alkaline Phosphatase 444 U/L (46-116) H Aspartate Amino Transferase (AST) 82 U/L (13-40) H Total Bilirubin 0.9 mg/dL (0.2-1.0) Urinalysis Test 05/02/24 00:52 Urine Color Yellow (Yellow) Urine Clarity Turbid (Clear) H Urine pH 5.0 (5.0-9.0) Urine Specific [place] 1.036 (1.001-1.035) Urine Protein Negative (Negative) Urine Ketones Negative (Negative) Urine Blood 2+ /uL (Negative) H Urine Nitrite Negative (Negative) Urine Bilirubin Negative (Negative) Urine Urobilinogen 2 mg/dL (Negative) H Urine Leukocyte Esterase 3+ /uL (Negative) Urine RBC 22 /hpf (0 - 3) Urine WBC 153 /hpf (0 - 3) Urine Squamous Epithelial Cells Few /hpf (<5) Urine Bacteria None seen /hpf (None Seen) Urine Hyaline Casts Mod /lpf (0 - 2) Urine Mucus Few (None Seen) Urine Yeast (Budding) Occasional /hpf (None Urine Glucose Normal mg/dL (Normal) Microbiology Microbiology Date/Time Source Procedure Growth Status 05/02/24 00:45 Nose MRSA Screen - Final Methicillin Resistant S.aureus Complete Assessment/Plan Assessment/Plan A 78 year male patient with multiple comorbidities who presented to the emergency department with shortness of breath. #Shortness of breath due to cardiogenic shock #Acute hypoxic respiratory failure due to cardiogenic shock #Cardiogenic shock in the setting of ischemic cardiomyopathy #Leukocytosis; most likely reactive #ERIN; most likely vasomotor nephropathy; due to cardiogenic shock #Pleural effusion and pericardial effusion due to cardiogenic shock #NSTEMI; demand ischemia; type 2; due to cardiogenic shock #Elevated LFTs due to cardiogenic shock #Ischemic cardiomyopathy with acute on chronic systolic heart failure #CAD status post RAJANI placement in Circumflex artery on April 10, 2024 #Status post AICD #Hypertensive heart disease with heart failure Reviewed chest x-ray and chest angiogram Continue dobutamine drip Off pressors Continue oxygen therapy as indicated Continue holding antihypertensive medications Continue aspirin, clopidogrel, and statin Cardiology onboard Telemetry Avoid nephrotoxic and hepatotoxic agents Continue close monitoring #Pulmonary embolism status post IVC filter due to increased risk of bleeding Continue DVT prophylaxis with enoxaparin prophylactic dose Continue monitoring #Diabetes mellitus type 2; controlled with A1c of 6% #Metabolic syndrome morbid obesity and dyslipidemia #Dyslipidemia #Morbid obesity Started on insulin sliding scale with hypoglycemia protocol Continue statin Counseled the patient on the importance of adopting healthy lifestyle with diet and exercise in order to lose weight Continue monitoring #Hypothyroidism Continue levothyroxine Continue monitoring 120 minutes of critical care time Plan discussed with: Patient Date of Service: May 03, 2024 Billing Provider: TONA GARCIA MD Common Visit Codes: [id number] CARE 30-74 MIN TONA GARCIA MD May 03, 2024 17:41
--- NOTE | 2024-05-03 19:37 | DVHINCON2 ---
Date of service: May 03, 2024 Referring Physician Sammie Trejo MD History of Present Illness A 78-year-old man with PMHx of hypertension, hyperlipidemia, chronic systolic heart failure s/p defibrillator, pulmonary embolism s/p IVC filter, coronary artery disease s/p PTCA w/ 6 stents, DM type II and hypothyroidism who presented to the ED on 05/01/24 via EMS for a chief complaint of SOB. Per EMS, pt was admitted to [facility] on 04-10-24 due to MS and PE, was discharged on day of presentation to home hospice but while at home, he felt short of breath. SpO2 read 88% and pt was placed on a nonrebreather 10 liters, increasing saturation levels to 96%. Patient currently on Lasix and Plavix. Patient was admitted for further care and pulmonary consultation is requested for evaluation and management of acute hypoxic respiratory failure. Review of Systems: 14-point review of systems negative unless otherwise noted above. Past Medical History: Hypertension, hyperlipidemia, chronic systolic heart failure s/p defibrillator, pulmonary embolism s/p IVC filter, coronary artery disease s/p PTCA w/ 6 stents, type 2 diabetes mellitus, and hypothyroidism. Past Surgical History: PTCA, AICD placement, IVC filter placement Medications: Reviewed. Allergies: Atorvastatin. Lisinopril. Family History: Mother with DM and liver cancer. Social History: Nonsmoker. No alcohol or illicit drug use. Family History: Diabetes mellitus G8 MOTHER FH: liver cancer G8 MOTHER Allergies: Coded Allergies: Atorvastatin (Verified Allergy, Unknown, 03/31/24) Lisinopril (Verified Allergy, Unknown, coughing, 03/31/24) Home Meds Active Scripts Sertraline Hcl (Sertraline Hcl) 100 Mg Tab, 100 MG PO DAILY, #30 TAB Prov:LATONIA DASILVA MD 02/18/15 Reported Medications Cholecalciferol (VITAMIN D3) 5,000 Unit Tab, 5000 UNIT PO DAILY, TAB 05/02/24 Zinc (Zinc) 50 Mg Tab, 50 MG PO DAILY, TAB 04/03/24 Insulin Aspart (Novolog Flexpen Relion) 100 Unit/Ml Inj, SC TIDWM for SLIDING SCALE, INJ 03/31/24 Patients Own Medication (PATIENTS OWN MEDICATION) ., 2 L NA PRN for O2 FOR SOB PTS OWN MED-OBTAIN FROM PT AND SEND TO RX DRUG: FREQ: RX# EXP: DATE DISP: TECH: [facility]: 03/31/24 Vitamins A & D (Topical) (A&D) 1 Oin Oin, 1 OIN EX PRN for PERINEAL AREA, OIN 03/31/24 Multiple Vitamins W/ Minerals (Multivitamin) 1 Tab Tab, 1 TAB PO DAILY, TAB 03/31/24 Ascorbic Acid (VITAMIN C) 500 Mg Cap, 1000 MG PO DAILY for SUPPLEMENT, CAP 03/31/24 Clopidogrel Bisulfate (CLOPIDOGREL) 75 Mg Tab, 75 MG PO DAILY for S/P CARDIAC STENTS, MG 03/31/24 Insulin Glargine-Yfgn (Insulin Glargine) 100 Unit/Ml Inj, 10 UNIT SC QAM for DIABETES, INJ 03/31/24 Potassium Chloride (Potassium Chloride ER) 20 Meq Tab, 20 MEQ PO DAILY for SUPPLEMENT, TAB 03/31/24 Apixaban Base (ELIQUIS) 2.5 Mg Tab, 2.5 MG PO BID for STOP ON 04/02/24, TAB 02/11/24 Spironolactone (Spironolactone) 25 Mg Tab, 1 TAB PO DAILY for edema, #90 TAB 1 Refill 02/11/24 Respiratory Therapy Supplies ([place] Cpap & Bipap Ho) 1 Mis Mis, MIS XX HS, #150 07/05/23 Levothyroxine Sodium (Levothyroxine Sodium) 50 Mcg Tab, 1 TAB PO DAILY 07/05/23 Amlodipine Besylate (Amlodipine Besylate) 5 Mg Tab, 5 MG PO DAILY for 30 Days, MG 03/17/20 Metformin Hydrochloride (Metformin Hcl) 500 Mg Tab, 500 MG PO BID for DIABETES for 30 Days, MG 03/17/20 Carvedilol (Coreg) 12.5 Mg Tab, 2 TAB PO DAILY@BREAKFAST 07/08/15 Discontinued Reported Medications Cholecalciferol (Vitamin D3 1.25 mg (47272 Ut)) 1 Cap Cap, 1 CAP PO DAILY for SUPPLEMENT, CAP 03/31/24 Current Medications Current Medications Medications (Trade) Dose Ordered Sig/Danis Route PRN Reason Start Time Stop Time Status Last Admin Diagnostic Test (Pha) (Accu-Chek Comfort Curve T) 1 strip ACHS 05/03/24 07:00 05/03/24 17:58 Insulin Human Regular (InsuLIN R) ACHS SC 05/03/24 07:00 11/9/24 12:14 Dextrose 50 ml UD PRN IV Blood Sugar LESS THAN 60 05/03/24 04:00 Vital Signs Vital Signs Date Time Temp Pulse Resp B/P (MAP) Pulse Ox O2 Delivery O2 Flow Rate FiO2 05/03/24 18:00 113 05/03/24 18:00 16 103/65 (78) 99 05/03/24 18:00 Nasal Cannula* 1 24 05/03/24 16:00 97.4 97.4 Physical Exam Gen.: Patient lying in bed in no apparent distress. On supplemental oxygen Head: Normocephalic, atraumatic. Eyes: EOMI/PERRLA. Ears: Normal hearing. Normal anatomy. Neck/trachea: Trachea midline, supple. Nose: Normal external anatomy. Mouth: Moist mucous membranes. Chest: Decreased air entry bilaterally. No wheezing or rhonchi. Cardiovascular: Positive S1, positive S2. Regular rate and rhythm. Abdomen: Positive bowel sounds in all 4 quadrants. Soft, non-tender, non- distended. : Deferred. Rectal: Deferred. Skin: Warm, dry. Intact. Extremities: 2+ radial pulses bilaterally. No lower extremity edema. Neuro: Awake, alert, oriented x3. No gross motor or sensory deficits. Cranial nerves II through XII intact. Gait not assessed. Labs/Diagnostic Data Labs Test 05/03/24 17:41 05/03/24 05:14 05/02/24 10:40 05/02/24 00:52 Range/Units POC Glucose 127 H 70-106 mg/dl White Blood Count 9.9 4.4-10.8 10^3/uL Red Blood Count 4.60 4.5-5.90 10^6/uL Hemoglobin 13.7 13.5-17.5 g/dL Hematocrit 42.2 41.0-53.0 % Mean Corpuscular Volume 91.8 80.0-100.0 fL Mean Corpuscular Hemoglobin 29.9 28.0-32.0 pg Mean Corpuscular Hemoglobin Concent 32.6 32.0-36.0 g/dL Red Cell Distribution Width 14.5 H 11.8-14.3 % Platelet Count 352 140-450 10^3/uL Mean Platelet Volume 8.1 6.9-10.8 fL Neutrophils (%) (Auto) 70.3 37.0-80.0 % Lymphocytes (%) (Auto) 19.6 10.0-50.0 % Monocytes (%) (Auto) 6.6 0.0-12.0 % Eosinophils (%) (Auto) 2.7 0.0-7.0 % Basophils (%) (Auto) 0.8 0.0-2.0 % Neutrophils # (Auto) 7.0 1.6-8.6 10 ^3/uL Lymphocytes # (Auto) 1.9 0.4-5.4 10 ^3/uL Monocytes # (Auto) 0.6 0-1.3 10 ^3/uL Eosinophils # (Auto) 0.3 0-0.8 10 ^3/uL Basophils # (Auto) 0.1 0-0.2 10 ^3/uL Nucleated Red Blood Cells 0.2 % Sodium Level 135 L 136-145 mmol/L Potassium Level 4.1 3.5-5.1 mmol/L Chloride Level 98 98-107 mmol/L Carbon Dioxide Level 31 20-31 mmol/L Anion Gap 6 5-15 Blood Urea Nitrogen 30 H 9-23 mg/dL Creatinine 0.78 0.700-1.30 mg/dL Glomerular Filtration Rate Calc 92 >90 mL/min BUN/Creatinine Ratio 38.5 H 10.0-20.0 Serum Glucose 94 # 74-106 mg/dL Calcium Level 9.0 8.7-10.4 mg/dL Magnesium Level 2.4 1.6-2.6 mg/dL Total Bilirubin 0.9 0.2-1.0 mg/dL Aspartate Amino Transferase (AST) 82 H 13-40 U/L Alanine Aminotransferase (ALT) 43 H 7-40 U/L Alkaline Phosphatase 444 H 46-116 U/L Total Protein 6.6 5.7-8.2 g/dL Albumin 3.2 3.2-4.8 g/dL Prothrombin Time 12.8 H 9.3-11.8 sec Prothrombin Time INR 1.23 H 0.9-1.15 Activated Partial Thromboplast Time 33.6 24.5-34.5 SEC Urine Color Yellow Yellow Urine Clarity Turbid H Clear Urine pH 5.0 5.0-9.0 Urine Specific [place] 1.036 H 1.001-1.035 Urine Protein Negative Negative Urine Ketones Negative Negative Urine Blood 2+ H Negative /uL Urine Nitrite Negative Negative Urine Bilirubin Negative Negative Urine Urobilinogen 2 H Negative mg/dL Urine Leukocyte Esterase 3+ Negative /uL Urine RBC 22 0 - 3 /hpf Urine WBC 153 0 - 3 /hpf Urine Squamous Epithelial Cells Few <5 /hpf Urine Bacteria None seen None Seen /hpf Urine Hyaline Casts Mod 0 - 2 /lpf Urine Mucus Few None Seen Urine Yeast (Budding) Occasional None Seen /hpf Urine Glucose Normal Normal mg/dL Test 05/01/24 19:49 05/01/24 16:20 Range/Units Troponin I High Sensitivity 62 *H </=54 ng/L Lactic Acid Level 1.4 0.4-2.0 mmol/L B-Type Natriuretic Peptide 1106.53 0-100 pg/mL Microbiology Date/Time Source Procedure Growth Status 05/02/24 00:45 Nose MRSA Screen - Final Methicillin Resistant S.aureus Complete Assessment Impression: Acute hypoxic respiratory failure due to cardiogenic shock Cardiogenic shock in the setting of ischemic cardiomyopathy Leukocytosis; most likely reactive ERIN Pleural effusion Pericardial effusion NSTEMI; demand ischemia; type 2; due to cardiogenic shock Elevated LFTs Ischemic cardiomyopathy with acute on chronic systolic heart failure CAD, status post RAJANI placement in Circumflex artery on April 10, 2024 Pulmonary embolism status post IVC filter DM type II, controlled with A1c of 6% Obesity Plan: Supplemental oxygen 4 LPM NC Titrate to keep O2 sats above 92%. Taper O2 as tolerated. CXR reviewed, no e/o acute opacities, pleural effusion or pneumothorax. Dobutamine for inotropic support. Off Levophed since 5 PM on 05/02. CT angio showed no e/o pulmonary embolism. Small bilateral pleural effusions, l eft greater than right. Small to moderate pericardial effusion. Incentive spirometry Monitor renal function. Monitor electrolytes. Supplement as necessary. Monitor ins and outs. Accu-Cheks, ISS. Diet and lifestyle modifications for weight loss Obesity - complicates all care. DVT prophylaxis with enoxaparin. Prognosis: Poor given patient's multiple co-morbidities. Condition: Critical Rest of plan per hospitalist and other consultants. A total of 35 minutes of critical care time was spent reviewing the patient record, examining the patient, making a diagnostic and therapeutic plan, discussing this plan with the medical personnel, following up on diagnostic studies and following the patient for clinical stability excluding any and all procedures. At least 50% of this time was spent in direct, [id number] contact. Thank you, Sammie Trejo MD, for allowing me to participate in this patient's care. Further recommendations will depend on the patient's clinical course. Please do not hesitate to contact me if you have any questions or concerns. This medical document was created using an electronic medical record system with basno computerized dictation system. Although these documentations are being carefully reviewed, there may still be some phonetic and typographical changes. The errors are purely typographical, due to imperfection on the software program, and do not reflect any compromise in the patient's medical care. Plan discussed with: Patient, Other (GHULAM Chen, MD Trejo) NILA VARGHESE MD May 03, 2024 19:37
[2024-05-04] VITALS (79 sets, daily range): BP systolic 83–123; BP diastolic 51–75; PULSE 106–127; RESP 13–45; TEMP 97.4–98.1; O2SAT 90–100
--- NOTE | 2024-05-04 06:03 | DVH ---
CHEST RADIOGRAPH Indication:interval changes in bilateral pleural effusions Technique: Single frontal view of the chest was obtained COMPARISON: XY CHEST PORTABLE on DOS: 05/01/24, XY CHEST PORTABLE on DOS: 04/24/24, XY CHEST PORTABLE on DOS: 04/22/24 FINDINGS: Lines and Tubes: Left chest wall AICD Lungs: Mild congestion Pleura: No effusion. No pneumothorax. Cardiomediastinal contours: Unremarkable Bones: Unremarkable IMPRESSION: No significant interval change.
--- NOTE | 2024-05-04 10:26 | DVHPN2 ---
Subjective HF exacerbation on dobutamine drip feeling well today Reviewed: Care Plan, H&P, Labs, Medications, Previous Orders, Radiology Changes from previous H/P or p: No Changes Objective Vitals Vital Signs Date Time Temp Pulse Resp B/P (MAP) Pulse Ox O2 Delivery O2 Flow Rate FiO2 05/04/24 10:15 120 13 93/55 (68) 100 05/04/24 10:00 Nasal Cannula* 2 28 05/04/24 08:00 97.4 97.4 Intake/Output Intake and Output 05/04/24 07:00 Intake Total 1332 ml Output Total 825 ml Balance 507 ml Intake Oral 900 ml IV Total 432 ml Output Urine Total 825 ml # Bowel Movements 2 General Appearance: Alert, Oriented X3, Cooperative, moderate distress HEENT: Atraumatic Lungs: Other (Scattered crackles with occasional wheezing) Chest/Breasts: Other (AICD in place) Cardiovascular: Other (Tachycardia) Abdomen: Normal bowel sounds, Soft, No tenderness Genitourinary: Other (Keane's catheter) Extremities: Other (Pitting edema) Neuro: Normal speech, Cranial nerves 3-12 NL Psych/Mental Status: Mental status NL, Mood NL Medications Current Medications Medications Dose Ordered Sig/Danis Route Start Time Stop Time Status Last Admin Dose Admin Sodium Chloride 10 ml Q8HR IV 05/01/24 22:00 05/04/24 07:36 10 ML Acetaminophen 325 mg Q4HP PRN PO 05/01/24 20:45 Acetaminophen/ Hydrocodone Bitart 1 tab Q4HP PRN PO 05/01/24 20:45 Nitroglycerin 0.4 mg Q5MINP PRN SL 05/01/24 20:45 Morphine Sulfate 2 mg Q30M PRN IV 05/01/24 20:45 Norepinephrine Bitartrate 250 ml @ 3.75 mls/hr Q24H IV 05/01/24 22:30 05/01/24 21:55 3.75 MLS/HR Clopidogrel Bisulfate 75 mg DAILY PO 05/02/24 10:00 05/04/24 08:28 75 MG Aspirin 81 mg DAILY PO 05/02/24 10:00 05/04/24 08:28 81 MG Albuterol 2.5 mg Q4HPRN PRN NEB 05/02/24 04:45 Ipratropium [place] 0.5 mg Q4HPRN PRN NEB 05/02/24 04:45 Levothyroxine Sodium 50 mcg QAM@0600 PO 05/02/24 06:00 05/04/24 07:07 50 MCG Dobutamine HCl/ Dextrose 250 ml @ 18 mls/hr [id number] IV 05/02/24 14:15 05/04/24 07:37 18 MLS/HR Diagnostic Test (Pha) 1 strip ACHS 05/03/24 07:00 05/04/24 07:08 1 STRIP Insulin Human Regular ACHS SC 05/03/24 07:00 05/04/24 07:14 2 UNITS Dextrose 50 ml UD PRN IV 05/03/24 04:00 Laboratory Results Laboratory Tests 05/03/24 05:14 Urinalysis Test 05/02/24 00:52 Urine Color Yellow (Yellow) Urine Clarity Turbid (Clear) H Urine pH 5.0 (5.0-9.0) Urine Specific [place] 1.036 (1.001-1.035) Urine Protein Negative (Negative) Urine Ketones Negative (Negative) Urine Blood 2+ /uL (Negative) H Urine Nitrite Negative (Negative) Urine Bilirubin Negative (Negative) Urine Urobilinogen 2 mg/dL (Negative) H Urine Leukocyte Esterase 3+ /uL (Negative) Urine RBC 22 /hpf (0 - 3) Urine WBC 153 /hpf (0 - 3) Urine Squamous Epithelial Cells Few /hpf (<5) Urine Bacteria None seen /hpf (None Seen) Urine Hyaline Casts Mod /lpf (0 - 2) Urine Mucus Few (None Seen) Urine Yeast (Budding) Occasional /hpf (None Urine Glucose Normal mg/dL (Normal) Microbiology Microbiology Date/Time Source Procedure Growth Status 05/02/24 00:45 Nose MRSA Screen - Final Methicillin Resistant S.aureus Complete Assessment/Plan Assessment/Plan A 78 year male patient with multiple comorbidities who presented to the emergency department with shortness of breath. #Shortness of breath due to cardiogenic shock #Acute hypoxic respiratory failure due to cardiogenic shock #Cardiogenic shock in the setting of ischemic cardiomyopathy #Leukocytosis; most likely reactive #ERIN; most likely vasomotor nephropathy; due to cardiogenic shock #Pleural effusion and pericardial effusion due to cardiogenic shock #NSTEMI; demand ischemia; type 2; due to cardiogenic shock #Elevated LFTs due to cardiogenic shock #Ischemic cardiomyopathy with acute on chronic systolic heart failure #CAD status post RAJANI placement in Circumflex artery on April 10, 2024 #Status post AICD #Hypertensive heart disease with heart failure Reviewed chest x-ray and chest angiogram Continue dobutamine drip Off pressors Continue oxygen therapy as indicated Continue holding antihypertensive medications Continue aspirin, clopidogrel, and statin Cardiology onboard Telemetry Avoid nephrotoxic and hepatotoxic agents Continue close monitoring #Pulmonary embolism status post IVC filter due to increased risk of bleeding Continue DVT prophylaxis with enoxaparin prophylactic dose Continue monitoring #Diabetes mellitus type 2; controlled with A1c of 6% #Metabolic syndrome morbid obesity and dyslipidemia #Dyslipidemia #Morbid obesity Started on insulin sliding scale with hypoglycemia protocol Continue statin Counseled the patient on the importance of adopting healthy lifestyle with diet and exercise in order to lose weight Continue monitoring #Hypothyroidism Continue levothyroxine Continue monitoring 120 minutes of critical care time Plan discussed with: Patient Date of Service: May 04, 2024 Billing Provider: TONA GARCIA MD Common Visit Codes: [id number] CARE 30-74 MIN TONA GARCIA MD May 04, 2024 10:26
[2024-05-04 11:17] LABS: Basophils # (auto) 0.1 10 ^3/uL (0-0.2); Basophils % (auto) 1.2 % (0.0-2.0); Eosinophils # (auto) 0.3 10 ^3/uL (0-0.8); Eosinophils % (auto) 3.1 % (0.0-7.0); Hematocrit 38.6 % (41.0-53.0); Lymphocytes # (auto) 1.6 10 ^3/uL (0.4-5.4); Lymphocytes % (auto) 17.9 % (10.0-50.0); Mean Corpuscular Hemoglobin 30.5 pg (28.0-32.0); Mean Corpuscular Hgb Conc. 33.7 g/dL (32.0-36.0); Mean Corpuscular Volume 90.4 fL (80.0-100.0); Monocytes # (auto) 0.6 10 ^3/uL (0-1.3); Monocytes % (auto) 6.9 % (0.0-12.0); Neutrophils # (auto) 6.5 10 ^3/uL (1.6-8.6); Neutrophils % (auto) 70.9 % (37.0-80.0); Nucleated Red Blood Cells % 0.1 %; Platelet Count (auto) 315 10^3/uL (140-450); Red Blood Cells 4.27 10^6/uL (4.5-5.90); Red Cell Distribution Width 14.3 % (11.8-14.3); White Blood Cell 9.2 10^3/uL (4.4-10.8)
[2024-05-04 11:28] LABS: Chloride 98 mmol/L (98-107); Potassium 3.6 mmol/L (3.5-5.1); Sodium 138 mmol/L (136-145)
[2024-05-04 11:29] LABS: Anion Gap 0 (5-15); Calcium 8.6 mg/dL (8.7-10.4); Carbon Dioxide 40 mmol/L (20-31)
[2024-05-04 11:34] LABS: BUN/Creatinine Ratio 30.1 (10.0-20.0); Blood Urea Nitrogen 25 mg/dL (9-23); Glucose 151 mg/dL (74-106)
[2024-05-04 11:35] LABS: Magnesium 1.9 mg/dL (1.6-2.6)
--- NOTE | 2024-05-04 18:32 | DVHPN2 ---
Progress Note - Dictate Date Seen: May 04, 2024 Medical Necessity Reason Pt with a Central, PICC or Fol: Yes The following are medically ne: Stubbs Catheter Reason for stubbs catheter: Strict I&O Subjective Patient seen and examined at bedside. Remains on supplemental oxygen Overnight events reviewed. vital signs Vital Sign Date Time Temp Pulse Resp B/P (MAP) Pulse Ox O2 Delivery O2 Flow Rate FiO2 05/04/24 18:04 94 Nasal Cannula 2.0 05/04/24 18:04 28 05/04/24 17:56 125 05/04/24 17:56 23 05/04/24 17:45 103/55 (71) 05/04/24 15:30 97.6 97.6 Total Intake and Output 05/03/24 05/03/24 05/04/24 15:00 23:00 07:00 Intake Total 144 ml 544 ml 644 ml Output Total 475 ml 350 ml Balance 144 ml 69 ml 294 ml medications Current Medications Medications Dose Ordered Sig/Danis Route Start Time Stop Time Status Last Admin Dose Admin Sodium Chloride 10 ml Q8HR IV 05/01/24 22:00 05/04/24 07:36 10 ML Acetaminophen 325 mg Q4HP PRN PO 05/01/24 20:45 Acetaminophen/ Hydrocodone Bitart 1 tab Q4HP PRN PO 05/01/24 20:45 Nitroglycerin 0.4 mg Q5MINP PRN SL 05/01/24 20:45 Morphine Sulfate 2 mg Q30M PRN IV 05/01/24 20:45 Norepinephrine Bitartrate 250 ml @ 3.75 mls/hr Q24H IV 05/01/24 22:30 05/01/24 21:55 3.75 MLS/HR Clopidogrel Bisulfate 75 mg DAILY PO 05/02/24 10:00 05/04/24 08:28 75 MG Aspirin 81 mg DAILY PO 05/02/24 10:00 05/04/24 08:28 81 MG Albuterol 2.5 mg Q4HPRN PRN NEB 05/02/24 04:45 Ipratropium [place] 0.5 mg Q4HPRN PRN NEB 05/02/24 04:45 Levothyroxine Sodium 50 mcg QAM@0600 PO 05/02/24 06:00 05/04/24 07:07 50 MCG Dobutamine HCl/ Dextrose 250 ml @ 18 mls/hr [id number] IV 05/02/24 14:15 05/04/24 07:37 18 MLS/HR Diagnostic Test (Pha) 1 strip ACHS 05/03/24 07:00 05/04/24 17:04 1 STRIP Insulin Human Regular ACHS SC 05/03/24 07:00 05/04/24 17:14 2 UNITS Dextrose 50 ml UD PRN IV 05/03/24 04:00 objective Gen.: Patient lying in bed in no apparent distress. On supplemental oxygen. Head: Normocephalic, atraumatic. Eyes: EOMI/PERRLA. Ears: Normal hearing. Normal anatomy. Neck/trachea: Trachea midline, supple. Nose: Normal external anatomy. Mouth: Moist mucous membranes. Chest: Decreased air entry bilaterally. No wheezing or rhonchi. Cardiovascular: Positive S1, positive S2. Regular rate and rhythm. Abdomen: Positive bowel sounds in all 4 quadrants. Soft, non-tender, non- distended. : Deferred. Rectal: Deferred. Skin: Warm, dry. Intact. Extremities: 2+ radial pulses bilaterally. No lower extremity edema. Neuro: Awake, alert, oriented x3. No gross motor or sensory deficits. Cranial nerves II through XII intact. Gait not assessed. laboratory and microbiology Laboratory Tests 05/04/24 11:05 Test 05/04/24 11:05 Range/Units Serum Glucose 151 H 74-106 mg/dL Assessment/Plan Impression: Acute hypoxic respiratory failure due to cardiogenic shock Cardiogenic shock in the setting of ischemic cardiomyopathy Leukocytosis; most likely reactive ERIN Pleural effusion Pericardial effusion NSTEMI; demand ischemia; type 2; due to cardiogenic shock Elevated LFTs Ischemic cardiomyopathy with acute on chronic systolic heart failure CAD, status post RAJANI placement in Circumflex artery on April 10, 2024 Pulmonary embolism status post IVC filter DM type II, controlled with A1c of 6% Obesity Events: On supplemental O2 at 2 LPM NC Taper O2 as tolerated Off Levophed. Dobutamine 2.5 mcg/kg/min for inotropic support Incentive spirometry Head of bed elevation Aspiration precautions Labs and imaging reviewed. Rest of plan as noted below. Plan: Supplemental oxygen 2 LPM NC Titrate to keep O2 sats above 92%. Taper O2 as tolerated. CXR reviewed, no e/o acute opacities, pleural effusion or pneumothorax. Dobutamine for inotropic support. Off Levophed since 5 PM on 05/02. CT angio showed no e/o pulmonary embolism. Small bilateral pleural effusions, left greater than right. Small to moderate pericardial effusion. Incentive spirometry Monitor renal function. Monitor electrolytes. Supplement as necessary. Monitor ins and outs. Accu-Cheks, ISS. Diet and lifestyle modifications for weight loss Obesity - complicates all care. DVT prophylaxis with enoxaparin. Prognosis: Poor given patient's multiple co-morbidities. Condition: Critical Rest of plan per hospitalist and other consultants. A total of 35 minutes of critical care time was spent reviewing the patient record, examining the patient, making a diagnostic and therapeutic plan, discussing this plan with the medical personnel, following up on diagnostic studies and following the patient for clinical stability excluding any and all procedures. At least 50% of this time was spent in direct, [id number] contact. Thank you, Sammie Trejo MD, for allowing me to participate in this patient's care. Further recommendations will depend on the patient's clinical course. Please do not hesitate to contact me if you have any questions or concerns. This medical document was created using an electronic medical record system with [employer] dictation system. Although these documentations are being carefully reviewed, there may still be some phonetic and typographical changes. The errors are purely typographical, due to imperfection on the software program, and do not reflect any compromise in the patient's medical care. Plan discussed with: Other (GHULAM Peterson) Critical Care Time(min): 35 NILA VARGHESE MD May 04, 2024 18:32
[2024-05-04] MEDS: HYDROcodone-ACET 5/325MG TAB PO PRN (19:39)
[2024-05-05] VITALS (100 sets, daily range): BP systolic 93–131; BP diastolic 52–85; PULSE 108–126; RESP 9–26; TEMP 97.4–98.4; O2SAT 97–100
[2024-05-05 05:47] LABS: Basophils # (auto) 0.1 10 ^3/uL (0-0.2); Basophils % (auto) 0.8 % (0.0-2.0); Eosinophils # (auto) 0.4 10 ^3/uL (0-0.8); Eosinophils % (auto) 3.8 % (0.0-7.0); Hematocrit 38.9 % (41.0-53.0); Hemoglobin 13.1 g/dL (13.5-17.5); Lymphocytes # (auto) 2.1 10 ^3/uL (0.4-5.4); Lymphocytes % (auto) 20.9 % (10.0-50.0); Mean Corpuscular Hemoglobin 30.4 pg (28.0-32.0); Mean Corpuscular Hgb Conc. 33.6 g/dL (32.0-36.0); Mean Corpuscular Volume 90.5 fL (80.0-100.0); Monocytes # (auto) 0.8 10 ^3/uL (0-1.3); Monocytes % (auto) 7.7 % (0.0-12.0); Neutrophils # (auto) 6.6 10 ^3/uL (1.6-8.6); Neutrophils % (auto) 66.8 % (37.0-80.0); Nucleated Red Blood Cells % 0.1 %; Platelet Count (auto) 294 10^3/uL (140-450); White Blood Cell 9.9 10^3/uL (4.4-10.8)
[2024-05-05 05:58] LABS: Chloride 99 mmol/L (98-107); Potassium 3.6 mmol/L (3.5-5.1); Sodium 138 mmol/L (136-145)
[2024-05-05 05:59] LABS: Anion Gap 4 (5-15); Calcium 8.6 mg/dL (8.7-10.4); Carbon Dioxide 35 mmol/L (20-31)
[2024-05-05 06:04] LABS: BUN/Creatinine Ratio 24.3 (10.0-20.0); Blood Urea Nitrogen 17 mg/dL (9-23); Glucose 110 mg/dL (74-106)
[2024-05-05 06:05] LABS: Magnesium 1.9 mg/dL (1.6-2.6)
--- NOTE | 2024-05-05 13:33 | DVHPN2 ---
Progress Note - Dictate Date Seen: May 05, 2024 Medical Necessity Reason Pt with a Central, PICC or Fol: Yes The following are medically ne: Stubbs Catheter Reason for stubbs catheter: Strict I&O Subjective ORGANIC HD ISCHEMIC CM S/P PTCA OF CX ACUTE UT HFrEF ACUTE DECOMPENSATION HEMATURAI vital signs Vital Sign Date Time Temp Pulse Resp B/P (MAP) Pulse Ox O2 Delivery O2 Flow Rate FiO2 05/05/24 12:45 123 20 115/67 (83) 100 05/05/24 12:00 Nasal Cannula* 2 28 05/05/24 12:00 97.4 97.4 Total Intake and Output 05/04/24 05/04/24 05/05/24 15:00 23:00 07:00 Intake Total 144 ml 626 ml 384 ml Output Total 300 ml 800 ml Balance 144 ml 326 ml -416 ml medications Current Medications Medications Dose Ordered Sig/Danis Route Start Time Stop Time Status Last Admin Dose Admin Sodium Chloride 10 ml Q8HR IV 05/01/24 22:00 05/05/24 06:00 10 ML Acetaminophen 325 mg Q4HP PRN PO 05/01/24 20:45 Acetaminophen/ Hydrocodone Bitart 1 tab Q4HP PRN PO 05/01/24 20:45 05/04/24 19:39 1 TAB Nitroglycerin 0.4 mg Q5MINP PRN SL 05/01/24 20:45 Morphine Sulfate 2 mg Q30M PRN IV 05/01/24 20:45 Norepinephrine Bitartrate 250 ml @ 3.75 mls/hr Q24H IV 05/01/24 22:30 05/01/24 21:55 3.75 MLS/HR Clopidogrel Bisulfate 75 mg DAILY PO 05/02/24 10:00 05/05/24 10:05 75 MG Aspirin 81 mg DAILY PO 05/02/24 10:00 05/05/24 10:06 81 MG Albuterol 2.5 mg Q4HPRN PRN NEB 05/02/24 04:45 Ipratropium [place] 0.5 mg Q4HPRN PRN NEB 05/02/24 04:45 Levothyroxine Sodium 50 mcg QAM@0600 PO 05/02/24 06:00 05/05/24 06:26 50 MCG Dobutamine HCl/ Dextrose 250 ml @ 18 mls/hr [id number] IV 05/02/24 14:15 05/05/24 10:05 18 MLS/HR Diagnostic Test (Pha) 1 strip ACHS 05/03/24 07:00 05/05/24 12:12 1 STRIP Insulin Human Regular ACHS SC 05/03/24 07:00 05/05/24 12:15 3 UNITS Dextrose 50 ml UD PRN IV 05/03/24 04:00 objective HEENT: Pupils are reactive. Funduscopic exam shows some AV nicking and hard exudates, no papilledema noted. Sclerae are anicteric. NECK: No JVD appreciated. Carotid pulses are 2+ and symmetrical. No cervical adenopathy, no supraclavicular adenopathy. PULMONARY: Clear to auscultation. CARDIOVASCULAR: Regular rate without S3, without S4. PMI; however, is diffuse. There is a 2/6 systolic murmur along the left sternal border. ABDOMEN: Obese. Unable to appreciate an organomegaly. EXTREMITIES: Distal pulses are diminished with 1 Doppler pulses in lower extremity. NEUROLOGIC: The patient, however, is intact, alert, oriented. laboratory and microbiology Laboratory Tests 05/05/24 04:40 Test 05/05/24 04:40 Range/Units Serum Glucose 110 H 74-106 mg/dL Problem List ORGANIC HD ISCHEMIC CM S/P PTCA OF CX ACUTE UT HFrEF ACUTE DECOMPENSATION HEMATURIA Assessment/Plan DOBUTAMINE LASIX D/C STILL IN AFIB RVR DIG Plan discussed with: Patient Critical Care Time(min): 35 CHRISTINA KAMARA MD May 05, 2024 13:33
--- NOTE | 2024-05-05 13:36 | DVHPN2 ---
Progress Note - Dictate Date Seen: May 05, 2024 Medical Necessity Reason Pt with a Central, PICC or Fol: Yes The following are medically ne: Stubbs Catheter Reason for stubbs catheter: Strict I&O Subjective ORGANIC HD ISCHEMIC CM S/P PTCA OF CX ACUTE [place] HFrEF ACUTE DECOMPENSATION HEMATURAI vital signs Vital Sign Date Time Temp Pulse Resp B/P (MAP) Pulse Ox O2 Delivery O2 Flow Rate FiO2 05/05/24 12:45 123 20 115/67 (83) 100 05/05/24 12:00 Nasal Cannula* 2 28 05/05/24 12:00 97.4 97.4 Total Intake and Output 05/04/24 05/04/24 05/05/24 15:00 23:00 07:00 Intake Total 144 ml 626 ml 384 ml Output Total 300 ml 800 ml Balance 144 ml 326 ml -416 ml medications Current Medications Medications Dose Ordered Sig/Danis Route Start Time Stop Time Status Last Admin Dose Admin Sodium Chloride 10 ml Q8HR IV 05/01/24 22:00 05/05/24 06:00 10 ML Acetaminophen 325 mg Q4HP PRN PO 05/01/24 20:45 Acetaminophen/ Hydrocodone Bitart 1 tab Q4HP PRN PO 05/01/24 20:45 05/04/24 19:39 1 TAB Nitroglycerin 0.4 mg Q5MINP PRN SL 05/01/24 20:45 Morphine Sulfate 2 mg Q30M PRN IV 05/01/24 20:45 Norepinephrine Bitartrate 250 ml @ 3.75 mls/hr Q24H IV 05/01/24 22:30 05/01/24 21:55 3.75 MLS/HR Clopidogrel Bisulfate 75 mg DAILY PO 05/02/24 10:00 05/05/24 10:05 75 MG Aspirin 81 mg DAILY PO 05/02/24 10:00 05/05/24 10:06 81 MG Albuterol 2.5 mg Q4HPRN PRN NEB 05/02/24 04:45 Ipratropium [place] 0.5 mg Q4HPRN PRN NEB 05/02/24 04:45 Levothyroxine Sodium 50 mcg QAM@0600 PO 05/02/24 06:00 05/05/24 06:26 50 MCG Dobutamine HCl/ Dextrose 250 ml @ 18 mls/hr [id number] IV 05/02/24 14:15 05/05/24 10:05 18 MLS/HR Diagnostic Test (Pha) 1 strip ACHS 05/03/24 07:00 05/05/24 12:12 1 STRIP Insulin Human Regular ACHS SC 05/03/24 07:00 05/05/24 12:15 3 UNITS Dextrose 50 ml UD PRN IV 05/03/24 04:00 objective HEENT: Pupils are reactive. Funduscopic exam shows some AV nicking and hard exudates, no papilledema noted. Sclerae are anicteric. NECK: No JVD appreciated. Carotid pulses are 2+ and symmetrical. No cervical adenopathy, no supraclavicular adenopathy. PULMONARY: Clear to auscultation. CARDIOVASCULAR: Regular rate without S3, without S4. PMI; however, is diffuse. There is a 2/6 systolic murmur along the left sternal border. ABDOMEN: Obese. Unable to appreciate an organomegaly. EXTREMITIES: Distal pulses are diminished with 1 Doppler pulses in lower extremity. NEUROLOGIC: The patient, however, is intact, alert, oriented. laboratory and microbiology Laboratory Tests 05/05/24 04:40 Test 05/05/24 04:40 Range/Units Serum Glucose 110 H 74-106 mg/dL Problem List ORGANIC HD ISCHEMIC CM S/P PTCA OF CX ACUTE NM HFrEF ACUTE DECOMPENSATION HEMATURIA Assessment/Plan DOBUTAMINE LASIX D/C STILL IN AFIB RVR DIG ABG BNP LEVEL Plan discussed with: Patient Critical Care Time(min): 35 CHRISTINA KAMARA MD May 05, 2024 13:36
[2024-05-05 14:21] LABS: Base Excess 9.1 mmol/L (-2.0-3.0)
--- NOTE | 2024-05-05 14:47 | DVHPNRES ---
Progress Note Date Seen: May 05, 2024 Resident Creating Document: SANTANA FRANCO RESIDENT Medical Necessity Reason Pt with a Central, PICC or Fol: Yes The following are medically ne: Stubbs Catheter Reason for stubbs catheter: Strict I&O Subjective Review of Systems Patient seen and examined at bedside. Remains on supplemental oxygen Overnight events reviewed. Objective vital signs Vital Sign Date Time Temp Pulse Resp B/P (MAP) Pulse Ox O2 Delivery O2 Flow Rate FiO2 05/05/24 12:45 123 20 115/67 (83) 100 05/05/24 12:00 Nasal Cannula* 2 28 05/05/24 12:00 97.4 97.4 Total Intake and Output 05/04/24 05/04/24 05/05/24 15:00 23:00 07:00 Intake Total 144 ml 626 ml 384 ml Output Total 300 ml 800 ml Balance 144 ml 326 ml -416 ml medications Current Medications Medications Dose Ordered Sig/Danis Route Start Time Stop Time Status Last Admin Dose Admin Sodium Chloride 10 ml Q8HR IV 05/01/24 22:00 05/05/24 14:29 10 ML Acetaminophen 325 mg Q4HP PRN PO 05/01/24 20:45 Acetaminophen/ Hydrocodone Bitart 1 tab Q4HP PRN PO 05/01/24 20:45 05/04/24 19:39 1 TAB Nitroglycerin 0.4 mg Q5MINP PRN SL 05/01/24 20:45 Morphine Sulfate 2 mg Q30M PRN IV 05/01/24 20:45 Norepinephrine Bitartrate 250 ml @ 3.75 mls/hr Q24H IV 05/01/24 22:30 05/01/24 21:55 3.75 MLS/HR Clopidogrel Bisulfate 75 mg DAILY PO 05/02/24 10:00 05/05/24 10:05 75 MG Aspirin 81 mg DAILY PO 05/02/24 10:00 05/05/24 10:06 81 MG Albuterol 2.5 mg Q4HPRN PRN NEB 05/02/24 04:45 Ipratropium [place] 0.5 mg Q4HPRN PRN NEB 05/02/24 04:45 Levothyroxine Sodium 50 mcg QAM@0600 PO 05/02/24 06:00 05/05/24 06:26 50 MCG Dobutamine HCl/ Dextrose 250 ml @ 18 mls/hr [id number] IV 05/02/24 14:15 05/05/24 10:05 18 MLS/HR Diagnostic Test (Pha) 1 strip ACHS 05/03/24 07:00 05/05/24 12:12 1 STRIP Insulin Human Regular ACHS SC 05/03/24 07:00 05/05/24 12:15 3 UNITS Dextrose 50 ml UD PRN IV 05/03/24 04:00 Digoxin 0.125 mg DAILY PO 05/06/24 10:00 Bumetanide 1 mg BIDD PO 05/05/24 18:00 Enoxaparin Sodium 40 mg DAILY SC 05/05/24 14:45 UNV Mupirocin 1 applic BID EACHNOSTRI 05/05/24 22:00 05/10/24 21:59 UNV Examination Gen.: Patient lying in bed in no apparent distress. On supplemental oxygen. Head: Normocephalic, atraumatic. Eyes: EOMI/PERRLA. Ears: Normal hearing. Normal anatomy. Neck/trachea: Trachea midline, supple. Nose: Normal external anatomy. Mouth: Moist mucous membranes. Chest: Decreased air entry bilaterally. No wheezing or rhonchi. Cardiovascular: Positive S1, positive S2. Regular rate and rhythm. Abdomen: Positive bowel sounds in all 4 quadrants. Soft, non-tender, non- distended. : Deferred. Rectal: Deferred. Skin: Warm, dry. Intact. Extremities: 2+ radial pulses bilaterally. No lower extremity edema. Neuro: Awake, alert, oriented x3. No gross motor or sensory deficits. Cranial nerves II through XII intact. Gait not assessed. laboratory and microbiology Laboratory Tests 05/05/24 04:40 Test 05/05/24 04:40 Range/Units Serum Glucose 110 H 74-106 mg/dL Microbiology Date/Time Source Procedure Growth Status 05/02/24 00:45 Nose MRSA Screen - Final Methicillin Resistant S.aureus Complete Problem List/Assessment/Plan Problem List/Assessment/Plan NEUROLOGIC Patient is off sedation, talking CARDIOLOGY #Shortness of breath due to cardiogenic shock #Cardiogenic shock in the setting of ischemic cardiomyopathy #NSTEMI; demand ischemia; type 2; due to cardiogenic shock #Ischemic cardiomyopathy with acute on chronic systolic heart failure #CAD status post RAJANI placement in Circumflex artery on April 10, 2024 #Status post AICD #Hypertensive heart disease with heart failure #H/o of PE post IVC filter Today the patient is better from the shock, blood pressure stable HR over 120s Dr Morrissey is on the case Dobutamine drip on aspirin bumetadine clopidogrel digoxin RESPIRATORY #Acute hypoxic respiratory failure due to cardiogenic shock #Pleural effusion and pericardial effusion due to cardiogenic shock #Metabolic alkalosis with respiratory acidosis compensation #Sleep apnea Acetazolamide one dose Bipap at night GI #Elevated LFTs due to cardiogenic shock Patient is toelrating diet /RENAL #ERIN; most likely vasomotor nephropathy; due to cardiogenic shock resolved ENDOCRINOLOGY #Diabetes mellitus type 2; controlled with A1c of 6% #Metabolic syndrome morbid obesity and dyslipidemia #Dyslipidemia #Morbid obesity Started on insulin sliding scale with hypoglycemia protocol Continue statin Counseled the patient on the importance of adopting healthy lifestyle with diet and exercise in order to lose weight Continue monitoring #Hypothyroidism Continue levothyroxine Continue monitoring HEME/ONC #Leukocytosis; most likely reactive MRSA + on nares: mupirocin DVT prophylaxis is started Case discussed with Dr Curry Time spent in critical care 76 min Plan discussed with: Patient, Other (RN) My Orders My Orders Orders - SANTANA FRANCO RESIDENT Procedure Category Date Status Time Enoxaparin Sodium PHA 05/05/24 Logged (Lovenox) 14:45 Abg W/ Co-Ox RT 05/05/24 Logged 14:33 Mupirocin 2% Oint PHA 05/05/24 Logged Mrsa Nares (Bactroban 22:00 Bipap/Cpap For Sleep RT 05/05/24 Logged Apnea 14:33 Date of Service: May 05, 2024 Billing Provider: MELANIE CURRY MD Common Visit Codes: [id number] CARE 30-74 MIN SANTANA FRANCO RESIDENT May 05, 2024 14:47 MELANIE UCRRY MD May 06, 2024 13:40
[2024-05-05] MEDS: DIGOXIN 0.125 MG TAB PO ONE (14:55)
[2024-05-05] MEDS: ENOXAPARIN SOD 40 MG/0.4 ML SYRINGE SC SCH (15:00)
--- NOTE | 2024-05-05 15:05 | CONS ---
Pharmacy Clinical Information: From [facility] Heart Failure Fallout Report, Michael Doan is a 78 year old male with PMH of CHF (LVEF < 20%), MT s/p 2 stents, s/p AICD, CAD, COPD, T2DM, PE s/p IVC filter, UTI. His home medications for heart failure include spironolactone and carvedilol. MRA, BB, and ARB/ARNi is currently not recommended due to hypotension from card iogenic shock. SGLT2i is not recommended due to hypotension and hx of UTIs. ACEi is not recommended due to cough reaction from lisinopril. Consider initiating home medications and adding an ARB/ARNi once patient is hemodynamically stable. CHANEL WIGGINS PHARMACIST May 05, 2024 15:05
[2024-05-05] MEDS: acetaZOLAMIDE SODIUM 500 MG VL IV ONE (16:38)
[2024-05-05] MEDS: BUMETANIDE 1 MG TAB PO SCH (18:51)
[2024-05-05] MEDS: MUPIROCIN 2% OINT 15gm or 22gm FOR MRSA NARES EACHNOSTRI SCH (22:00)
[2024-05-06] VITALS (68 sets, daily range): BP systolic 97–148; BP diastolic 55–79; PULSE 75–128; RESP 13–28; TEMP 97.7–98.3; O2SAT 93–100
--- NOTE | 2024-05-06 04:09 | DVH ---
CHEST RADIOGRAPH Indication:dyspnea Technique: Single frontal view of the chest was obtained Comparison: XY CHEST XRAY 1 VIEW on DOS: 05/04/24, XY CHEST PORTABLE on DOS: 05/01/24, XY CHEST PORTAB LE on DOS: 04/24/24, XY CHEST PORTABLE on DOS: 04/22/24, XY CHEST PORTABLE on DOS: 04/19/24, XY CHEST XRAY 1 VIEW on DOS: 05/04/24 FINDINGS: Lines and Tubes: Left chest wall AICD Lungs: Mild congestion Pleura: No effusion. No pneumothorax. Cardiomediastinal contours: Unremarkable Bones: Unremarkable IMPRESSION: No significant interval change.
[2024-05-06 04:53] LABS: Basophils # (auto) 0.1 10 ^3/uL (0-0.2); Basophils % (auto) 0.8 % (0.0-2.0); Eosinophils # (auto) 0.3 10 ^3/uL (0-0.8); Eosinophils % (auto) 3.1 % (0.0-7.0); Hematocrit 40.5 % (41.0-53.0); Hemoglobin 13.6 g/dL (13.5-17.5); Lymphocytes # (auto) 1.9 10 ^3/uL (0.4-5.4); Lymphocytes % (auto) 19.1 % (10.0-50.0); Mean Corpuscular Hemoglobin 30.4 pg (28.0-32.0); Mean Corpuscular Hgb Conc. 33.5 g/dL (32.0-36.0); Mean Corpuscular Volume 90.9 fL (80.0-100.0); Monocytes # (auto) 0.7 10 ^3/uL (0-1.3); Monocytes % (auto) 6.9 % (0.0-12.0); Neutrophils # (auto) 6.8 10 ^3/uL (1.6-8.6); Neutrophils % (auto) 70.1 % (37.0-80.0); Nucleated Red Blood Cells % 0.1 %; Platelet Count (auto) 293 10^3/uL (140-450); Red Blood Cells 4.46 10^6/uL (4.5-5.90); Red Cell Distribution Width 14.6 % (11.8-14.3); White Blood Cell 9.7 10^3/uL (4.4-10.8)
[2024-05-06 05:16] LABS: Alanine Aminotransferase 66 U/L (7-40); Albumin 3.1 g/dL (3.2-4.8); Alkaline Phosphatase 442 U/L (46-116); Anion Gap 2 (5-15); Aspartate Aminotransferase 71 U/L (13-40); BUN/Creatinine Ratio 23.1 (10.0-20.0); Bilirubin, Total 0.8 mg/dL (0.2-1.0); Blood Urea Nitrogen 15 mg/dL (9-23); Calcium 8.6 mg/dL (8.7-10.4); Carbon Dioxide 34 mmol/L (20-31); Chloride 101 mmol/L (98-107); Glucose 115 mg/dL (74-106); Potassium 3.8 mmol/L (3.5-5.1); Sodium 137 mmol/L (136-145); Total Protein 6.4 g/dL (5.7-8.2)
--- NOTE | 2024-05-06 10:15 | DVHPN2 ---
Progress Note - Dictate Date Seen: May 06, 2024 Medical Necessity Reason Pt with a Central, PICC or Fol: Yes The following are medically ne: Stubbs Catheter Reason for stubbs catheter: Strict I&O Subjective ORGANIC HD ISCHEMIC CM S/P PTCA OF CX ACUTE [place] HFrEF ACUTE DECOMPENSATION HEMATURAI vital signs Vital Sign Date Time Temp Pulse Resp B/P (MAP) Pulse Ox O2 Delivery O2 Flow Rate FiO2 05/06/24 06:30 120 18 118/68 (85) 99 05/06/24 06:06 Nasal Cannula 2.0 05/06/24 06:06 28 05/06/24 03:30 97.9 97.9 Total Intake and Output 05/05/24 05/05/24 05/06/24 14:59 22:59 06:59 Intake Total 402 ml 794 ml 744 ml Output Total 700 ml 1800 ml Balance 402 ml 94 ml -1056 ml medications Current Medications Medications Dose Ordered Sig/Danis Route Start Time Stop Time Status Last Admin Dose Admin Sodium Chloride 10 ml Q8HR IV 05/01/24 22:00 05/06/24 06:15 10 ML Acetaminophen 325 mg Q4HP PRN PO 05/01/24 20:45 Acetaminophen/ Hydrocodone Bitart 1 tab Q4HP PRN PO 05/01/24 20:45 05/04/24 19:39 1 TAB Nitroglycerin 0.4 mg Q5MINP PRN SL 05/01/24 20:45 Morphine Sulfate 2 mg Q30M PRN IV 05/01/24 20:45 Norepinephrine Bitartrate 250 ml @ 3.75 mls/hr Q24H IV 05/01/24 22:30 05/01/24 21:55 3.75 MLS/HR Clopidogrel Bisulfate 75 mg DAILY PO 05/02/24 10:00 05/05/24 10:05 75 MG Aspirin 81 mg DAILY PO 05/02/24 10:00 05/05/24 10:06 81 MG Albuterol 2.5 mg Q4HPRN PRN NEB 05/02/24 04:45 Cancel Ipratropium [place] 0.5 mg Q4HPRN PRN NEB 05/02/24 04:45 Cancel Levothyroxine Sodium 50 mcg QAM@0600 PO 05/02/24 06:00 05/06/24 06:16 50 MCG Dobutamine HCl/ Dextrose 250 ml @ 18 mls/hr [id number] IV 05/02/24 14:15 05/06/24 00:27 18 MLS/HR Diagnostic Test (Pha) 1 strip ACHS 05/03/24 07:00 05/06/24 06:16 1 STRIP Insulin Human Regular ACHS SC 05/03/24 07:00 05/05/24 22:00 3 UNITS Dextrose 50 ml UD PRN IV 05/03/24 04:00 Digoxin 0.125 mg DAILY PO 05/06/24 10:00 Bumetanide 1 mg BIDD PO 05/05/24 18:00 05/06/24 06:15 1 MG Enoxaparin Sodium 40 mg DAILY SC 05/05/24 14:45 05/05/24 15:00 40 MG Mupirocin 1 applic BID EACHNOSTRI 05/05/24 22:00 05/10/24 21:59 05/05/24 22:00 1 APPLIC objective HEENT: Pupils are reactive. Funduscopic exam shows some AV nicking and hard exudates, no papilledema noted. Sclerae are anicteric. NECK: No JVD appreciated. Carotid pulses are 2+ and symmetrical. No cervical adenopathy, no supraclavicular adenopathy. PULMONARY: Clear to auscultation. CARDIOVASCULAR: Regular rate without S3, without S4. PMI; however, is diffuse. There is a 2/6 systolic murmur along the left sternal border. ABDOMEN: Obese. Unable to appreciate an organomegaly. EXTREMITIES: Distal pulses are diminished with 1 Doppler pulses in lower extremity. NEUROLOGIC: The patient, however, is intact, alert, oriented. laboratory and microbiology Laboratory Tests 05/06/24 04:28 Test 05/06/24 04:28 Range/Units Serum Glucose 115 H 74-106 mg/dL Problem List ORGANIC HD ISCHEMIC CM S/P PTCA OF CX ACUTE [place] HFrEF ACUTE DECOMPENSATION HEMATURIA Assessment/Plan DOBUTAMINE LASIX D/C STILL IN AFIB RVR DIG ABG BNP LEVEL ABG 7.45/48/84 CONSISTENT WITH METABOLIC ALKALOSIS WITH RESP COMPENSATION CONSIDER DIAMOX Plan discussed with: Patient CHRISTINA KAMARA MD May 06, 2024 10:15
[2024-05-06] MEDS: DIGOXIN 0.125 MG TAB PO SCH (10:20)
[2024-05-06 10:54] LABS: Chloride 101 mmol/L (98-107); Potassium 3.8 mmol/L (3.5-5.1); Sodium 135 mmol/L (136-145)
[2024-05-06 10:55] LABS: Calcium 8.7 mg/dL (8.7-10.4)
[2024-05-06 10:56] LABS: Anion Gap 0 (5-15); Carbon Dioxide 34 mmol/L (20-31)
[2024-05-06 11:01] LABS: BUN/Creatinine Ratio 20.3 (10.0-20.0); Blood Urea Nitrogen 14 mg/dL (9-23); Glucose 175 mg/dL (74-106)
[2024-05-06] MEDS: BUMETANIDE 1 MG TAB PO SCH (11:48)
[2024-05-06] MEDS: acetaZOLAMIDE SODIUM 500 MG VL IV ONE (11:52)
--- NOTE | 2024-05-06 15:52 | DVHPNRES ---
Progress Note Date Seen: May 06, 2024 Resident Creating Document: TERENCE CYR RESIDENT Has the PT tested + for MRSA If YES, has PT been informed?: No Medical Necessity Reason Pt with a Central, PICC or Fol: No The following are medically ne: Stubbs Catheter Reason for stubbs catheter: Strict I&O Subjective Review of Systems This is a 78-year-old male with past medical history of hypertension, hyperlipidemia, chronic systolic heart failure, status post defibrillator, pulmonary embolism, status post IVC filter placed, coronary artery disease, status post PTCA six stent, type 2 diabetes mellitus, hypothyroidism who presented to the ED with a chief complaint of acute shortness of breath. The patient was recently discharged from the [facility] the same day that he returned to the ED. initially was admitted on 04/10/[address] and pulmonary embolism. At that visit, the patient underwent coronary angiography with stenting in the circumflex artery and obtuse marginal branch. The patient also had a PE and at that time was presenting with hematuria reason why IVC filter was placed. The patient was discharged and returned to the ED the same day due to shortness of breath. Upon admission, the patient was initially saturating 88% and was placed on a non-rebreather mask at 10 L of oxygen which increases his saturation to 96%. The patient was placed on Lasix and Plavix at that time. Initial chest x- ray showed cardiomegaly with mild pulmonary vascular congestion. A repeated CT angio of the chest showed no pulmonary embolism, small bilateral pleural effusion and small pericardial effusion as well. The patient was started on dobutamine drip, digoxin, bumetanide and rest of home medications. The patient was admitted for further assessment and management. Patient seen and examined at bedside. The patient is currently hemodynamically stable, in the monitor the patient is having AFib with RVR. The patient is currently on digoxin 0.125 mg q.d., dobutamine drip at 2.5, levothyroxine 50 mcg q.a.m., bumetanide 1 mg b.i.d. and is also on aspirin and clopidogrel. The patient states that he is feeling well overall and is currently at 2 L of oxygen through nasal cannula which apparently is his baseline at home. Today, we decided to move the patient to telemetry. On physical examination bilateral lungs are grossly clear, there are irregular heart sounds consistent with AFib with RVR in the monitor and no peripheral edema. ROS Constitutional: Denies weight loss, fever and chills. HEENT: Denies changes in vision and hearing. Respiratory: Denies shortness of breath and cough Cardiovascular: Denies chest discomfort or palpitations GI: Denies abdominal pain, nausea, vomiting and diarrhea. : Denies dysuria and urinary frequency. Musculoskeletal: Denies myalgias and joint pain Skin: Denies rash and pruritus. Neurological: Denies dizziness, headache, vision or hearing problems Objective vital signs Vital Sign Date Time Temp Pulse Resp B/P (MAP) Pulse Ox O2 Delivery O2 Flow Rate FiO2 05/06/24 14:45 121 22 117/58 (77) 98 05/06/24 14:00 Nasal Cannula* 2 28 05/06/24 12:00 97.7 97.7 Total Intake and Output 05/05/24 05/05/24 05/06/24 15:00 23:00 07:00 Intake Total 402 ml 794 ml 744 ml Output Total 700 ml 1800 ml Balance 402 ml 94 ml -1056 ml medications Current Medications Medications Dose Ordered Sig/Danis Route Start Time Stop Time Status Last Admin Dose Admin Sodium Chloride 10 ml Q8HR IV 05/01/24 22:00 05/06/24 15:14 10 ML Acetaminophen 325 mg Q4HP PRN PO 05/01/24 20:45 Acetaminophen/ Hydrocodone Bitart 1 tab Q4HP PRN PO 05/01/24 20:45 05/04/24 19:39 1 TAB Nitroglycerin 0.4 mg Q5MINP PRN SL 05/01/24 20:45 Morphine Sulfate 2 mg Q30M PRN IV 05/01/24 20:45 Norepinephrine Bitartrate 250 ml @ 3.75 mls/hr Q24H IV 05/01/24 22:30 05/01/24 21:55 3.75 MLS/HR Clopidogrel Bisulfate 75 mg DAILY PO 05/02/24 10:00 05/06/24 10:19 75 MG Aspirin 81 mg DAILY PO 05/02/24 10:00 05/06/24 10:19 81 MG Albuterol 2.5 mg Q4HPRN PRN NEB 05/02/24 04:45 Cancel Ipratropium [place] 0.5 mg Q4HPRN PRN NEB 05/02/24 04:45 Cancel Levothyroxine Sodium 50 mcg QAM@0600 PO 05/02/24 06:00 05/06/24 06:16 50 MCG Dobutamine HCl/ Dextrose 250 ml @ 18 mls/hr [id number] IV 05/02/24 14:15 05/06/24 00:27 18 MLS/HR Diagnostic Test (Pha) 1 strip ACHS 05/03/24 07:00 05/06/24 11:53 1 STRIP Insulin Human Regular ACHS SC 05/03/24 07:00 05/06/24 11:56 3 UNITS Dextrose 50 ml UD PRN IV 05/03/24 04:00 Digoxin 0.125 mg DAILY PO 05/06/24 10:00 05/06/24 10:20 0.125 MG Enoxaparin Sodium 40 mg DAILY SC 05/05/24 14:45 05/06/24 10:19 40 MG Mupirocin 1 applic BID EACHNOSTRI 05/05/24 22:00 05/10/24 21:59 05/06/24 10:21 1 APPLIC Bumetanide 1 mg DAILY PO 05/06/24 10:15 05/06/24 11:48 1 MG Examination Physical Examination General: Patient alert and oriented in person, place and time. Patient following commands. HEENT: Normocephalic, atraumatic, moist mucous membranes Respiratory/pulmonary: Clear lungs bilaterally, no associated crackles or wheezes. Cardiovascular:Irregular heart sounds S1 and S2 with no associated murmurs, consistent with afib with RVR in the monitor. Abdomen: Abdomen nondistended, there is no pain to palpation in any of the abdominal quadrants, no palpable masses. Extremities: There is no peripheral edema present at the lower extremities. Peripheral Pulses: 3+ Radial (R). 3+ Radial (L). 3+ Dorsalis pedis (R). 3+ Dorsalis pedis(L) Skin: No rashes or pruritus, there is no sacral edema present at this time. Neurological: Intact cranial nerves with no focal neurologic deficits laboratory and microbiology Laboratory Tests 05/06/24 10:30 05/06/24 04:28 Test 05/06/24 10:30 Range/Units Serum Glucose 175 H 74-106 mg/dL Microbiology Date/Time Source Procedure Growth Status 05/02/24 00:45 Nose MRSA Screen - Final Methicillin Resistant S.aureus Complete Problem List/Assessment/Plan Problem List/Assessment/Plan Assessment/Plan Acute hypoxic respiratory failure likely due to cardiogenic shock -patient is currently on AFib with RVR on the monitor -initial chest x-ray was showing cardiomegaly with mild vascular congestion -CT angio of the chest showed no evidence of PE, there is small bilateral pleural effusion and there is small pericardial effusion as well -continue digoxin 0.125 mg q.d. -continue dobutamine drip at 2.5, per cardiology -continue aspirin 81 mg q.d. -continue clopidogrel 75 mg q.d. Acute on chronic systolic heart failure (HFrEF <20%) -echocardiogram showed an LVEF of less than 20% with bilateral atrial enlargement and small pericardial effusion -continue digoxin 0.125 mg q.d. -continue dobutamine drip at 2.5, per cardiology -continue aspirin 81 mg q.d. -continue clopidogrel 75 mg q.d. -monitor strict in's and out NSTEMI likely type 2 due to cardiogenic shock -troponins were slightly elevated at 62 on admission -trend the troponins -monitor blood pressure and heart rhythm Coronary artery disease, S/P RAJANI placement in circumflex artery and obtuse marginal branch S/P AICD S/P IVC filter placement -percutaneous coronary angioplasty performed on April 10, 2024 -continue aspirin 81 mg q.d. -continue clopidogrel 75 mg q.d. Hypertensive heart disease with systolic heart failure -echocardiogram showed an LVEF of less than 20% with bilateral atrial enlargement and small pericardial effusion -continue digoxin 0.125 mg q.d. -continue dobutamine drip at 2.5, per cardiology Small bilateral pleural effusion and small pericardial effusion -continue bumetanide 1 mg b.i.d. -monitor in's and out Acute transaminitis likely due to cardiogenic shock -AST 71, ALT 66 -monitor liver enzymes ERIN likely due to vasomotor nephropathy secondary to cardiogenic shock -creatinine is 0.65 and BUN 15 -monitor kidney function -avoid nephrotoxic drugs Type 2 diabetes mellitus -last hemoglobin A1c was 6% -sliding scale insulin -monitor glucose closely Hypothyroidism -TSH was 5.80 -ordered free T4 and T3 -continue levothyroxine 50 mcg q.a.m. Dyslipidemia -ordered lipid panel Morbid obesity -counseled the patient on lifestyle modifications and healthy diet habits. Goals of care discussed with the patient at bedside for > 23min, FULL CODE Plan discussed with Dr. Jensen Plan discussed with: Patient Date of Service: May 06, 2024 Billing Provider: MARK JENSEN MD Common Visit Codes: [id number] INP/OBS CARE(HIGH) TERENCE CYR RESIDENT May 06, 2024 15:52 MARK JENSEN MD May 06, 2024 21:02
[2024-05-06 17:34] LABS: Triglycerides 110 mg/dL (< 150)
[2024-05-06 17:35] LABS: LDL Cholesterol 44 mg/dL (< 100)
[2024-05-06 17:36] LABS: Cholesterol 87 mg/dL (< 200); HDL Cholesterol 27 mg/dL (40-59)
[2024-05-06 17:40] LABS: Free T3 2.11 pg/mL (2.3-4.2)
[2024-05-06 17:41] LABS: Free T4 (Free Thyroxine) 1.07 ng/dL (0.89-1.76)
[2024-05-07] VITALS (13 sets, daily range): BP systolic 110–126; BP diastolic 59–86; PULSE 104–118; RESP 18–20; TEMP 98.1–98.5; O2SAT 97–99
[2024-05-07 06:31] LABS: Basophils # (auto) 0.1 10 ^3/uL (0-0.2); Basophils % (auto) 1.1 % (0.0-2.0); Eosinophils # (auto) 0.4 10 ^3/uL (0-0.8); Eosinophils % (auto) 4.3 % (0.0-7.0); Hematocrit 40.6 % (41.0-53.0); Hemoglobin 13.3 g/dL (13.5-17.5); Lymphocytes # (auto) 2.1 10 ^3/uL (0.4-5.4); Lymphocytes % (auto) 25.4 % (10.0-50.0); Mean Corpuscular Hemoglobin 29.6 pg (28.0-32.0); Mean Corpuscular Hgb Conc. 32.8 g/dL (32.0-36.0); Mean Corpuscular Volume 90.4 fL (80.0-100.0); Monocytes # (auto) 0.6 10 ^3/uL (0-1.3); Monocytes % (auto) 7.8 % (0.0-12.0); Neutrophils # (auto) 5.1 10 ^3/uL (1.6-8.6); Neutrophils % (auto) 61.4 % (37.0-80.0); Nucleated Red Blood Cells % 0.1 %; Platelet Count (auto) 304 10^3/uL (140-450); Red Cell Distribution Width 14.5 % (11.8-14.3); White Blood Cell 8.3 10^3/uL (4.4-10.8)
[2024-05-07 06:55] LABS: Alanine Aminotransferase 52 U/L (7-40); Alkaline Phosphatase 399 U/L (46-116); Anion Gap 6 (5-15); BUN/Creatinine Ratio 21.2 (10.0-20.0); Blood Urea Nitrogen 14 mg/dL (9-23); Calcium 8.9 mg/dL (8.7-10.4); Carbon Dioxide 29 mmol/L (20-31); Chloride 101 mmol/L (98-107); Glucose 108 mg/dL (74-106); Magnesium 1.9 mg/dL (1.6-2.6); Potassium 3.5 mmol/L (3.5-5.1); Sodium 136 mmol/L (136-145)
[2024-05-07 06:56] LABS: Albumin 3.1 g/dL (3.2-4.8); Aspartate Aminotransferase 38 U/L (13-40)
[2024-05-07 06:57] LABS: Bilirubin, Total 0.8 mg/dL (0.2-1.0); Total Protein 6.6 g/dL (5.7-8.2)
--- NOTE | 2024-05-07 11:49 | DVHPNRES ---
Progress Note Date Seen: May 07, 2024 Resident Creating Document: TERENCE CYR RESIDENT Has the PT tested + for MRSA If YES, has PT been informed?: No Medical Necessity Reason Pt with a Central, PICC or Fol: No The following are medically ne: Stubbs Catheter Reason for stubbs catheter: Strict I&O Subjective Review of Systems This is a 78-year-old male with past medical history of hypertension, hyperlipidemia, chronic systolic heart failure, status post defibrillator, pulmonary embolism, status post IVC filter placed, coronary artery disease, status post PTCA six stent, type 2 diabetes mellitus, hypothyroidism who presented to the ED with a chief complaint of acute shortness of breath. The patient was recently discharged from the [facility] the same day that he returned to the ED. initially was admitted on 04/10/2024 due to VT and pulmonary embolism. At that visit, the patient underwent coronary angiography with stenting in the circumflex artery and obtuse marginal branch. The patient also had a PE and at that time was presenting with hematuria reason why IVC filter was placed. The patient was discharged and returned to the ED the same day due to shortness of breath. Upon admission, the patient was initially saturating 88% and was placed on a non-rebreather mask at 10 L of oxygen which increases his saturation to 96%. The patient was placed on Lasix and Plavix at that time. Initial chest x- ray showed cardiomegaly with mild pulmonary vascular congestion. A repeated CT angio of the chest showed no pulmonary embolism, small bilateral pleural effusion and small pericardial effusion as well. The patient was started on dobutamine drip, digoxin, bumetanide and rest of home medications. The patient was admitted for further assessment and management. Patient seen and examined at bedside. Patient states that he is feeling well overall and is back to 2 L of oxygen through nasal cannula which is his baseline. Patient has very mild crackles in bilateral lung bases but rest of lung aguila are grossly clear without wheezes or rhonchus. Patient is still on dobutamine drip at 2.5. All morning labs are grossly unremarkable, waiting for Cardiology to determine we could discontinue dopamine at this time. Patient is currently on digoxin 0.125 mg q.d., bumetanide 1 mg b.i.d. will continue current medical management until cardiology assess patient once again. ROS Constitutional: Denies weight loss, fever and chills. HEENT: Denies changes in vision and hearing. Respiratory: Denies shortness of breath and cough Cardiovascular: Denies chest discomfort or palpitations GI: Denies abdominal pain, nausea, vomiting and diarrhea. : Denies dysuria and urinary frequency. Musculoskeletal: Denies myalgias and joint pain Skin: Denies rash and pruritus. Neurological: Denies dizziness, headache, vision or hearing problems Objective vital signs Vital Sign Date Time Temp Pulse Resp B/P (MAP) Pulse Ox O2 Delivery O2 Flow Rate FiO2 05/07/24 10:20 115 05/07/24 10:19 110/59 05/07/24 09:00 98.1 20 98 98.1 05/07/24 08:00 Nasal Cannula* 2 28 Total Intake and Output 05/06/24 05/06/24 05/07/24 15:00 23:00 07:00 Intake Total 144 ml 600 ml 250 ml Output Total 1400 ml 200 ml Balance 144 ml -800 ml 50 ml medications Current Medications Medications Dose Ordered Sig/Danis Route Start Time Stop Time Status Last Admin Dose Admin Sodium Chloride 10 ml Q8HR IV 05/01/24 22:00 05/07/24 06:52 10 ML Acetaminophen 325 mg Q4HP PRN PO 05/01/24 20:45 Acetaminophen/ Hydrocodone Bitart 1 tab Q4HP PRN PO 05/01/24 20:45 05/04/24 19:39 1 TAB Nitroglycerin 0.4 mg Q5MINP PRN SL 05/01/24 20:45 Morphine Sulfate 2 mg Q30M PRN IV 05/01/24 20:45 Clopidogrel Bisulfate 75 mg DAILY PO 05/02/24 10:00 05/07/24 10:19 75 MG Aspirin 81 mg DAILY PO 05/02/24 10:00 05/07/24 10:19 81 MG Albuterol 2.5 mg Q4HPRN PRN NEB 05/02/24 04:45 Cancel Ipratropium [place] 0.5 mg Q4HPRN PRN NEB 05/02/24 04:45 Cancel Levothyroxine Sodium 50 mcg QAM@0600 PO 05/02/24 06:00 05/07/24 06:52 50 MCG Dobutamine HCl/ Dextrose 250 ml @ 18 mls/hr [id number] IV 05/02/24 14:15 05/07/24 06:52 18 MLS/HR Diagnostic Test (Pha) 1 strip ACHS 05/03/24 07:00 05/07/24 06:58 1 STRIP Insulin Human Regular ACHS SC 05/03/24 07:00 05/06/24 23:33 2 UNITS Dextrose 50 ml UD PRN IV 05/03/24 04:00 Digoxin 0.125 mg DAILY PO 05/06/24 10:00 05/07/24 10:20 0.125 MG Enoxaparin Sodium 40 mg DAILY SC 05/05/24 14:45 05/07/24 10:19 40 MG Mupirocin 1 applic BID EACHNOSTRI 05/05/24 22:00 05/10/24 21:59 05/07/24 10:20 1 APPLIC Bumetanide 1 mg DAILY PO 05/06/24 10:15 05/07/24 10:19 1 MG Examination Physical Examination General: Patient alert and oriented in person, place and time. Patient following commands. HEENT: Normocephalic, atraumatic, moist mucous membranes Respiratory/pulmonary: Clear lungs bilaterally, no associated crackles or wheezes. Cardiovascular:Irregular heart sounds S1 and S2 with no associated murmurs, consistent with afib with RVR in the monitor. Abdomen: Abdomen nondistended, there is no pain to palpation in any of the abdominal quadrants, no palpable masses. Extremities: There is no peripheral edema present at the lower extremities. Peripheral Pulses: 3+ Radial (R). 3+ Radial (L). 3+ Dorsalis pedis (R). 3+ Dorsalis pedis(L) Skin: No rashes or pruritus, there is no sacral edema present at this time. Neurological: Intact cranial nerves with no focal neurologic deficits laboratory and microbiology Laboratory Tests 05/07/24 04:59 Test 05/07/24 04:59 Range/Units Serum Glucose 108 H 74-106 mg/dL Microbiology Date/Time Source Procedure Growth Status 05/02/24 00:45 Nose MRSA Screen - Final Methicillin Resistant S.aureus Complete Problem List/Assessment/Plan Problem List/Assessment/Plan Assessment/Plan Acute hypoxic respiratory failure likely due to cardiogenic shock -patient is currently on AFib with RVR on the monitor -initial chest x-ray was showing cardiomegaly with mild vascular congestion -CT angio of the chest showed no evidence of PE, there is small bilateral pleural effusion and there is small pericardial effusion as well -continue digoxin 0.125 mg q.d. -continue dobutamine drip at 2.5, per cardiology -continue aspirin 81 mg q.d. -continue clopidogrel 75 mg q.d. -awaiting cardiology evaluation to discontinue dobutamine drip Acute on chronic systolic heart failure (HFrEF <20%) -echocardiogram showed an LVEF of less than 20% with bilateral atrial enlargement and small pericardial effusion -continue digoxin 0.125 mg q.d. -continue dobutamine drip at 2.5, per cardiology -continue aspirin 81 mg q.d. -continue clopidogrel 75 mg q.d. -monitor strict in's and out NSTEMI likely type 2 due to cardiogenic shock -troponins were slightly elevated at 62 on admission -trend the troponins -monitor blood pressure and heart rhythm Coronary artery disease, S/P RAJANI placement in circumflex artery and obtuse marginal branch S/P AICD S/P IVC filter placement -percutaneous coronary angioplasty performed on April 10, 2024 -continue aspirin 81 mg q.d. -continue clopidogrel 75 mg q.d. Hypertensive heart disease with systolic heart failure -echocardiogram showed an LVEF of less than 20% with bilateral atrial enlargement and small pericardial effusion -continue digoxin 0.125 mg q.d. -continue dobutamine drip at 2.5, per cardiology Small bilateral pleural effusion and small pericardial effusion -continue bumetanide 1 mg b.i.d. -monitor in's and out Acute transaminitis likely due to cardiogenic shock -AST 71, ALT 66 -monitor liver enzymes ERIN likely due to vasomotor nephropathy secondary to cardiogenic shock -creatinine is 0.66 and BUN 14 -monitor kidney function -avoid nephrotoxic drugs Type 2 diabetes mellitus -last hemoglobin A1c was 6% -sliding scale insulin -monitor glucose closely Hypothyroidism -TSH was 5.80 -ordered free T4 and T3 -continue levothyroxine 50 mcg q.a.m. Dyslipidemia -ordered lipid panel, which came back unremarkable Morbid obesity -counseled the patient on lifestyle modifications and healthy diet habits. Goals of care discussed with the patient at bedside for > 23min, FULL CODE Plan discussed with Dr. Jensen Plan discussed with: Patient Date of Service: May 07, 2024 Billing Provider: MARK JENSEN MD Common Visit Codes: [id number] INP/OBS CARE(HIGH) TERENCE CYR RESIDENT May 07, 2024 11:49 MARK JESNEN MD May 10, 2024 04:18
--- NOTE | 2024-05-07 12:48 | DVHPN2 ---
Progress Note - Dictate Date Seen: May 07, 2024 Has the PT tested + for MRSA If YES, has PT been informed?: No Medical Necessity Reason Pt with a Central, PICC or Fol: No The following are medically ne: Stubbs Catheter Reason for stubbs catheter: Strict I&O Subjective ORGANIC HD ISCHEMIC CM S/P PTCA OF CX ACUTE [place] HFrEF ACUTE DECOMPENSATION HEMATURAI vital signs Vital Sign Date Time Temp Pulse Resp B/P (MAP) Pulse Ox O2 Delivery O2 Flow Rate FiO2 05/07/24 10:20 115 05/07/24 10:19 110/59 05/07/24 09:00 98.1 20 98 98.1 05/07/24 08:00 Nasal Cannula* 2 28 Total Intake and Output 05/06/24 05/06/24 05/07/24 15:00 23:00 07:00 Intake Total 144 ml 600 ml 250 ml Output Total 1400 ml 200 ml Balance 144 ml -800 ml 50 ml medications Current Medications Medications Dose Ordered Sig/Danis Route Start Time Stop Time Status Last Admin Dose Admin Sodium Chloride 10 ml Q8HR IV 05/01/24 22:00 05/07/24 06:52 10 ML Acetaminophen 325 mg Q4HP PRN PO 05/01/24 20:45 Acetaminophen/ Hydrocodone Bitart 1 tab Q4HP PRN PO 05/01/24 20:45 05/04/24 19:39 1 TAB Nitroglycerin 0.4 mg Q5MINP PRN SL 05/01/24 20:45 Morphine Sulfate 2 mg Q30M PRN IV 05/01/24 20:45 Clopidogrel Bisulfate 75 mg DAILY PO 05/02/24 10:00 05/07/24 10:19 75 MG Aspirin 81 mg DAILY PO 05/02/24 10:00 05/07/24 10:19 81 MG Albuterol 2.5 mg Q4HPRN PRN NEB 05/02/24 04:45 Cancel Ipratropium [place] 0.5 mg Q4HPRN PRN NEB 05/02/24 04:45 Cancel Levothyroxine Sodium 50 mcg QAM@0600 PO 05/02/24 06:00 05/07/24 06:52 50 MCG Dobutamine HCl/ Dextrose 250 ml @ 18 mls/hr [id number] IV 05/02/24 14:15 05/07/24 06:52 18 MLS/HR Diagnostic Test (Pha) 1 strip ACHS 05/03/24 07:00 05/07/24 11:43 1 STRIP Insulin Human Regular ACHS SC 05/03/24 07:00 05/07/24 11:43 2 UNITS Dextrose 50 ml UD PRN IV 05/03/24 04:00 Digoxin 0.125 mg DAILY PO 05/06/24 10:00 05/07/24 10:20 0.125 MG Enoxaparin Sodium 40 mg DAILY SC 05/05/24 14:45 05/07/24 10:19 40 MG Mupirocin 1 applic BID EACHNOSTRI 05/05/24 22:00 05/10/24 21:59 05/07/24 10:20 1 APPLIC Bumetanide 1 mg DAILY PO 05/06/24 10:15 05/07/24 10:19 1 MG objective HEENT: Pupils are reactive. Funduscopic exam shows some AV nicking and hard exudates, no papilledema noted. Sclerae are anicteric. NECK: No JVD appreciated. Carotid pulses are 2+ and symmetrical. No cervical adenopathy, no supraclavicular adenopathy. PULMONARY: Clear to auscultation. CARDIOVASCULAR: Regular rate without S3, without S4. PMI; however, is diffuse. There is a 2/6 systolic murmur along the left sternal border. ABDOMEN: Obese. Unable to appreciate an organomegaly. EXTREMITIES: Distal pulses are diminished with 1 Doppler pulses in lower extremity. NEUROLOGIC: The patient, however, is intact, alert, oriented. laboratory and microbiology Laboratory Tests 05/07/24 04:59 Test 05/07/24 04:59 Range/Units Serum Glucose 108 H 74-106 mg/dL Problem List ORGANIC HD ISCHEMIC CM S/P PTCA OF CX ACUTE [place] HFrEF ACUTE DECOMPENSATION HEMATURIA Assessment/Plan DOBUTAMINE LASIX D/C STILL IN AFIB RVR DIG ABG BNP LEVEL ABG 7.45/48/84 CONSISTENT WITH METABOLIC ALKALOSIS WITH RESP COMPENSATION CONSIDER DIAMOX IMPROVING METABOLIC ALKALOSIS Plan discussed with: Patient Critical Care Time(min): 35 CHRISTINA KAMARA MD May 07, 2024 12:48
[2024-05-08] VITALS (8 sets, daily range): BP systolic 115–121; BP diastolic 60–76; PULSE 92–122; RESP 17–22; TEMP 36.5; O2SAT 98–100
[2024-05-08 06:37] LABS: Basophils # (auto) 0.1 10 ^3/uL (0-0.2); Eosinophils # (auto) 0.3 10 ^3/uL (0-0.8); Eosinophils % (auto) 3.8 % (0.0-7.0); Hematocrit 41.2 % (41.0-53.0); Hemoglobin 13.5 g/dL (13.5-17.5); Lymphocytes # (auto) 2.1 10 ^3/uL (0.4-5.4); Lymphocytes % (auto) 22.2 % (10.0-50.0); Mean Corpuscular Hemoglobin 29.6 pg (28.0-32.0); Mean Corpuscular Hgb Conc. 32.8 g/dL (32.0-36.0); Mean Corpuscular Volume 90.1 fL (80.0-100.0); Monocytes # (auto) 0.8 10 ^3/uL (0-1.3); Monocytes % (auto) 8.3 % (0.0-12.0); Neutrophils % (auto) 64.7 % (37.0-80.0); Nucleated Red Blood Cells % 0.1 %; Platelet Count (auto) 307 10^3/uL (140-450); Red Blood Cells 4.57 10^6/uL (4.5-5.90); Red Cell Distribution Width 14.3 % (11.8-14.3); White Blood Cell 9.2 10^3/uL (4.4-10.8)
[2024-05-08 06:44] LABS: Alanine Aminotransferase 47 U/L (7-40); Alkaline Phosphatase 456 U/L (46-116); Anion Gap 8 (5-15); BUN/Creatinine Ratio 21.9 (10.0-20.0); Blood Urea Nitrogen 14 mg/dL (9-23); Calcium 9.1 mg/dL (8.7-10.4); Carbon Dioxide 28 mmol/L (20-31); Chloride 102 mmol/L (98-107); Glucose 112 mg/dL (74-106); Magnesium 1.9 mg/dL (1.6-2.6); Potassium 3.7 mmol/L (3.5-5.1); Sodium 138 mmol/L (136-145)
[2024-05-08 06:45] LABS: Albumin 3.3 g/dL (3.2-4.8); Aspartate Aminotransferase 35 U/L (13-40)
[2024-05-08 06:46] LABS: Bilirubin, Total 0.8 mg/dL (0.2-1.0); Total Protein 6.5 g/dL (5.7-8.2)
--- NOTE | 2024-05-08 11:47 | DVHDSRES ---
Discharge Summary Date of Admission Resident Creating Document: TERENCE CYR RESIDENT May 01, 2024 at 20:42 Date of Discharge: May 08, 2024 Admitting Diagnosis Cardiogenic shock Wounds: no wounds present at this time Labs/Diagnostic Data: Laboratory Results Test 05/08/24 05:48 05/08/24 04:53 05/06/24 16:45 05/06/24 04:28 POC Glucose 158 mg/dl (70-106) White Blood Count 9.2 10^3/uL (4.4-10.8) Red Blood Count 4.57 10^6/uL (4.5-5.90) Hemoglobin 13.5 g/dL (13.5-17.5) Hematocrit 41.2 % (41.0-53.0) Mean Corpuscular Volume 90.1 fL (80.0-100.0) Mean Corpuscular Hemoglobin 29.6 pg (28.0-32.0) Mean Corpuscular Hemoglobin Concent 32.8 g/dL (32.0-36.0) Red Cell Distribution Width 14.3 % (11.8-14.3) Platelet Count 307 10^3/uL (140-450) Mean Platelet Volume 8.5 fL (6.9-10.8) Neutrophils (%) (Auto) 64.7 % (37.0-80.0) Lymphocytes (%) (Auto) 22.2 % (10.0-50.0) Monocytes (%) (Auto) 8.3 % (0.0-12.0) Eosinophils (%) (Auto) 3.8 % (0.0-7.0) Basophils (%) (Auto) 1.0 % (0.0-2.0) Neutrophils # (Auto) 6.0 10 ^3/uL (1.6-8.6) Lymphocytes # (Auto) 2.1 10 ^3/uL (0.4-5.4) Monocytes # (Auto) 0.8 10 ^3/uL (0-1.3) Eosinophils # (Auto) 0.3 10 ^3/uL (0-0.8) Basophils # (Auto) 0.1 10 ^3/uL (0-0.2) Nucleated Red Blood Cells 0.1 % Sodium Level 138 mmol/L (136-145) Potassium Level 3.7 mmol/L (3.5-5.1) Chloride Level 102 mmol/L (98-107) Carbon Dioxide Level 28 mmol/L (20-31) Anion Gap 8 (5-15) Blood Urea Nitrogen 14 mg/dL (9-23) Creatinine 0.64 mg/dL (0.700-1.30) Glomerular Filtration Rate Calc 98 mL/min (>90) BUN/Creatinine Ratio 21.9 (10.0-20.0) Serum Glucose 112 mg/dL (74-106) Calcium Level 9.1 mg/dL (8.7-10.4) Magnesium Level 1.9 mg/dL (1.6-2.6) Total Bilirubin 0.8 mg/dL (0.2-1.0) Aspartate Amino Transferase (AST) 35 U/L (13-40) Alanine Aminotransferase (ALT) 47 U/L (7-40) Alkaline Phosphatase 456 U/L (46-116) Total Protein 6.5 g/dL (5.7-8.2) Albumin 3.3 g/dL (3.2-4.8) Triglycerides Level 110 mg/dL (< 150) Cholesterol Level 87 mg/dL (< 200) LDL Cholesterol 44 mg/dL (< 100) HDL Cholesterol 27 mg/dL (40-59) Free Thyroxine (T4) Calculated 1.07 ng/dL (0.89-1.76) Free Triiodothyronine (T3) pg/mL 2.11 pg/mL (2.3-4.2) B-Type Natriuretic Peptide 713.61 pg/mL (0-100) Test 05/05/24 14:15 05/02/24 10:40 05/02/24 00:52 05/01/24 19:49 Blood Gas Specimen Type Arterial Blood Gas Sample Site Right radial Blood Gas Patient Temperature 37.0 Arterial Blood Date Drawn [id number] Arterial Blood pH 7.465 (7.350-7.450) Arterial Blood Partial Pressure CO2 48.8 mmHg (35.0-48.0) Arterial Blood Partial Pressure O2 82.9 mmHg (83.0-108.0) Arterial Blood HCO3 34.3 mmol/L (21.0-28.0) Arterial Blood Oxygen Saturation 96.4 % (94.0-98.0) Arterial Blood Base Excess 9.1 mmol/L (-2.0-3.0) Arterial Blood Oxyhemoglobin 95.3 % (94.0-98.0) Arterial Blood Carboxyhemoglobin 0.7 % (0.5-1.5) Arterial Blood Methemoglobin 0.4 % (0.0-1.5) Joshua Test Yes Blood Gas Total Hemoglobin 13.80 g/dL (13.5-17.5) Blood Gas Modality Nasal cannula FiO2 % 28.0 Prothrombin Time 12.8 sec (9.3-11.8) Prothrombin Time INR 1.23 (0.9-1.15) Activated Partial Thromboplast Time 33.6 SEC (24.5-34.5) Urine Color Yellow (Yellow) Urine Clarity Turbid (Clear) Urine pH 5.0 (5.0-9.0) Urine Specific [place] 1.036 (1.001-1.035) Urine Protein Negative (Negative) Urine Ketones Negative (Negative) Urine Blood 2+ /uL (Negative) Urine Nitrite Negative (Negative) Urine Bilirubin Negative (Negative) Urine Urobilinogen 2 mg/dL (Negative) Urine Leukocyte Esterase 3+ /uL (Negative) Urine RBC 22 /hpf (0 - 3) Urine WBC 153 /hpf (0 - 3) Urine Squamous Epithelial Cells Few /hpf (<5) Urine Bacteria None seen /hpf (None Seen) Urine Hyaline Casts Mod /lpf (0 - 2) Urine Mucus Few (None Seen) Urine Yeast (Budding) Occasional /hpf (None Urine Glucose Normal mg/dL (Normal) Troponin I High Sensitivity 62 ng/L (</=54) Test 05/01/24 16:20 Lactic Acid Level 1.4 mmol/L (0.4-2.0) Other Laboratory Tests 05/08/24 04:53 Brief Hx & Hospital Course: This is a 78-year-old male with past medical history of hypertension, hyperlipidemia, chronic systolic heart failure, status post defibrillator, pulmonary embolism, status post IVC filter placed, coronary artery disease, status post PTCA six stent, type 2 diabetes mellitus, hypothyroidism who presented to the ED with a chief complaint of acute shortness of breath. The patient was recently discharged from the [facility] the same day that he returned to the ED. initially was admitted on 04/10/2024 due to [place] and pulmonary embolism. At that visit, the patient underwent coronary angiography with stenting in the circumflex artery and obtuse marginal branch. The patient also had a PE and at that time was presenting with hematuria reason why IVC filter was placed. The patient was discharged and returned to the ED the same day due to shortness of breath. Upon admission, the patient was initially saturating 88% and was placed on a non-rebreather mask at 10 L of oxygen which increases his saturation to 96%. The patient was placed on Lasix and Plavix at that time. Initial chest x- ray showed cardiomegaly with mild pulmonary vascular congestion. A repeated CT angio of the chest showed no pulmonary embolism, small bilateral pleural effusion and small pericardial effusion as well. The patient was started on dobutamine drip, digoxin, bumetanide and rest of home medications. Today patient was evaluated at bedside, is currently denying chest pain, shortness of breath, fever, or any other complaint at this time. We spoke with the Kellie which stated that wanted the patient to go on home hospice. The patient is currently hemodynamically stable but in critical condition due very low LVEF of <20%. Patient and both agreed on plan of care upon discharge. ROS Constitutional: Denies weight loss, fever and chills. HEENT: Denies changes in vision and hearing. Respiratory: Denies shortness of breath and cough Cardiovascular: Denies chest discomfort or palpitations GI: Denies abdominal pain, nausea, vomiting and diarrhea. : Denies dysuria and urinary frequency. Musculoskeletal: Denies myalgias and joint pain Skin: Denies rash and pruritus. Neurological: Denies dizziness, headache, vision or hearing problems Physical Examination General: Patient alert and oriented in person, place and time. Patient following commands. HEENT: Normocephalic, atraumatic, moist mucous membranes Respiratory/pulmonary: Clear lungs bilaterally, no associated crackles or wheezes. Cardiovascular: Normal heart sounds S1 and S2 with no associated murmurs Abdomen: Abdomen nondistended, there is no pain to palpation in any of the abdominal quadrants, no palpable masses. Extremities: There is no peripheral edema present at the lower extremities. Peripheral Pulses: 3+ Radial (R). 3+ Radial (L). 3+ Dorsalis pedis (R). 3+ Dorsalis pedis(L) Skin: No rashes or pruritus, there is no sacral edema present at this time. Neurological: Intact cranial nerves with no focal neurologic deficits Consults/Reason for consult Cardiology Dr. miranda Operations or Procedures CHEST RADIOGRAPH Indication:sob Technique: Single frontal view of the chest was obtained COMPARISON: XY CHEST PORTABLE on DOS: 04/24/24, XY CHEST PORTABLE on DOS: 04/22/24, XY CHEST PORTABLE on DOS: 04/19/24 FINDINGS: Lines and Tubes: Left chest wall AICD Lungs: Clear Pleura: No effusion. No pneumothorax. Cardiomediastinal contours: Cardiomegaly Bones: Unremarkable IMPRESSION: Cardiomegaly EXAM: CT CT ANGIO CHEST CONTRAST History: sob Comparison Study: CT CT ANGIO CHEST CONTRAST on DOS: 04/19/24 TECHNIQUE: A digital machine helper image was obtained. During the uneventful, intravenous administration of contrast material, multislice data acquisition was obtained through the chest. 3-D postprocessing is performed by technologist including MIP imaging Radiation Dose : CTDI vol 68.08 mGy, DLP 920.99 mGy*cm. Findings: Lungs: The lungs are clear. Pleura: Small bilateral pleural effusions, left greater than right. Heart/Great vessels: No cardiomegaly. Small to moderate pericardial effusion. No pulmonary embolism or aortic aneurysm. Mediastinum: Debris within the esophagus. Nonenlarged mediastinal nodes. Soft tissues/Bones: Unremarkable Cholelithiasis. The remaining partially visualized upper abdomen is within normal limits. Impression: 1. No evidence of pulmonary embolism or aortic aneurysm. 2. Small bilateral pleural effusions, left greater than right. 3. Small to moderate pericardial effusion. 4. Debris within the esophagus places the patient at risk for aspiration. 5. Nonenlarged mediastinal nodes favored reactive. CHEST RADIOGRAPH Indication:dyspnea Technique: Single frontal view of the chest was obtained Comparison: XY CHEST XRAY 1 VIEW on DOS: 05/04/24, XY CHEST PORTABLE on DOS: 05/01/24, XY CHEST PORTABLE on DOS: 04/24/24, XY CHEST PORTABLE on DOS: 04/22/24, XY CHEST PORTABLE on DOS: 04/19/24, XY CHEST XRAY 1 VIEW on DOS: 05/04/24 FINDINGS: Lines and Tubes: Left chest wall AICD Lungs: Mild congestion Pleura: No effusion. No pneumothorax. Cardiomediastinal contours: Unremarkable Bones: Unremarkable IMPRESSION: No significant interval change. Condition at Discharge: Guarded Final Diagnosis/Problems List Acute hypoxic respiratory failure likely due to cardiogenic shock Acute on chronic systolic heart failure (HFrEF <20%) NSTEMI likely type 2 due to cardiogenic shock Coronary artery disease, S/P RAJANI placement in circumflex artery and obtuse marginal branch S/P AICD S/P IVC filter placement Hypertensive heart disease with systolic heart failure Small bilateral pleural effusion and small pericardial effusion Acute transaminitis likely due to cardiogenic shock ERIN likely due to vasomotor nephropathy secondary to cardiogenic shock Type 2 diabetes mellitus Hypothyroidism Dyslipidemia Morbid obesity Discharge Disposition: Hospice - Home Discharge Instruct/Medications Diet: Cardiac 2g Na,low cholest Activity: No Restrictions, As Tolerated Follow Up/Referral: F/U with his PCP in 1 week Discharge Statement: "Patient was advised to return to the ER or call 911 if any headaches, dizziness, shortness of breath, chest pain, abdominal pain, bleeding, fevers, or worsening of medical condition. Patient was counseled about treatment plan, medications, possible side effects, patientverbalized understanding. All questions were answered to the best of my ability. This discharge took greater then 30 minutes in planning, reviewing documentation, counseling the patient, and discussing with other team members." ASSESSMENT ASSESSMENT Assessment Acute hypoxic respiratory failure likely due to cardiogenic shock Acute on chronic systolic heart failure (HFrEF <20%) NSTEMI likely type 2 due to cardiogenic shock Coronary artery disease, S/P RAJANI placement in circumflex artery and obtuse marginal branch S/P AICD S/P IVC filter placement Hypertensive heart disease with systolic heart failure Small bilateral pleural effusion and small pericardial effusion Acute transaminitis likely due to cardiogenic shock ERIN likely due to vasomotor nephropathy secondary to cardiogenic shock Type 2 diabetes mellitus Hypothyroidism Dyslipidemia Morbid obesity Date of Service: May 08, 2024 Billing Provider: MARK RIVERA MD Common Visit Codes: 96720-DHB/OBS DISCH DAY >30min TERENCE CYR RESIDENT May 08, 2024 11:47 MARK RIVERA MD May 10, 2024 04:18
[2024-05-08] MEDS ORDERED: IPRA0.00 IN (15:09)
== END 2024-05-08 19:00 | disposition hospice, home (50) | DRG 280 ==
LOC: EDBD 15:44 → EDUNIT# 15:44 → ER 15:52 → TELE 20:42 → ICU CENTRL 05-02 00:23 → TELE-CENTR 05-06 17:05
PROVIDERS: ADMIT Internal Medicine Geriatric Medicine; ATTEND Emergency Medicine
PROC: 05JYXZZ Inspection of Upper Vein, External Approach (ICD-10-PCS; 2024-05-02)
PROC: 05HF33Z Insertion of Infusion Device into Left Cephalic Vein, Percutaneous Approach (ICD-10-PCS; principal; 2024-05-04)
PROC: B54NZZA Ultrasonography of Left Upper Extremity Veins, Guidance (ICD-10-PCS; 2024-05-04)
PROC: 5A09357 Assistance with Respiratory Ventilation, Less than 24 Consecutive Hours, Continuous Positive Airway Pressure (ICD-10-PCS; 2024-05-05)
PROC: 5A09357 Assistance with Respiratory Ventilation, Less than 24 Consecutive Hours, Continuous Positive Airway Pressure (ICD-10-PCS; 2024-05-07)
DX: I11.0 Hypertensive heart disease with heart failure (principal); I50.23 Acute on chronic systolic (congestive) heart failure; I21.A1 Myocardial infarction type 2; J96.21 Acute and chronic respiratory failure with hypoxia; N17.0 Acute kidney failure with tubular necrosis; R57.0 Cardiogenic shock; I31.39 Other pericardial effusion (noninflammatory); E87.4 Mixed disorder of acid-base balance; E87.3 Alkalosis; R74.01 Elevation of levels of liver transaminase levels; I25.10 Atherosclerotic heart disease of native coronary artery without angina pectoris; D72.829 Elevated white blood cell count, unspecified; E88.810 Metabolic syndrome; E66.01 Morbid (severe) obesity due to excess calories; E03.9 Hypothyroidism, unspecified; I25.5 Ischemic cardiomyopathy; J44.9 Chronic obstructive pulmonary disease, unspecified; Z86.73 Personal history of transient ischemic attack (TIA), and cerebral infarction without residual deficits; Z95.828 Presence of other vascular implants and grafts; Z95.810 Presence of automatic (implantable) cardiac defibrillator; Z95.5 Presence of coronary angioplasty implant and graft; Z86.711 Personal history of pulmonary embolism; Z83.3 Family history of diabetes mellitus; Z80.0 Family history of malignant neoplasm of digestive organs; Z79.82 Long term (current) use of aspirin
CPT/HCPCS: 36415; 36600; 71045; 71275; 80048; 80053; 80061; 81001; 82805; 82962; 83605; 83735; 83880; 84439; 84481; 84484; 85025; 85610; 85730; 87081; 93005; 94640; 94660; 97163; 99291; G0378; J1815; Q9965

== ENCOUNTER → 2024-05-15 | Outpatient (CLI) | payer MEDICARE, OTHER ==
[~2024-05-15] MED LIST changes: -CHOL1CAP58 PO; +CHOL500023 PO; +IPRA0.00 IN
== END | disposition home or self-care (01) ==
LOC: Rad HDHVI 14:04
PROVIDERS: ATTEND Internal Medicine Cardiovascular Disease
DX: I50.33 Acute on chronic diastolic (congestive) heart failure (principal)
CPT/HCPCS: 93306

== ENCOUNTER 2024-05-27 23:38 | Inpatient (IN) | payer OTHER, MEDICARE ==
[~2024-05-27] VITALS: Ht 172.7 cm; Wt 110.2 kg
--- NOTE | 2024-05-27 23:54 | ED.PDOC ---
SOB-HPI HPI Comments HPI: Poor Historian. 78-year-old male brought in by ambulance from home. called 911 for what sounded like worsening respiratory drive/respiratory distress over the last two days. Patient is oxygen dependent at home. Per EMS, pre-hospital course vital signs were stable but patient was tachycardic in the 120s. Patient has a pacemaker and with a history of atrial fibrillation. Patient was on a BiPAP which is a routine use for him when EMS arrived home. His pulse ox was stable. Per EMS, patient is on aspirin and Plavix and spironolactone. Records in previous admission indicates that the patient is on Eliquis. Past medical history includes diabetes, thyroid disease, hyponatremia, movement obesity, coronary artery disease, UTI, unstable angina, hypertension, Past Medcial History: COPD, CHF, atrial fibrillation, Past Surgical History: Pacemaker REVIEW OF SYSTEMS: CONSTITUTIONAL: Denies acute: fever, diaphoresis, chills, HEAD: Denies acute: headache, photophobia Eyes: Denies acute: Double vision, vision loss, eye pain, eye discharge. EARS: Denies acute: tinnitus, hearing loss, ear discharge, ear pain, THROAT: Denies acute: sore throat, swelling, difficulty swallowing , pain with swallowing, change in voice. NECK: Denies acute: neck pain, neck swelling, stiff neck. HEART: Denies acute : chest pain, palpitations, LUNGS: Denies acute: wheezing, cough, hemoptysis ABDOMEN: Denies acute: abdominal pain, Nausea, Vomiting, diarrhea, melena , hematemesis, hematochezia SKIN: Denies acute: rash, redness, lesions, itchiness. EXTREMITIES: Denies acute: calf pain, numbness, tingling, weakness, denies pain in extremity. Denies acute: Low back pain. Neuro: Denies acute: focal neurological deficit, motor or sensory focal neurological deficit, tremors, seizure like activity, confusion, dizziness, change in mental status, loss of bowel or bladder function, cauda equina like symptoms. : Denies acute: dysuria, hematuria, flank pain, increase in urinary frequency. PSYCH: Denies acute: hallucination, suicidal ideation, homicidal ideation. PHYSICAL EXAM: General: Mild acute distress, awake and alert. Head: normocephalic, atraumatic. Neck: supple, trachea is midline, no swelling. Throat: Normal phonation. Eyes:, no erythema, no purulent discharge, no proptosis, no icterus. Heart: regular tachycardic, no significant murmur appreciated. Lungs: no apparent respiratory distress, No wheezing, no rhonchi, no crackles. No stridors Clear to auscultation bilaterally. Abdomen: non tender to palpation, non distended, soft, no guarding, no rebound, + bowel sounds. Neuro: Awake, Alert, oriented to name, self, situation, follows commands GCS=15. Speech is normal. Skin: no petechia, no purpura, no cyanosis, non-pale, not jaundice. Lower extremities: --trace bilateral - Pitting edema no deformity, no focal swelling, no calf TTP. Makes eye contact. Face: no apparent facial droop. Ears: Normal appearing TM b/l, Time Seen by MD: 23:41 Primary Care Provider: [facility] Reviewed notes: Nurses Notes, Medications, Allergies Information Source: Patient, Emergency Med Personnel Past Medical History PAST MEDICAL HISTORY: AFIB, Anxiety, CAD, CHF, COPD, DM, High Lipids, HTN, ND, TIA Surgical History: Pacemaker, PTCA Family History Family History: No family hx of Cancer, No family hx of Heart urszula, No family hx ofKidney urszula, No family hx of Liver urszula, No family hx of Lung urszula, No family hx of Stroke, Family hx of DM, Family hx of HTN Social History Smoker: Non-Smoker Alcohol: Occasionally Drugs: Denies Drug Use Lives In: Home Was a procedure done? Was a procedure done?: No Differential Dx Differential Diagnosis: Other (DDx include ACS, unstable angina, anxiety, PE, pneumothroax, neoplasm, cardiac ischemia, COPD, asthma, CHF, pleural effusion, tobacco abuse, pneumonia, hypoxia, hypercapnia, anemia., infection/sepsis., pu lmonary edema. Asthma, Cardiac tamponade, infection.) X-Ray, Labs, Meds, VS Vital Signs Date Time Temp Pulse Resp B/P (MAP) Pulse Ox O2 Delivery O2 Flow Rate FiO2 05/28/24 00:55 104/72 05/28/24 00:40 121 05/28/24 00:23 123 05/27/24 23:52 98.0 111 26 113/88 (96) 97 05/27/24 23:48 121 Lab Test 05/28/24 00:50 05/27/24 23:55 Range/Units Troponin I High Sensitivity 27 27 </=54 ng/L White Blood Count 10.7 4.4-10.8 10^3/uL Red Blood Count 4.78 4.5-5.90 10^6/uL Hemoglobin 14.5 13.5-17.5 g/dL Hematocrit 43.9 41.0-53.0 % Mean Corpuscular Volume 91.8 80.0-100.0 fL Mean Corpuscular Hemoglobin 30.4 28.0-32.0 pg Mean Corpuscular Hemoglobin Concent 33.1 32.0-36.0 g/dL Red Cell Distribution Width 17.3 H 11.8-14.3 % Platelet Count 362 140-450 10^3/uL Mean Platelet Volume 8.8 6.9-10.8 fL Neutrophils (%) (Auto) 67.5 37.0-80.0 % Lymphocytes (%) (Auto) 18.9 10.0-50.0 % Monocytes (%) (Auto) 10.1 0.0-12.0 % Eosinophils (%) (Auto) 2.3 0.0-7.0 % Basophils (%) (Auto) 1.2 0.0-2.0 % Neutrophils # (Auto) 7.2 1.6-8.6 10 ^3/uL Lymphocytes # (Auto) 2.0 0.4-5.4 10 ^3/uL Monocytes # (Auto) 1.1 0-1.3 10 ^3/uL Eosinophils # (Auto) 0.2 0-0.8 10 ^3/uL Basophils # (Auto) 0.1 0-0.2 10 ^3/uL Nucleated Red Blood Cells 0.1 % Sodium Level 134 L 136-145 mmol/L Potassium Level 5.3 H 3.5-5.1 mmol/L Chloride Level 102 98-107 mmol/L Carbon Dioxide Level 25 20-31 mmol/L Anion Gap 7 5-15 Blood Urea Nitrogen 42 H 9-23 mg/dL Creatinine 1.18 0.700-1.30 mg/dL Glomerular Filtration Rate Calc 64 >90 mL/min BUN/Creatinine Ratio 35.6 H 10.0-20.0 Serum Glucose 122 H 74-106 mg/dL Lactic Acid Level 1.9 0.4-2.0 mmol/L Calcium Level 9.7 8.7-10.4 mg/dL Magnesium Level 2.2 1.6-2.6 mg/dL Total Bilirubin 1.3 H 0.2-1.0 mg/dL Aspartate Amino Transferase (AST) 26 13-40 U/L Alanine Aminotransferase (ALT) 24 7-40 U/L Alkaline Phosphatase 414 H 46-116 U/L B-Type Natriuretic Peptide 892.19 0-100 pg/mL Total Protein 6.9 5.7-8.2 g/dL Albumin 3.8 3.2-4.8 g/dL Current Medications Medications (Trade) Dose Ordered Sig/Danis Route Start Time Stop Time Status Last Admin Furosemide (Lasix Injection) 40 mg ONCE ONCE IV 05/28/24 00:00 05/28/24 00:10 DC 05/28/24 00:55 Methylprednisolone Sodium Succinate (Solu Medrol) 125 mg ONCE ONCE IV 05/28/24 00:00 05/28/24 00:10 DC 05/28/24 00:55 Time of 1ST Reevaluation: 01:48 Reevaluation 1ST: Improved Patient Education/Counseling: Diagnosis, Treatment Family Education/Counseling: No Family Present Comments Patient presented with the above HPI.---dyspnea---workup was initiated. patient was found with the above mentioned diagnosis. Patient was given: Lasix and Solu-Medrol Patient ED course and VS have been stabilized. Patient has been reassessed in the ED and remained in a stable condition. Patient was placed on a BiPAP Pertinent incidental findings were discussed with the patient and/or family. Patient/family voices understanding and is agreeable with plan. Patient has been observed in the ED adequate length of time to insure improvemen t/stability. patient was admitted to the medicine team for further evaluation and treatment of their presentation. All the reports of any imaging studies that were ordered by myself were reviewed by myself. Departure 1 Departure Time of Disposition: 00:50 Impression: Primary Impression: Dyspnea Additional Impressions: Atrial fibrillation CHF exacerbation Disposition: ADMITTED INPATIENT Admit to: Tele Condition: Guarded Discharged With: Self Critical Care Note Critical Care Time?: Yes (45 min-critical care time only) Heart Score Heart Score: Heart Score Response (Comments) Value History Moderate Suspicious [address]-Deviation 2 Age >65 2 Risk Factors >3 or Hx ASHD 2 Troponin Normal limit 0 Total 7 YOAN SINGH DO May 27, 2024 23:54
[2024-05-28] VITALS (7 sets, daily range): BP systolic 102–109; BP diastolic 71–72; PULSE 94–123; RESP 19–25; TEMP 97.4–98; O2SAT 94–100
[2024-05-28 00:13] LABS: Basophils # (auto) 0.1 10 ^3/uL (0-0.2); Basophils % (auto) 1.2 % (0.0-2.0); Eosinophils # (auto) 0.2 10 ^3/uL (0-0.8); Eosinophils % (auto) 2.3 % (0.0-7.0); Hematocrit 43.9 % (41.0-53.0); Hemoglobin 14.5 g/dL (13.5-17.5); Lymphocytes % (auto) 18.9 % (10.0-50.0); Mean Corpuscular Hemoglobin 30.4 pg (28.0-32.0); Mean Corpuscular Hgb Conc. 33.1 g/dL (32.0-36.0); Mean Corpuscular Volume 91.8 fL (80.0-100.0); Monocytes # (auto) 1.1 10 ^3/uL (0-1.3); Monocytes % (auto) 10.1 % (0.0-12.0); Neutrophils # (auto) 7.2 10 ^3/uL (1.6-8.6); Neutrophils % (auto) 67.5 % (37.0-80.0); Nucleated Red Blood Cells % 0.1 %; Platelet Count (auto) 362 10^3/uL (140-450); Red Blood Cells 4.78 10^6/uL (4.5-5.90); Red Cell Distribution Width 17.3 % (11.8-14.3); White Blood Cell 10.7 10^3/uL (4.4-10.8)
[2024-05-28 00:28] LABS: Alanine Aminotransferase 24 U/L (7-40); Albumin 3.8 g/dL (3.2-4.8); Anion Gap 7 (5-15); Aspartate Aminotransferase 26 U/L (13-40); BUN/Creatinine Ratio 35.6 (10.0-20.0); Calcium 9.7 mg/dL (8.7-10.4); Carbon Dioxide 25 mmol/L (20-31); Chloride 102 mmol/L (98-107); Magnesium 2.2 mg/dL (1.6-2.6)
[2024-05-28 00:29] LABS: Total Protein 6.9 g/dL (5.7-8.2)
[2024-05-28 00:37] LABS: Alkaline Phosphatase 414 U/L (46-116); Bilirubin, Total 1.3 mg/dL (0.2-1.0); Blood Urea Nitrogen 42 mg/dL (9-23); Glucose 122 mg/dL (74-106); Potassium 5.3 mmol/L (3.5-5.1); Sodium 134 mmol/L (136-145)
[2024-05-28] MEDS: methylPREDNISolone SOD SUCC 125 MG/2 ML VL IV ONE (00:55)
[2024-05-28] MEDS: FUROSEMIDE 40 MG/4 ML VIAL IV ONE ×2 (00:55→02:15)
--- NOTE | 2024-05-28 01:07 | DVH ---
CHEST RADIOGRAPH Indication: sob Technique: Single frontal view of the chest was obtained COMPARISON: XY CHEST XRAY 1 VIEW on DOS: 05/06/24, XY CHEST XRAY 1 VIEW on DOS: 05/04/24, XY CHEST PO RTABLE on DOS: 05/01/24, XY CHEST PORTABLE on DOS: 04/24/24, XY CHEST PORTABLE on DOS: 04/22/24 FINDINGS: Lines and Tubes: Pacemaker/AICD in the left upper chest with multiple cardiac leads Lungs: Moderate interstitial pulmonary edema. Pleura: Trace bilateral effusions. No pneumothorax. Cardiomediastinal contours: Cardiomegaly Bones: Unremarkable IMPRESSION: 1. Moderate interstitial pulmonary edema. 2. Trace bilateral effusions 3. Cardiomegaly
[2024-05-28] MEDS ORDERED: DEXTROSE (50%) 50ML SYRG IV ONE (01:15)
[2024-05-28] MEDS ORDERED: NITROGLYCERIN 0.4 MG SL TAB SL PRN (01:15)
[2024-05-28] MEDS ORDERED: InsuLIN REG 1unit/0.01ml Soln (100units/ml) IV ONE (01:15)
[2024-05-28] MEDS ORDERED: ACETAMINOPHEN 325 MG TAB PO PRN (01:15)
[2024-05-28] MEDS ORDERED: DOCUSATE SOD 100 MG CAP PO PRN (01:15)
[2024-05-28] MEDS ORDERED: [UNRECOGNIZED DRUG - MIXTURE] EX SCH (01:15)
[2024-05-28] MEDS ORDERED: MORPHINE SULFATE INJ 2 MG/ml SYRG IV PRN ×2 (01:15)
[2024-05-28] MEDS ORDERED: VITAMINS A & D (TOPICAL) OINT 5GM TOP PRN (01:30)
[2024-05-28 01:46] LABS: Base Excess -4.3 mmol/L (-2.0-3.0)
[2024-05-28] MEDS: SODIUM ZIRCONIUM CYCL 10 GM PAK PO ONE ×2 (01:59→15:14)
--- NOTE | 2024-05-28 02:12 | DVHHPRES ---
History of Present Illness Resident Creating Document: KRISTIE WOLF RESIDENT History of Present Illness Patient is 78 years old male with a past medical history of Coronary artery disease, S/P RAJANI placement in circumflex artery and obtuse marginal branch, HFrEF, LVEF less than 20%, COPD on NC O2 2 liter/minute, atrial fibrillation, hypertension, diabetes mellitus type 2, atrial fibrillation on pacemaker, history of UTI, hypothyroidism, history of TIA,obesity came with a complaint of worsening shortness of breaths. As per patient and patient has been worsening short of breath for last couple of weeks but it got even worse today that he could not breathe well. Family had to increase his NC O2 to 5 liters/minute to maintain SpO2 more than 90%. Patient and family also endorsed PND and orthopnea. Family also complained of occasional cough. Patient denied any chest pain, fever, palpitation, constipation or diarrhea, dysuria, dysarthria or change in vision. Initial lab workup revealed hyperkalemia with potassium 5.3, BUN 42, GFR 64, elevated BNP 892, D-dimer elevated 2.01, troponin I within normal limit 27, elevated bilirubin 1.3, alkaline phosphatase 414. Other lab workup like magnesium/calcium/lactic acid/troponin I with a normal limit. Patient was recently discharged from the hospital on 05/08/2024 due to acute on chronic hypoxic respiratory failure due to acute on chronic exacerbation of heart failure. CXR revealed-1. Moderate interstitial pulmonary edema. Trace bilateral effusions, Cardiomegaly -uterine analysis revealed leukocyte esterase 3+, WBC 102 4, RBC 27, bacteria f ew. On 05/15/2024 revealed LVEF less than 20%, left atrial enlargement, right atrial enlargement, AV sclerosis, mild MAC. Past Medical History Coronary artery disease, S/P RAJANI placement in circumflex artery and obtuse marginal branch, HFrEF, LVEF less than 20%, COPD on NC O2 2 liter/minute, atrial fibrillation, hypertension, diabetes mellitus type 2, atrial fibrillation on pacemaker, history of UTI, hypothyroidism, history of TIA,obesity Past Surgical History Pacemaker Past Social History Denies smoking/occasional alcoholism/denies using drugs, lives with family at home Review of Systems Review of Systems Allergy- atovaquone, lisinopril Personal History/ Social History- Patient was seen today at the bedside. Cardiovascular- deny acute chest pain Gastrointestinal- denies any rectal bleeding, nausea or vomiting Musculoskeletal-denies acute joint swelling or tenderness or redness Neurological- denies acute dysarthria, dysphagia, change in vision Psychiatry- denies depression or SI or HI Skin- denies acute rash or purpura Allergies: Coded Allergies: Atorvastatin (Verified Allergy, Unknown, 03/31/24) Lisinopril (Verified Allergy, Unknown, coughing, 03/31/24) Medications Current Medications Medications Dose Ordered Sig/Danis Route Start Time Stop Time Status Last Admin Dose Admin Sodium Chloride 10 ml Q8HR IV 05/28/24 06:00 Docusate Sodium 100 mg BIDPRN PRN PO 05/28/24 01:15 Acetaminophen 650 mg Q6HP PRN PO 05/28/24 01:15 Morphine Sulfate 2 mg Q4HPRN PRN IV 05/28/24 01:15 Nitroglycerin 0.4 mg Q5MINP PRN SL 05/28/24 01:15 Morphine Sulfate 2 mg Q30M PRN IV 05/28/24 01:15 Furosemide 40 mg DAILY IV 05/29/24 10:00 Apixaban 2.5 mg BID PO 05/28/24 10:00 UNV Carvedilol 25 mg BID PO 05/28/24 10:00 Clopidogrel Bisulfate 75 mg DAILY PO 05/28/24 10:00 Levothyroxine Sodium 50 mcg DAILY PO 05/28/24 10:00 Spironolactone 25 mg DAILY PO 05/28/24 10:00 Apixaban 5 mg BID PO 05/28/24 10:00 Cholecalciferol 5,000 unit DAILY PO 05/28/24 10:00 Sertraline HCl 100 mg DAILY PO 05/28/24 10:00 Vitamin A/Vitamin D 5 gm DAILY PRN TOP 05/28/24 01:30 Exam Vital Signs Vital Signs Date Time Temp Pulse Resp B/P (MAP) Pulse Ox O2 Delivery O2 Flow Rate FiO2 05/28/24 00:55 104/72 05/28/24 00:40 121 05/27/24 23:52 98.0 26 97 Exam General examination- patient on BiPAP at this moment HEENT- PEERLA, no acute nasal discharge Cardiovascular- S1-S2 audible, rate and rhythm regular, no murmur Respiratory-bilateral lung crackles++, diminished breath sound at the base of the lungs Gastrointestinal-nontender, bowel sound+. Nondistended Musculoskeletal-no acute joint swelling or tenderness or redness# Lower extremity- bilateral leg edema+ Neurological- cranial nerves intact, no acute dysarthria or dysphagia Psychiatry- denies depression or SI or HI Skin- -fragile skin, pigmented skin of the legs Labs/Xrays Labs Test 05/28/24 01:10 05/28/24 00:50 05/27/24 23:55 Range/Units Blood Gas Specimen Type Arterial Blood Gas Sample Site Right radial Blood Gas Patient Temperature 37.0 Arterial Blood Date Drawn [id number] Arterial Blood pH 7.388 7.350-7.450 Arterial Blood Partial Pressure CO2 33.4 L 35.0-48.0 mmHg Arterial Blood Partial Pressure O2 132.9 H 83.0-108.0 mmHg Arterial Blood HCO3 19.7 L 21.0-28.0 mmol/L Arterial Blood Oxygen Saturation 98.8 H 94.0-98.0 % Arterial Blood Base Excess -4.3 L -2.0-3.0 mmol/L Arterial Blood Oxyhemoglobin 97.2 94.0-98.0 % Arterial Blood Carboxyhemoglobin 1.3 0.5-1.5 % Arterial Blood Methemoglobin 0.3 0.0-1.5 % Joshua Test Modified Blood Gas Total Hemoglobin 14.90 13.5-17.5 g/dL Blood Gas Modality Mask - bipap FiO2 % 40.0 Blood Gas EPAP 5 Blood Gas IPAP 12 Troponin I High Sensitivity 27 </=54 ng/L White Blood Count 10.7 4.4-10.8 10^3/uL Red Blood Count 4.78 4.5-5.90 10^6/uL Hemoglobin 14.5 13.5-17.5 g/dL Hematocrit 43.9 41.0-53.0 % Mean Corpuscular Volume 91.8 80.0-100.0 fL Mean Corpuscular Hemoglobin 30.4 28.0-32.0 pg Mean Corpuscular Hemoglobin Concent 33.1 32.0-36.0 g/dL Red Cell Distribution Width 17.3 H 11.8-14.3 % Platelet Count 362 140-450 10^3/uL Mean Platelet Volume 8.8 6.9-10.8 fL Neutrophils (%) (Auto) 67.5 37.0-80.0 % Lymphocytes (%) (Auto) 18.9 10.0-50.0 % Monocytes (%) (Auto) 10.1 0.0-12.0 % Eosinophils (%) (Auto) 2.3 0.0-7.0 % Basophils (%) (Auto) 1.2 0.0-2.0 % Neutrophils # (Auto) 7.2 1.6-8.6 10 ^3/uL Lymphocytes # (Auto) 2.0 0.4-5.4 10 ^3/uL Monocytes # (Auto) 1.1 0-1.3 10 ^3/uL Eosinophils # (Auto) 0.2 0-0.8 10 ^3/uL Basophils # (Auto) 0.1 0-0.2 10 ^3/uL Nucleated Red Blood Cells 0.1 % Sodium Level 134 L 136-145 mmol/L Potassium Level 5.3 H 3.5-5.1 mmol/L Chloride Level 102 98-107 mmol/L Carbon Dioxide Level 25 20-31 mmol/L Anion Gap 7 5-15 Blood Urea Nitrogen 42 H 9-23 mg/dL Creatinine 1.18 0.700-1.30 mg/dL Glomerular Filtration Rate Calc 64 >90 mL/min BUN/Creatinine Ratio 35.6 H 10.0-20.0 Serum Glucose 122 H 74-106 mg/dL Lactic Acid Level 1.9 0.4-2.0 mmol/L Calcium Level 9.7 8.7-10.4 mg/dL Magnesium Level 2.2 1.6-2.6 mg/dL Total Bilirubin 1.3 H 0.2-1.0 mg/dL Aspartate Amino Transferase (AST) 26 13-40 U/L Alanine Aminotransferase (ALT) 24 7-40 U/L Alkaline Phosphatase 414 H 46-116 U/L B-Type Natriuretic Peptide 892.19 0-100 pg/mL Total Protein 6.9 5.7-8.2 g/dL Albumin 3.8 3.2-4.8 g/dL Assessment/Plan Assessment/Plan Acute hypoxic respiratory failure likely due to acute on chronicHFrEF/acute exacerbation of COPD -D-dimer 0.01, -troponin I 27 -BNP 892 -lactic acid 1.9 -CXR revealed-1. Moderate interstitial pulmonary edema. Trace bilateral effusions, Cardiomegaly -On 05/15/2024 revealed LVEF less than 20%, left atrial enlargement, right atrial enlargement, AV sclerosis, mild MAC. -continue Lasix 40 mg IV daily -spironolactone 25 mg p.o. daily -pending CT angio chest for further evaluation and care Acute on chronic systolic heart failure (HFrEF <20%) -echocardiogram showed an LVEF of less than 20% -continue Lasix 40 mg IV daily -spironolactone 25 mg p.o. daily Coronary artery disease, S/P RAJANI placement in circumflex artery and obtuse marginal branch S/P AICD S/P IVC filter placement -percutaneous coronary angioplasty performed on April 10, 2024 -continue aspirin 81 mg q.d. -continue clopidogrel 75 mg q.d. # hyperkalemia, potassium 5.3 -status post nebulization with albuterol and IV Lasix Hypertensive heart disease with systolic heart failure -echocardiogram showed an LVEF of less than 20% with bilateral atrial enlargement and small pericardial effusion -continue current management Small bilateral pleural effusion --continue Lasix 40 mg IV daily #UTI- -uterine analysis revealed leukocyte esterase 3+, for WBC 102 4, urine RBC 27, uterine bacteria few -pending uterine CS -ceftriaxone 1 g IV daily Type 2 diabetes mellitus -last hemoglobin A1c was 6% -sliding scale insulin -monitor glucose closely Hypothyroidism -TSH was 5.80 -continue levothyroxine 50 mcg q.a.m. # atrial fibrillation -patient's pacemaker -continue Eliquis p.o. b.i.d. -continue current management Dyslipidemia --continue current management Morbid obesity -counseled the patient on lifestyle modifications and healthy diet habits. # history of TIA/stroke -continue aspirin as prescribed Goals of care/advance care planning; FULL CODE; discussed with the patient >15 minutes PUD prophylaxis: Famotidine DVT prophylaxis: Lovenox Irrigator Valve Pipe- DR. VASQUEZ Plan discussed with Dr. Cassidy, nursing staff, patient Total time spent on patient evaluation, chart review, assessment and plan, discussion discussion >30 minutes Plan discussed with: Patient Plan discussed with: Patient, Spouse, Daughter (RN), Other My Orders Orders - KRISTIE WOLF Procedure Category Date Status Time Admit ADMIT 05/28/24 Transmitted 01:04 Code Status CODE 05/28/24 Transmitted 01:04 Sodium Chloride Lock PHA 05/28/24 In Process (Saline Lock Ns) 06:00 Docusate Sodium PHA 05/28/24 In Process Capsule (Colace 01:15 Complete Blood Count LAB 05/29/24 Verified 04:00 Comprehensive LAB 05/29/24 Verified Metabolic Panel 04:00 Cardiac DIET 05/28/24 Transmitted Diet-2gna,Lofat,Lochol Breakfast Echo 2d Mode Cardiac US 05/28/24 Logged DOP 01:04 Acetaminophen Tablet PHA 05/28/24 In Process (Tylenol Tablet) 01:15 Morphine Sulfate PHA 05/28/24 In Process Injection 01:15 Nitroglycerin PHA 05/28/24 In Process Sublingual (Ntrostat 01:15 Morphine Sulfate PHA 05/28/24 In Process Injection 01:15 Oxygen By Nasal RT 05/28/24 Transmitted Cannula 01:04 Stat Ekg For Chest LEEANN 05/28/24 In Process Pain 01:04 Notify Md Of Changes LEEANN 05/28/24 In Process From Base 01:04 Senior Professional Services Consultant For LEEANN 05/28/24 In Process 24 Hours 01:04 Emergency Dysrhythmia LEEANN 05/28/24 In Process Protocol 01:04 Rhythm Strips Once LEEANN 05/28/24 In Process Every Shift 01:04 Carvedilol Tablet PHA 05/28/24 In Process (Coreg Tablet) 10:00 Clopidogrel Bisulfate PHA 05/28/24 In Process (Plavix) 10:00 Levothyroxine Tablet PHA 05/28/24 In Process (Synthroid Tablet) 10:00 Spironolactone PHA 05/28/24 In Process (Aldactone) 10:00 Furosemide Injection PHA 05/29/24 In Process (Lasix Injection) 10:00 Apixaban (Eliquis) PHA 05/28/24 In Process 10:00 Cholecalciferol PHA 05/28/24 In Process Tablet (Vitamin D3 10:00 Sertraline Hcl PHA 05/28/24 In Process (Zoloft) 10:00 Vitamins A & D PHA 05/28/24 In Process (Topical) 01:30 Albuterol 20mg Medneb PHA 05/28/24 Verified X One 02:00 Date of Service: May 28, 2024 Billing Provider: CHRIS CASSIDY MD Common Visit Codes: [id number] INP/OBS CARE (HIGH) Secondary Visit Codes: [id number] CARE PLAN 30 MINUTES KRISTIE WOLF RESIDENT May 28, 2024 02:12 CHRIS CASSIDY MD May 29, 2024 14:59
[2024-05-28] MEDS ORDERED: DEXTROSE (50%) 50ML SYRG IV PRN (02:30)
[2024-05-28] MEDS: ALBUTEROL SULF 2.5 MG/0.5ML(0.5%) NEB SOLN NEB ONE (02:31)
[2024-05-28 04:42] LABS: Urine Bacteria FEW /hpf (None Seen); Urine Blood 3+ /uL (Negative); Urine Clarity Ex.Turbid (Clear); Urine Color Yellow (Yellow); Urine Mucus FEW (None Seen); Urine Protein, UAD 1+ (Negative); Urine Specific Gravity 1.013 (1.001-1.035); Urine Urobilinogen 3 mg/dL (Negative); Urine WBC 1024 /hpf (0 - 3); Urine WBC Clumps PRESENT /hpf (None Seen)
[2024-05-28] MEDS: SODIUM CHLOR 0.9% PF (SALINE LOCK) 10ML VIAL/SYR IV SCH (06:11)
[2024-05-28] MEDS: IOHEXOL 350 MG/ML 100ML IJ ONE (06:28)
--- NOTE | 2024-05-28 06:38 | ECG ---
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
--- NOTE | 2024-05-28 06:39 | ECG ---
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
[2024-05-28] MEDS: InsuLIN REG 1unit/0.01ml Soln (100units/ml) SC SCH (06:47)
[2024-05-28] MEDS: cefTRIAXone 1GM/50ML D5W 50 ML IV ONE (06:56)
[2024-05-28] MEDS: ACCU-CHEK COMFORT CURVE STRIP VI SCH (07:04)
[2024-05-28 07:06] LABS: Free T3 1.66 pg/mL (2.3-4.2); Free T4 (Free Thyroxine) 1.08 ng/dL (0.89-1.76)
[2024-05-28 07:46] LABS: Hematocrit 44.6 % (41.0-53.0); Hemoglobin 14.7 g/dL (13.5-17.5); Mean Corpuscular Hemoglobin 30.2 pg (28.0-32.0); Mean Corpuscular Hgb Conc. 33.1 g/dL (32.0-36.0); Mean Corpuscular Volume 91.3 fL (80.0-100.0); Platelet Count (auto) 384 10^3/uL (140-450); Red Blood Cells 4.88 10^6/uL (4.5-5.90); Red Cell Distribution Width 16.9 % (11.8-14.3); White Blood Cell 9.6 10^3/uL (4.4-10.8)
[2024-05-28 07:48] LABS: Basophils % (manual) 0 (0.0-2.0); Blast Cells 0; Eosinophils % (manual) 0 (0-7); Metamyelocytes % 0; Myelocytes % 0; Promyelocytes % 0; Reactive Lymphocytes 0
--- NOTE | 2024-05-28 07:58 | DVH ---
Bilateral Chest Sonogram Clinical history: Evaluate thora Technique: Limited sonographic evaluation of the right and left chest was performed. Findings/Impression: There is a trace bilateral pleural effusion.
[2024-05-28 08:07] LABS: INR 1.3 (0.9-1.15); Partial Thromboplastin Time 33.6 SEC (24.5-34.5); Prothrombin Time 13.5 sec (9.3-11.8)
[2024-05-28 08:22] LABS: Benzodiazephine Screen, Urine Neg (NEGATIVE)
[2024-05-28 08:23] LABS: Amphetamine Screen, Urine Neg (NEGATIVE); Barbiturate Scree,Urine Neg (NEGATIVE); Cannabinoid Screen, Urine Neg (NEGATIVE); Cocaine Screen, Urine Neg (NEGATIVE); Opiate Scree,Urine Neg (NEGATIVE); Phencyclidine Screen, Urine Neg (NEGATIVE)
[2024-05-28 08:24] LABS: Band Neutrophils % (manual) 1; Lymphocytes % (manual) 5 (10.0-50.0); Monocytes % (manual) 1 (0-12); Platelet Estimate Adequate
[2024-05-28 08:28] LABS: Alanine Aminotransferase 21 U/L (7-40); Albumin 3.9 g/dL (3.2-4.8); Anion Gap 15 (5-15); Aspartate Aminotransferase 21 U/L (13-40); BUN/Creatinine Ratio 29.5 (10.0-20.0); Calcium 9.8 mg/dL (8.7-10.4); Chloride 101 mmol/L (98-107); Magnesium 2.3 mg/dL (1.6-2.6); Phosphorus 4.6 mg/dL (2.4-5.1); Total Protein 7.6 g/dL (5.7-8.2)
[2024-05-28 08:29] LABS: Alkaline Phosphatase 419 U/L (46-116); Bilirubin, Total 1.4 mg/dL (0.2-1.0); Blood Urea Nitrogen 41 mg/dL (9-23); Carbon Dioxide 17 mmol/L (20-31); Glucose 184 mg/dL (74-106); Potassium 5.3 mmol/L (3.5-5.1); Sodium 133 mmol/L (136-145)
[2024-05-28 09:11] LABS: COVID19 ANTIGEN SOFIA FIA NEGATIVE (NEGATIVE); Rapid Influenza A Negative (Negative); Rapid Influenza B Negative (Negative)
--- NOTE | 2024-05-28 09:41 | DVH ---
CTA Chest with intravenous contrast INDICATION: R/O PE COMPARISON: CT CT ANGIO CHEST CONTRAST on DOS: 05/01/24, CT CT ANGIO CHEST CONTRAST on DOS: 04/19/24 TECHNIQUE: Multidetector spiral CTA of the chest was performed of the chest with intravenous contrast . PULMONARY ANGIOGRAPHY PROTOCOL was utilized using a bolus-tracking technique centered on the main p ulmonary artery. Axial, coronal and sagittal multiplanar and MIP reformats were performed. CONTRAST: Type of contrast: Omni 350 Contrast injected: 100 ml Radiation dose : Chest: CTDI volume is 56 mGy. Dose-length product is 896.22 mGy*cm The dose indicators for CT are the volume computed Tomography (CT) dose Index (CTDIvol) and the dose Length product (DLP), and are measured in units of mGy and mGy-cm, respectively. These indicators are not patient dose, but values generated from the CT scanner acquisition factors. The report includes radiation exposure data for exposures received during this examination. Findings: Pulmonary artery: No pulmonary embolism Lower neck: Normal thyroid. Lungs: Moderate bilateral pleural effusions with associated bibasilar atelectasis and consolidation. Heart/Vascular Structures: Mrfi-us-doqccrty cardiomegaly. Trace pericardial effusion. Lymph Nodes: Subcentimeter mediastinal lymph nodes noted. Pleura: Moderate bilateral pleural effusions as above. Musculoskeletal: No acute osseous abnormality. Soft tissues: Normal. Upper abdomen: Ascites noted. IMPRESSION: 1. No pulmonary embolism. 2. Moderate bilateral pleural effusions with associated bibasilar atelectasis and consolidation. Mild -to-moderate cardiomegaly. Trace pericardial effusion. Stable mediastinal lymphadenopathy. Abdominal ascites. HS:Y
[2024-05-28] MEDS ORDERED: PATIENTS OWN MEDICATION (Cholecalciferol (Vitamin D3) 5,000 UNIT) PO SCH (10:00)
[2024-05-28] MEDS ORDERED: LEVOTHYROXINE SODIUM 50 MCG TAB PO SCH (10:00)
[2024-05-28] MEDS ORDERED: CARVEDILOL 12.5 MG TAB PO SCH (10:00)
[2024-05-28] MEDS ORDERED: APIXABAN 5 MG TAB PO SCH (10:00)
[2024-05-28] MEDS ORDERED: APIXABAN 2.5 MG TAB PO SCH (10:00)
[2024-05-28] MEDS ORDERED: PATIENTS OWN MEDICATION (Sertraline Hcl 100 MG) PO SCH (10:00)
[2024-05-28] MEDS: SPIRONOLACTONE 25 MG TAB PO SCH (10:39)
[2024-05-28] MEDS: SERTRALINE HCL 50 MG TAB PO SCH (10:39)
[2024-05-28] MEDS: CHOLECALCIFEROL (VITD3) 1,000UNIT=25mCg TAB PO SCH (10:39)
[2024-05-28] MEDS: CLOPIDOGREL BISULFATE 75 MG TAB PO SCH (10:39)
--- NOTE | 2024-05-28 10:41 | ECG ---
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
--- NOTE | 2024-05-28 14:59 | DVHPN2 ---
Progress Note Date Seen: May 28, 2024 Has the PT tested + for MRSA If YES, has PT been informed?: No Medical Necessity Reason Pt with a Central, PICC or Fol: No Subjective Patient reports: No new complaints Review of Systems: HEENT:Normal, CVS:Normal, RESPIRATORY:Normal, GI:Normal, :Normal, MSK:Normal, NEURO:Normal Objective vital signs Vital Sign Date Time Temp Pulse Resp B/P (MAP) Pulse Ox O2 Delivery O2 Flow Rate FiO2 05/28/24 12:00 66 21 110/66 (81) 97 05/28/24 08:00 97.9 97.9 05/28/24 08:00 Nasal Cannula* 4 36 medications Current Medications Medications Dose Ordered Sig/Danis Route Start Time Stop Time Status Last Admin Dose Admin Sodium Chloride 10 ml Q8HR IV 05/28/24 06:00 05/28/24 14:02 10 ML Docusate Sodium 100 mg BIDPRN PRN PO 05/28/24 01:15 Acetaminophen 650 mg Q6HP PRN PO 05/28/24 01:15 Morphine Sulfate 2 mg Q4HPRN PRN IV 05/28/24 01:15 Nitroglycerin 0.4 mg Q5MINP PRN SL 05/28/24 01:15 Morphine Sulfate 2 mg Q30M PRN IV 05/28/24 01:15 Furosemide 40 mg DAILY IV 05/29/24 10:00 Apixaban 2.5 mg BID PO 05/28/24 10:00 UNV Clopidogrel Bisulfate 75 mg DAILY PO 05/28/24 10:00 05/28/24 10:39 75 MG Spironolactone 25 mg DAILY PO 05/28/24 10:00 05/28/24 10:39 25 MG Cholecalciferol 5,000 unit DAILY PO 05/28/24 10:00 05/28/24 10:39 5,000 UNIT Sertraline HCl 100 mg DAILY PO 05/28/24 10:00 05/28/24 10:39 100 MG Vitamin A/Vitamin D 5 gm DAILY PRN TOP 05/28/24 01:30 Diagnostic Test (Pha) 1 strip ACHS 05/28/24 07:00 05/28/24 11:42 1 STRIP Insulin Human Regular ACHS SC 05/28/24 07:00 05/28/24 11:44 4 UNITS Dextrose 50 ml UD PRN IV 05/28/24 02:30 Ceftriaxone Sodium 50 ml @ 100 mls/hr DAILY@0600 IV 05/29/24 06:00 Levothyroxine Sodium 50 mcg QAM PO 05/29/24 07:00 Examination: GENERAL:Normal, HEENT:Normal, NECK:Normal, LUNGS:Normal, LUNGS:Abnormal (on oxygen, bipap, rales bilateral), CVS:Normal, ABDOMEN:Normal, MSK:Normal, SKIN:Normal, NEURO:Normal, :Normal laboratory and microbiology Laboratory Tests 05/28/24 06:27 Test 05/28/24 06:27 Range/Units Serum Glucose 184 H 74-106 mg/dL Problem List/Assessment/Plan Problem List/Assessment/Plan #1 acute on chronic respiratory failure. #2 Acute myocardial infarction, status post stent with coronary artery disease. #3 Acute on chronic systolic heart failure: lasix iv #4 Diabetes mellitus. #5 Chronic obstructive pulmonary disease. #6 Hypertension. #7 Morbid obesity. #8 Hypothyroidism. #9 Status post automatic implantable cardioverter defibrillator. #10 Pulmonary embolism, status post inferior vena cava filter. #11 Sleep apnea. advance care planning - full code- time spent 21 mins Plan discussed with: Patient My Orders My Orders Orders - DOLLY MAN MD Procedure Category Date Status Time Transfer Orders XFER 05/28/24 Transmitted 10:30 Date of Service: May 28, 2024 Billing Provider: DOLLY MAN MD Common Visit Codes: [id number] INP/OBS CARE(HIGH) Secondary Visit Codes: [id number] CARE PLAN 30 MINUTES DOLLY MAN MD May 28, 2024 14:59
[2024-05-28] MEDS: APIXABAN 2.5 MG TAB PO SCH (22:58)
[2024-05-29] VITALS (11 sets, daily range): BP systolic 91–107; BP diastolic 58–77; PULSE 93–123; RESP 16–19; TEMP 97.4–97.7; O2SAT 93–99
[2024-05-29] MEDS ORDERED: cefTRIAXone 1GM/50ML D5W 50 ML IV SCH (06:00)
[2024-05-29] MEDS: LEVOTHYROXINE SODIUM 50 MCG TAB PO SCH (06:02)
[2024-05-29 06:41] LABS: Alanine Aminotransferase 19 U/L (7-40); Anion Gap 11 (5-15); BUN/Creatinine Ratio 32.3 (10.0-20.0); Calcium 9.9 mg/dL (8.7-10.4); Carbon Dioxide 22 mmol/L (20-31); Chloride 99 mmol/L (98-107); Potassium 4.7 mmol/L (3.5-5.1)
[2024-05-29 06:42] LABS: Albumin 3.8 g/dL (3.2-4.8); Aspartate Aminotransferase 18 U/L (13-40)
[2024-05-29 06:45] LABS: Alkaline Phosphatase 343 U/L (46-116); Blood Urea Nitrogen 52 mg/dL (9-23); Glucose 106 mg/dL (74-106); Sodium 132 mmol/L (136-145)
[2024-05-29 06:48] LABS: Basophils # (auto) 0 10 ^3/uL (0-0.2); Basophils % (auto) 0.1 % (0.0-2.0); Eosinophils # (auto) 0 10 ^3/uL (0-0.8); Eosinophils % (auto) 0.1 % (0.0-7.0); Hematocrit 40.3 % (41.0-53.0); Hemoglobin 13.6 g/dL (13.5-17.5); Lymphocytes # (auto) 0.8 10 ^3/uL (0.4-5.4); Lymphocytes % (auto) 8.6 % (10.0-50.0); Mean Corpuscular Hemoglobin 30.4 pg (28.0-32.0); Mean Corpuscular Hgb Conc. 33.6 g/dL (32.0-36.0); Mean Corpuscular Volume 90.4 fL (80.0-100.0); Monocytes # (auto) 0.9 10 ^3/uL (0-1.3); Monocytes % (auto) 9.1 % (0.0-12.0); Neutrophils # (auto) 7.9 10 ^3/uL (1.6-8.6); Neutrophils % (auto) 82.1 % (37.0-80.0); Nucleated Red Blood Cells % 0.1 %; Platelet Count (auto) 335 10^3/uL (140-450); Red Blood Cells 4.46 10^6/uL (4.5-5.90); Red Cell Distribution Width 16.5 % (11.8-14.3); White Blood Cell 9.6 10^3/uL (4.4-10.8)
[2024-05-29] MEDS: FUROSEMIDE 40 MG/4 ML VIAL IV SCH (09:19)
--- NOTE | 2024-05-29 11:04 | DVHPN2 ---
Progress Note - Dictate Date Seen: May 28, 2024 Has the PT tested + for MRSA If YES, has PT been informed?: No Medical Necessity Reason Pt with a Central, PICC or Fol: No Subjective PT WELL KNOWN TO ME WAS SUPPOSED TO COME TO THE CHF CLINIC TODAY BUT MISSED APPOINTMENT PT WAS SCHEDULED FOR DOBUTAMINE INFUSION WITH LASIX DRIP IN THE CLINIC ORGANIC HD ISCHEMIC CM S/P PTCA OF CX ACUTE OH HFrEF ACUTE DECOMPENSATION AGIF HYPERCOAGULABLE STATE DIABETES VASCULOPATHY NEUROPATHY WITH RECENT CVA NEPHROPATHY HEMATURIA UTI PT WAS ON BUMEX WHEN DCed BUT NOT TAKING MEDS HYPERKALEMIA SECONDARY TO ONLY BEING ON ALDACTONE vital signs Vital Sign Date Time Temp Pulse Resp B/P (MAP) Pulse Ox O2 Delivery O2 Flow Rate FiO2 05/29/24 09:26 98 Nasal Cannula 4.0 05/29/24 09:26 36 05/29/24 09:19 117/91 05/29/24 05:00 97.4 120 19 97.4 Total Intake and Output 05/28/24 05/28/24 05/29/24 15:00 23:00 07:00 Intake Total 50 ml 300 ml Balance 50 ml 300 ml medications Current Medications Medications Dose Ordered Sig/Danis Route Start Time Stop Time Status Last Admin Dose Admin Sodium Chloride 10 ml Q8HR IV 05/28/24 06:00 05/29/24 05:19 10 ML Docusate Sodium 100 mg BIDPRN PRN PO 05/28/24 01:15 Acetaminophen 650 mg Q6HP PRN PO 05/28/24 01:15 Morphine Sulfate 2 mg Q4HPRN PRN IV 05/28/24 01:15 Nitroglycerin 0.4 mg Q5MINP PRN SL 05/28/24 01:15 Morphine Sulfate 2 mg Q30M PRN IV 05/28/24 01:15 Furosemide 40 mg DAILY IV 05/29/24 10:00 05/29/24 09:19 40 MG Apixaban 2.5 mg BID PO 05/28/24 10:00 UNV Clopidogrel Bisulfate 75 mg DAILY PO 05/28/24 10:00 05/29/24 09:18 75 MG Cholecalciferol 5,000 unit DAILY PO 05/28/24 10:00 05/29/24 09:17 5,000 UNIT Sertraline HCl 100 mg DAILY PO 05/28/24 10:00 05/29/24 09:17 100 MG Vitamin A/Vitamin D 5 gm DAILY PRN TOP 05/28/24 01:30 Diagnostic Test (Pha) 1 strip ACHS 05/28/24 07:00 05/29/24 06:06 1 STRIP Insulin Human Regular ACHS SC 05/28/24 07:00 05/28/24 17:32 3 UNITS Dextrose 50 ml UD PRN IV 05/28/24 02:30 Levothyroxine Sodium 50 mcg QAM PO 05/29/24 07:00 05/29/24 06:02 50 MCG Apixaban 2.5 mg BID PO 05/28/24 22:00 05/29/24 09:19 2.5 MG objective HEENT: Pupils are reactive. Funduscopic exam shows some AV nicking and hard exudates, no papilledema noted. Sclerae are anicteric. NECK: No JVD appreciated. Carotid pulses are 2+ and symmetrical. No cervical adenopathy, no supraclavicular adenopathy. PULMONARY: Clear to auscultation. CARDIOVASCULAR: Regular rate without S3, without S4. PMI; however, is diffuse. There is a 2/6 systolic murmur along the left sternal border. ABDOMEN: Obese. Unable to appreciate an organomegaly. EXTREMITIES: Distal pulses are diminished with 1 Doppler pulses in lower extremity. NEUROLOGIC: The patient, however, is intact, alert, oriented. laboratory and microbiology Laboratory Tests 05/29/24 05:35 Test 05/29/24 05:35 Range/Units Serum Glucose 106 74-106 mg/dL Problem List ORGANIC HD ISCHEMIC CM S/P PTCA OF CX ACUTE OH HFrEF ACUTE DECOMPENSATION AGIF HYPERCOAGULABLE STATE DIABETES VASCULOPATHY NEUROPATHY WITH RECENT CVA NEPHROPATHY HEMATURIA UTI PT WAS ON BUMEX WHEN DCed BUT NOT TAKING MEDS HYPERKALEMIA UNOPPOSED ALDACTONE Assessment/Plan MILRINONE DRIP ABX LASIX DRIP HOLD ANY K SUPPLEMENT Plan discussed with: Patient Critical Care Time(min): 35 CHRISTINA KAMARA MD May 29, 2024 11:04
[2024-05-29] MEDS: FUROSEMIDE INJECTION 100 MG in SODIUM CHL 0.9% 100 ML IV SCH (13:45)
[2024-05-29] MEDS: MILRINONE 20MG/100ML 100 ML IV SCH (14:43)
--- NOTE | 2024-05-29 15:12 | DVHPN2 ---
Progress Note Date Seen: May 29, 2024 Has the PT tested + for MRSA If YES, has PT been informed?: No Medical Necessity Reason Pt with a Central, PICC or Fol: No Subjective Patient reports: No new complaints Review of Systems: HEENT:Normal, CVS:Normal, RESPIRATORY:Normal, GI:Normal, :Normal, MSK:Normal, NEURO:Normal Objective vital signs Vital Sign Date Time Temp Pulse Resp B/P (MAP) Pulse Ox O2 Delivery O2 Flow Rate FiO2 05/29/24 14:43 112/89 05/29/24 10:00 97 Nasal Cannula 4.0 05/29/24 10:00 36 05/29/24 05:00 97.4 120 19 97.4 Total Intake and Output 05/28/24 05/28/24 05/29/24 15:00 23:00 07:00 Intake Total 50 ml 300 ml Balance 50 ml 300 ml medications Current Medications Medications Dose Ordered Sig/Danis Route Start Time Stop Time Status Last Admin Dose Admin Sodium Chloride 10 ml Q8HR IV 05/28/24 06:00 05/29/24 14:44 10 ML Docusate Sodium 100 mg BIDPRN PRN PO 05/28/24 01:15 Acetaminophen 650 mg Q6HP PRN PO 05/28/24 01:15 Morphine Sulfate 2 mg Q4HPRN PRN IV 05/28/24 01:15 Nitroglycerin 0.4 mg Q5MINP PRN SL 05/28/24 01:15 Morphine Sulfate 2 mg Q30M PRN IV 05/28/24 01:15 Furosemide 40 mg DAILY IV 05/29/24 10:00 Hold 05/29/24 09:19 40 MG Apixaban 2.5 mg BID PO 05/28/24 10:00 UNV Clopidogrel Bisulfate 75 mg DAILY PO 05/28/24 10:00 05/29/24 09:18 75 MG Cholecalciferol 5,000 unit DAILY PO 05/28/24 10:00 05/29/24 09:17 5,000 UNIT Sertraline HCl 100 mg DAILY PO 05/28/24 10:00 05/29/24 09:17 100 MG Vitamin A/Vitamin D 5 gm DAILY PRN TOP 05/28/24 01:30 Diagnostic Test (Pha) 1 strip ACHS 05/28/24 07:00 05/29/24 06:06 1 STRIP Insulin Human Regular ACHS SC 05/28/24 07:00 05/28/24 17:32 3 UNITS Dextrose 50 ml UD PRN IV 05/28/24 02:30 Levothyroxine Sodium 50 mcg QAM PO 05/29/24 07:00 05/29/24 06:02 50 MCG Apixaban 2.5 mg BID PO 05/28/24 22:00 05/29/24 09:19 2.5 MG Milrinone Lactate 100 ml @ 12.566 mls/ hr Q7H58M IV 05/29/24 11:00 05/29/24 14:43 12.566 MLS/HR Furosemide 100 mg/ Sodium Chloride 110 ml @ 11 mls/hr Q10H IV 05/29/24 11:00 05/29/24 13:45 11 MLS/HR Examination: GENERAL:Normal, HEENT:Normal, NECK:Normal, LUNGS:Normal, LUNGS:Abnormal (on oxygen), CVS:Normal, ABDOMEN:Normal, MSK:Normal, MSK:Abnormal (edema+), SKIN:Normal, NEURO:Normal, :Normal laboratory and microbiology Laboratory Tests 05/29/24 05:35 Test 05/29/24 05:35 Range/Units Serum Glucose 106 74-106 mg/dL Microbiology Date/Time Source Procedure Growth Status 05/28/24 08:06 Blood Blood Culture - Preliminary NO GROWTH AFTER 24 HOURS OF INCUBATION. Resulted 05/28/24 03:40 Voided Urine Urine Culture - Preliminary Resulted Problem List/Assessment/Plan Problem List/Assessment/Plan #1 acute on chronic respiratory failure. #2 Acute myocardial infarction, status post stent with coronary artery disease. #3 Acute on chronic systolic heart failure: lasix drip, milrinone drip #4 Diabetes mellitus. #5 Chronic obstructive pulmonary disease. #6 Hypertension. #7 Morbid obesity. #8 Hypothyroidism. #9 Status post automatic implantable cardioverter defibrillator. #10 Pulmonary embolism, status post inferior vena cava filter, eliquis #11 Sleep apnea. advance care planning - full code- time spent 21 mins Plan discussed with: Patient Date of Service: May 29, 2024 Billing Provider: DOLLY MAN MD Common Visit Codes: [id number] INP/OBS CARE(HIGH) DOLLY MAN MD May 29, 2024 15:12
[2024-05-30] VITALS (13 sets, daily range): BP systolic 92–103; BP diastolic 55–63; PULSE 64–118; RESP 14–18; TEMP 97.2–98.3; O2SAT 6–99
[2024-05-30 06:50] LABS: Calcium 9.6 mg/dL (8.7-10.4); Chloride 100 mmol/L (98-107)
[2024-05-30 06:51] LABS: Anion Gap 10 (5-15); Carbon Dioxide 25 mmol/L (20-31)
[2024-05-30 06:56] LABS: BUN/Creatinine Ratio 32.9 (10.0-20.0); Glucose 89 mg/dL (74-106)
[2024-05-30 06:59] LABS: Blood Urea Nitrogen 48 mg/dL (9-23); Potassium 3.2 mmol/L (3.5-5.1); Sodium 135 mmol/L (136-145)
--- NOTE | 2024-05-30 10:54 | DVHPN2 ---
Subjective SOB continues to decrease Reviewed: Care Plan, H&P, Labs, Medications, Previous Orders, Radiology, Other (Consultation) Changes from previous H/P or p: No Changes Objective Vitals Vital Signs Date Time Temp Pulse Resp B/P (MAP) Pulse Ox O2 Delivery O2 Flow Rate FiO2 05/30/24 09:00 97.2 108 18 102/62 (75) 99 97.2 05/30/24 08:24 Nasal Cannula* 3 32 Intake/Output Intake and Output 05/30/24 07:00 Intake Total 1307.5 ml Output Total 600 ml Balance 707.5 ml Intake Oral 980 ml IV Total 327.5 ml Output Urine Total 600 ml # Voids 3 General Appearance: Alert, Oriented X3, Cooperative, No acute distress HEENT: Atraumatic Lungs: Other (Decreased air entry bilateral with a scattered wheezing/crackles) Cardiovascular: Regular rate, Normal S1, Normal S2 Medications Current Medications Medications Dose Ordered Sig/Danis Route Start Time Stop Time Status Last Admin Dose Admin Sodium Chloride 10 ml Q8HR IV 05/28/24 06:00 05/30/24 10:34 10 ML Docusate Sodium 100 mg BIDPRN PRN PO 05/28/24 01:15 Acetaminophen 650 mg Q6HP PRN PO 05/28/24 01:15 Morphine Sulfate 2 mg Q4HPRN PRN IV 05/28/24 01:15 Nitroglycerin 0.4 mg Q5MINP PRN SL 05/28/24 01:15 Morphine Sulfate 2 mg Q30M PRN IV 05/28/24 01:15 Furosemide 40 mg DAILY IV 05/29/24 10:00 Hold 05/29/24 09:19 40 MG Apixaban 2.5 mg BID PO 05/28/24 10:00 UNV Clopidogrel Bisulfate 75 mg DAILY PO 05/28/24 10:00 05/29/24 09:18 75 MG Cholecalciferol 5,000 unit DAILY PO 05/28/24 10:00 05/29/24 09:17 5,000 UNIT Sertraline HCl 100 mg DAILY PO 05/28/24 10:00 05/29/24 09:17 100 MG Vitamin A/Vitamin D 5 gm DAILY PRN TOP 05/28/24 01:30 Diagnostic Test (Pha) 1 strip ACHS 05/28/24 07:00 05/30/24 10:34 1 STRIP Insulin Human Regular ACHS SC 05/28/24 07:00 05/29/24 21:59 2 UNITS Dextrose 50 ml UD PRN IV 05/28/24 02:30 Levothyroxine Sodium 50 mcg QAM PO 05/29/24 07:00 05/30/24 05:44 50 MCG Apixaban 2.5 mg BID PO 05/28/24 22:00 05/29/24 09:19 2.5 MG Milrinone Lactate 100 ml @ 12.566 mls/ hr Q7H58M IV 05/29/24 11:00 05/30/24 05:44 12.566 MLS/HR Furosemide 100 mg/ Sodium Chloride 110 ml @ 11 mls/hr Q10H IV 05/29/24 11:00 05/30/24 00:58 11 MLS/HR Laboratory Results Laboratory Tests 05/29/24 05:35 05/30/24 04:39 Chemistry Test 05/30/24 04:39 Calcium Level 9.6 mg/dL (8.7-10.4) Urinalysis Test 05/28/24 03:40 Urine Color Yellow (Yellow) Urine Clarity Ex.turbid (Clear) Urine pH 5.0 (5.0-9.0) Urine Specific [place] 1.013 (1.001-1.035) Urine Protein 1+ (Negative) H Urine Ketones Negative (Negative) Urine Blood 3+ /uL (Negative) H Urine Nitrite Negative (Negative) Urine Bilirubin Negative (Negative) Urine Urobilinogen 3 mg/dL (Negative) H Urine Leukocyte Esterase 3+ /uL (Negative) Urine RBC 27 /hpf (0 - 3) Urine WBC 1024 /hpf (0 - 3) Urine WBC Clumps Present /hpf (None Seen) Urine Squamous Epithelial Cells Few /hpf (<5) Urine Bacteria Few /hpf (None Seen) H Urine Mucus Few (None Seen) Urine Glucose Normal mg/dL (Normal) Microbiology Microbiology Date/Time Source Procedure Growth Status 05/28/24 08:06 Blood Blood Culture - Preliminary NO GROWTH AFTER 48 HOURS OF INCUBATION. Resulted 05/28/24 03:40 Voided Urine Urine Culture - Preliminary Resulted Assessment/Plan Assessment/Plan Covering Dr. Keenan: #Acute on chronic hypoxic respiratory failure due to acute on chronic systolic heart failure; continue oxygen therapy as needed; further management as below; continue monitoring #Acute on chronic systolic heart failure; continue IV diuresis; telemetry; cardiology is following; continue monitoring #ERIN with hyperkalemia; most likely vasomotor nephropathy; avoid nephrotoxic agents; continue monitoring #COPD; on home oxygen; not in exacerbation; continue monitoring #Hypertensive heart disease with heart failure; exacerbation; continue current medical management including antihypertensive medications accordingly; continue monitoring #Diabetes mellitus type 2; continue insulin sliding scale with hypoglycemia protocol; continue monitoring #Morbid obesity with metabolic syndrome; counseled the patient about the importance of adopting healthy lifestyle with diet and exercise in order to lose weight; continue monitoring #Pulmonary embolism status post IVC filter; continue anticoagulation with apixaban; continue monitoring #Hypothyroidism; continue levothyroxine; continue monitoring #Obstructive sleep apnea; continue CPAP as tolerated; continue monitoring Goals of care discussion for 20 minutes; full code Late Entry. This medical document was created using an electronic medical record system with computerized dictation system. Although this document has been carefully reviewed, there might still be some phonetic and typographical errors. These areas are purely typographical due to imperfections of the software programs, and do not reflect any compromise in the patient's medical care. Plan discussed with: Patient, Other (Nurse) Date of Service: May 30, 2024 Billing Provider: ROSA DAVIS MD Common Visit Codes: [id number] INP/OBS CARE(HIGH) Secondary Visit Codes: [id number] CARE PLAN 30 MINUTES (20 minutes) ROSA DAVIS MD May 30, 2024 10:54
[2024-05-30] MEDS: POTASSIUM CHLORIDE 40 MEQ, LIDOCAINE 1% (LOCAL ANESTH.) 4 ML in SODIUM CHL 0.9% 250 ML IV ONE (11:00)
[2024-05-30 12:44] LABS: Urine Bacteria None Seen /hpf (None Seen)
[2024-05-30 13:02] LABS: Urine Blood 3+ /uL (Negative); Urine Clarity Turbid (Clear); Urine Color Colorless (Yellow); Urine Protein, UAD TRACE (Negative); Urine Specific Gravity 1.008 (1.001-1.035); Urine Urobilinogen Normal (Negative); Urine WBC 55 /hpf (0 - 3)
--- NOTE | 2024-05-30 13:52 | DVHPN2 ---
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 HEMATURIA UTI PT WAS ON BUMEX WHEN DCed BUT NOT TAKING MEDS HYPERKALEMIA SECONDARY TO ONLY BEING ON ALDACTONE vital signs Vital Sign Date Time Temp Pulse Resp B/P (MAP) Pulse Ox O2 Delivery O2 Flow Rate FiO2 05/30/24 11:42 92/55 05/30/24 11:34 113 05/30/24 09:00 97.2 18 99 97.2 05/30/24 08:24 Nasal Cannula* 3 32 Total Intake and Output 05/29/24 05/29/24 05/30/24 14:59 22:59 06:59 Intake Total 860 ml 447.5 ml Output Total 600 ml Balance 860 ml -152.5 ml medications Current Medications Medications Dose Ordered Sig/Danis Route Start Time Stop Time Status Last Admin Dose Admin Sodium Chloride 10 ml Q8HR IV 05/28/24 06:00 05/30/24 10:34 10 ML Docusate Sodium 100 mg BIDPRN PRN PO 05/28/24 01:15 Acetaminophen 650 mg Q6HP PRN PO 05/28/24 01:15 Morphine Sulfate 2 mg Q4HPRN PRN IV 05/28/24 01:15 Nitroglycerin 0.4 mg Q5MINP PRN SL 05/28/24 01:15 Morphine Sulfate 2 mg Q30M PRN IV 05/28/24 01:15 Furosemide 40 mg DAILY IV 05/29/24 10:00 Hold 05/29/24 09:19 40 MG Apixaban 2.5 mg BID PO 05/28/24 10:00 UNV Clopidogrel Bisulfate 75 mg DAILY PO 05/28/24 10:00 05/29/24 09:18 75 MG Cholecalciferol 5,000 unit DAILY PO 05/28/24 10:00 05/30/24 10:51 5,000 UNIT Sertraline HCl 100 mg DAILY PO 05/28/24 10:00 05/30/24 10:50 100 MG Vitamin A/Vitamin D 5 gm DAILY PRN TOP 05/28/24 01:30 Diagnostic Test (Pha) 1 strip ACHS 05/28/24 07:00 05/30/24 10:34 1 STRIP Insulin Human Regular ACHS SC 05/28/24 07:00 05/29/24 21:59 2 UNITS Dextrose 50 ml UD PRN IV 05/28/24 02:30 Levothyroxine Sodium 50 mcg QAM PO 05/29/24 07:00 05/30/24 05:44 50 MCG Apixaban 2.5 mg BID PO 05/28/24 22:00 05/29/24 09:19 2.5 MG Milrinone Lactate 100 ml @ 12.566 mls/ hr Q7H58M IV 05/29/24 11:00 05/30/24 11:42 12.566 MLS/HR Furosemide 100 mg/ Sodium Chloride 110 ml @ 11 mls/hr Q10H IV 05/29/24 11:00 05/30/24 11:41 11 MLS/HR objective HEENT: Pupils are reactive. Funduscopic exam shows some AV nicking and hard exudates, no papilledema noted. Sclerae are anicteric. NECK: No JVD appreciated. Carotid pulses are 2+ and symmetrical. No cervical adenopathy, no supraclavicular adenopathy. PULMONARY: Clear to auscultation. CARDIOVASCULAR: Regular rate without S3, without S4. PMI; however, is diffuse. There is a 2/6 systolic murmur along the left sternal border. ABDOMEN: Obese. Unable to appreciate an organomegaly. EXTREMITIES: Distal pulses are diminished with 1 Doppler pulses in lower extremity. NEUROLOGIC: The patient, however, is intact, alert, oriented. 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
[2024-05-30 13:53] LABS: Basophils # (auto) 0 10 ^3/uL (0-0.2); Basophils % (auto) 0.4 % (0.0-2.0); Eosinophils # (auto) 0.3 10 ^3/uL (0-0.8); Eosinophils % (auto) 3.3 % (0.0-7.0); Hemoglobin 12.7 g/dL (13.5-17.5); Lymphocytes % (auto) 12.1 % (10.0-50.0); Mean Corpuscular Hemoglobin 30.2 pg (28.0-32.0); Mean Corpuscular Hgb Conc. 33.3 g/dL (32.0-36.0); Mean Corpuscular Volume 90.6 fL (80.0-100.0); Monocytes # (auto) 0.8 10 ^3/uL (0-1.3); Monocytes % (auto) 9.9 % (0.0-12.0); Neutrophils % (auto) 74.3 % (37.0-80.0); Nucleated Red Blood Cells % 0.1 %; Platelet Count (auto) 292 10^3/uL (140-450); Red Cell Distribution Width 16.6 % (11.8-14.3); White Blood Cell 8.1 10^3/uL (4.4-10.8)
[2024-05-30] MEDS: POTASSIUM EFFERVESENT TAB 25 MEQ GT SCH (21:15)
[2024-05-31] VITALS (13 sets, daily range): BP systolic 97–138; BP diastolic 49–62; PULSE 60–119; RESP 15–19; TEMP 96.2–97.8; O2SAT 95–100
[2024-05-31 08:27] LABS: Basophils # (auto) 0 10 ^3/uL (0-0.2); Basophils % (auto) 0.6 % (0.0-2.0); Eosinophils # (auto) 0.2 10 ^3/uL (0-0.8); Eosinophils % (auto) 3.1 % (0.0-7.0); Hematocrit 39.2 % (41.0-53.0); Hemoglobin 13.4 g/dL (13.5-17.5); Lymphocytes # (auto) 1.3 10 ^3/uL (0.4-5.4); Lymphocytes % (auto) 18.6 % (10.0-50.0); Mean Corpuscular Hemoglobin 30.6 pg (28.0-32.0); Mean Corpuscular Hgb Conc. 34.2 g/dL (32.0-36.0); Mean Corpuscular Volume 89.6 fL (80.0-100.0); Monocytes # (auto) 0.7 10 ^3/uL (0-1.3); Monocytes % (auto) 9.5 % (0.0-12.0); Neutrophils # (auto) 4.7 10 ^3/uL (1.6-8.6); Neutrophils % (auto) 68.2 % (37.0-80.0); Nucleated Red Blood Cells % 0.1 %; Platelet Count (auto) 268 10^3/uL (140-450); Red Blood Cells 4.37 10^6/uL (4.5-5.90); Red Cell Distribution Width 16.4 % (11.8-14.3); White Blood Cell 6.9 10^3/uL (4.4-10.8)
[2024-05-31 08:46] LABS: Alanine Aminotransferase 17 U/L (7-40); Albumin 3.5 g/dL (3.2-4.8); Anion Gap 10 (5-15); BUN/Creatinine Ratio 34.7 (10.0-20.0); Calcium 9.5 mg/dL (8.7-10.4); Carbon Dioxide 30 mmol/L (20-31); Chloride 99 mmol/L (98-107); Glucose 106 mg/dL (74-106); Magnesium 1.9 mg/dL (1.6-2.6); Sodium 139 mmol/L (136-145)
[2024-05-31 08:47] LABS: Aspartate Aminotransferase 24 U/L (13-40); Bilirubin, Total 1.2 mg/dL (0.2-1.0); Total Protein 6.6 g/dL (5.7-8.2)
[2024-05-31 08:56] LABS: Alkaline Phosphatase 315 U/L (46-116); Blood Urea Nitrogen 43 mg/dL (9-23); Potassium 3.3 mmol/L (3.5-5.1)
--- NOTE | 2024-05-31 12:14 | DVHPN2 ---
Subjective The patient seen and examined at bedside. No chest pain today. Tired. Reviewed: Care Plan, H&P, Labs, Medications, Previous Orders, Radiology Changes from previous H/P or p: No Changes Objective Vitals Vital Signs Date Time Temp Pulse Resp B/P (MAP) Pulse Ox O2 Delivery O2 Flow Rate FiO2 05/31/24 10:30 98 Nasal Cannula* 3 32 05/31/24 09:00 96.2 111 15 138/60 (86) 96.2 Intake/Output Intake and Output 05/31/24 07:00 Intake Total 1254 ml Output Total 2750 ml Balance -1496 ml Intake Oral 1144 ml IV Total 110 ml Output Urine Total 2750 ml # Bowel Movements 1 General Appearance: Alert, Cooperative, No acute distress HEENT: Atraumatic, PERRLA, EOMI, Mucous membr. moist/pink Neck: Supple Cardiovascular: Regular rate, Normal S1, Normal S2, No murmurs, Gallops, Rubs Abdomen: Normal bowel sounds, Soft, No tenderness Neuro: Cranial nerves 3-12 NL Psych/Mental Status: Mental status NL Medications Current Medications Medications Dose Ordered Sig/Danis Route Start Time Stop Time Status Last Admin Dose Admin Sodium Chloride 10 ml Q8HR IV 05/28/24 06:00 05/31/24 09:58 10 ML Docusate Sodium 100 mg BIDPRN PRN PO 05/28/24 01:15 Acetaminophen 650 mg Q6HP PRN PO 05/28/24 01:15 Morphine Sulfate 2 mg Q4HPRN PRN IV 05/28/24 01:15 Nitroglycerin 0.4 mg Q5MINP PRN SL 05/28/24 01:15 Morphine Sulfate 2 mg Q30M PRN IV 05/28/24 01:15 Furosemide 40 mg DAILY IV 05/29/24 10:00 Hold 05/29/24 09:19 40 MG Apixaban 2.5 mg BID PO 05/28/24 10:00 UNV Clopidogrel Bisulfate 75 mg DAILY PO 05/28/24 10:00 05/31/24 09:53 75 MG Cholecalciferol 5,000 unit DAILY PO 05/28/24 10:00 05/31/24 09:58 5,000 UNIT Sertraline HCl 100 mg DAILY PO 05/28/24 10:00 05/31/24 09:58 100 MG Vitamin A/Vitamin D 5 gm DAILY PRN TOP 05/28/24 01:30 Diagnostic Test (Pha) 1 strip ACHS 05/28/24 07:00 05/31/24 06:22 1 STRIP Insulin Human Regular ACHS SC 05/28/24 07:00 05/30/24 21:27 2 UNITS Dextrose 50 ml UD PRN IV 05/28/24 02:30 Levothyroxine Sodium 50 mcg QAM PO 05/29/24 07:00 05/31/24 06:08 50 MCG Apixaban 2.5 mg BID PO 05/28/24 22:00 05/31/24 09:53 2.5 MG Furosemide 100 mg/ Sodium Chloride 110 ml @ 11 mls/hr Q10H IV 05/29/24 11:00 05/31/24 06:14 11 MLS/HR Potassium Bicarbonate 50 meq BID GT 05/30/24 22:00 05/31/24 09:53 50 MEQ Laboratory Results Laboratory Tests 05/31/24 07:28 Chemistry Test 05/31/24 07:28 Albumin 3.5 g/dL (3.2-4.8) Calcium Level 9.5 mg/dL (8.7-10.4) Magnesium Level 1.9 mg/dL (1.6-2.6) Total Protein 6.6 g/dL (5.7-8.2) LFT Test 05/31/24 07:28 Alanine Aminotransferase (ALT) 17 U/L (7-40) Alkaline Phosphatase 315 U/L (46-116) H Aspartate Amino Transferase (AST) 24 U/L (13-40) Total Bilirubin 1.2 mg/dL (0.2-1.0) H Urinalysis Test 05/28/24 03:40 05/30/24 12:27 Urine WBC Clumps Present /hpf (None Seen) Urine Mucus Few (None Seen) Urine Color Colorless (Yellow) Urine Clarity Turbid (Clear) H Urine pH 5.0 (5.0-9.0) Urine Specific [place] 1.008 (1.001-1.035) Urine Protein Trace (Negative) H Urine Ketones Negative (Negative) Urine Blood 3+ /uL (Negative) H Urine Nitrite Negative (Negative) Urine Bilirubin Negative (Negative) Urine Urobilinogen Normal mg/dL (Negative) Urine Leukocyte Esterase 2+ /uL (Negative) Urine RBC 324 /hpf (0 - 3) Urine WBC 55 /hpf (0 - 3) Urine Squamous Epithelial Cells Few /hpf (<5) Urine Bacteria None seen /hpf (None Seen) Urine Glucose Normal mg/dL (Normal) Microbiology Microbiology Date/Time Source Procedure Growth Status 05/28/24 08:06 Blood Blood Culture - Preliminary NO GROWTH AFTER 72 HOURS OF INCUBATION. Resulted 05/28/24 03:40 Voided Urine Urine Culture - Final Complete Labs and/or images reviewed: Labs reviewed by me Assessment/Plan Assessment/Plan #Acute on chronic hypoxic respiratory failure due to acute on chronic systolic heart failure; continue oxygen therapy as needed; continue monitoring #Acute on chronic systolic heart failure; continue IV diuresis; telemetry; cardiology is following; continue monitoring #ERIN with hyperkalemia; most likely vasomotor nephropathy; avoid nephrotoxic agents; continue monitoring #COPD; on home oxygen; not in exacerbation; continue monitoring #Hypertensive heart disease with heart failure; exacerbation; continue current medical management including antihypertensive medications accordingly; continue monitoring #Diabetes mellitus type 2; continue insulin sliding scale with hypoglycemia protocol; continue monitoring #Morbid obesity with metabolic syndrome; counseled the patient about the importance of adopting healthy lifestyle with diet and exercise in order to lose weight; continue monitoring #Pulmonary embolism status post IVC filter; continue anticoagulation with apixaban; continue monitoring #Hypothyroidism; continue levothyroxine; continue monitoring #Obstructive sleep apnea; continue CPAP as tolerated; continue monitoring This medical document was created using an electronic medical record system with [employer] direct computerized dictation system. Although this document has been carefully reviewed, there may still be some phonetic and typographical errors. These areas are purely typographical due to imperfections of the software programs, and do not reflect any compromise in the patient's medical care. Plan discussed with: Patient Date of Service: May 31, 2024 Billing Provider: SONALI WADE MD Common Visit Codes: [id number] INP/OBS CARE(HIGH) SONALI WADE MD May 31, 2024 12:14
[2024-06-01] VITALS (14 sets, daily range): BP systolic 95–107; BP diastolic 54–73; PULSE 59–125; RESP 17–23; TEMP 97.3–98.3; O2SAT 96–100
--- NOTE | 2024-06-01 13:05 | DVHPN2 ---
Subjective The patient is seen and examined at bedside. No chest pain today. Complain of shortness for breath Reviewed: Care Plan, H&P, Labs, Medications, Previous Orders, Radiology, Other (Consultation) Changes from previous H/P or p: No Changes Objective Vitals Vital Signs Date Time Temp Pulse Resp B/P (MAP) Pulse Ox O2 Delivery O2 Flow Rate FiO2 06/01/24 09:00 98.3 59 18 107/58 (74) 97 98.3 06/01/24 06:14 Nasal Cannula* 3 32 Intake/Output Intake and Output 06/01/24 07:00 Intake Total 1190 ml Output Total 3160 ml Balance -1970 ml Intake Oral 1080 ml IV Total 110 ml Output Urine Total 3160 ml General Appearance: Alert, Oriented X3, Cooperative, No acute distress HEENT: Atraumatic Lungs: Other (Decreased air entry bilateral with a scattered wheezing/crackles) Cardiovascular: Regular rate, Normal S1, Normal S2 Medications Current Medications Medications Dose Ordered Sig/Danis Route Start Time Stop Time Status Last Admin Dose Admin Sodium Chloride 10 ml Q8HR IV 05/28/24 06:00 06/01/24 05:33 10 ML Docusate Sodium 100 mg BIDPRN PRN PO 05/28/24 01:15 Acetaminophen 650 mg Q6HP PRN PO 05/28/24 01:15 Morphine Sulfate 2 mg Q4HPRN PRN IV 05/28/24 01:15 Nitroglycerin 0.4 mg Q5MINP PRN SL 05/28/24 01:15 Morphine Sulfate 2 mg Q30M PRN IV 05/28/24 01:15 Furosemide 40 mg DAILY IV 05/29/24 10:00 Hold 05/29/24 09:19 40 MG Apixaban 2.5 mg BID PO 05/28/24 10:00 UNV Clopidogrel Bisulfate 75 mg DAILY PO 05/28/24 10:00 06/01/24 11:40 75 MG Cholecalciferol 5,000 unit DAILY PO 05/28/24 10:00 06/01/24 11:36 5,000 UNIT Sertraline HCl 100 mg DAILY PO 05/28/24 10:00 06/01/24 11:37 100 MG Vitamin A/Vitamin D 5 gm DAILY PRN TOP 05/28/24 01:30 Diagnostic Test (Pha) 1 strip ACHS 05/28/24 07:00 06/01/24 11:20 1 STRIP Insulin Human Regular ACHS SC 05/28/24 07:00 06/01/24 07:00 3 UNITS Dextrose 50 ml UD PRN IV 05/28/24 02:30 Levothyroxine Sodium 50 mcg QAM PO 05/29/24 07:00 06/01/24 05:20 50 MCG Apixaban 2.5 mg BID PO 05/28/24 22:00 06/01/24 10:00 2.5 MG Furosemide 100 mg/ Sodium Chloride 110 ml @ 11 mls/hr Q10H IV 05/29/24 11:00 06/01/24 05:33 11 MLS/HR Potassium Bicarbonate 50 meq BID GT 05/30/24 22:00 06/01/24 11:36 50 MEQ Laboratory Results Laboratory Tests 05/31/24 07:28 Urinalysis Test 05/28/24 03:40 05/30/24 12:27 Urine WBC Clumps Present /hpf (None Seen) Urine Mucus Few (None Seen) Urine Color Colorless (Yellow) Urine Clarity Turbid (Clear) H Urine pH 5.0 (5.0-9.0) Urine Specific [place] 1.008 (1.001-1.035) Urine Protein Trace (Negative) H Urine Ketones Negative (Negative) Urine Blood 3+ /uL (Negative) H Urine Nitrite Negative (Negative) Urine Bilirubin Negative (Negative) Urine Urobilinogen Normal mg/dL (Negative) Urine Leukocyte Esterase 2+ /uL (Negative) Urine RBC 324 /hpf (0 - 3) Urine WBC 55 /hpf (0 - 3) Urine Squamous Epithelial Cells Few /hpf (<5) Urine Bacteria None seen /hpf (None Seen) Urine Glucose Normal mg/dL (Normal) Microbiology Microbiology Date/Time Source Procedure Growth Status 05/28/24 08:06 Blood Blood Culture - Preliminary NO GROWTH AFTER 72 HOURS OF INCUBATION. Resulted 05/28/24 03:40 Voided Urine Urine Culture - Final Complete Labs and/or images reviewed: Labs reviewed by me Assessment/Plan Assessment/Plan #Acute on chronic hypoxic respiratory failure due to acute on chronic systolic heart failure; continue oxygen therapy as needed; continue monitoring #Acute on chronic systolic heart failure; continue IV diuresis; telemetry; cardiology is following; continue monitoring #ERIN with hyperkalemia; most likely vasomotor nephropathy; avoid nephrotoxic agents; continue monitoring #COPD; on home oxygen; not in exacerbation; continue monitoring #Hypertensive heart disease with heart failure; exacerbation; continue current medical management including antihypertensive medications accordingly; continue monitoring #Diabetes mellitus type 2; continue insulin sliding scale with hypoglycemia protocol; continue monitoring #Morbid obesity with metabolic syndrome; counseled the patient about the importance of adopting healthy lifestyle with diet and exercise in order to lose weight; continue monitoring #Pulmonary embolism status post IVC filter; continue anticoagulation with apixaban; continue monitoring #Hypothyroidism; continue levothyroxine; continue monitoring #Obstructive sleep apnea; continue CPAP as tolerated; continue monitoring Plan discussed with: Patient, Other (RN) Date of Service: Jun 01, 2024 Billing Provider: SONALI WADE MD Common Visit Codes: [id number] INP/OBS CARE(HIGH) SONALI WADE MD Jun 01, 2024 13:05
[2024-06-01] MEDS: POTASSIUM EFFERVESENT TAB 25 MEQ PO SCH (21:48)
[2024-06-02] VITALS (17 sets, daily range): BP systolic 92–144; BP diastolic 59–91; PULSE 66–125; RESP 16–28; TEMP 97.7–98.7; O2SAT 95–100
--- NOTE | 2024-06-02 12:10 | DVHPN2 ---
Progress Note Date Seen: Jun 02, 2024 Has the PT tested + for MRSA If YES, has PT been informed?: No Medical Necessity Reason Pt with a Central, PICC or Fol: Yes The following are medically ne: Stubbs Catheter Reason for stubbs catheter: Strict I&O Subjective Patient reports: No new complaints Review of Systems: HEENT:Normal, CVS:Normal, RESPIRATORY:Normal, GI:Normal, :Normal, MSK:Normal, NEURO:Normal Objective vital signs Vital Sign Date Time Temp Pulse Resp B/P (MAP) Pulse Ox O2 Delivery O2 Flow Rate FiO2 06/02/24 08:02 97 Nasal Cannula 4.0 06/02/24 08:02 36 06/02/24 05:00 97.7 116 21 103/68 (80) 97.7 Total Intake and Output 06/01/24 06/01/24 06/02/24 15:00 23:00 07:00 Intake Total 475 ml 348 ml Output Total 725 ml 875 ml Balance -250 ml -527 ml medications Current Medications Medications Dose Ordered Sig/Danis Route Start Time Stop Time Status Last Admin Dose Admin Sodium Chloride 10 ml Q8HR IV 05/28/24 06:00 06/02/24 10:51 10 ML Docusate Sodium 100 mg BIDPRN PRN PO 05/28/24 01:15 Acetaminophen 650 mg Q6HP PRN PO 05/28/24 01:15 Morphine Sulfate 2 mg Q4HPRN PRN IV 05/28/24 01:15 Nitroglycerin 0.4 mg Q5MINP PRN SL 05/28/24 01:15 Morphine Sulfate 2 mg Q30M PRN IV 05/28/24 01:15 Furosemide 40 mg DAILY IV 05/29/24 10:00 Hold 05/29/24 09:19 40 MG Apixaban 2.5 mg BID PO 05/28/24 10:00 UNV Clopidogrel Bisulfate 75 mg DAILY PO 05/28/24 10:00 06/01/24 11:40 75 MG Cholecalciferol 5,000 unit DAILY PO 05/28/24 10:00 06/02/24 10:47 5,000 UNIT Sertraline HCl 100 mg DAILY PO 05/28/24 10:00 06/02/24 10:48 100 MG Vitamin A/Vitamin D 5 gm DAILY PRN TOP 05/28/24 01:30 Diagnostic Test (Pha) 1 strip ACHS 05/28/24 07:00 06/02/24 10:51 1 STRIP Insulin Human Regular ACHS SC 05/28/24 07:00 06/02/24 11:17 3 UNITS Dextrose 50 ml UD PRN IV 05/28/24 02:30 Levothyroxine Sodium 50 mcg QAM PO 05/29/24 07:00 06/02/24 05:58 50 MCG Apixaban 2.5 mg BID PO 05/28/24 22:00 06/01/24 21:34 2.5 MG Furosemide 100 mg/ Sodium Chloride 110 ml @ 11 mls/hr Q10H IV 05/29/24 11:00 06/02/24 03:21 11 MLS/HR Potassium Bicarbonate 50 meq BID PO 06/01/24 22:00 06/02/24 10:45 50 MEQ Examination: GENERAL:Normal, HEENT:Normal, NECK:Normal, LUNGS:Normal, LUNGS:Abnormal (on oxygen), CVS:Normal, ABDOMEN:Normal, MSK:Normal, SKIN:Normal, NEURO:Normal, :Normal laboratory and microbiology Laboratory Tests 05/31/24 07:28 Test 05/31/24 07:28 Range/Units Serum Glucose 106 74-106 mg/dL Microbiology Date/Time Source Procedure Growth Status 05/28/24 08:06 Blood Blood Culture - Final NO GROWTH AFTER 5 DAYS OF INCUBATION. Complete 05/28/24 03:40 Voided Urine Urine Culture - Final Complete Problem List/Assessment/Plan Problem List/Assessment/Plan #1 acute on chronic respiratory failure. #2 Acute myocardial infarction, status post stent with coronary artery disease. #3 Acute on chronic systolic heart failure: lasix drip, dc milrinone drip #4 Diabetes mellitus. #5 Chronic obstructive pulmonary disease. #6 Hypertension. #7 Morbid obesity. #8 Hypothyroidism. #9 Status post automatic implantable cardioverter defibrillator. #10 Pulmonary embolism, status post inferior vena cava filter, eliquis #11 Sleep apnea. advance care planning - full code- time spent 21 mins Plan discussed with: Patient My Orders My Orders Orders - DOLLY MAN MD Procedure Category Date Status Time Basic Metabolic Panel LAB 06/02/24 Transmitted 12:05 Complete Blood Count LAB 06/03/24 Verified 06:00 Comprehensive LAB 06/03/24 Verified Metabolic Panel 06:00 Date of Service: Jun 02, 2024 Billing Provider: DOLLY MAN MD Common Visit Codes: [id number] INP/OBS CARE(HIGH) DOLLY MAN MD Jun 02, 2024 12:10
--- NOTE | 2024-06-02 13:36 | DVHPN2 ---
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 HEMATURIA UTI PT WAS ON BUMEX WHEN DCed BUT NOT TAKING MEDS HYPERKALEMIA SECONDARY TO ONLY BEING ON ALDACTONE vital signs Vital Sign Date Time Temp Pulse Resp B/P (MAP) Pulse Ox O2 Delivery O2 Flow Rate FiO2 06/02/24 13:01 98.0 120 22 92/59 (70) 98 98.0 06/02/24 08:02 Nasal Cannula 4.0 06/02/24 08:02 36 Total Intake and Output 06/01/24 06/01/24 06/02/24 15:00 23:00 07:00 Intake Total 475 ml 348 ml Output Total 725 ml 875 ml Balance -250 ml -527 ml medications Current Medications Medications Dose Ordered Sig/Danis Route Start Time Stop Time Status Last Admin Dose Admin Sodium Chloride 10 ml Q8HR IV 05/28/24 06:00 06/02/24 10:51 10 ML Docusate Sodium 100 mg BIDPRN PRN PO 05/28/24 01:15 Acetaminophen 650 mg Q6HP PRN PO 05/28/24 01:15 Morphine Sulfate 2 mg Q4HPRN PRN IV 05/28/24 01:15 Nitroglycerin 0.4 mg Q5MINP PRN SL 05/28/24 01:15 Morphine Sulfate 2 mg Q30M PRN IV 05/28/24 01:15 Apixaban 2.5 mg BID PO 05/28/24 10:00 UNV Clopidogrel Bisulfate 75 mg DAILY PO 05/28/24 10:00 06/01/24 11:40 75 MG Cholecalciferol 5,000 unit DAILY PO 05/28/24 10:00 06/02/24 10:47 5,000 UNIT Sertraline HCl 100 mg DAILY PO 05/28/24 10:00 06/02/24 10:48 100 MG Vitamin A/Vitamin D 5 gm DAILY PRN TOP 05/28/24 01:30 Diagnostic Test (Pha) 1 strip ACHS 05/28/24 07:00 06/02/24 10:51 1 STRIP Insulin Human Regular ACHS SC 05/28/24 07:00 06/02/24 11:17 3 UNITS Dextrose 50 ml UD PRN IV 05/28/24 02:30 Levothyroxine Sodium 50 mcg QAM PO 05/29/24 07:00 06/02/24 05:58 50 MCG Furosemide 100 mg/ Sodium Chloride 110 ml @ 11 mls/hr Q10H IV 05/29/24 11:00 06/02/24 03:21 11 MLS/HR objective HEENT: Pupils are reactive. Funduscopic exam shows some AV nicking and hard exudates, no papilledema noted. Sclerae are anicteric. NECK: No JVD appreciated. Carotid pulses are 2+ and symmetrical. No cervical adenopathy, no supraclavicular adenopathy. PULMONARY: Clear to auscultation. CARDIOVASCULAR: Regular rate without S3, without S4. PMI; however, is diffuse. There is a 2/6 systolic murmur along the left sternal border. ABDOMEN: Obese. Unable to appreciate an organomegaly. EXTREMITIES: Distal pulses are diminished with 1 Doppler pulses in lower extremity. NEUROLOGIC: The patient, however, is intact, alert, oriented. 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
--- NOTE | 2024-06-02 13:38 | DVHPN2 ---
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 HEMATURIA UTI PT WAS ON BUMEX WHEN DCed BUT NOT TAKING MEDS HYPERKALEMIA SECONDARY TO ONLY BEING ON ALDACTONE vital signs Vital Sign Date Time Temp Pulse Resp B/P (MAP) Pulse Ox O2 Delivery O2 Flow Rate FiO2 06/02/24 13:01 98.0 120 22 92/59 (70) 98 98.0 06/02/24 08:02 Nasal Cannula 4.0 06/02/24 08:02 36 Total Intake and Output 06/01/24 06/01/24 06/02/24 15:00 23:00 07:00 Intake Total 475 ml 348 ml Output Total 725 ml 875 ml Balance -250 ml -527 ml medications Current Medications Medications Dose Ordered Sig/Danis Route Start Time Stop Time Status Last Admin Dose Admin Sodium Chloride 10 ml Q8HR IV 05/28/24 06:00 06/02/24 10:51 10 ML Docusate Sodium 100 mg BIDPRN PRN PO 05/28/24 01:15 Acetaminophen 650 mg Q6HP PRN PO 05/28/24 01:15 Morphine Sulfate 2 mg Q4HPRN PRN IV 05/28/24 01:15 Nitroglycerin 0.4 mg Q5MINP PRN SL 05/28/24 01:15 Morphine Sulfate 2 mg Q30M PRN IV 05/28/24 01:15 Apixaban 2.5 mg BID PO 05/28/24 10:00 UNV Clopidogrel Bisulfate 75 mg DAILY PO 05/28/24 10:00 06/01/24 11:40 75 MG Cholecalciferol 5,000 unit DAILY PO 05/28/24 10:00 06/02/24 10:47 5,000 UNIT Sertraline HCl 100 mg DAILY PO 05/28/24 10:00 06/02/24 10:48 100 MG Vitamin A/Vitamin D 5 gm DAILY PRN TOP 05/28/24 01:30 Diagnostic Test (Pha) 1 strip ACHS 05/28/24 07:00 06/02/24 10:51 1 STRIP Insulin Human Regular ACHS SC 05/28/24 07:00 06/02/24 11:17 3 UNITS Dextrose 50 ml UD PRN IV 05/28/24 02:30 Levothyroxine Sodium 50 mcg QAM PO 05/29/24 07:00 06/02/24 05:58 50 MCG Furosemide 100 mg/ Sodium Chloride 110 ml @ 11 mls/hr Q10H IV 05/29/24 11:00 06/02/24 03:21 11 MLS/HR objective HEENT: Pupils are reactive. Funduscopic exam shows some AV nicking and hard exudates, no papilledema noted. Sclerae are anicteric. NECK: No JVD appreciated. Carotid pulses are 2+ and symmetrical. No cervical adenopathy, no supraclavicular adenopathy. PULMONARY: Clear to auscultation. CARDIOVASCULAR: Regular rate without S3, without S4. PMI; however, is diffuse. There is a 2/6 systolic murmur along the left sternal border. ABDOMEN: Obese. Unable to appreciate an organomegaly. EXTREMITIES: Distal pulses are diminished with 1 Doppler pulses in lower extremity. NEUROLOGIC: The patient, however, is intact, alert, oriented. 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
[2024-06-02 13:57] LABS: Sodium 138 mmol/L (136-145)
[2024-06-02 13:58] LABS: Anion Gap 7 (5-15); Calcium 9.4 mg/dL (8.7-10.4); Carbon Dioxide 38 mmol/L (20-31); Chloride 93 mmol/L (98-107); Potassium 5.2 mmol/L (3.5-5.1)
[2024-06-02 14:03] LABS: BUN/Creatinine Ratio 32.7 (10.0-20.0)
[2024-06-02 14:09] LABS: Blood Urea Nitrogen 33 mg/dL (9-23); Glucose 192 mg/dL (74-106)
[2024-06-02] MEDS: IPRATROPIUM BROM 0.5 MG/2.5ML INH SOL ONE (15:08)
[2024-06-02] MEDS: IPRATROPIUM BROM 0.5 MG/2.5ML INH SOL NEB ONE (15:27)
[2024-06-02] MEDS: acetaZOLAMIDE SODIUM 500 MG VL IV ONE (15:38)
[2024-06-03] VITALS (18 sets, daily range): BP systolic 91–107; BP diastolic 57–67; PULSE 97–127; RESP 16–20; TEMP 97.6–98.5; O2SAT 93–100
[2024-06-03 06:41] LABS: Basophils # (auto) 0 10 ^3/uL (0-0.2); Basophils % (auto) 0.4 % (0.0-2.0); Eosinophils # (auto) 0.1 10 ^3/uL (0-0.8); Eosinophils % (auto) 1.1 % (0.0-7.0); Hematocrit 42.5 % (41.0-53.0); Hemoglobin 14.3 g/dL (13.5-17.5); Lymphocytes # (auto) 0.6 10 ^3/uL (0.4-5.4); Mean Corpuscular Hemoglobin 30.7 pg (28.0-32.0); Mean Corpuscular Hgb Conc. 33.6 g/dL (32.0-36.0); Mean Corpuscular Volume 91.3 fL (80.0-100.0); Monocytes # (auto) 0.8 10 ^3/uL (0-1.3); Monocytes % (auto) 8.5 % (0.0-12.0); Neutrophils # (auto) 8.2 10 ^3/uL (1.6-8.6); Nucleated Red Blood Cells % 0.1 %; Platelet Count (auto) 215 10^3/uL (140-450); Red Blood Cells 4.66 10^6/uL (4.5-5.90); Red Cell Distribution Width 16.9 % (11.8-14.3); White Blood Cell 9.8 10^3/uL (4.4-10.8)
[2024-06-03 07:03] LABS: Alanine Aminotransferase 17 U/L (7-40); Albumin 3.4 g/dL (3.2-4.8); Aspartate Aminotransferase 21 U/L (13-40); BUN/Creatinine Ratio 30.4 (10.0-20.0); Calcium 9.4 mg/dL (8.7-10.4); Potassium 3.9 mmol/L (3.5-5.1); Sodium 140 mmol/L (136-145); Total Protein 6.2 g/dL (5.7-8.2)
[2024-06-03 07:07] LABS: Alkaline Phosphatase 300 U/L (46-116); Anion Gap 7.99999 (5-15); Bilirubin, Total 1.8 mg/dL (0.2-1.0); Blood Urea Nitrogen 35 mg/dL (9-23); Chloride 92 mmol/L (98-107); Glucose 115 mg/dL (74-106)
[2024-06-03 07:09] LABS: Carbon Dioxide > 40 mmol/L (20-31)
--- NOTE | 2024-06-03 07:43 | DVH ---
CLINICAL INFORMATION: 78 years old, Male; congestive heart failure. TECHNIQUE: Single AP portable chest radiograph was obtained. COMPARISON: XY CHEST PORTABLE on DOS: 05/28/24, XY CHEST XRAY 1 VIEW on DOS: 05/06/24, XY CHEST XRAY 1 VIEW on DOS: 05/04/24 FINDINGS: Small to moderate right pleural effusion with overlying atelectasis and/or consolidation, appears sli ghtly increased compared to the prior exam. Small left pleural effusion with overlying atelectasis an d/or consolidation is unchanged. Unchanged cardiomegaly and slightly increased prominence of the pulm onary vasculature. No other significant interval change. No pneumothorax. IMPRESSION: 1. Slight worsening of the right pleural effusion with overlying atelectasis and consolidation with g rossly stable appearance of the small left pleural effusion with overlying atelectasis and consolidat ion. 2. Prominence of the pulmonary vasculature appears slightly increased.
[2024-06-03] MEDS: BUMETANIDE 1 MG TAB PO SCH (09:06)
--- NOTE | 2024-06-03 12:25 | DVHPN2 ---
Progress Note Date Seen: Jun 03, 2024 Has the PT tested + for MRSA If YES, has PT been informed?: No Medical Necessity Reason Pt with a Central, PICC or Fol: Yes The following are medically ne: Stubbs Catheter Reason for stubbs catheter: Strict I&O Subjective Patient reports: No new complaints Review of Systems: HEENT:Normal, CVS:Normal, RESPIRATORY:Normal, GI:Normal, :Normal, MSK:Normal, NEURO:Normal Objective vital signs Vital Sign Date Time Temp Pulse Resp B/P (MAP) Pulse Ox O2 Delivery O2 Flow Rate FiO2 06/03/24 10:00 97 Nasal Cannula* 4 36 06/03/24 09:06 99/66 06/03/24 09:00 97.6 114 18 97.6 Total Intake and Output 06/02/24 06/02/24 06/03/24 15:00 23:00 07:00 Intake Total 1280 ml 250 ml Output Total 500 ml 900 ml Balance 780 ml -650 ml medications Current Medications Medications Dose Ordered Sig/Danis Route Start Time Stop Time Status Last Admin Dose Admin Sodium Chloride 10 ml Q8HR IV 05/28/24 06:00 06/03/24 05:49 10 ML Docusate Sodium 100 mg BIDPRN PRN PO 05/28/24 01:15 Acetaminophen 650 mg Q6HP PRN PO 05/28/24 01:15 Morphine Sulfate 2 mg Q4HPRN PRN IV 05/28/24 01:15 Nitroglycerin 0.4 mg Q5MINP PRN SL 05/28/24 01:15 Morphine Sulfate 2 mg Q30M PRN IV 05/28/24 01:15 Apixaban 2.5 mg BID PO 05/28/24 10:00 UNV Clopidogrel Bisulfate 75 mg DAILY PO 05/28/24 10:00 06/03/24 09:07 75 MG Cholecalciferol 5,000 unit DAILY PO 05/28/24 10:00 06/03/24 09:08 5,000 UNIT Sertraline HCl 100 mg DAILY PO 05/28/24 10:00 06/03/24 09:08 100 MG Vitamin A/Vitamin D 5 gm DAILY PRN TOP 05/28/24 01:30 Diagnostic Test (Pha) 1 strip ACHS 05/28/24 07:00 06/03/24 05:49 1 STRIP Insulin Human Regular ACHS SC 05/28/24 07:00 06/03/24 06:15 2 UNITS Dextrose 50 ml UD PRN IV 05/28/24 02:30 Levothyroxine Sodium 50 mcg QAM PO 05/29/24 07:00 06/03/24 05:48 50 MCG Bumetanide 2 mg DAILY PO 06/03/24 10:00 Examination: GENERAL:Normal, HEENT:Normal, NECK:Normal, LUNGS:Normal, LUNGS:Abnormal (on oxygen, rales), CVS:Normal, ABDOMEN:Normal, MSK:Normal, SKIN:Normal, NEURO:Normal, :Normal laboratory and microbiology Laboratory Tests 06/03/24 05:09 Test 06/03/24 05:09 Range/Units Serum Glucose 115 H 74-106 mg/dL Microbiology Date/Time Source Procedure Growth Status 05/28/24 08:06 Blood Blood Culture - Final NO GROWTH AFTER 5 DAYS OF INCUBATION. Complete 05/28/24 03:40 Voided Urine Urine Culture - Final Complete Problem List/Assessment/Plan Problem List/Assessment/Plan #1 acute on chronic respiratory failure. #2 Acute myocardial infarction, status post stent with coronary artery disease. #3 Acute on chronic systolic heart failure: bumex #4 Diabetes mellitus. #5 Chronic obstructive pulmonary disease. #6 Hypertension. #7 Morbid obesity. #8 Hypothyroidism. #9 Status post automatic implantable cardioverter defibrillator. #10 Pulmonary embolism, status post inferior vena cava filter, dc eliquis #11 Sleep apnea. poor prognosis- explained to advance care planning - wishes dnr status expect bipap- time spent 21 mins Plan discussed with: Patient, Spouse My Orders My Orders Orders - DOLLY MAN MD Procedure Category Date Status Time BIPAP RT 06/02/24 Logged 15:28 Morphine Sulfate PHA 06/03/24 Verified Injection 12:15 Lorazepam 2mg/Ml Inj PHA 06/03/24 Verified (Ativan Inj) 12:15 Hydrocodone-Acet PHA 06/03/24 Verified 5/325mg Tab (Gause 12:15 Date of Service: Jun 03, 2024 Billing Provider: DOLLY MAN MD Common Visit Codes: [id number] INP/OBS CARE(HIGH) Secondary Visit Codes: [id number] CARE PLAN 30 MINUTES Date of Service: Jun 03, 2024 Billing Provider: DOLLY MAN MD Common Visit Codes: [id number] INP/OBS CARE(HIGH) Secondary Visit Codes: [id number] CARE PLAN 30 MINUTES DOLLY MAN MD Jun 03, 2024 12:25
[2024-06-03] MEDS: BUMETANIDE 1 MG TAB PO ONE (12:26)
--- NOTE | 2024-06-03 13:20 | DVHPN2 ---
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 HEMATURIA UTI PT WAS ON BUMEX WHEN DCed BUT NOT TAKING MEDS HYPERKALEMIA SECONDARY TO ONLY BEING ON ALDACTONE vital signs Vital Sign Date Time Temp Pulse Resp B/P (MAP) Pulse Ox O2 Delivery O2 Flow Rate FiO2 06/03/24 12:26 97/67 06/03/24 10:00 97 Nasal Cannula* 4 36 06/03/24 09:00 97.6 114 18 97.6 Total Intake and Output 06/02/24 06/02/24 06/03/24 15:00 23:00 07:00 Intake Total 1280 ml 250 ml Output Total 500 ml 900 ml Balance 780 ml -650 ml medications Current Medications Medications Dose Ordered Sig/Danis Route Start Time Stop Time Status Last Admin Dose Admin Sodium Chloride 10 ml Q8HR IV 05/28/24 06:00 06/03/24 05:49 10 ML Docusate Sodium 100 mg BIDPRN PRN PO 05/28/24 01:15 Acetaminophen 650 mg Q6HP PRN PO 05/28/24 01:15 Nitroglycerin 0.4 mg Q5MINP PRN SL 05/28/24 01:15 Morphine Sulfate 2 mg Q30M PRN IV 05/28/24 01:15 Apixaban 2.5 mg BID PO 05/28/24 10:00 UNV Clopidogrel Bisulfate 75 mg DAILY PO 05/28/24 10:00 06/03/24 09:07 75 MG Sertraline HCl 100 mg DAILY PO 05/28/24 10:00 06/03/24 09:08 100 MG Vitamin A/Vitamin D 5 gm DAILY PRN TOP 05/28/24 01:30 Diagnostic Test (Pha) 1 strip ACHS 05/28/24 07:00 06/03/24 11:30 1 STRIP Insulin Human Regular ACHS SC 05/28/24 07:00 06/03/24 12:33 2 UNITS Dextrose 50 ml UD PRN IV 05/28/24 02:30 Levothyroxine Sodium 50 mcg QAM PO 05/29/24 07:00 06/03/24 05:48 50 MCG Bumetanide 2 mg DAILY PO 06/03/24 10:00 Morphine Sulfate 1 mg Q4HPRN PRN IV 06/03/24 12:15 UNV Lorazepam 0.5 mg Q6HP PRN IV 06/03/24 12:15 UNV Acetaminophen/ Hydrocodone Bitart 1 tab Q6HPRN PRN PO 06/03/24 12:15 UNV objective HEENT: Pupils are reactive. Funduscopic exam shows some AV nicking and hard exudates, no papilledema noted. Sclerae are anicteric. NECK: No JVD appreciated. Carotid pulses are 2+ and symmetrical. No cervical adenopathy, no supraclavicular adenopathy. PULMONARY: Clear to auscultation. CARDIOVASCULAR: Regular rate without S3, without S4. PMI; however, is diffuse. There is a 2/6 systolic murmur along the left sternal border. ABDOMEN: Obese. Unable to appreciate an organomegaly. EXTREMITIES: Distal pulses are diminished with 1 Doppler pulses in lower extremity. NEUROLOGIC: The patient, however, is intact, alert, oriented. 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
[2024-06-03] MEDS: acetaZOLAMIDE SODIUM 500 MG VL IV ONE (15:55)
[2024-06-04] VITALS (22 sets, daily range): BP systolic 96–139; BP diastolic 66–74; PULSE 102–124; RESP 16–26; TEMP 96.3–98; O2SAT 92–99
--- NOTE | 2024-06-04 09:07 | DVHPN2 ---
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 HEMATURIA UTI PT WAS ON BUMEX WHEN DCed BUT NOT TAKING MEDS HYPERKALEMIA SECONDARY TO ONLY BEING ON ALDACTONE vital signs Vital Sign Date Time Temp Pulse Resp B/P (MAP) Pulse Ox O2 Delivery O2 Flow Rate FiO2 06/04/24 06:00 107 98 Facial BiPAP Mask 40 06/04/24 05:00 98.0 17 96/71 (79) 98.0 06/03/24 20:00 4 Total Intake and Output 06/03/24 06/03/24 06/04/24 15:00 23:00 07:00 Intake Total 1270 ml 300 ml Output Total 500 ml 500 ml Balance 770 ml -200 ml medications Current Medications Medications Dose Ordered Sig/Danis Route Start Time Stop Time Status Last Admin Dose Admin Sodium Chloride 10 ml Q8HR IV 05/28/24 06:00 06/04/24 06:21 10 ML Docusate Sodium 100 mg BIDPRN PRN PO 05/28/24 01:15 Acetaminophen 650 mg Q6HP PRN PO 05/28/24 01:15 Nitroglycerin 0.4 mg Q5MINP PRN SL 05/28/24 01:15 Morphine Sulfate 2 mg Q30M PRN IV 05/28/24 01:15 Apixaban 2.5 mg BID PO 05/28/24 10:00 UNV Clopidogrel Bisulfate 75 mg DAILY PO 05/28/24 10:00 06/03/24 09:07 75 MG Sertraline HCl 100 mg DAILY PO 05/28/24 10:00 06/03/24 09:08 100 MG Vitamin A/Vitamin D 5 gm DAILY PRN TOP 05/28/24 01:30 Diagnostic Test (Pha) 1 strip ACHS 05/28/24 07:00 06/04/24 06:21 1 STRIP Insulin Human Regular ACHS SC 05/28/24 07:00 06/03/24 22:11 2 UNITS Dextrose 50 ml UD PRN IV 05/28/24 02:30 Levothyroxine Sodium 50 mcg QAM PO 05/29/24 07:00 06/04/24 06:21 50 MCG Morphine Sulfate 1 mg Q4HPRN PRN IV 06/03/24 12:15 Lorazepam 0.5 mg Q6HP PRN IV 06/03/24 12:15 Acetaminophen/ Hydrocodone Bitart 1 tab Q6HPRN PRN PO 06/03/24 12:15 objective HEENT: Pupils are reactive. Funduscopic exam shows some AV nicking and hard exudates, no papilledema noted. Sclerae are anicteric. NECK: No JVD appreciated. Carotid pulses are 2+ and symmetrical. No cervical adenopathy, no supraclavicular adenopathy. PULMONARY: Clear to auscultation. CARDIOVASCULAR: Regular rate without S3, without S4. PMI; however, is diffuse. There is a 2/6 systolic murmur along the left sternal border. ABDOMEN: Obese. Unable to appreciate an organomegaly. EXTREMITIES: Distal pulses are diminished with 1 Doppler pulses in lower extremity. NEUROLOGIC: The patient, however, is intact, alert, oriented. 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 HEMATURIA UTI PT WAS ON BUMEX WHEN DCed BUT NOT TAKING MEDS HYPERKALEMIA UNOPPOSED ALDACTONE Assessment/Plan MILRINONE DRIP ABX LASIX DRIP HOLD ANY K SUPPLEMENT SEVERE HYPOKALEMIA NOW RESUME K+ SUPPLEMENT DIAMOX IV DNR PROGRAM OFF AICD HOLD BUMEX DOSE OF DIAMOX DISCUSSED WITH DAUGHTER CURRENTLY ON BIPAP DNR DAUGHTER IS AGREEABLE TO HOSPICE WILL DIURESE ADEQUATELY THAN HOME ON HOSPICE CXR WORSENING EFFUSION/ CONSOLIDATION INHALER WITH MUCOMYST Dietary Evaluation Review Comments: 1) Consider a CCHO 60g/Cardiac diet 2) Continue current plan of care Expected Outcomes/Goals: F/U in 3-5 days Plan discussed with: Patient Critical Care Time(min): 35 CHRISTINA KAMARA MD Jun 04, 2024 09:07
[2024-06-04] MEDS: methylPREDNISolone SOD SUCC 40 MG/ML VL IV SCH (09:47)
[2024-06-04] MEDS: LEVOTHYROXINE SODIUM 25 MCG TAB PO ONE (09:49)
[2024-06-04] MEDS: cefTRIAXone 1GM/50ML D5W 50 ML IV SCH (09:58)
[2024-06-04] MEDS: ACETYLCYSTEINE 20%(200MG/ML) SOL 4ML NEB SCH (10:18)
[2024-06-04] MEDS: IPRATROPIUM BROM 0.5 MG/2.5ML INH SOL NEB SCH (10:18)
[2024-06-04] MEDS: DOBUTamine 1000MCG/ML 250 ML IV SCH (10:22)
[2024-06-04 10:51] LABS: Alanine Aminotransferase 12 U/L (7-40); Albumin 3.3 g/dL (3.2-4.8); Anion Gap 3 (5-15); Aspartate Aminotransferase 24 U/L (13-40); BUN/Creatinine Ratio 33.3 (10.0-20.0); Calcium 9.5 mg/dL (8.7-10.4); Sodium 138 mmol/L (136-145); Total Protein 6.4 g/dL (5.7-8.2)
--- NOTE | 2024-06-04 10:53 | DVH ---
CHEST RADIOGRAPH Indication: PNA Technique: Single AP portable chest radiograph was obtained. Comparison: XY CHEST PORTABLE on DOS: 06/03/24, XY CHEST PORTABLE on DOS: 05/28/24, XY CHEST XRAY 1 EW on DOS: 05/06/24, XY CHEST XRAY 1 VIEW on DOS: 05/04/24, XY CHEST PORTABLE on DOS: 05/01/24, XY YI ST PORTABLE on DOS: 06/03/24 FINDINGS: Small to moderate right pleural effusion with overlying atelectasis and/or consolidation, appears sli ghtly increased compared to the prior exam. Small left pleural effusion with overlying atelectasis an d/or consolidation is unchanged. Unchanged cardiomegaly and slightly increased prominence of the pulm onary vasculature. No other significant interval change. No pneumothorax. IMPRESSION: 1. Slight worsening of the right pleural effusion with overlying atelectasis and consolidation with g rossly stable appearance of the small left pleural effusion with overlying atelectasis and consolidat ion. 2. Prominence of the pulmonary vasculature appears slightly increased.
[2024-06-04 10:56] LABS: Alkaline Phosphatase 251 U/L (46-116); Bilirubin, Total 1.6 mg/dL (0.2-1.0); Blood Urea Nitrogen 33 mg/dL (9-23); Carbon Dioxide 38 mmol/L (20-31); Chloride 97 mmol/L (98-107); Glucose 123 mg/dL (74-106)
[2024-06-04] MEDS: HYDROcodone-ACET 5/325MG TAB PO PRN (12:33)
[2024-06-04 12:50] LABS: Base Excess 9.2 mmol/L (-2.0-3.0)
[2024-06-04] MEDS: MORPHINE SULFATE INJ 2 MG/ml SYRG IV PRN (15:16)
--- NOTE | 2024-06-04 15:24 | DVHPN2 ---
Progress Note Date Seen: Jun 04, 2024 Has the PT tested + for MRSA If YES, has PT been informed?: No Medical Necessity Reason Pt with a Central, PICC or Fol: Yes The following are medically ne: Stubbs Catheter Reason for stubbs catheter: Strict I&O Subjective Patient reports: No new complaints Review of Systems: HEENT:Normal, CVS:Normal, RESPIRATORY:Normal, GI:Normal, :Normal, MSK:Normal, NEURO:Normal Objective vital signs Vital Sign Date Time Temp Pulse Resp B/P (MAP) Pulse Ox O2 Delivery O2 Flow Rate FiO2 06/04/24 14:17 113 18 98 06/04/24 13:00 97.3 139/67 (91) 97.3 06/04/24 12:02 Facial BiPAP Mask 40 06/04/24 10:00 4 Total Intake and Output 06/03/24 06/03/24 06/04/24 15:00 23:00 07:00 Intake Total 1270 ml 300 ml Output Total 500 ml 500 ml Balance 770 ml -200 ml medications Current Medications Medications Dose Ordered Sig/Danis Route Start Time Stop Time Status Last Admin Dose Admin Sodium Chloride 10 ml Q8HR IV 05/28/24 06:00 06/04/24 14:00 10 ML Docusate Sodium 100 mg BIDPRN PRN PO 05/28/24 01:15 Acetaminophen 650 mg Q6HP PRN PO 05/28/24 01:15 Nitroglycerin 0.4 mg Q5MINP PRN SL 05/28/24 01:15 Morphine Sulfate 2 mg Q30M PRN IV 05/28/24 01:15 Apixaban 2.5 mg BID PO 05/28/24 10:00 UNV Clopidogrel Bisulfate 75 mg DAILY PO 05/28/24 10:00 06/04/24 09:49 75 MG Sertraline HCl 100 mg DAILY PO 05/28/24 10:00 06/04/24 10:01 100 MG Vitamin A/Vitamin D 5 gm DAILY PRN TOP 05/28/24 01:30 Diagnostic Test (Pha) 1 strip ACHS 05/28/24 07:00 06/04/24 12:24 1 STRIP Insulin Human Regular ACHS SC 05/28/24 07:00 06/04/24 12:24 2 UNITS Dextrose 50 ml UD PRN IV 05/28/24 02:30 Morphine Sulfate 1 mg Q4HPRN PRN IV 06/03/24 12:15 Lorazepam 0.5 mg Q6HP PRN IV 06/03/24 12:15 Acetaminophen/ Hydrocodone Bitart 1 tab Q6HPRN PRN PO 06/03/24 12:15 06/04/24 12:33 1 TAB Levothyroxine Sodium 75 mcg QAM PO 06/05/24 07:00 Dobutamine HCl/ Dextrose 250 ml @ 31.59 mls/ hr Q7H55M IV 06/04/24 09:15 06/04/24 10:22 31.59 MLS/HR Ipratropium [place] 0.5 mg Q6HR NEB 06/04/24 12:00 06/04/24 14:15 0.5 MG Acetylcysteine 200 mg Q8HR NEB 06/04/24 14:00 06/04/24 10:18 200 MG Methylprednisolone Sodium Succinate 40 mg BID IV 06/04/24 10:00 06/04/24 09:47 40 MG Ceftriaxone Sodium 50 ml @ 100 mls/hr DAILY@09 IV 06/04/24 09:32 06/04/24 09:58 100 MLS/HR Examination: GENERAL:Normal, HEENT:Normal, NECK:Normal, LUNGS:Normal, LUNGS:Abnormal (on oxygen), CVS:Normal, ABDOMEN:Normal, MSK:Normal, SKIN:Normal, NEURO:Normal, :Normal laboratory and microbiology Laboratory Tests 06/04/24 10:15 06/03/24 05:09 Test 06/04/24 10:15 Range/Units Serum Glucose 123 H 74-106 mg/dL Microbiology Date/Time Source Procedure Growth Status 05/28/24 08:06 Blood Blood Culture - Final NO GROWTH AFTER 5 DAYS OF INCUBATION. Complete 05/28/24 03:40 Voided Urine Urine Culture - Final Complete Problem List/Assessment/Plan Problem List/Assessment/Plan #1 acute on chronic respiratory failure. #2 Acute myocardial infarction, status post stent with coronary artery disease. #3 Acute on chronic systolic heart failure: dobutamine drip #4 Diabetes mellitus. #5 Chronic obstructive pulmonary disease: iv steroids #6 Hypertension. #7 Morbid obesity. #8 Hypothyroidism. #9 Status post automatic implantable cardioverter defibrillator. #10 Pulmonary embolism, status post inferior vena cava filter, dc eliquis #11 Sleep apnea. poor prognosis- explained to advance care planning - wishes dnr status expect bipap- time spent 21 mins Plan discussed with: Patient, Spouse Dietary Evaluation Review Comments: 1) Consider a CCHO 60g/Cardiac diet 2) Continue current plan of care Expected Outcomes/Goals: F/U in 3-5 days Date of Service: Jun 04, 2024 Billing Provider: DOLLY MAN MD Common Visit Codes: [id number] INP/OBS CARE(HIGH) Secondary Visit Codes: [id number] CARE PLAN 30 MINUTES DOLLY MAN MD Jun 04, 2024 15:24
--- NOTE | 2024-06-04 16:15 | DVH ---
LEFT LOWER EXTREMITY VENOUS DOPPLER CLINICAL HISTORY: dvt TECHNIQUE: Lower extremity venous Doppler study was performed. COMPARISON: US LT LOWER DVT on DOS: 04/19/24, R VENOUS DVT LTD UNILATERAL on DOS: 06/29/20 FINDINGS: The left common femoral, superficial femoral, popliteal, posterior tibial veins appear patent with n ormal augmentation, phasicity, compressibility and color-flow. . IMPRESSION: 1. No sonographic evidence of DVT in the left leg. HS:Y
[2024-06-04] MEDS: POTASSIUM CHL 20 Meq TABLET PO ONE (16:22)
[2024-06-05] VITALS (20 sets, daily range): BP systolic 93–126; BP diastolic 58–85; PULSE 58–126; RESP 17–23; TEMP 96.3–98; O2SAT 93–99
[2024-06-05] MEDS: LEVOTHYROXINE SODIUM 25 MCG TAB PO SCH (06:03)
[2024-06-05 07:17] LABS: Anion Gap 6 (5-15)
[2024-06-05 07:18] LABS: Calcium 9.4 mg/dL (8.7-10.4)
[2024-06-05 07:23] LABS: BUN/Creatinine Ratio 35.2 (10.0-20.0); Magnesium 1.9 mg/dL (1.6-2.6)
[2024-06-05 07:25] LABS: Blood Urea Nitrogen 32 mg/dL (9-23); Carbon Dioxide 36 mmol/L (20-31); Chloride 93 mmol/L (98-107); Glucose 159 mg/dL (74-106); Potassium 3.4 mmol/L (3.5-5.1); Sodium 135 mmol/L (136-145)
[2024-06-05] MEDS: IPRATROPIUM BROM 0.5 MG/2.5ML INH SOL NEB SCH (07:36)
[2024-06-05] MEDS: IPRATROPIUM BROM 0.5 MG/2.5ML INH SOL ONE (07:47)
--- NOTE | 2024-06-05 12:48 | DVHPN2 ---
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 HEMATURIA UTI PT WAS ON BUMEX WHEN DCed BUT NOT TAKING MEDS HYPERKALEMIA SECONDARY TO ONLY BEING ON ALDACTONE vital signs Vital Sign Date Time Temp Pulse Resp B/P (MAP) Pulse Ox O2 Delivery O2 Flow Rate FiO2 06/05/24 09:29 93/58 06/05/24 09:23 98.0 105 20 93 98.0 06/05/24 08:00 Nasal Cannula* 4 36 Total Intake and Output 06/04/24 06/04/24 06/05/24 15:00 23:00 07:00 Intake Total 167 ml 707 ml 370 ml Output Total 500 ml 225 ml Balance 167 ml 207 ml 145 ml medications Current Medications Medications Dose Ordered Sig/Danis Route Start Time Stop Time Status Last Admin Dose Admin Sodium Chloride 10 ml Q8HR IV 05/28/24 06:00 06/05/24 06:03 10 ML Docusate Sodium 100 mg BIDPRN PRN PO 05/28/24 01:15 Acetaminophen 650 mg Q6HP PRN PO 05/28/24 01:15 Nitroglycerin 0.4 mg Q5MINP PRN SL 05/28/24 01:15 Morphine Sulfate 2 mg Q30M PRN IV 05/28/24 01:15 Apixaban 2.5 mg BID PO 05/28/24 10:00 UNV Clopidogrel Bisulfate 75 mg DAILY PO 05/28/24 10:00 06/05/24 09:04 75 MG Sertraline HCl 100 mg DAILY PO 05/28/24 10:00 06/05/24 09:04 100 MG Vitamin A/Vitamin D 5 gm DAILY PRN TOP 05/28/24 01:30 Diagnostic Test (Pha) 1 strip ACHS 05/28/24 07:00 06/05/24 12:14 1 STRIP Insulin Human Regular ACHS SC 05/28/24 07:00 06/05/24 12:14 4 UNITS Dextrose 50 ml UD PRN IV 05/28/24 02:30 Morphine Sulfate 1 mg Q4HPRN PRN IV 06/03/24 12:15 06/04/24 15:16 1 MG Lorazepam 0.5 mg Q6HP PRN IV 06/03/24 12:15 Acetaminophen/ Hydrocodone Bitart 1 tab Q6HPRN PRN PO 06/03/24 12:15 06/04/24 12:33 1 TAB Levothyroxine Sodium 75 mcg QAM PO 06/05/24 07:00 06/05/24 06:03 75 MCG Dobutamine HCl/ Dextrose 250 ml @ 31.59 mls/ hr Q7H55M IV 06/04/24 09:15 06/05/24 09:29 31.59 MLS/HR Acetylcysteine 200 mg Q8HR NEB 06/04/24 14:00 06/05/24 07:36 200 MG Methylprednisolone Sodium Succinate 40 mg BID IV 06/04/24 10:00 06/05/24 09:04 40 MG Ceftriaxone Sodium 50 ml @ 100 mls/hr DAILY@09 IV 06/04/24 09:32 06/05/24 09:05 100 MLS/HR Ipratropium [place] 0.5 mg Q8HR NEB 06/05/24 14:00 06/05/24 07:36 0.5 MG objective HEENT: Pupils are reactive. Funduscopic exam shows some AV nicking and hard exudates, no papilledema noted. Sclerae are anicteric. NECK: No JVD appreciated. Carotid pulses are 2+ and symmetrical. No cervical adenopathy, no supraclavicular adenopathy. PULMONARY: Clear to auscultation. CARDIOVASCULAR: Regular rate without S3, without S4. PMI; however, is diffuse. There is a 2/6 systolic murmur along the left sternal border. ABDOMEN: Obese. Unable to appreciate an organomegaly. EXTREMITIES: Distal pulses are diminished with 1 Doppler pulses in lower extremity. NEUROLOGIC: The patient, however, is intact, alert, oriented. 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 HEMATURIA UTI PT WAS ON BUMEX WHEN DCed BUT NOT TAKING MEDS HYPERKALEMIA UNOPPOSED ALDACTONE Assessment/Plan MILRINONE DRIP ABX LASIX DRIP HOLD ANY K SUPPLEMENT SEVERE HYPOKALEMIA NOW RESUME K+ SUPPLEMENT DIAMOX IV DNR PROGRAM OFF AICD HOLD BUMEX DOSE OF DIAMOX DISCUSSED WITH DAUGHTER CURRENTLY ON BIPAP DNR DAUGHTER IS AGREEABLE TO HOSPICE WILL DIURESE ADEQUATELY THAN HOME ON HOSPICE CXR WORSENING EFFUSION/ CONSOLIDATION INHALER WITH MUCOMYST CO2 RETENTION/ DECREASE O2 TO INCREASE HYPOXIC DRIVE GIVE DIAMOX TO CORRECT CONTRACTION ALKALOSIS/ METABOLIC ALKALOSIS Dietary Evaluation Review Comments: 1) Consider a CCHO 60g/Cardiac diet 2) Continue current plan of care Expected Outcomes/Goals: F/U in 3-5 days Plan discussed with: Patient Critical Care Time(min): 35 CHRISTINA KAMARA MD Jun 05, 2024 12:48
--- NOTE | 2024-06-05 14:07 | DVHPN2 ---
Progress Note Date Seen: Jun 05, 2024 Has the PT tested + for MRSA If YES, has PT been informed?: No Medical Necessity Reason Pt with a Central, PICC or Fol: Yes The following are medically ne: Stubbs Catheter Reason for stubbs catheter: Strict I&O Subjective Patient reports: No new complaints Review of Systems: HEENT:Normal, CVS:Normal, RESPIRATORY:Normal, GI:Normal, :Normal, MSK:Normal, NEURO:Normal Objective vital signs Vital Sign Date Time Temp Pulse Resp B/P (MAP) Pulse Ox O2 Delivery O2 Flow Rate FiO2 06/05/24 13:12 109 18 95 06/05/24 09:29 93/58 06/05/24 09:23 98.0 98.0 06/05/24 08:00 Nasal Cannula* 4 36 Total Intake and Output 06/04/24 06/04/24 06/05/24 15:00 23:00 07:00 Intake Total 167 ml 707 ml 370 ml Output Total 500 ml 225 ml Balance 167 ml 207 ml 145 ml medications Current Medications Medications Dose Ordered Sig/Danis Route Start Time Stop Time Status Last Admin Dose Admin Sodium Chloride 10 ml Q8HR IV 05/28/24 06:00 06/05/24 13:58 10 ML Docusate Sodium 100 mg BIDPRN PRN PO 05/28/24 01:15 Acetaminophen 650 mg Q6HP PRN PO 05/28/24 01:15 Nitroglycerin 0.4 mg Q5MINP PRN SL 05/28/24 01:15 Morphine Sulfate 2 mg Q30M PRN IV 05/28/24 01:15 Apixaban 2.5 mg BID PO 05/28/24 10:00 UNV Clopidogrel Bisulfate 75 mg DAILY PO 05/28/24 10:00 06/05/24 09:04 75 MG Sertraline HCl 100 mg DAILY PO 05/28/24 10:00 06/05/24 09:04 100 MG Vitamin A/Vitamin D 5 gm DAILY PRN TOP 05/28/24 01:30 Diagnostic Test (Pha) 1 strip ACHS 05/28/24 07:00 06/05/24 12:14 1 STRIP Insulin Human Regular ACHS SC 05/28/24 07:00 06/05/24 12:14 4 UNITS Dextrose 50 ml UD PRN IV 05/28/24 02:30 Morphine Sulfate 1 mg Q4HPRN PRN IV 06/03/24 12:15 06/04/24 15:16 1 MG Lorazepam 0.5 mg Q6HP PRN IV 06/03/24 12:15 Acetaminophen/ Hydrocodone Bitart 1 tab Q6HPRN PRN PO 06/03/24 12:15 06/04/24 12:33 1 TAB Levothyroxine Sodium 75 mcg QAM PO 06/05/24 07:00 06/05/24 06:03 75 MCG Dobutamine HCl/ Dextrose 250 ml @ 31.59 mls/ hr Q7H55M IV 06/04/24 09:15 06/05/24 09:29 31.59 MLS/HR Acetylcysteine 200 mg Q8HR NEB 06/04/24 14:00 06/05/24 13:11 200 MG Methylprednisolone Sodium Succinate 40 mg BID IV 06/04/24 10:00 06/05/24 09:04 40 MG Ceftriaxone Sodium 50 ml @ 100 mls/hr DAILY@09 IV 06/04/24 09:32 06/05/24 09:05 100 MLS/HR Ipratropium [place] 0.5 mg Q8HR NEB 06/05/24 14:00 06/05/24 13:11 0.5 MG Examination: GENERAL:Normal, HEENT:Normal, NECK:Normal, LUNGS:Normal, LUNGS:Abnormal (on bipap), CVS:Normal, ABDOMEN:Normal, MSK:Normal, SKIN:Normal, NEURO:Normal, :Normal laboratory and microbiology Laboratory Tests 06/05/24 06:03 06/03/24 05:09 Test 06/05/24 06:03 Range/Units Serum Glucose 159 H 74-106 mg/dL Microbiology Date/Time Source Procedure Growth Status 05/28/24 08:06 Blood Blood Culture - Final NO GROWTH AFTER 5 DAYS OF INCUBATION. Complete 05/28/24 03:40 Voided Urine Urine Culture - Final Complete Problem List/Assessment/Plan Problem List/Assessment/Plan #1 acute on chronic respiratory failure. #2 Acute myocardial infarction, status post stent with coronary artery disease. #3 Acute on chronic systolic heart failure: dobutamine drip #4 Diabetes mellitus. #5 Chronic obstructive pulmonary disease: iv steroids #6 Hypertension. #7 Morbid obesity. #8 Hypothyroidism. #9 Status post automatic implantable cardioverter defibrillator. #10 Pulmonary embolism, status post inferior vena cava filter, dc eliquis #11 Sleep apnea. poor prognosis- explained to advance care planning - wishes dnr status expect bipap- time spent 21 mins Plan discussed with: Patient My Orders My Orders Orders - DOLLY MAN MD Procedure Category Date Status Time Lt Lower Dvt US 06/04/24 Resulted 15:21 Dietary Evaluation Review Comments: 1) Consider a CCHO 60g/Cardiac diet 2) Continue current plan of care Expected Outcomes/Goals: F/U in 3-5 days Date of Service: Jun 05, 2024 Billing Provider: DOLLY MAN MD Common Visit Codes: [id number] INP/OBS CARE(HIGH) Secondary Visit Codes: [id number] CARE PLAN 30 MINUTES DOLLY MAN MD Jun 05, 2024 14:07
[2024-06-05] MEDS: MAGNESIUM SULFATE 1GM/100ML 100 ML IV ONE (15:06)
[2024-06-05] MEDS: POTASSIUM EFFERVESENT TAB 25 MEQ PO SCH (15:09)
[2024-06-06] VITALS (23 sets, daily range): BP systolic 105–140; BP diastolic 54–98; PULSE 74–115; RESP 20–28; TEMP 97.3–98.9; O2SAT 93–99
[2024-06-06 07:26] LABS: Anion Gap 12 (5-15)
[2024-06-06 07:27] LABS: Carbon Dioxide 34 mmol/L (20-31); Chloride 89 mmol/L (98-107); Potassium 3.4 mmol/L (3.5-5.1); Sodium 135 mmol/L (136-145)
[2024-06-06 07:28] LABS: Calcium 10.1 mg/dL (8.7-10.4)
[2024-06-06 07:32] LABS: BUN/Creatinine Ratio 29.1 (10.0-20.0)
[2024-06-06 07:33] LABS: Blood Urea Nitrogen 32 mg/dL (9-23); Glucose 160 mg/dL (74-106); Magnesium 2.2 mg/dL (1.6-2.6)
[2024-06-06] MEDS ORDERED: AZITHROMYCIN 500MG/ 250ML 250 ML IV ONE (11:15)
--- NOTE | 2024-06-06 12:47 | DVHPN2 ---
Subjective Short of breath. Requested BiPAP Reviewed: Care Plan, H&P, Labs, Medications, Previous Orders, Radiology Changes from previous H/P or p: No Changes Objective Vitals Vital Signs Date Time Temp Pulse Resp B/P (MAP) Pulse Ox O2 Delivery O2 Flow Rate FiO2 06/06/24 12:18 106 93 Facial BiPAP Mask 40 06/06/24 10:16 108/66 06/06/24 09:00 98.1 22 98.1 06/06/24 00:58 0.0 Intake/Output Intake and Output 06/06/24 07:00 Intake Total 662 ml Output Total 425 ml Balance 237 ml Intake Oral 275 ml IV Total 387 ml Output Urine Total 425 ml General Appearance: Alert, Oriented X3, Cooperative, mild distress HEENT: Atraumatic Neck: Supple Lungs: Other (Rhonchi more on the right than the left lung with some wheezes) Cardiovascular: Regular rate Abdomen: Normal bowel sounds, Soft, No tenderness Extremities: Other (Trace bilateral lower extremity edema) Neuro: Cranial nerves 3-12 NL Psych/Mental Status: Mental status NL Medications Current Medications Medications Dose Ordered Sig/Danis Route Start Time Stop Time Status Last Admin Dose Admin Sodium Chloride 10 ml Q8HR IV 05/28/24 06:00 06/06/24 06:12 10 ML Docusate Sodium 100 mg BIDPRN PRN PO 05/28/24 01:15 Acetaminophen 650 mg Q6HP PRN PO 05/28/24 01:15 Nitroglycerin 0.4 mg Q5MINP PRN SL 05/28/24 01:15 Apixaban 2.5 mg BID PO 05/28/24 10:00 UNV Clopidogrel Bisulfate 75 mg DAILY PO 05/28/24 10:00 06/06/24 10:17 75 MG Sertraline HCl 100 mg DAILY PO 05/28/24 10:00 06/06/24 10:17 100 MG Vitamin A/Vitamin D 5 gm DAILY PRN TOP 05/28/24 01:30 Diagnostic Test (Pha) 1 strip ACHS 05/28/24 07:00 06/06/24 11:33 1 STRIP Insulin Human Regular ACHS SC 05/28/24 07:00 06/06/24 11:35 2 UNITS Dextrose 50 ml UD PRN IV 05/28/24 02:30 Morphine Sulfate 1 mg Q4HPRN PRN IV 06/03/24 12:15 06/05/24 22:55 1 MG Lorazepam 0.5 mg Q6HP PRN IV 06/03/24 12:15 Acetaminophen/ Hydrocodone Bitart 1 tab Q6HPRN PRN PO 06/03/24 12:15 06/06/24 03:13 1 TAB Levothyroxine Sodium 75 mcg QAM PO 06/05/24 07:00 06/06/24 06:12 75 MCG Dobutamine HCl/ Dextrose 250 ml @ 31.59 mls/ hr Q7H55M IV 06/04/24 09:15 06/06/24 10:16 31.59 MLS/HR Acetylcysteine 200 mg Q8HR NEB 06/04/24 14:00 06/06/24 07:09 200 MG Methylprednisolone Sodium Succinate 40 mg BID IV 06/04/24 10:00 06/06/24 10:16 40 MG Ceftriaxone Sodium 50 ml @ 100 mls/hr DAILY@09 IV 06/04/24 09:32 06/06/24 08:57 100 MLS/HR Ipratropium [place] 0.5 mg Q8HR NEB 06/05/24 14:00 06/06/24 07:09 0.5 MG Potassium Bicarbonate 50 meq DAILY PO 06/06/24 11:00 Azithromycin 250 ml @ 125 mls/hr DAILY IV 06/07/24 10:00 UNV Laboratory Results Laboratory Tests 06/03/24 05:09 06/06/24 06:33 Chemistry Test 06/06/24 06:33 Calcium Level 10.1 mg/dL (8.7-10.4) Magnesium Level 2.2 mg/dL (1.6-2.6) Urinalysis Test 05/28/24 03:40 05/30/24 12:27 Urine WBC Clumps Present /hpf (None Seen) Urine Mucus Few (None Seen) Urine Color Colorless (Yellow) Urine Clarity Turbid (Clear) H Urine pH 5.0 (5.0-9.0) Urine Specific [place] 1.008 (1.001-1.035) Urine Protein Trace (Negative) H Urine Ketones Negative (Negative) Urine Blood 3+ /uL (Negative) H Urine Nitrite Negative (Negative) Urine Bilirubin Negative (Negative) Urine Urobilinogen Normal mg/dL (Negative) Urine Leukocyte Esterase 2+ /uL (Negative) Urine RBC 324 /hpf (0 - 3) Urine WBC 55 /hpf (0 - 3) Urine Squamous Epithelial Cells Few /hpf (<5) Urine Bacteria None seen /hpf (None Seen) Urine Glucose Normal mg/dL (Normal) Microbiology Microbiology Date/Time Source Procedure Growth Status 05/28/24 08:06 Blood Blood Culture - Final NO GROWTH AFTER 5 DAYS OF INCUBATION. Complete 05/28/24 03:40 Voided Urine Urine Culture - Final Complete Assessment/Plan Assessment/Plan Acute respiratory failure COPD exacerbation UTI Pneumonia PE status post IVC filter NH status post stent/coronary artery disease Acute on chronic systolic heart failure Status post AICD Hypertension Morbid obesity Hypothyroidism Sleep apnea Plan: Increase Solu-Medrol to 40 mg every 6 hours. Add azithromycin. Repeat labs and x-ray. Further plan per orders Plan discussed with: Patient My Orders Orders - SHILPA DAVIS MD Procedure Category Date Status Time Potassium Effervesent PHA 06/06/24 In Process Tab (Klor-Con/Ef) 11:00 Comprehensive LAB 06/07/24 Verified Metabolic Panel 06:00 B-Type Natriuretic LAB 06/07/24 Verified Peptide 06:00 Chest Portable XY 06/07/24 Logged 06:00 Abg W/ Co-Ox RT 06/07/24 Logged 06:00 Azithromycin 500mg/ PHA 06/07/24 Logged 250ml (Zithromax 50 10:00 Azithromycin 500mg/ PHA 06/06/24 Logged 250ml (Zithromax 50 11:15 BIPAP RT 06/06/24 Logged 11:28 Complete Blood Count LAB 06/07/24 Verified 06:00 Methylprednisolone PHA 06/06/24 Verified Sod Succ (Solu Medrol 12:45 Date of Service: Jun 06, 2024 Billing Provider: SHILPA DAVIS MD Common Visit Codes: [id number] INP/OBS CARE(HIGH) SHILPA DAVIS MD Jun 06, 2024 12:46
[2024-06-06] MEDS: POTASSIUM EFFERVESENT TAB 25 MEQ PO SCH (13:00)
[2024-06-06] MEDS: acetaZOLAMIDE SODIUM 500 MG VL IV ONE (13:45)
[2024-06-06] MEDS: POTASSIUM CHL 20MEQ/100ML 100 ML IV SCH (13:45)
--- NOTE | 2024-06-06 13:48 | DVHPN2 ---
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 HEMATURIA UTI PT WAS ON BUMEX WHEN DCed BUT NOT TAKING MEDS HYPERKALEMIA SECONDARY TO ONLY BEING ON ALDACTONE vital signs Vital Sign Date Time Temp Pulse Resp B/P (MAP) Pulse Ox O2 Delivery O2 Flow Rate FiO2 06/06/24 13:25 104 23 116/71 (86) 94 06/06/24 12:18 Facial BiPAP Mask 40 06/06/24 10:10 4 06/06/24 09:00 98.1 98.1 Total Intake and Output 06/05/24 06/05/24 06/06/24 15:00 23:00 07:00 Intake Total 50 ml 612 ml 0 ml Output Total 300 ml 125 ml Balance 50 ml 312 ml -125 ml medications Current Medications Medications Dose Ordered Sig/Danis Route Start Time Stop Time Status Last Admin Dose Admin Sodium Chloride 10 ml Q8HR IV 05/28/24 06:00 06/06/24 06:12 10 ML Docusate Sodium 100 mg BIDPRN PRN PO 05/28/24 01:15 Acetaminophen 650 mg Q6HP PRN PO 05/28/24 01:15 Nitroglycerin 0.4 mg Q5MINP PRN SL 05/28/24 01:15 Apixaban 2.5 mg BID PO 05/28/24 10:00 UNV Clopidogrel Bisulfate 75 mg DAILY PO 05/28/24 10:00 06/06/24 10:17 75 MG Sertraline HCl 100 mg DAILY PO 05/28/24 10:00 06/06/24 10:17 100 MG Vitamin A/Vitamin D 5 gm DAILY PRN TOP 05/28/24 01:30 Diagnostic Test (Pha) 1 strip ACHS 05/28/24 07:00 06/06/24 11:33 1 STRIP Insulin Human Regular ACHS SC 05/28/24 07:00 06/06/24 11:35 2 UNITS Dextrose 50 ml UD PRN IV 05/28/24 02:30 Morphine Sulfate 1 mg Q4HPRN PRN IV 06/03/24 12:15 06/05/24 22:55 1 MG Lorazepam 0.5 mg Q6HP PRN IV 06/03/24 12:15 Acetaminophen/ Hydrocodone Bitart 1 tab Q6HPRN PRN PO 06/03/24 12:15 06/06/24 13:31 1 TAB Levothyroxine Sodium 75 mcg QAM PO 06/05/24 07:00 06/06/24 06:12 75 MCG Dobutamine HCl/ Dextrose 250 ml @ 31.59 mls/ hr Q7H55M IV 06/04/24 09:15 06/06/24 10:16 31.59 MLS/HR Acetylcysteine 200 mg Q8HR NEB 06/04/24 14:00 06/06/24 07:09 200 MG Ceftriaxone Sodium 50 ml @ 100 mls/hr DAILY@09 IV 06/04/24 09:32 06/06/24 08:57 100 MLS/HR Ipratropium [place] 0.5 mg Q8HR NEB 06/05/24 14:00 06/06/24 07:09 0.5 MG Potassium Bicarbonate 50 meq DAILY PO 06/06/24 11:00 06/06/24 13:00 50 MEQ Methylprednisolone Sodium Succinate 40 mg Q6H IV 06/06/24 12:45 Doxycycline Hyclate 250 ml @ 125 mls/hr Q12HR IV 06/06/24 13:30 objective HEENT: Pupils are reactive. Funduscopic exam shows some AV nicking and hard exudates, no papilledema noted. Sclerae are anicteric. NECK: No JVD appreciated. Carotid pulses are 2+ and symmetrical. No cervical adenopathy, no supraclavicular adenopathy. PULMONARY: Clear to auscultation. CARDIOVASCULAR: Regular rate without S3, without S4. PMI; however, is diffuse. There is a 2/6 systolic murmur along the left sternal border. ABDOMEN: Obese. Unable to appreciate an organomegaly. EXTREMITIES: Distal pulses are diminished with 1 Doppler pulses in lower extremity. NEUROLOGIC: The patient, however, is intact, alert, oriented. 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 HEMATURIA UTI PT WAS ON BUMEX WHEN DCed BUT NOT TAKING MEDS HYPERKALEMIA UNOPPOSED ALDACTONE Assessment/Plan MILRINONE DRIP ABX LASIX DRIP HOLD ANY K SUPPLEMENT SEVERE HYPOKALEMIA NOW RESUME K+ SUPPLEMENT DIAMOX IV DNR PROGRAM OFF AICD HOLD BUMEX DOSE OF DIAMOX DISCUSSED WITH DAUGHTER CURRENTLY ON BIPAP DNR DAUGHTER IS AGREEABLE TO HOSPICE WILL DIURESE ADEQUATELY THAN HOME ON HOSPICE CXR WORSENING EFFUSION/ CONSOLIDATION INHALER WITH MUCOMYST CO2 RETENTION/ DECREASE O2 TO INCREASE HYPOXIC DRIVE GIVE DIAMOX TO CORRECT CONTRACTION ALKALOSIS/ METABOLIC ALKALOSIS METABOLIC ALKALOSIS IS IMPROVING WITH DIAMOX DECREASE TO 2 LITERS TRY OFFBIPAP CHECK CHEST XRAY, BNP, ABG AND LYTES Dietary Evaluation Review Comments: 1) Consider a CCHO 60g/Cardiac diet 2) Continue current plan of care Expected Outcomes/Goals: F/U in 3-5 days Plan discussed with: Patient Critical Care Time(min): 35 CHRISTINA KAMARA MD Jun 06, 2024 13:47
[2024-06-06] MEDS: methylPREDNISolone SOD SUCC 40 MG/ML VL IV SCH (15:10)
[2024-06-06] MEDS: LORazepam 2MG/ML-1ML VIAL IV PRN (15:22)
[2024-06-06] MEDS: DOXYCYCLINE 100MG/250ML 250 ML IV SCH (17:18)
[2024-06-07] VITALS (19 sets, daily range): BP systolic 112–132; BP diastolic 71–88; PULSE 104–117; RESP 21–23; TEMP 97.4–98.6; O2SAT 94–97
--- NOTE | 2024-06-07 06:35 | DVH ---
CHEST RADIOGRAPH Indication: fu Technique: Single frontal view of the chest was obtained COMPARISON: XY CHEST PORTABLE on DOS: 06/04/24, XY CHEST PORTABLE on DOS: 06/03/24, XY CHEST PORTABLE on DOS: 05/28/24 FINDINGS: Lines and Tubes: Left chest wall AICD Lungs: Increased severe multifocal airspace disease. Pleura: No effusion. No pneumothorax. Cardiomediastinal contours: Unremarkable Bones: Unremarkable IMPRESSION: Increased severe multifocal airspace disease.
[2024-06-07 06:45] LABS: Basophils # (auto) 0 10 ^3/uL (0-0.2); Basophils % (auto) 0.1 % (0.0-2.0); Eosinophils # (auto) 0 10 ^3/uL (0-0.8); Hematocrit 42.5 % (41.0-53.0); Hemoglobin 13.8 g/dL (13.5-17.5); Lymphocytes # (auto) 0.3 10 ^3/uL (0.4-5.4); Lymphocytes % (auto) 1.9 % (10.0-50.0); Mean Corpuscular Hemoglobin 29.2 pg (28.0-32.0); Mean Corpuscular Hgb Conc. 32.4 g/dL (32.0-36.0); Mean Corpuscular Volume 90.2 fL (80.0-100.0); Monocytes # (auto) 0.6 10 ^3/uL (0-1.3); Monocytes % (auto) 4.5 % (0.0-12.0); Neutrophils # (auto) 12.3 10 ^3/uL (1.6-8.6); Neutrophils % (auto) 93.5 % (37.0-80.0); Platelet Count (auto) 206 10^3/uL (140-450); Red Blood Cells 4.71 10^6/uL (4.5-5.90); Red Cell Distribution Width 16.5 % (11.8-14.3); White Blood Cell 13.2 10^3/uL (4.4-10.8)
[2024-06-07 07:13] LABS: Alanine Aminotransferase 12 U/L (7-40); Albumin 3.6 g/dL (3.2-4.8); Anion Gap 11 (5-15); Aspartate Aminotransferase 27 U/L (13-40); BUN/Creatinine Ratio 35.1 (10.0-20.0); Carbon Dioxide 30 mmol/L (20-31); Potassium 4.7 mmol/L (3.5-5.1); Total Protein 6.8 g/dL (5.7-8.2)
[2024-06-07 07:22] LABS: Alkaline Phosphatase 202 U/L (46-116); Bilirubin, Total 1.2 mg/dL (0.2-1.0); Blood Urea Nitrogen 47 mg/dL (9-23); Chloride 91 mmol/L (98-107); Glucose 197 mg/dL (74-106); Sodium 132 mmol/L (136-145)
[2024-06-07] MEDS ORDERED: AZITHROMYCIN 500MG/ 250ML 250 ML IV SCH (10:00)
[2024-06-07 10:20] LABS: Base Excess 6.9 mmol/L (-2.0-3.0)
--- NOTE | 2024-06-07 14:50 | DVHPN2 ---
Subjective Still respiratory distress on BiPAP Reviewed: Care Plan, H&P, Labs, Medications, Previous Orders, Radiology Changes from previous H/P or p: No Changes Objective Vitals Vital Signs Date Time Temp Pulse Resp B/P (MAP) Pulse Ox O2 Delivery O2 Flow Rate FiO2 06/07/24 14:17 107 96 Facial BiPAP Mask 50 06/07/24 14:08 21 124/82 06/07/24 13:38 97.5 97.5 06/07/24 08:00 0 Intake/Output Intake and Output 06/07/24 07:00 Intake Total 1577 ml Output Total 700 ml Balance 877 ml Intake Oral 860 ml IV Total 717 ml Output Urine Total 700 ml # Bowel Movements 1 General Appearance: Alert, Oriented X3, Cooperative, mild distress HEENT: Atraumatic Neck: Supple Lungs: Other (Rhonchi more on the right than the left lung with some wheezes) Cardiovascular: Regular rate Abdomen: Normal bowel sounds, Soft, No tenderness Extremities: Other (Trace bilateral lower extremity edema) Neuro: Cranial nerves 3-12 NL Psych/Mental Status: Mental status NL Medications Current Medications Medications Dose Ordered Sig/Danis Route Start Time Stop Time Status Last Admin Dose Admin Sodium Chloride 10 ml Q8HR IV 05/28/24 06:00 06/07/24 05:22 10 ML Docusate Sodium 100 mg BIDPRN PRN PO 05/28/24 01:15 Acetaminophen 650 mg Q6HP PRN PO 05/28/24 01:15 Nitroglycerin 0.4 mg Q5MINP PRN SL 05/28/24 01:15 Apixaban 2.5 mg BID PO 05/28/24 10:00 UNV Clopidogrel Bisulfate 75 mg DAILY PO 05/28/24 10:00 06/06/24 10:17 75 MG Sertraline HCl 100 mg DAILY PO 05/28/24 10:00 06/06/24 10:17 100 MG Vitamin A/Vitamin D 5 gm DAILY PRN TOP 05/28/24 01:30 Diagnostic Test (Pha) 1 strip ACHS 05/28/24 07:00 06/07/24 11:58 1 STRIP Insulin Human Regular ACHS SC 05/28/24 07:00 06/07/24 11:58 3 UNITS Dextrose 50 ml UD PRN IV 05/28/24 02:30 Morphine Sulfate 1 mg Q4HPRN PRN IV 06/03/24 12:15 06/07/24 14:08 1 MG Lorazepam 0.5 mg Q6HP PRN IV 06/03/24 12:15 06/07/24 06:15 0.5 MG Acetaminophen/ Hydrocodone Bitart 1 tab Q6HPRN PRN PO 06/03/24 12:15 06/06/24 13:31 1 TAB Levothyroxine Sodium 75 mcg QAM PO 06/05/24 07:00 06/06/24 06:12 75 MCG Dobutamine HCl/ Dextrose 250 ml @ 31.59 mls/ hr Q7H55M IV 06/04/24 09:15 06/07/24 05:16 31.59 MLS/HR Acetylcysteine 200 mg Q8HR NEB 06/04/24 14:00 06/07/24 14:16 200 MG Ceftriaxone Sodium 50 ml @ 100 mls/hr DAILY@09 IV 06/04/24 09:32 06/07/24 09:00 100 MLS/HR Ipratropium [place] 0.5 mg Q8HR NEB 06/05/24 14:00 06/07/24 14:16 0.5 MG Potassium Bicarbonate 50 meq DAILY PO 06/06/24 11:00 06/06/24 13:00 50 MEQ Methylprednisolone Sodium Succinate 40 mg Q6H IV 06/06/24 12:45 06/07/24 12:03 40 MG Doxycycline Hyclate 250 ml @ 125 mls/hr Q12HR IV 06/06/24 13:30 06/07/24 12:04 125 MLS/HR Laboratory Results Laboratory Tests 06/07/24 05:43 Chemistry Test 06/07/24 05:43 Albumin 3.6 g/dL (3.2-4.8) Calcium Level 10.0 mg/dL (8.7-10.4) Total Protein 6.8 g/dL (5.7-8.2) Cardiac Markers Test 06/07/24 05:43 B-Type Natriuretic Peptide 2072.82 pg/mL (0-100) LFT Test 06/07/24 05:43 Alanine Aminotransferase (ALT) 12 U/L (7-40) Alkaline Phosphatase 202 U/L (46-116) H Aspartate Amino Transferase (AST) 27 U/L (13-40) Total Bilirubin 1.2 mg/dL (0.2-1.0) H Urinalysis Test 05/28/24 03:40 05/30/24 12:27 Urine WBC Clumps Present /hpf (None Seen) Urine Mucus Few (None Seen) Urine Color Colorless (Yellow) Urine Clarity Turbid (Clear) H Urine pH 5.0 (5.0-9.0) Urine Specific [place] 1.008 (1.001-1.035) Urine Protein Trace (Negative) H Urine Ketones Negative (Negative) Urine Blood 3+ /uL (Negative) H Urine Nitrite Negative (Negative) Urine Bilirubin Negative (Negative) Urine Urobilinogen Normal mg/dL (Negative) Urine Leukocyte Esterase 2+ /uL (Negative) Urine RBC 324 /hpf (0 - 3) Urine WBC 55 /hpf (0 - 3) Urine Squamous Epithelial Cells Few /hpf (<5) Urine Bacteria None seen /hpf (None Seen) Urine Glucose Normal mg/dL (Normal) Blood Gas Results Test 06/07/24 10:15 Arterial Blood pH 7.450 (7.350-7.450) FiO2 % 50.0 Microbiology Microbiology Date/Time Source Procedure Growth Status 05/28/24 08:06 Blood Blood Culture - Final NO GROWTH AFTER 5 DAYS OF INCUBATION. Complete 05/28/24 03:40 Voided Urine Urine Culture - Final Complete Assessment/Plan Assessment/Plan Acute respiratory failure COPD exacerbation UTI Pneumonia PE status post IVC filter DE status post stent/coronary artery disease Acute on chronic systolic heart failure Status post AICD Hypertension Morbid obesity Hypothyroidism Sleep apnea Plan: Discuss with and daughter at bedside. Continue current supportive care but no heroic measures. DNR status. Poor prognosis Plan discussed with: Spouse, Daughter My Orders Orders - SHILPA DAVIS MD Procedure Category Date Status Time Code Status CODE 06/07/24 Transmitted 10:38 Date of Service: Jun 07, 2024 Billing Provider: SHILPA DAVIS MD Common Visit Codes: [id number] INP/OBS CARE(HIGH) SHILPA DAVIS MD Jun 07, 2024 14:50
[2024-06-08] VITALS (17 sets, daily range): BP systolic 118–136; BP diastolic 71–83; PULSE 101–124; RESP 18–30; TEMP 98.1–98.3; O2SAT 92–97
--- NOTE | 2024-06-08 15:14 | DVHPN2 ---
Subjective Better but Still some respiratory distress off BiPAP. Placed on 5 L Oxymizer Reviewed: Care Plan, H&P, Labs, Medications, Previous Orders, Radiology Changes from previous H/P or p: No Changes Objective Vitals Vital Signs Date Time Temp Pulse Resp B/P (MAP) Pulse Ox O2 Delivery O2 Flow Rate FiO2 06/08/24 13:55 111 18 94 06/08/24 13:49 Oxymizer 8.0 06/08/24 13:49 N/A 06/08/24 13:00 98.1 118/73 (88) 98.1 Intake/Output Intake and Output 06/08/24 07:00 Intake Total 970 ml Output Total 750 ml Balance 220 ml Intake Oral 420 ml IV Total 550 ml Output Urine Total 750 ml # Bowel Movements 1 General Appearance: Alert, Oriented X3, Cooperative, mild distress HEENT: Atraumatic Neck: Supple Lungs: Other (Rhonchi more on the right than the left lung with some wheezes) Cardiovascular: Regular rate Abdomen: Normal bowel sounds, Soft, No tenderness Extremities: Other (Trace bilateral lower extremity edema) Neuro: Cranial nerves 3-12 NL Psych/Mental Status: Mental status NL Medications Current Medications Medications Dose Ordered Sig/Danis Route Start Time Stop Time Status Last Admin Dose Admin Sodium Chloride 10 ml Q8HR IV 05/28/24 06:00 06/08/24 13:15 10 ML Docusate Sodium 100 mg BIDPRN PRN PO 05/28/24 01:15 Acetaminophen 650 mg Q6HP PRN PO 05/28/24 01:15 Nitroglycerin 0.4 mg Q5MINP PRN SL 05/28/24 01:15 Apixaban 2.5 mg BID PO 05/28/24 10:00 UNV Clopidogrel Bisulfate 75 mg DAILY PO 05/28/24 10:00 06/06/24 10:17 75 MG Sertraline HCl 100 mg DAILY PO 05/28/24 10:00 06/06/24 10:17 100 MG Vitamin A/Vitamin D 5 gm DAILY PRN TOP 05/28/24 01:30 Diagnostic Test (Pha) 1 strip ACHS 05/28/24 07:00 06/08/24 11:21 1 STRIP Insulin Human Regular ACHS SC 05/28/24 07:00 06/07/24 17:00 4 UNITS Dextrose 50 ml UD PRN IV 05/28/24 02:30 Morphine Sulfate 1 mg Q4HPRN PRN IV 06/03/24 12:15 06/07/24 22:59 1 MG Lorazepam 0.5 mg Q6HP PRN IV 06/03/24 12:15 06/08/24 12:45 0.5 MG Acetaminophen/ Hydrocodone Bitart 1 tab Q6HPRN PRN PO 06/03/24 12:15 06/06/24 13:31 1 TAB Levothyroxine Sodium 75 mcg QAM PO 06/05/24 07:00 06/06/24 06:12 75 MCG Dobutamine HCl/ Dextrose 250 ml @ 31.59 mls/ hr Q7H55M IV 06/04/24 09:15 06/08/24 09:10 31.59 MLS/HR Acetylcysteine 200 mg Q8HR NEB 06/04/24 14:00 06/08/24 13:49 200 MG Ceftriaxone Sodium 50 ml @ 100 mls/hr DAILY@09 IV 06/04/24 09:32 06/08/24 09:15 100 MLS/HR Ipratropium [place] 0.5 mg Q8HR NEB 06/05/24 14:00 06/08/24 13:49 0.5 MG Potassium Bicarbonate 50 meq DAILY PO 06/06/24 11:00 06/06/24 13:00 50 MEQ Methylprednisolone Sodium Succinate 40 mg Q6H IV 06/06/24 12:45 06/08/24 12:45 40 MG Doxycycline Hyclate 250 ml @ 125 mls/hr Q12HR IV 06/06/24 13:30 06/08/24 09:50 125 MLS/HR Laboratory Results Laboratory Tests 06/07/24 05:43 Urinalysis Test 05/28/24 03:40 05/30/24 12:27 Urine WBC Clumps Present /hpf (None Seen) Urine Mucus Few (None Seen) Urine Color Colorless (Yellow) Urine Clarity Turbid (Clear) H Urine pH 5.0 (5.0-9.0) Urine Specific [place] 1.008 (1.001-1.035) Urine Protein Trace (Negative) H Urine Ketones Negative (Negative) Urine Blood 3+ /uL (Negative) H Urine Nitrite Negative (Negative) Urine Bilirubin Negative (Negative) Urine Urobilinogen Normal mg/dL (Negative) Urine Leukocyte Esterase 2+ /uL (Negative) Urine RBC 324 /hpf (0 - 3) Urine WBC 55 /hpf (0 - 3) Urine Squamous Epithelial Cells Few /hpf (<5) Urine Bacteria None seen /hpf (None Seen) Urine Glucose Normal mg/dL (Normal) Microbiology Microbiology Date/Time Source Procedure Growth Status 05/28/24 08:06 Blood Blood Culture - Final NO GROWTH AFTER 5 DAYS OF INCUBATION. Complete 05/28/24 03:40 Voided Urine Urine Culture - Final Complete Assessment/Plan Assessment/Plan Acute respiratory failure COPD exacerbation /slightly better UTI Pneumonia PE status post IVC filter MD status post stent/coronary artery disease Acute on chronic systolic heart failure Status post AICD Hypertension Morbid obesity Hypothyroidism Sleep apnea Plan: Continue Solu-Medrol. Slight improvement but prognosis still poor. We will recheck labs and x-ray. Continue monitoring oxygenation and respiratory pattern. We might placed back on BiPAP if necessary. Continue current plan of care. Total critical care time 35 minutes Plan discussed with: Patient, Spouse, Daughter Date of Service: Jun 08, 2024 Billing Provider: SHILPA DAVIS MD Common Visit Codes: [id number] CARE 30-74 MIN SHILPA DAVIS MD Jun 08, 2024 15:14
[2024-06-09] VITALS (18 sets, daily range): BP systolic 93–109; BP diastolic 59–73; PULSE 100–117; RESP 15–28; TEMP 97.4–100.4; O2SAT 92–98
[2024-06-09 06:18] LABS: Anion Gap 13 (5-15); BUN/Creatinine Ratio 33.6 (10.0-20.0); Calcium 9.6 mg/dL (8.7-10.4); Carbon Dioxide 26 mmol/L (20-31)
[2024-06-09 06:19] LABS: Albumin 3.2 g/dL (3.2-4.8); Total Protein 6.4 g/dL (5.7-8.2)
[2024-06-09 06:22] LABS: Alanine Aminotransferase 899 U/L (7-40); Alkaline Phosphatase 192 U/L (46-116); Bilirubin, Total 2.1 mg/dL (0.2-1.0); Blood Urea Nitrogen 77 mg/dL (9-23); Chloride 91 mmol/L (98-107); Glucose 168 mg/dL (74-106); Potassium 5.2 mmol/L (3.5-5.1); Sodium 130 mmol/L (136-145)
[2024-06-09 06:36] LABS: Aspartate Aminotransferase 2588 U/L (13-40)
[2024-06-09 06:38] LABS: Basophils # (auto) 0 10 ^3/uL (0-0.2); Basophils % (auto) 0.1 % (0.0-2.0); Eosinophils # (auto) 0 10 ^3/uL (0-0.8); Hematocrit 41.9 % (41.0-53.0); Hemoglobin 13.6 g/dL (13.5-17.5); Lymphocytes # (auto) 0.2 10 ^3/uL (0.4-5.4); Lymphocytes % (auto) 1.3 % (10.0-50.0); Mean Corpuscular Hemoglobin 29.2 pg (28.0-32.0); Mean Corpuscular Hgb Conc. 32.4 g/dL (32.0-36.0); Mean Corpuscular Volume 90.1 fL (80.0-100.0); Monocytes # (auto) 0.7 10 ^3/uL (0-1.3); Monocytes % (auto) 4.5 % (0.0-12.0); Neutrophils # (auto) 14.5 10 ^3/uL (1.6-8.6); Neutrophils % (auto) 94.1 % (37.0-80.0); Nucleated Red Blood Cells % 1.2 %; Platelet Count (auto) 184 10^3/uL (140-450); Red Blood Cells 4.65 10^6/uL (4.5-5.90); Red Cell Distribution Width 15.8 % (11.8-14.3); White Blood Cell 15.5 10^3/uL (4.4-10.8)
--- NOTE | 2024-06-09 07:03 | DVH ---
CHEST RADIOGRAPH Indication: fu Technique: Single frontal view of the chest was obtained Comparison: XY CHEST PORTABLE on DOS: 06/07/24, XY CHEST PORTABLE on DOS: 06/04/24, XY CHEST PORTABLE on DOS: 06/03/24, XY CHEST PORTABLE on DOS: 05/28/24, XY CHEST XRAY 1 VIEW on DOS: 05/06/24, XY CHEST PORTABLE on DOS: 06/07/24 FINDINGS: Lines and Tubes: Left chest wall AICD Lungs: Increased severe multifocal airspace disease. Pleura: No effusion. No pneumothorax. Cardiomediastinal contours: Unremarkable Bones: Unremarkable IMPRESSION: Increased severe multifocal airspace disease.
[2024-06-09 07:49] LABS: Base Excess 3.6 mmol/L (-2.0-3.0)
--- NOTE | 2024-06-09 11:21 | CONS ---
Pharmacy Clinical Information: From [facility] Heart Failure Fallout Report, Michael Doan is a 78 year old male with PMH of CHF (LVEF < 20%), NC s/p 2 RAJANI, Afib s/p AICD, CAD, COPD, T2DM, PE s/p IVC filter, UTI. His home medications for heart failure include spironolactone and carvedilol. SGLT2i not recommended due to hx of UTIs. ACEi not recommended due to cough reaction from lisinopril. MRA and ARB/ARNi not recommended due to hyperkalemia. BB not recommended due to soft BP readings Consider switching carvedilol to metoprolol succinate due to COPD. CHANEL WIGGINS PHARMACIST Jun 09, 2024 11:21
--- NOTE | 2024-06-09 13:04 | DVHPN2 ---
Progress Note Date Seen: Jun 09, 2024 Has the PT tested + for MRSA If YES, has PT been informed?: No Medical Necessity Reason Pt with a Central, PICC or Fol: Yes The following are medically ne: Stubbs Catheter Reason for stubbs catheter: Strict I&O Subjective Patient reports: No new complaints Review of Systems: HEENT:Normal, CVS:Normal, RESPIRATORY:Normal, GI:Normal, :Normal, MSK:Normal, NEURO:Normal Objective vital signs Vital Sign Date Time Temp Pulse Resp B/P (MAP) Pulse Ox O2 Delivery O2 Flow Rate FiO2 06/09/24 12:01 109 96 Nasal BiPAP Mask 45 06/09/24 09:08 102/71 06/09/24 09:00 100.4 25 100.4 06/09/24 00:58 8.0 Total Intake and Output 06/08/24 06/08/24 06/09/24 15:00 23:00 07:00 Intake Total 523 ml 248 ml 857.95 ml Output Total 200 ml 250 ml Balance 523 ml 48 ml 607.95 ml medications Current Medications Medications Dose Ordered Sig/Danis Route Start Time Stop Time Status Last Admin Dose Admin Sodium Chloride 10 ml Q8HR IV 05/28/24 06:00 06/09/24 06:41 10 ML Docusate Sodium 100 mg BIDPRN PRN PO 05/28/24 01:15 Acetaminophen 650 mg Q6HP PRN PO 05/28/24 01:15 Nitroglycerin 0.4 mg Q5MINP PRN SL 05/28/24 01:15 Apixaban 2.5 mg BID PO 05/28/24 10:00 UNV Clopidogrel Bisulfate 75 mg DAILY PO 05/28/24 10:00 06/06/24 10:17 75 MG Sertraline HCl 100 mg DAILY PO 05/28/24 10:00 06/06/24 10:17 100 MG Vitamin A/Vitamin D 5 gm DAILY PRN TOP 05/28/24 01:30 Diagnostic Test (Pha) 1 strip ACHS 05/28/24 07:00 06/09/24 11:35 1 STRIP Insulin Human Regular ACHS SC 05/28/24 07:00 06/09/24 11:43 3 UNITS Dextrose 50 ml UD PRN IV 05/28/24 02:30 Morphine Sulfate 1 mg Q4HPRN PRN IV 06/03/24 12:15 06/07/24 22:59 1 MG Lorazepam 0.5 mg Q6HP PRN IV 06/03/24 12:15 06/09/24 00:55 0.5 MG Acetaminophen/ Hydrocodone Bitart 1 tab Q6HPRN PRN PO 06/03/24 12:15 06/06/24 13:31 1 TAB Levothyroxine Sodium 75 mcg QAM PO 06/05/24 07:00 06/06/24 06:12 75 MCG Dobutamine HCl/ Dextrose 250 ml @ 31.59 mls/ hr Q7H55M IV 06/04/24 09:15 06/09/24 09:08 31.59 MLS/HR Acetylcysteine 200 mg Q8HR NEB 06/04/24 14:00 06/09/24 06:24 200 MG Ceftriaxone Sodium 50 ml @ 100 mls/hr DAILY@09 IV 06/04/24 09:32 06/09/24 08:50 100 MLS/HR Ipratropium [place] 0.5 mg Q8HR NEB 06/05/24 14:00 06/09/24 06:24 0.5 MG Potassium Bicarbonate 50 meq DAILY PO 06/06/24 11:00 06/06/24 13:00 50 MEQ Methylprednisolone Sodium Succinate 40 mg Q6H IV 06/06/24 12:45 06/09/24 11:44 40 MG Doxycycline Hyclate 250 ml @ 125 mls/hr Q12HR IV 06/06/24 13:30 06/09/24 10:58 125 MLS/HR Examination: GENERAL:Normal, HEENT:Normal, NECK:Normal, LUNGS:Normal, LUNGS:Abnormal (on bipap), CVS:Normal, ABDOMEN:Normal, MSK:Normal, SKIN:Normal, NEURO:Normal, :Normal laboratory and microbiology Laboratory Tests 06/09/24 05:05 Test 06/09/24 05:05 Range/Units Serum Glucose 168 H 74-106 mg/dL Microbiology Date/Time Source Procedure Growth Status 05/28/24 08:06 Blood Blood Culture - Final NO GROWTH AFTER 5 DAYS OF INCUBATION. Complete 05/28/24 03:40 Voided Urine Urine Culture - Final Complete Problem List/Assessment/Plan Problem List/Assessment/Plan #1 acute on chronic respiratory failure. #2 Acute myocardial infarction, status post stent with coronary artery disease. #3 Acute on chronic systolic heart failure: dobutamine drip #4 Diabetes mellitus. #5 Chronic obstructive pulmonary disease: iv steroids #6 Hypertension. #7 Morbid obesity. #8 Hypothyroidism. #9 Status post automatic implantable cardioverter defibrillator. #10 Pulmonary embolism, status post inferior vena cava filter, dc eliquis #11 Sleep apnea. #12 acute liver failure: dc norco, dc doxy poor prognosis- explained to advance care planning - wishes dnr status expect bipap- time spent 21 mins Plan discussed with: Patient Dietary Evaluation Review Comments: 1) Consider a CCHO 60g/Cardiac diet 2) Continue current plan of care Expected Outcomes/Goals: F/U in 3-5 days Date of Service: Jun 09, 2024 Billing Provider: DOLLY MAN MD Common Visit Codes: [id number] INP/OBS CARE(HIGH) DOLLY MAN MD Jun 09, 2024 13:04
--- NOTE | 2024-06-09 13:54 | DVHPN2 ---
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 HEMATURIA UTI PT WAS ON BUMEX WHEN DCed BUT NOT TAKING MEDS HYPERKALEMIA SECONDARY TO ONLY BEING ON ALDACTONE vital signs Vital Sign Date Time Temp Pulse Resp B/P (MAP) Pulse Ox O2 Delivery O2 Flow Rate FiO2 06/09/24 12:01 109 96 Nasal BiPAP Mask 45 06/09/24 09:08 102/71 06/09/24 09:00 100.4 25 100.4 06/09/24 00:58 8.0 Total Intake and Output 06/08/24 06/08/24 06/09/24 15:00 23:00 07:00 Intake Total 523 ml 248 ml 857.95 ml Output Total 200 ml 250 ml Balance 523 ml 48 ml 607.95 ml medications Current Medications Medications Dose Ordered Sig/Danis Route Start Time Stop Time Status Last Admin Dose Admin Sodium Chloride 10 ml Q8HR IV 05/28/24 06:00 06/09/24 06:41 10 ML Docusate Sodium 100 mg BIDPRN PRN PO 05/28/24 01:15 Acetaminophen 650 mg Q6HP PRN PO 05/28/24 01:15 Nitroglycerin 0.4 mg Q5MINP PRN SL 05/28/24 01:15 Apixaban 2.5 mg BID PO 05/28/24 10:00 UNV Clopidogrel Bisulfate 75 mg DAILY PO 05/28/24 10:00 06/06/24 10:17 75 MG Sertraline HCl 100 mg DAILY PO 05/28/24 10:00 06/06/24 10:17 100 MG Vitamin A/Vitamin D 5 gm DAILY PRN TOP 05/28/24 01:30 Diagnostic Test (Pha) 1 strip ACHS 05/28/24 07:00 06/09/24 11:35 1 STRIP Insulin Human Regular ACHS SC 05/28/24 07:00 06/09/24 11:43 3 UNITS Dextrose 50 ml UD PRN IV 05/28/24 02:30 Morphine Sulfate 1 mg Q4HPRN PRN IV 06/03/24 12:15 06/07/24 22:59 1 MG Lorazepam 0.5 mg Q6HP PRN IV 06/03/24 12:15 06/09/24 00:55 0.5 MG Levothyroxine Sodium 75 mcg QAM PO 06/05/24 07:00 06/06/24 06:12 75 MCG Dobutamine HCl/ Dextrose 250 ml @ 31.59 mls/ hr Q7H55M IV 06/04/24 09:15 06/09/24 09:08 31.59 MLS/HR Acetylcysteine 200 mg Q8HR NEB 06/04/24 14:00 06/09/24 06:24 200 MG Ceftriaxone Sodium 50 ml @ 100 mls/hr DAILY@09 IV 06/04/24 09:32 06/09/24 08:50 100 MLS/HR Ipratropium [place] 0.5 mg Q8HR NEB 06/05/24 14:00 06/09/24 06:24 0.5 MG Potassium Bicarbonate 50 meq DAILY PO 06/06/24 11:00 06/06/24 13:00 50 MEQ Methylprednisolone Sodium Succinate 40 mg Q6H IV 06/06/24 12:45 06/09/24 11:44 40 MG objective HEENT: Pupils are reactive. Funduscopic exam shows some AV nicking and hard exudates, no papilledema noted. Sclerae are anicteric. NECK: No JVD appreciated. Carotid pulses are 2+ and symmetrical. No cervical adenopathy, no supraclavicular adenopathy. PULMONARY: Clear to auscultation. CARDIOVASCULAR: Regular rate without S3, without S4. PMI; however, is diffuse. There is a 2/6 systolic murmur along the left sternal border. ABDOMEN: Obese. Unable to appreciate an organomegaly. EXTREMITIES: Distal pulses are diminished with 1 Doppler pulses in lower extremity. NEUROLOGIC: The patient, however, is intact, alert, oriented. 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 HEMATURIA UTI PT WAS ON BUMEX WHEN DCed BUT NOT TAKING MEDS HYPERKALEMIA UNOPPOSED ALDACTONE Assessment/Plan MILRINONE DRIP ABX LASIX DRIP HOLD ANY K SUPPLEMENT SEVERE HYPOKALEMIA NOW RESUME K+ SUPPLEMENT DIAMOX IV DNR PROGRAM OFF AICD HOLD BUMEX DOSE OF DIAMOX DISCUSSED WITH DAUGHTER CURRENTLY ON BIPAP DNR DAUGHTER IS AGREEABLE TO HOSPICE WILL DIURESE ADEQUATELY THAN HOME ON HOSPICE CXR WORSENING EFFUSION/ CONSOLIDATION INHALER WITH MUCOMYST CO2 RETENTION/ DECREASE O2 TO INCREASE HYPOXIC DRIVE GIVE DIAMOX TO CORRECT CONTRACTION ALKALOSIS/ METABOLIC ALKALOSIS METABOLIC ALKALOSIS IS IMPROVING WITH DIAMOX DECREASE TO 2 LITERS TRY OFFBIPAP CHECK CHEST XRAY, BNP, ABG AND LYTES MULTIORGAN FAILURE COMFORT MEASURES DC Dietary Evaluation Review Comments: 1) Consider a CCHO 60g/Cardiac diet 2) Continue current plan of care Expected Outcomes/Goals: F/U in 3-5 days Plan discussed with: Patient, Daughter Critical Care Time(min): 35 CHRISTINA KAMARA MD Jun 09, 2024 13:54
[2024-06-10] VITALS (11 sets, daily range): BP systolic 91–120; BP diastolic 46–82; PULSE 80–115; RESP 18–27; TEMP 98.1–99.3; O2SAT 94–99
[2024-06-10] MEDS ORDERED: MORPHINE SULFATE INJ 2 MG/ml SYRG IV PRN (12:30)
--- NOTE | 2024-06-10 12:30 | DVHPN2 ---
Progress Note Date Seen: Jun 10, 2024 Has the PT tested + for MRSA If YES, has PT been informed?: No Medical Necessity Reason Pt with a Central, PICC or Fol: Yes The following are medically ne: Stubbs Catheter Reason for stubbs catheter: Strict I&O Subjective Patient reports: No new complaints Review of Systems: HEENT:Normal, CVS:Normal, RESPIRATORY:Normal, GI:Normal, :Normal, MSK:Normal, NEURO:Normal Objective vital signs Vital Sign Date Time Temp Pulse Resp B/P (MAP) Pulse Ox O2 Delivery O2 Flow Rate FiO2 06/10/24 10:00 97 Oxymizer 8.0 06/10/24 10:00 50 50 06/10/24 09:00 98.1 109 20 107/66 (80) 98.1 Total Intake and Output 06/09/24 06/09/24 06/10/24 15:00 23:00 07:00 Intake Total 300 ml 250 ml 50 ml Output Total 150 ml 100 ml Balance 300 ml 100 ml -50 ml medications Current Medications Medications Dose Ordered Sig/Danis Route Start Time Stop Time Status Last Admin Dose Admin Sodium Chloride 10 ml Q8HR IV 05/28/24 06:00 06/10/24 06:01 10 ML Docusate Sodium 100 mg BIDPRN PRN PO 05/28/24 01:15 Acetaminophen 650 mg Q6HP PRN PO 05/28/24 01:15 Nitroglycerin 0.4 mg Q5MINP PRN SL 05/28/24 01:15 Apixaban 2.5 mg BID PO 05/28/24 10:00 UNV Clopidogrel Bisulfate 75 mg DAILY PO 05/28/24 10:00 06/06/24 10:17 75 MG Sertraline HCl 100 mg DAILY PO 05/28/24 10:00 06/06/24 10:17 100 MG Vitamin A/Vitamin D 5 gm DAILY PRN TOP 05/28/24 01:30 Diagnostic Test (Pha) 1 strip ACHS 05/28/24 07:00 06/10/24 11:52 1 STRIP Insulin Human Regular ACHS SC 05/28/24 07:00 06/09/24 17:31 3 UNITS Dextrose 50 ml UD PRN IV 05/28/24 02:30 Morphine Sulfate 1 mg Q4HPRN PRN IV 06/03/24 12:15 06/07/24 22:59 1 MG Lorazepam 0.5 mg Q6HP PRN IV 06/03/24 12:15 06/09/24 00:55 0.5 MG Levothyroxine Sodium 75 mcg QAM PO 06/05/24 07:00 06/06/24 06:12 75 MCG Acetylcysteine 200 mg Q8HR NEB 06/04/24 14:00 06/10/24 06:28 200 MG Ceftriaxone Sodium 50 ml @ 100 mls/hr DAILY@09 IV 06/04/24 09:32 06/10/24 09:01 100 MLS/HR Ipratropium [place] 0.5 mg Q8HR NEB 06/05/24 14:00 06/10/24 06:27 0.5 MG Potassium Bicarbonate 50 meq DAILY PO 06/06/24 11:00 06/06/24 13:00 50 MEQ Methylprednisolone Sodium Succinate 40 mg Q6H IV 06/06/24 12:45 06/10/24 06:03 40 MG Examination: GENERAL:Normal, HEENT:Normal, NECK:Normal, LUNGS:Normal, LUNGS:Abnormal (on oxymizer, rales), CVS:Normal, ABDOMEN:Normal, MSK:Normal, SKIN:Normal, NEURO:Normal, NEURO:Abnormal (encephalopathy), :Normal laboratory and microbiology Laboratory Tests 06/09/24 05:05 Test 06/09/24 05:05 Range/Units Serum Glucose 168 H 74-106 mg/dL Microbiology Date/Time Source Procedure Growth Status 05/28/24 08:06 Blood Blood Culture - Final NO GROWTH AFTER 5 DAYS OF INCUBATION. Complete 05/28/24 03:40 Voided Urine Urine Culture - Final Complete Problem List/Assessment/Plan Problem List/Assessment/Plan #1 acute on chronic respiratory failure. #2 Acute myocardial infarction, status post stent with coronary artery disease. #3 Acute on chronic systolic heart failure: dobutamine drip #4 Diabetes mellitus. #5 Chronic obstructive pulmonary disease: iv steroids #6 Hypertension. #7 Morbid obesity. #8 Hypothyroidism. #9 Status post automatic implantable cardioverter defibrillator. #10 Pulmonary embolism, status post inferior vena cava filter, dc eliquis #11 Sleep apnea. #12 acute liver failure: dc norco, dc doxy poor prognosis- explained to advance care planning - comfort measures- dw /dr Ghanshyma- time spent 21 mins Plan discussed with: Patient, Spouse My Orders My Orders Orders - DOLLY MAN MD Procedure Category Date Status Time Morphine Sulfate PHA 06/10/24 Verified Injection 12:30 Lorazepam 2mg/Ml Inj PHA 06/10/24 Verified (Ativan Inj) 12:30 Dietary Evaluation Review Comments: 1) Consider a CCHO 60g/Cardiac diet 2) Continue current plan of care Expected Outcomes/Goals: F/U in 3-5 days Date of Service: Jun 10, 2024 Billing Provider: DOLLY MAN MD Common Visit Codes: [id number] INP/OBS CARE(HIGH) Secondary Visit Codes: [id number] CARE PLAN 30 MINUTES DOLLY MAN MD Jun 10, 2024 12:30
--- NOTE | 2024-06-10 12:37 | DVHPN2 ---
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 HEMATURIA UTI PT WAS ON BUMEX WHEN DCed BUT NOT TAKING MEDS HYPERKALEMIA SECONDARY TO ONLY BEING ON ALDACTONE vital signs Vital Sign Date Time Temp Pulse Resp B/P (MAP) Pulse Ox O2 Delivery O2 Flow Rate FiO2 06/10/24 10:00 97 Oxymizer 8.0 06/10/24 10:00 50 50 06/10/24 09:00 98.1 109 20 107/66 (80) 98.1 Total Intake and Output 06/09/24 06/09/24 06/10/24 15:00 23:00 07:00 Intake Total 300 ml 250 ml 50 ml Output Total 150 ml 100 ml Balance 300 ml 100 ml -50 ml medications Current Medications Medications Dose Ordered Sig/Danis Route Start Time Stop Time Status Last Admin Dose Admin Sodium Chloride 10 ml Q8HR IV 05/28/24 06:00 06/10/24 06:01 10 ML Docusate Sodium 100 mg BIDPRN PRN PO 05/28/24 01:15 Acetaminophen 650 mg Q6HP PRN PO 05/28/24 01:15 Nitroglycerin 0.4 mg Q5MINP PRN SL 05/28/24 01:15 Apixaban 2.5 mg BID PO 05/28/24 10:00 UNV Vitamin A/Vitamin D 5 gm DAILY PRN TOP 05/28/24 01:30 Dextrose 50 ml UD PRN IV 05/28/24 02:30 Morphine Sulfate 2 mg Q1HP PRN IV 06/10/24 12:30 UNV Lorazepam 1 mg Q1HP PRN IV 06/10/24 12:30 UNV objective HEENT: Pupils are reactive. Funduscopic exam shows some AV nicking and hard exudates, no papilledema noted. Sclerae are anicteric. NECK: No JVD appreciated. Carotid pulses are 2+ and symmetrical. No cervical adenopathy, no supraclavicular adenopathy. PULMONARY: Clear to auscultation. CARDIOVASCULAR: Regular rate without S3, without S4. PMI; however, is diffuse. There is a 2/6 systolic murmur along the left sternal border. ABDOMEN: Obese. Unable to appreciate an organomegaly. EXTREMITIES: Distal pulses are diminished with 1 Doppler pulses in lower extremity. NEUROLOGIC: The patient, however, is intact, alert, oriented. 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 HEMATURIA UTI PT WAS ON BUMEX WHEN DCed BUT NOT TAKING MEDS HYPERKALEMIA UNOPPOSED ALDACTONE Assessment/Plan MILRINONE DRIP ABX LASIX DRIP HOLD ANY K SUPPLEMENT SEVERE HYPOKALEMIA NOW RESUME K+ SUPPLEMENT DIAMOX IV DNR PROGRAM OFF AICD HOLD BUMEX DOSE OF DIAMOX DISCUSSED WITH DAUGHTER CURRENTLY ON BIPAP DNR DAUGHTER IS AGREEABLE TO HOSPICE WILL DIURESE ADEQUATELY THAN HOME ON HOSPICE CXR WORSENING EFFUSION/ CONSOLIDATION INHALER WITH MUCOMYST CO2 RETENTION/ DECREASE O2 TO INCREASE HYPOXIC DRIVE GIVE DIAMOX TO CORRECT CONTRACTION ALKALOSIS/ METABOLIC ALKALOSIS METABOLIC ALKALOSIS IS IMPROVING WITH DIAMOX DECREASE TO 2 LITERS TRY OFFBIPAP CHECK CHEST XRAY, BNP, ABG AND LYTES MULTIORGAN FAILURE COMFORT MEASURES DC TERMINAL WILL DC AICD Dietary Evaluation Review Comments: 1) Consider a CCHO 60g/Cardiac diet 2) Continue current plan of care Expected Outcomes/Goals: F/U in 3-5 days Plan discussed with: Patient, Spouse CHRISTINA KAMARA MD Jun 10, 2024 12:37
[2024-06-10] MEDS: LORazepam 2MG/ML-1ML VIAL IV PRN (13:08)
--- NOTE | 2024-06-10 15:24 | PRN ---
Misceleneous Note Note Note * The patient was evaluated at bedside as per request of RN in [place] of the primary team. * The patient did not have spontaneous pulse, respiratory effort, reflex or brainstem functions. * The patient was pronounced clinically at 2:50 pm of 06/10/2024. * The patient family was updated and paid proper respectful empathy. DENZEL CABRERA RESIDENT Jun 10, 2024 15:24
--- NOTE | 2024-06-10 17:50 | DVHDS ---
DATE OF DISCHARGE: 06/10/2024 DATE OF : 06/10/2024. HISTORY OF PRESENT ILLNESS: The patient is a 78-year-old gentleman, who was admitted with history of increasing shortness of breath and has history of coronary artery disease, status post stent placement; congestive heart failure; COPD; atrial fibrillation; hypertension; sleep apnea; diabetes mellitus; previous AICD; GERD. HOSPITAL COURSE: The patient was seen in Cardiology consult by Dr. Morrissey. The patient was started on diuretic drip. He was also started on dobutamine. The patient's respiratory status, however, remained poor. He also developed worsening renal failure. The patient was made a DNR by the family. The patient also developed a shock liver. The patient was made comfort measures by the family, and he on 06/10/2024. FINAL DIAGNOSES: 1. [id number] respiratory failure. 2. History of coronary artery disease, status post stent. 3. Eeuvv-[id number] systolic heart failure. 4. Diabetes mellitus. 5. Chronic obstructive pulmonary disease exacerbation. 6. Hypertension. 7. Morbid obesity. 8. Hypothyroidism. 9. History of pulmonary embolism, status post IVC filter. 10. Sleep apnea. 11. History of AICD. 12. Acute renal failure, likely vasomotor nephropathy. 13. Acute liver failure. 13. Comfort measures. MD GIOVANY Mendoza/TREVOR TID: [id number] RECEIPT: [id number]
== END 2024-06-11 03:50 | DRG 177 ==
LOC: ER 23:38 → EDBD 23:38 → TELE 05-28 01:06 → TELE-WESTW 05-28 22:07
PROVIDERS: ADMIT Internal Medicine; ATTEND Internal Medicine
PROC: 5A09357 Assistance with Respiratory Ventilation, Less than 24 Consecutive Hours, Continuous Positive Airway Pressure (ICD-10-PCS; principal; 2024-05-28)
PROC: 5A09357 Assistance with Respiratory Ventilation, Less than 24 Consecutive Hours, Continuous Positive Airway Pressure (ICD-10-PCS; 2024-05-29)
PROC: 5A09357 Assistance with Respiratory Ventilation, Less than 24 Consecutive Hours, Continuous Positive Airway Pressure (ICD-10-PCS; 2024-05-30)
PROC: 5A09357 Assistance with Respiratory Ventilation, Less than 24 Consecutive Hours, Continuous Positive Airway Pressure (ICD-10-PCS; 2024-05-31)
PROC: 5A09357 Assistance with Respiratory Ventilation, Less than 24 Consecutive Hours, Continuous Positive Airway Pressure (ICD-10-PCS; 2024-06-01)
PROC: 5A09357 Assistance with Respiratory Ventilation, Less than 24 Consecutive Hours, Continuous Positive Airway Pressure (ICD-10-PCS; 2024-06-02)
PROC: 5A09357 Assistance with Respiratory Ventilation, Less than 24 Consecutive Hours, Continuous Positive Airway Pressure (ICD-10-PCS; 2024-06-03)
PROC: 5A09357 Assistance with Respiratory Ventilation, Less than 24 Consecutive Hours, Continuous Positive Airway Pressure (ICD-10-PCS; 2024-06-04)
PROC: 5A09357 Assistance with Respiratory Ventilation, Less than 24 Consecutive Hours, Continuous Positive Airway Pressure (ICD-10-PCS; 2024-06-05)
PROC: 5A09457 Assistance with Respiratory Ventilation, 24-96 Consecutive Hours, Continuous Positive Airway Pressure (ICD-10-PCS; 2024-06-06)
PROC: 5A09357 Assistance with Respiratory Ventilation, Less than 24 Consecutive Hours, Continuous Positive Airway Pressure (ICD-10-PCS; 2024-06-08)
PROC: 5A09357 Assistance with Respiratory Ventilation, Less than 24 Consecutive Hours, Continuous Positive Airway Pressure (ICD-10-PCS; 2024-06-09)
DX: J15.69 Pneumonia due to other Gram-negative bacteria (principal); I50.23 Acute on chronic systolic (congestive) heart failure; J96.21 Acute and chronic respiratory failure with hypoxia; N17.0 Acute kidney failure with tubular necrosis; K72.00 Acute and subacute hepatic failure without coma; J44.1 Chronic obstructive pulmonary disease with (acute) exacerbation; N39.0 Urinary tract infection, site not specified; E87.4 Mixed disorder of acid-base balance; J44.0 Chronic obstructive pulmonary disease with (acute) lower respiratory infection; J90 Pleural effusion, not elsewhere classified; I11.0 Hypertensive heart disease with heart failure; J15.9 Unspecified bacterial pneumonia; E66.01 Morbid (severe) obesity due to excess calories; Z66 Do not resuscitate; E11.40 Type 2 diabetes mellitus with diabetic neuropathy, unspecified; E87.6 Hypokalemia; E03.9 Hypothyroidism, unspecified; E87.5 Hyperkalemia; E88.810 Metabolic syndrome; G47.30 Sleep apnea, unspecified; I25.10 Atherosclerotic heart disease of native coronary artery without angina pectoris; I25.5 Ischemic cardiomyopathy; I48.91 Unspecified atrial fibrillation; E78.5 Hyperlipidemia, unspecified; G47.33 Obstructive sleep apnea (adult) (pediatric); K21.9 Gastro-esophageal reflux disease without esophagitis; Z79.01 Long term (current) use of anticoagulants; Z86.711 Personal history of pulmonary embolism; Z86.73 Personal history of transient ischemic attack (TIA), and cerebral infarction without residual deficits; Z95.810 Presence of automatic (implantable) cardiac defibrillator; Z95.828 Presence of other vascular implants and grafts; Z95.5 Presence of coronary angioplasty implant and graft; Z68.36 Body mass index [BMI] 36.0-36.9, adult
CPT/HCPCS: 36415; 36600; 71045; 71275; 76604; 80048; 80053; 80307; 81001; 82306; 82607; 82805; 82962; 83036; 83605; 83735; 83880; 84100; 84439; 84443; 84481; 84484; 85007; 85025; 85027; 85379; 85610; 85730; 87040; 87086; 87426; 87804; 93005; 93971; 94640; 94660; 99291; G0378; J1815; J2003; J3480; J3490